=== PATIENT | female | born 1980 | race Caucasian/White ===

== ENCOUNTER → 2016-04-29 | Outpatient (CLI) | payer OTHER ==
[2016-04-29 10:37] LABS: Basophils # (A) 0.2 k/uL (0-0.2); Basophils % (A) 2 %; CH 32.2; CHCM 32.7; Eosinophils % (A) 0 %; HCT 41.4 % (34.0-46.0); HDW 2.51; HGB 13.4 gm/dL (11.4-16.0); Luc # (Auto) 0.09; Luc % (Auto) 1; Lymphocytes # (A) 1.5 k/uL (1.0-4.8); Lymphocytes % (A) 20 %; MCH 31.9 pg (25.0-35.0); MCHC 32.3 g/dL (31.0-37.0); MCV 98.8 fL (80.0-100.0); Mean Platelet Volume 10.3; Monocytes # (A) 0.5 k/uL (0-1.0); Monocytes % (A) 7 %; Neutrophils # (A) 5.5 k/uL (1.3-7.7); Neutrophils % (A) 70 %; RBC 4.19 m/uL (3.80-5.40); RDW 13.3 % (11.5-15.5); WBC 7.8 k/uL (3.8-10.6); WBC (Perox) 8.35
[2016-04-29 10:59] LABS: ALT 30 U/L (9-52); AST 26 U/L (14-36); Alkaline Phosphatase 89 U/L (38-126); Anion Gap 11 mmol/L; Bilirubin, Delta 0.1 mg/dL (0.0-0.2); Blood Urea Nitrogen 11 mg/dL (7-17); Carbon Dioxide 22 mmol/L (22-30); Chloride 111 mmol/L (98-107); Lithium 0.9 mmol/L; Non-African American GFR(MDRD) >60 (>60 ml/min/1.73 sqM); Sodium 144 mmol/L (137-145); Total Bilirubin 0.4 mg/dL (0.2-1.3); Total Protein 7.1 g/dL (6.3-8.2)
== END | disposition home or self-care (01) ==
LOC: LABWHC1 10:02
PROVIDERS: ATTEND Nurse Practitioner Family
DX: Z51.81 Encounter for therapeutic drug level monitoring (principal); Z79.899 Other long term (current) drug therapy
CPT/HCPCS: 36415; 80051; 80076; 80178; 80183; 82565; 84439; 84443; 84520; 85025

== ENCOUNTER → 2016-06-22 | Outpatient (CLI) | payer OTHER ==
--- NOTE | 2016-06-22 11:02 | MR ---
EXAMINATION TYPE: MR lumbar spine wo con DATE OF EXAM: 06/22/2016 9:24 AM COMPARISON: NONE HISTORY: Back pain TECHNIQUE: Multiplanar, multisequence images of the lumbar spine were acquired. L1-L2: Circumferential posterior broad-based disc bulge somewhat eccentric towards the left causes mi nimal anterior mass effect on the thecal sac. No significant central stenosis or foraminal encroachme nt. L2-L3: Circumferential posterior broad-based disc bulge causes mild anterior mass effect on the theca l sac. Hypertrophic change of the ligamentum flavum causes posterior lateral mass effect on the theca l sac, no significant foraminal encroachment or central stenosis. L3-L4: Circumferential posterior extension of endplate disc complex causes anterior mass effect on th e thecal sac somewhat eccentric appearance towards the left, circumferential extension of endplate di sc complex results in foraminal encroachment greater on the left. Facet arthropathy is mild. On mild central stenosis. L4-L5: Hypertrophic change at the ligamentum flavum causes lateral recess encroachment, circumferenti al extension of endplate disc complex results in foraminal encroachment bilaterally, there is anterio r mass effect on the thecal sac, trefoil appearance of the thecal sac. L5-S1: Broad-based circumferential posterior disc bulge contacts the anterior S1 nerve roots and exte nds circumferentially to cause bilateral foraminal encroachment right greater than left. There is stanley e facet arthropathy change encroaching on the lateral recesses. No significant central stenosis. Lumbar segments are intact. No paraspinal masses are identified. Conus medullaris has a normal appe arance. Cortical cysts are present within the right kidney and left kidney. Lumbar vertebral bodies s how preserved height, there is retrolisthesis grade 1 L2-3, L3-4, L4-5. Loss of disc height at the in tervertebral levels, there is multilevel spondylosis with endplate discogenic marrow signal change. IMPRESSION: Degenerative disc disease, facet arthropathy, multilevel foraminal encroachment. Additional findings.
== END | disposition home or self-care (01) ==
LOC: RADMRIMAIN 08:49
PROVIDERS: ATTEND Internal Medicine Rheumatology
DX: M51.36 Other intervertebral disc degeneration, lumbar region (principal); M46.96 Unspecified inflammatory spondylopathy, lumbar region
CPT/HCPCS: 72148

== ENCOUNTER 2016-08-21 12:50 | Day surgery (SDC) | payer OTHER ==
[2016-08-17 15:50] VITALS: BMI 28.8
[~2016-08-21 12:50] MED LIST: DEXAMETHASONE SOD PHOSPHATE 10 MG/ML 1 ML VIAL IV ONE; HYDROmorphone 1 MG/ML 1 ML SYRINGE IVP PRN; LACTATED RINGERS 1,000 ML IV SCH; MIDAZOLAM 2 MG/2 ML VIAL IV PRN; ONDANSETRON 4 MG/2 ML VIAL IVP ONE; SCOPOLAMINE 1.5MG/72HR PATCH TRANSDERM ONE; ceFAZolin 2 GM in SODIUM CHLORIDE 0.9% 100 ML IVPB ONE
[2016-08-21] MEDS ORDERED: LIDOCAINE 1% 20 ML VIAL (10MG/ML) FOR IV START INTRADERMA ONE (13:48)
[2016-08-21] MEDS ORDERED: LIDOCAINE 1% INJ 10MG/ML (20 ML MDV) ONE (14:05)
[2016-08-21] MEDS ORDERED: ROCURONIUM BROMIDE 10 MG/ML 10 ML VIAL IV ONE (14:05)
[2016-08-21] MEDS ORDERED: MIDAZOLAM 2 MG/2 ML VIAL ONE (14:05)
[2016-08-21] MEDS ORDERED: fentaNYL (PF) 50 MCG/ML 2 ML AMP ONE (14:05)
[2016-08-21] MEDS ORDERED: ePHEDrine 50 MG/ML 1 ML AMP ONE (14:05)
[2016-08-21] MEDS ORDERED: HYDROmorphone (PF) 1 MG/ML ONE (14:05)
[2016-08-21] MEDS ORDERED: PROPOFOL 10 MG/ML 20 ML VIAL IV ONE (14:05)
[2016-08-21] MEDS ORDERED: PHENYLEPHRINE-0.9% NACL SYG 1 MG/10 ML SYRINGE ONE (14:05)
[2016-08-21] MEDS ORDERED: SUCCINYLCHOLINE CHLORIDE 100 MG/5 ML SYR IV ONE (14:05)
[2016-08-21] MEDS ORDERED: ceFAZolin 1,000 MG in SODIUM CHLORIDE 0.9% 1,000 ML IRRIGATION ONE (14:35)
[2016-08-21] MEDS ORDERED: LACTATED RINGERS 1,000 ML IV ONE (15:36)
--- NOTE | 2016-08-21 15:58 | FL ---
EXAMINATION TYPE: FL guidance operating room DATE OF EXAM: 08/21/2016 HISTORY: Flouroscopy time 17 seconds of fluoroscopy provided. IMPRESSION: 1. Fluoroscopy time.
--- NOTE | 2016-08-21 15:59 | XR ---
EXAMINATION TYPE: XR foot limited RT DATE OF EXAM: 08/21/2016 3:55 PM COMPARISON: NONE HISTORY: Postop TECHNIQUE: One view obtained. FINDINGS: Postsurgical changes are seen involving the first and second digit which appear in near-anatomic alig nment. IMPRESSION: Surgical change appears in near-anatomic alignment
[2016-08-21 16:24] VITALS: TEMP 97.5
[2016-08-21 16:34] VITALS: RESP 18
--- NOTE | 2016-08-21 16:34 | P.OP ---
Date of Procedure: 08/21/16 Preoperative Diagnosis: 1. Right hallux valgus with hypermobile first ray 2. Right gastrocnemius equinus contracture 3. Rheumatoid arthritis 4. History of cigarette smoking Postoperative Diagnosis: Same Procedure(s) Performed: 1. Correction of hallux valgus with modified Lapidus procedure 2. Right gastrocnemius recession obtained through a separate incision Implants: Anesthesia: MAHIN Surgeon: Joseph Middleton Cattle Killer #1: Nasim Narayanan Estimated Blood Loss (ml): 10 IV fluids (ml): 1,100 Pathology: none sent Condition: stable Disposition: PACU Indications for Procedure: The patient is a 36-year-old female medical history significant for maternal arthritis and a history of cigarette smoking. I began seeing the patient over the last several months with a hypermobile bunion. The patient has had ultimately years of treatment including she modification, orthotics, bunion pads , toe spacers, stretching, and physical therapy all with diminishing relief. She has had increasing pain over the medial eminence for first MTP joint that is made finding comfortable shoes difficult. The patient was initially managed nonsurgically by myself. Due to his continued pain she came requesting surgery. The patient has been working on quitting smoking. She has significant cut back. Initially I told her I would not perform surgery unless she quit smoking and she was able to significantly cut back from 1 pack a day down to several cigarettes. The patient came in to see me several weeks ago requesting surgery. We again discussed that would be in her best interest to wait until she completely quit but she says that she has got significantly back and was hoping I would make a compromise with her. We discussed the potential risks and complication of surgery which are elevated because she has a smoker including but not limited to risk of anesthesia, risk of superficial infection, risk of deep infection, risk of delayed wound healing, risk of wound necrosis, risk of nonunion of the fusion site, risk of malunion of the fusion site, risk of intraoperative or postoperative fracture, risk of recurrent hallux valgus deformity, risk of hallux varus deformity, risk of damage to local sensory nerves resulting in the upper or permanent numbness, risk of chronic pain, risk of chronic swelling, risk of difficulty with shoewear following surgery, risk of need for further surgery, and generalized to satisfaction with surgery. The patient understands all these risks and that she is at a higher risk of having a Location due to being a smoker. She voiced her understanding in the office and signed the consent form. Operative Findings: Description of Procedure: The patient was identified in preoperative holding and the correct right lower, is marked my initials. I reviewed the consent form with the patient all for questions were answered. The patient was then brought back to the operating room where general anesthetic was administered. She was transferred to an operating room table and all her bony prominences were padded. A tourniquet was applied to the proximal aspect of the right leg. A ramp was placed under her right leg. A bump was placed under her right buttock. The patient's right leg was then prepped and draped in the standard sterile fashion. Preoperative antibiotics were administered. A timeout was then performed identifying the correct patient, operative extremity, and procedure. The patient's leg was then elevated, exsanguinated with an Esmarch bandage and tourniquet was inflated to 250 mmHg. An incision was out over the posterior medial calf 1 thumb breadth posterior to the tibia. Skin incision was made a 15 by scalpel and dissection was carried down carefully through subcutaneous tissue to superficial fascia which was incised longitudinally in line with the skin incision. I Bowley develop the interval between the gastrocnemius aponeurosis and fascia and the gastroc aponeurosis and soleus. The sural nerve was identified adherent to the superficial fascia. Modified right angle retractors were placed in both intervals isolating the gastrocnemius aponeurosis. The aponeurosis was then transected sharply from medial to lateral under direct visualization in its entirety. After the gastroc was released there is a significant increase in dorsiflexion. I verified that the sural nerve was still intact. The wound was then copiously irrigated and closed in layers with 2-0 Vicryl in the subcu and 3 -0 nylon horizontal mattress stitches and the skin. An incision was then marked out over the medial eminence of the first MTP joint. Skin incision was made a 15 blade scalpel and dissection was carried down carefully through the subcutaneous tissue to the capsule over the MTP joint. The capsule was incised longitudinally in line with the skin incision. A microsagittal saw was used to remove a small bony section of the medial eminence with the saw cut starting medial to the sulcus. A small wafer of bone was removed and a rasp was used to contour the medial eminence. A [place] was then placed underneath the metatarsal head to release adhesions and help reduce the first metatarsal head over the sesamoids. The joint was gently distracted and a clean scalpel was placed to release the lateral capsule sharply. A varus force was applied to the big toe to perform a lateral release. A longitudinal incision was then made centered over the first tarsometatarsal joint. Skin incision was made a 15 blade scalpel and dissection was carried down carefully through subcutaneous tissue. A superficial sensory nerves identified and carefully retracted. The EHL tendon sheath was incised longitudinally in line with the skin incision. The periosteum over the first TMT joint was sharply elevated. The first TMT joint was then exposed and the articular cartilage was removed with a combination of osteotomes and curettes. All the cartilage was removed from the joint taking care to reach the plantar aspect of the joint to prevent a dorsiflexion malunion. The 1-2 intermetatarsal space was also exposed and the medial border of the second metatarsal was exposed and perforated with a 2.0 mm drill bit along with the lateral base of the first metatarsal to help facilitate fusion. The 2.0 mm drill bit was then used to perforate the first tarsometatarsal joint, both the first metatarsal base and medial cuneiform joint surfaces. A Kory was placed along the inferior first MTP capsule and a wooden handled AO elevator was placed over the middle cuneiform. The first metatarsal was then reduced with lateral pressure applied to the distal first metatarsal in an attempt to close down the 1-2 inner metatarsal space. A K wire was placed eccentric we across the joint holding the reduction. A 5 mm bur was used to create a pocket hole one and a half centimeters from the first TMT joint on the dorsal surface of the first metatarsal. A 3.5 mm drill bit was used to create a gliding hole in the first metatarsal and a 2.5 mm drill bit was used to create a threaded hole and the medial cuneiform. A fully threaded 3.5 mm screw measuring 45 mm was placed generating excellent compression across the first TMT joint. The K wire was removed and the reduction of the joint held. A second lag screw was placed from the dorsal surface of the medial cuneiform to the first metatarsal base. A 3.5 mm drill bit was used to create a gliding hole in the medial cuneiform and a 2.5 mm drill bit was used to create a threaded hole in the first metatarsal base. A fully threaded 3.5 mm screw was placed. A 1-2 or metatarsal screw was then placed. A stab incision was made under the screw head of the retrograde screw along the medial border of the first metatarsal. A K wire was placed from the medial base of the first metatarsal into the base of the second metatarsal. A 2.7 mm drill bit was used to create a path for the screw. A fully threaded 3.5 mm screw was placed from the base of the first metatarsal into the base of the second metatarsal. The first MTP joint was then irrigated through the distal incision. A small section of the capsule was removed and attempted imbricate the medial capsule and improve the hallux valgus deformity. 0 Vicryl suture was used to close the medial capsule improving the correction of the hallux valgus deformity. Final x-rays were taken including both in AP and lateral view. There was improvement in the 12 intermetatarsal angle and correction of hallux valgus deformity. The hardware appeared to be an extensile position with compression across the first TMT joint. Both wounds were then copiously irrigated. A bur was used to create 2 spot welds over the medial and lateral aspect of the dorsal first TMT joint to create stress-strain bone graft sites. Bone graft taken from the medial eminence the first MTP joint was packed in these 2 spots. The periosteum over the first TMT joint was then closed with a running 0 Vicryl stitch. The subcutaneous tissue of both wounds was closed with interrupted 2-0 Vicryl stitches. The skin was closed with 3-0 nylon horizontal mattress stitches area I verified with the refrigeration tech that all sponge, sharp, and needle counts were correct. A sterile dressing consisting of Betadine soaked Adaptic, 4 x 4, and web roll was applied. The tourniquet was let down. The drapes were then taken down and a well-padded bulky Gómez type splint was applied. The patient was awoken from her anesthetic, transferred to the [facility] and brought to PACU in The procedure well. Nasim Narayanan was required is a skilled health center assistant for patient positioning, surgical approach, retraction during surgery, closure, and application of splint. Next Plan: The patient is to be strictly nonweightbearing on her right leg. Anesthesia will place a popliteal and saphenous nerve block in recovery. She' ll discharge home with oral pain medication and aspirin for DVT prophylaxis. We 'll plan on seeing her back in the office in 2 weeks for splint removal, wound exam and nonweightbearing x-rays of the right foot.
[2016-08-21] MEDS ORDERED: ROPIVACAINE 5 MG/ML 30 ML VIAL MISCELLANE STA (17:18)
[2016-08-21 17:58] VITALS: BP 113/57; PULSE 80
== END 2016-08-21 18:58 | disposition home or self-care (01) ==
LOC: OR 12:50
PROVIDERS: ATTEND Orthopaedic Surgery
DX: M20.11 Hallux valgus (acquired), right foot (principal); M24.574 Contracture, right foot; M06.871 Other specified rheumatoid arthritis, right ankle and foot; R51 Headache; E03.9 Hypothyroidism, unspecified; F31.9 Bipolar disorder, unspecified; F17.210 Nicotine dependence, cigarettes, uncomplicated; Z79.899 Other long term (current) drug therapy
CPT/HCPCS: 28297; 27687; 81025; 73620; C1713; J2250; J1100; J0690 ×2; J2405; J2001; J3010; J1170; J2370; J0330; J2704

== ENCOUNTER → 2016-10-05 | Outpatient (CLI) | payer OTHER ==
--- NOTE | 2016-10-05 11:53 | MR ---
EXAMINATION TYPE: MR lumbar spine wo con DATE OF EXAM: 10/05/2016 COMPARISON: Prior lumbar MRI 06/22/2016 HISTORY: Low back pain TECHNIQUE: Multiplanar, multisequence images of the lumbar spine were acquired. L1-L2: Posterior broad-based disc bulge causes minimal anterior mass effect on the thecal sac. No sig nificant foraminal encroachment or central stenosis. L2-L3: Posterior broad-based disc bulge causes mild anterior mass effect on the thecal sac, no signif icant central stenosis or foraminal encroachment. L3-L4: Similar appearance with facet arthropathy and hypertrophy of ligamentum flavum, circumferentia l extension of endplate disc complex contributes with scoliosis to cause foraminal encroachment on th e left. No significant central canal stenosis, broad-based posterior disc bulge causes mild anterior mass effect on the thecal sac somewhat eccentric towards the left. L4-L5: Facet arthropathy with hypertrophy ligamentum flavum encroaches on the lateral recesses, circu mferential extension endplate disc complex which is similar appearance, there is some foraminal encro achment greater on the right. L5-S1: Circumferential extension of endplate disc complex encroaches on the neural foramina as on mary or exam, broad-based posterior disc bulge may contact the proximal S1 nerve roots. There is facet art hropathy. Lumbar segments are intact. No paraspinal masses are identified. Conus medullaris has a normal appe arance. There is a spinal curvature as on prior. Cystic right ovarian mass measures approximately 3.3 cm. Small cortical cyst upper pole right kidney again noted. Loss of disc height and signal is stabl e compared to prior exam and is noted especially at L3-4, L4-5, there is endplate discogenic marrow s ignal change with multilevel spondylosis. Alignment is stable, minimal retrolisthesis grade 1 L5, L3- 4. IMPRESSION: Degenerative disc disease, multilevel foraminal encroachment, spinal curvature, facet arthropathy. Po ssible right ovarian cyst. Findings in the spine are similar to prior exam. Additional findings above .
== END | disposition home or self-care (01) ==
LOC: RADMRIMAIN 09:16
PROVIDERS: ATTEND Physical Medicine & Rehabilitation
DX: M51.16 Intervertebral disc disorders with radiculopathy, lumbar region (principal); M51.17 Intervertebral disc disorders with radiculopathy, lumbosacral region
CPT/HCPCS: 72148

== ENCOUNTER → 2017-05-03 | Outpatient (CLI) | payer OTHER ==
--- NOTE | 2017-05-04 07:22 | MM ---
Reason for exam: screening (asymptomatic). Baseline mammogram. History: Family history of breast cancer in mother at age 40 and breast cancer in sister at age 40. Physical Findings: Nurse did not find any significant physical abnormalities on exam. MG Screening Mammo w CAD Bilateral CC and MLO view(s) were taken. The breast tissue is heterogeneously dense. This may lower the sensitivity of mammography. There is no discrete abnormality. These results were verbally communicated with the patient and result sheet given to the patient on 05/03/17. ASSESSMENT: Negative, BI-RAD 1 RECOMMENDATION: Routine screening mammogram of both breasts at age 38.
== END | disposition home or self-care (01) ==
LOC: RADMAMWWP 14:11
PROVIDERS: ATTEND Family Medicine
DX: Z80.3 Family history of malignant neoplasm of breast (principal)
CPT/HCPCS: 77067

== ENCOUNTER 2017-07-03 10:08 | Emergency (ER) | payer OTHER ==
[2017-07-03] MEDS ORDERED: SODIUM CHLORIDE 0.9% 1,000 ML IV STA (11:10)
[2017-07-03] MEDS ORDERED: MORPHINE SULFATE 4 MG/ML SYRINGE IVP STA (11:10)
[2017-07-03] MEDS ORDERED: PANTOPRAZOLE 40 MG/10 ML VIAL IVP STA (11:10)
[2017-07-03] MEDS ORDERED: ONDANSETRON 4 MG/2 ML VIAL IVP STA (11:10)
[2017-07-03] MEDS ORDERED: SENNOSIDES-DOCUSATE SODIUM 1 EACH TAB PO STA (11:11)
--- NOTE | 2017-07-03 11:33 | XR ---
EXAMINATION TYPE: XR abdomen acute w cxr , 3 VIEWS DATE OF EXAM ORDERED: 07/03/2017 HISTORY: Pain. COMPARISON: None. FINDINGS: The lungs are clear. Pleural space are clear. The heart is not enlarged. Within the abdomen, the abdominal gas pattern is within normal limits. There is no evidence of obstru ction or free air. No unusual calcifications are seen. IMPRESSION: NORMAL CHEST AND ABDOMEN.
--- NOTE | 2017-07-03 12:00 | ED ---
General Adult HPI - General Chief complaint: Abdominal Pain Stated complaint: constipation Time Seen by Provider: 07/03/17 10:55 Source: patient, RN notes reviewed, old records reviewed Mode of arrival: ambulatory Limitations: no limitations - History of Present Illness Initial comments: Is a 37-year-old female the ER for evaluation of bowel pain. Patient usually started on Klonopin, she has history of constipation. States she has not had a bowel movement 1 week. She has tried stool softeners herself with no success. Patient having now mild diffuse abdominal pain with no tenderness - Related Data Home Medications Medication Instructions Recorded Confirmed ARIPiprazole [Abilify] 30 mg PO HS 08/17/16 08/21/16 Etanercept [Enbrel] 50 mg SQ Q7DAYS 08/17/16 08/21/16 Folic Acid 1 mg PO HS 08/17/16 08/21/16 Ibuprofen [Motrin] 800 mg PO Q8HR PRN 08/17/16 08/21/16 Levothyroxine Sodium [Synthroid] 125 mcg PO DAILY 08/17/16 08/21/16 [place] Carbonate 1,200 mg PO HS 08/17/16 08/21/16 Methotrexate Sodium [Methotrexate] 20 mg PO Q7D 08/17/16 08/21/16 OXcarbazepine [Trileptal] 300 mg PO DAILY@1500 08/17/16 08/21/16 OXcarbazepine [Trileptal] 600 mg PO BID 08/17/16 08/21/16 Prazosin [Minipress] 3 mg PO HS 08/17/16 08/21/16 Ranitidine HCl [Zantac] 150 mg PO BID 08/17/16 08/21/16 Topiramate [Topamax] 50 mg PO HS 08/17/16 08/21/16 Vilazodone HCl [Viibryd] 40 mg PO HS 08/17/16 08/21/16 Vitamin B-12 (Unknown Dose) 1 dose PO DAILY 08/17/16 08/21/16 Previous Rx's Medication Instructions Recorded Aspirin 325 mg PO BID #60 tab 08/21/16 Docusate [Colace] 100 mg PO BID #60 capsule 08/21/16 Hydrocodone/Acetaminophen [[place] 1 each PO Q4HR PRN #60 tablet 08/21/16 10-325 Tablet] Sulfamethox-Tmp 800-160Mg [Bactrim 1 tab PO Q12HR #28 tab 08/21/16 DS 800-160 mg] Allergies Allergy/AdvReac Type Severity Reaction Status Date / Time No Known Allergies Allergy Verified 07/03/17 10:12 Review of Systems ROS Statement: Those systems with pertinent positive or pertinent negative responses have been documented in the HPI. ROS Other: All systems not noted in ROS Statement are negative. Past Medical History Past Medical History: GERD/Reflux, Osteoarthritis (OA), Rheumatoid Arthritis (RA ), Thyroid Disorder Additional Past Medical History / Comment(s): BUNION RIGHT FOOT., CHILDHOOD ASTHMA. History of Any Multi-Drug Resistant Organisms: None Reported Past Surgical History: Section Additional Past Surgical History / Comment(s): X4, CYST LEFT HAND. Past Anesthesia/Blood Transfusion Reactions: No Reported Reaction Past Psychological History: Anxiety, Bipolar, Depression Smoking Status: Current every day smoker Past Alcohol Use History: None Reported Past Drug Use History: Marijuana - Past Family History Mother Family Medical History: Cancer, Pulmonary Embolus Additional Family Medical History / Comment(s): BREAST CANCER General Exam Limitations: no limitations General appearance: alert, in no apparent distress Head exam: Present: atraumatic, normocephalic, normal inspection Eye exam: Present: normal appearance, PERRL, EOMI. Absent: scleral icterus, conjunctival injection, periorbital swelling ENT exam: Present: normal exam, mucous membranes moist Neck exam: Present: normal inspection. Absent: tenderness, meningismus, lymphadenopathy Respiratory exam: Present: normal lung sounds bilaterally. Absent: respiratory distress, wheezes, rales, rhonchi, stridor Cardiovascular Exam: Present: normal rhythm, tachycardia, normal heart sounds. Absent: systolic murmur, diastolic murmur, rubs, gallop, clicks GI/Abdominal exam: Present: soft, normal bowel sounds. Absent: distended, tenderness, guarding, rebound, rigid Extremities exam: Present: normal inspection, full ROM, normal capillary refill. Absent: tenderness, pedal edema, joint swelling, calf tenderness Back exam: Present: normal inspection Neurological exam: Present: alert, oriented X3, CN II-XII intact Psychiatric exam: Present: normal affect, normal mood Skin exam: Present: warm, dry, intact, normal color. Absent: rash Course Vital Signs 07/03/17 10:10 Temperature 97.4 F L Pulse Rate 125 H Respiratory 22 Rate Blood Pressure 136/65 O2 Sat by Pulse 100 Oximetry - Reevaluation(s) Reevaluation #1: 07/03/17 11:59 Patient has positive bowel movement after enema Medical Decision Making - Medical Decision Making 37 female the ER without abdominal pain 1 week. X-ray significant for increased stool burden, no obstruction. Patient given enema has positive bowel movement. Patient can be discharged home - Radiology Data Radiology results: report reviewed (X-ray abdomen and KUB negative), image reviewed Disposition Clinical Impression: Constipation Disposition: HOME SELF-CARE Condition: Good Instructions: Constipation (ED) Referrals: Pankaj Her MD [Primary Care Provider] - 1-2 days
[2017-07-03 13:07] VITALS: BP 128/66; PULSE 115; RESP 18; TEMP 97.7
== END 2017-07-03 13:05 | disposition home or self-care (01) ==
LOC: EC 10:08
DX: K59.00 Constipation, unspecified (principal); R10.84 Generalized abdominal pain; K21.9 Gastro-esophageal reflux disease without esophagitis; E07.9 Disorder of thyroid, unspecified; M06.9 Rheumatoid arthritis, unspecified; F31.9 Bipolar disorder, unspecified; F41.9 Anxiety disorder, unspecified; F17.200 Nicotine dependence, unspecified, uncomplicated; Z79.899 Other long term (current) drug therapy
CPT/HCPCS: 74022; 99284

== ENCOUNTER → 2017-07-13 | Outpatient (CLI) | payer OTHER | END | disposition home or self-care (01) | LOC: LABWHC1 15:00 | PROVIDERS: ATTEND Orthopaedic Surgery | DX: E55.9 Vitamin D deficiency, unspecified (principal) | CPT/HCPCS: 36415; 82306 ==

== ENCOUNTER → 2017-08-17 | Outpatient (CLI) | payer OTHER ==
[2017-08-17 12:10] LABS: Basophils % (A) 0 %; Eosinophils % (A) 0 %; HCT 40.4 % (34.0-46.0); HGB 13.3 gm/dL (11.4-16.0); Lymphocytes # (A) 1.5 k/uL (1.0-4.8); Lymphocytes % (A) 20 %; MCH 30.9 pg (25.0-35.0); MCHC 32.8 g/dL (31.0-37.0); MCV 94.1 fL (80.0-100.0); Mean Platelet Volume 8.7; Monocytes # (A) 0.5 k/uL (0-1.0); Monocytes % (A) 6 %; Neutrophils # (A) 5.5 k/uL (1.3-7.7); Neutrophils % (A) 71 %; Platelet Count 162 k/uL (150-450); RBC 4.29 m/uL (3.80-5.40); RDW 14.2 % (11.5-15.5); WBC 7.7 k/uL (3.8-10.6)
== END | disposition home or self-care (01) ==
LOC: LABWHC1 11:31
PROVIDERS: ATTEND Nurse Practitioner Family
DX: F31.9 Bipolar disorder, unspecified (principal); T50.905A Adverse effect of unspecified drugs, medicaments and biological substances, initial encounter; Z79.899 Other long term (current) drug therapy
CPT/HCPCS: 36415; 85025

== ENCOUNTER 2017-08-20 11:03 | Day surgery (SDC) | payer OTHER ==
[2017-08-17 13:50] VITALS: BMI 31.9
[~2017-08-20 11:03] MED LIST changes: -HYDROmorphone 1 MG/ML 1 ML SYRINGE IVP PRN; -ceFAZolin 2 GM in SODIUM CHLORIDE 0.9% 100 ML IVPB ONE; +ceFAZolin IN SWFI 2 GM/20 ML SYRINGE IVP ONE; +fentaNYL (PF) 50 MCG/ML 2 ML AMP IV PRN
[2017-08-20] MEDS ORDERED: LIDOCAINE 1% 20 ML VIAL (10MG/ML) FOR IV START INTRADERMA ONE (11:35)
[2017-08-20] MEDS ORDERED: LIDOCAINE 1% INJ 10MG/ML (20 ML MDV) ONE (12:29)
[2017-08-20] MEDS ORDERED: HYDROmorphone (PF) 1 MG/ML ONE (12:29)
[2017-08-20] MEDS ORDERED: MIDAZOLAM 2 MG/2 ML VIAL ONE (12:29)
[2017-08-20] MEDS ORDERED: SUCCINYLCHOLINE CHLORIDE 100 MG/5 ML SYR IV ONE (12:29)
[2017-08-20] MEDS ORDERED: PROPOFOL 10 MG/ML 20 ML VIAL IV ONE (12:29)
[2017-08-20] MEDS ORDERED: fentaNYL (PF) 50 MCG/ML 2 ML AMP ONE (12:29)
[2017-08-20] MEDS ORDERED: ceFAZolin 1,000 MG in SODIUM CHLORIDE 0.9% 1,000 ML IRRIGATION ONE (12:45)
[2017-08-20] MEDS ORDERED: LACTATED RINGERS 1,000 ML IV ONE (14:33)
--- NOTE | 2017-08-20 14:35 | FL ---
Fluoroscopy HISTORY: Open reduction internal fixation 10 seconds fluoroscopy time supplied to the referring clinician. 2 intraoperative C-arm images docum ent the procedure. See dictated report from orthopedic surgery.
[2017-08-20 14:55] VITALS: TEMP 98
--- NOTE | 2017-08-20 15:09 | P.OP ---
Date of Procedure: 08/20/17 Preoperative Diagnosis: 1. Nonunion right modified Lapidus procedure 2. Current every day cigarette smoker 3. Rheumatoid arthritis Postoperative Diagnosis: Same Procedure(s) Performed: 1. Revision first tarsometatarsal joint fusion, modified Lapidus procedure 2. Removal of deep implants, right foot 3. Right calcaneal bone graft harvest 4. Application of short leg splint by physician Anesthesia: MAHIN Surgeon: Joseph Middleton Japanese Professor #1: Aurea Mujica Estimated Blood Loss (ml): 10 IV fluids (ml): 900 Pathology: other (Deep tissue sent for culture) Condition: stable Disposition: PACU Indications for Procedure: The patient is a 37-year-old female with a medical history significant for rheumatoid arthritis and being a current every day cigarette smoker. The patient had a hypermobile hallux valgus deformity which I have been managing nonoperatively. I recommended into new nonoperative treatment and recommended against surgery due to her smoking but the patient was adamant that she could not quit and accepted a higher risk of having a nonunion. She underwent a modified Lapidus procedure previously by myself. Unfortunately she went on to develop a painful nonunion. She had a recurrence of her hallux valgus. She was initially treated with vitamin D supplementation and a bone stimulator but had continued pain. She requested revision surgery. She was unable to quit smoking. We discussed her increased risk of complication due to cigarette smoking. She acknowledged this but still requested surgery. We discussed potential risks and complications of surgery including but not limited to risk of anesthesia, risk of superficial infection, risk of deep infection, risk of delayed wound healing, risk of wound necrosis, risk of damage to local blood vessels or nerves, risk of nonunion of the fusion site, risk of malunion of the fusion site, risk of chronic pain, risk of chronic swelling, generalized satisfactory surgery, DVT, PE, and possibly loss of life or limb. The patient voiced her understanding of having a higher risk of complication due to her cigarette smoking. Operative Findings: There is a nonunion of the first tarsometatarsal joint, but no sign of deep infection Description of Procedure: The patient was identified in preoperative holding and the correct right leg was marked with my initials. I reviewed the consent form with the patient and her family. All their questions were answered. The patient was then brought back to the operating room. She was positioned supine on the operating room table and a general anesthetic and preoperative antibiotics were administered. A bone foam ramp was placed under the right leg. The left leg was secured to the table with foam and tape. A bump was placed under the right buttock internally rotating the leg to neutral. A tourniquet was applied at the proximal aspect of the right thigh. The right leg was then prepped and draped in the standard sterile fashion. Prior to starting surgery timeout was performed identifying the correct patient, operative extremity, and procedure. The patient's leg was then elevated, exsanguinated with an Esmarch bandage, and the tourniquet was inflated to 250 mmHg. I began by making an incision over the prior scar over the lateral border of the first metatarsal. Dissection was carried down carefully through subcutaneous tissue. The periosteum over the first tarsometatarsal joint was elevated. There was an obvious nonunion of the fusion site with fibrous tissue at the interface of the medial cuneiform and first metatarsal base. The small fragment screws were identified and removed. The retrograde screw was broken, but the broken distal half of the screw was able to be removed through the joint. Deep cultures were taken from within the joint and sent for tissue culture. The joint was then debrided down to healthy-appearing bone. A 2.0 mm drill bit was used to perforate the bony surfaces. There is a small void at the fusion site so calcaneal bone graft was harvested. A stab incision was made over the lateral wall of the calcaneus and a 4.5 mm drill guide was used to take a core of bone from the calcaneus. This did not appear to be enough bone to fill avoid soaking cancellus allograft was mixed with the calcaneus autograft. Augment was mixed to the mixture of bone graft to help facilitate fusion. The first tarsometatarsal joint was packed with this bone graft substance until the void was completely filled. An incision was made distally over the medial aspect of the first MTP joint. The joint was distended and the lateral capsule was removed to the joint. A revision first MTP plate was then used to provide fixation across the first tarsometatarsal joint. The hallux valgus deformity was reduced and the plate was positioned over the dorsal aspect of the joint. Nonlocking screws were placed proximally to bring the plate down to the medial cuneiform. A 3.5 mm locking screw was then placed proximally. While an project administrative assistant held the1-2 inter metatarsal angle reduced the plate was brought down to bone distally. A 3.5 mm nonlocking screw was placed in the distal aspect of an eccentric hole to generate compression across the joint. A second 3.5 mm nonlocking screw was placed in the most distal hole of the plate. The remaining screw holes in the metatarsal were filled with 3.5 mm locking screws. The distal incision over the medial in its the first MTP joint was irrigated. The capsule was closed with 0 Vicryl to help and lateral view of the foot. The periosteum over the first tarsometatarsal joint was closed with a running 0 Vicryl. The deep subcu was reapproximated using 3-0 Monocryl. The skin was closed with 3-0 nylon horizontal mattress stitches. The incision over the calcaneus was closed with interrupted 3-0 nylon horizontal mattress stitch. Incision over the medial eminence the first MTP joint was closed with interrupted 3-0 nylon horizontal mattress stitches. I verified that all instrument, sponge, and sharp counts were correct. The tourniquet was let down. A sterile dressing consisting of Betadine to the Adaptic, 4 x 4, and web roll was applied. The drapes were taken down and a well-padded bulky Gómez splint was placed with the ankle in neutral. The patient was then awoken from her anesthetic, transferred to a gurney, and brought to PACU having tolerated the procedure well. Aurea Mujica PA-C was required is a skilled project administrative assistant for patient positioning, surgical exposure, placement of hardware, closure of wounds, and application of splint. Plan: The patient can discharge home as an outpatient. She is to remain strictly nonweightbearing on her right leg. We will follow her cultures to make sure they do not turn positive, but I have a low index of suspicion for infection. She will follow-up in 2 weeks for clinical recheck and x-rays of the foot. She will also need continued calcium and vitamin D supplementation and use of her bone stimulator. She was strongly encouraged to quit smoking to help facilitate fusion.
--- NOTE | 2017-08-20 15:31 | XR ---
Limited right foot HISTORY: Right foot fusion 2 intraoperative C-arm images document the procedure
[2017-08-20 16:03] VITALS: RESP 16
[2017-08-20 16:30] VITALS: BP 128/73; PULSE 108
== END 2017-08-20 16:53 | disposition home or self-care (01) ==
LOC: OR 11:03
PROVIDERS: ATTEND Orthopaedic Surgery
DX: M20.11 Hallux valgus (acquired), right foot (principal); M96.0 Pseudarthrosis after fusion or arthrodesis; M06.9 Rheumatoid arthritis, unspecified; F17.210 Nicotine dependence, cigarettes, uncomplicated; E03.9 Hypothyroidism, unspecified; F31.9 Bipolar disorder, unspecified; I10 Essential (primary) hypertension; F41.9 Anxiety disorder, unspecified; K21.9 Gastro-esophageal reflux disease without esophagitis; Z79.1 Long term (current) use of non-steroidal anti-inflammatories (NSAID); Z79.890 Hormone replacement therapy; Z79.891 Long term (current) use of opiate analgesic; Z79.52 Long term (current) use of systemic steroids; Z79.899 Other long term (current) drug therapy
CPT/HCPCS: 81025; 87070; 87205; 87075; 73620; 28740; 20900; 20680; C1713 ×2; C1762; J1100; J2405; J0690 ×2

== ENCOUNTER → 2017-08-24 | Outpatient (CLI) | payer OTHER ==
[2017-08-24 12:22] LABS: Basophils % (A) 0 %; Eosinophils % (A) 0 %; HGB 13.7 gm/dL (11.4-16.0); Lymphocytes # (A) 1.7 k/uL (1.0-4.8); Lymphocytes % (A) 21 %; MCH 30.1 pg (25.0-35.0); MCHC 31.8 g/dL (31.0-37.0); MCV 94.6 fL (80.0-100.0); Mean Platelet Volume 9.6; Monocytes # (A) 0.5 k/uL (0-1.0); Monocytes % (A) 6 %; Neutrophils % (A) 72 %; Platelet Count 172 k/uL (150-450); RBC 4.55 m/uL (3.80-5.40); RDW 14.2 % (11.5-15.5); WBC 8.4 k/uL (3.8-10.6)
== END | disposition home or self-care (01) ==
LOC: LABWHC1 11:35
PROVIDERS: ATTEND Nurse Practitioner Family
DX: F31.9 Bipolar disorder, unspecified (principal); T50.905A Adverse effect of unspecified drugs, medicaments and biological substances, initial encounter; Z79.899 Other long term (current) drug therapy
CPT/HCPCS: 36415; 85025

== ENCOUNTER 2017-09-14 16:32 | Inpatient (IN) | payer OTHER ==
[2017-09-14] MEDS ORDERED: ONDANSETRON 4 MG/2 ML VIAL IVP STA (17:12)
[2017-09-14] MEDS ORDERED: KETOROLAC 30 MG/ML 1 ML VIAL IVP STA (17:12)
[2017-09-14] MEDS ORDERED: SODIUM CHLORIDE 0.9% 1,000 ML IV STA (17:12)
[2017-09-14] MEDS ORDERED: MORPHINE SULFATE 2 MG/ML SYRINGE IV STA (17:14)
--- NOTE | 2017-09-14 17:45 | ED ---
General Adult HPI - General Chief complaint: Abdominal Pain Stated complaint: Abd Pain/Diarrhea/Vomiting Time Seen by Provider: 09/14/17 16:46 Source: patient, RN notes reviewed, old records reviewed Mode of arrival: wheelchair Limitations: no limitations - History of Present Illness Initial comments: Patient is a 37-year-old female presents to the emergency department with a chief complaint of nausea, episodes of diarrhea today and abdominal pain. She reports yesterday evening she started have some right-sided abdominal pain. She now reports diffuse tenderness. He reports low-grade fevers and chills. Temperature 99.7. Patient states she's had no blood in her stools or urine. She does have a history of race recent right foot surgery. She is currently in a walking boot. No abdominal surgeries. - Related Data Home Medications Medication Instructions Recorded Confirmed Etanercept [Enbrel] 50 mg SQ 08/17/16 09/14/17 Folic Acid 1 mg PO HS 08/17/16 09/14/17 Levothyroxine Sodium [Synthroid] 125 mcg PO DAILY 08/17/16 09/14/17 Methotrexate Sodium [Methotrexate] 20 mg PO FR 08/17/16 09/14/17 Prazosin [Minipress] 3 mg PO HS 08/17/16 09/14/17 Ranitidine HCl [Zantac] 150 mg PO BID 08/17/16 09/14/17 Vilazodone HCl [Viibryd] 40 mg PO HS 08/17/16 09/14/17 cloZAPine [Clozaril] 25 mg PO BID@0800,1600 08/17/17 09/14/17 cloZAPine [Clozaril] 250 mg PO HS 08/17/17 09/14/17 Hydrocodone/Acetaminophen [Rena Lara 1 tab PO Q4HR PRN 09/14/17 09/14/17 10-325 Tablet] Allergies Allergy/AdvReac Type Severity Reaction Status Date / Time No Known Allergies Allergy Verified 09/14/17 17:21 Review of Systems ROS Statement: Those systems with pertinent positive or pertinent negative responses have been documented in the HPI. ROS Other: All systems not noted in ROS Statement are negative. Past Medical History Past Medical History: GERD/Reflux, Osteoarthritis (OA), Rheumatoid Arthritis (RA ), Thyroid Disorder Additional Past Medical History / Comment(s): BUNION RIGHT FOOT., CHILDHOOD ASTHMA. History of Any Multi-Drug Resistant Organisms: None Reported Past Surgical History: Section Additional Past Surgical History / Comment(s): X4, CYST LEFT HAND. Past Anesthesia/Blood Transfusion Reactions: No Reported Reaction Past Psychological History: Anxiety, Bipolar, Depression Smoking Status: Current every day smoker Past Alcohol Use History: None Reported Past Drug Use History: None Reported - Past Family History Mother Family Medical History: Cancer, Pulmonary Embolus Additional Family Medical History / Comment(s): BREAST CANCER General Exam - General Exam Comments Initial Comments: Pleasant 37-year-old female. Alert and oriented. No significant distress. Limitations: no limitations General appearance: alert, in no apparent distress Head exam: Present: atraumatic, normocephalic, normal inspection Eye exam: Present: normal appearance, PERRL, EOMI. Absent: scleral icterus, conjunctival injection, periorbital swelling ENT exam: Present: normal exam, mucous membranes moist Neck exam: Present: normal inspection. Absent: tenderness, meningismus, lymphadenopathy Respiratory exam: Present: normal lung sounds bilaterally. Absent: respiratory distress, wheezes, rales, rhonchi, stridor Cardiovascular Exam: Present: regular rate, normal rhythm, normal heart sounds. Absent: systolic murmur, diastolic murmur, rubs, gallop, clicks GI/Abdominal exam: Present: soft, tenderness, normal bowel sounds. Absent: distended, guarding, rebound, rigid Extremities exam: Present: normal inspection, full ROM, normal capillary refill. Absent: tenderness, pedal edema, joint swelling, calf tenderness Back exam: Present: normal inspection Neurological exam: Present: alert, oriented X3, CN II-XII intact Psychiatric exam: Present: normal affect, normal mood Skin exam: Present: warm (RUQ and LUQ ), dry, intact, normal color. Absent: rash Course Vital Signs 09/14/17 16:39 Temperature 98.4 F Pulse Rate 118 H Respiratory 18 Rate Blood Pressure 119/83 O2 Sat by Pulse 98 Oximetry Medical Decision Making - Medical Decision Making 37-year-old female with 1 day of right sided abdominal pain, fevers and chills. She was quite tender on exam. Patient has evidence of orthostatic white blood count 12.3. Neutrophils 9.7. Liver enzymes are within normal limits. Bilirubin was stable. Alk phos 178. Urinalysis is unremarkable. Given the tenderness on examination I did perform computed tomography scan exam. There is evidence of dilated gallbladder consistent with acute cholecystitis. At this time I'll put the Patient on Levaquin and Flagyl. Patient was admitted this time. Cranial liquid diet in the morning. She'll be admitted to Dr. Encarnacion the on-call surgeon. - Lab Data Result diagrams: 09/14/17 18:00 09/14/17 18:00 Lab Results 09/14/17 09/14/17 09/14/17 Range/Units 17:55 18:00 18:00 WBC 12.3 H (3.8-10.6) k/uL RBC 4.78 (3.80-5.40) m/uL Hgb 14.2 (11.4-16.0) gm/dL Hct 41.9 (34.0-46.0) % MCV 87.7 (80.0-100.0) fL MCH 29.6 (25.0-35.0) pg MCHC 33.8 (31.0-37.0) g/dL RDW 13.5 (11.5-15.5) % Plt Count 193 (150-450) k/uL Neutrophils % 79 % Lymphocytes % 12 % Monocytes % 7 % Eosinophils % 1 % Basophils % 0 % Neutrophils # 9.7 H (1.3-7.7) k/uL Lymphocytes # 1.5 (1.0-4.8) k/uL Monocytes # 0.9 (0-1.0) k/uL Eosinophils # 0.1 (0-0.7) k/uL Basophils # 0.0 (0-0.2) k/uL PT (9.0-12.0) sec INR (<1.2) APTT (22.0-30.0) sec Sodium 141 (137-145) mmol/L Potassium 3.2 L (3.5-5.1) mmol/L Chloride 106 (98-107) mmol/L Carbon Dioxide 22 (22-30) mmol/L Anion Gap 13 mmol/L BUN 5 L (7-17) mg/dL Creatinine 0.78 (0.52-1.04) mg/dL Est GFR (CKD-EPI)AfAm >90 (>60 ml/min/1.73 sqM) Est GFR (CKD-EPI)NonAf >90 (>60 ml/min/1.73 sqM) Glucose 106 H (74-99) mg/dL Plasma Lactic Acid José Miguel (0.7-2.0) mmol/L Calcium 9.2 (8.4-10.2) mg/dL Total Bilirubin 0.5 (0.2-1.3) mg/dL AST 18 (14-36) U/L ALT 23 (9-52) U/L Alkaline Phosphatase 178 H (38-126) U/L Total Protein 7.4 (6.3-8.2) g/dL Albumin 4.4 (3.5-5.0) g/dL Amylase 103 (30-110) U/L Lipase 106 (23-300) U/L Urine Color Yellow Urine Appearance Clear (Clear) Urine pH 7.0 (5.0-8.0) Ur Specific Vernon 1.006 (1.001-1.035) Urine Protein Negative (Negative) Urine Glucose (UA) Negative (Negative) Urine Ketones Negative (Negative) Urine Blood Small H (Negative) Urine Nitrite Negative (Negative) Urine Bilirubin Negative (Negative) Urine Urobilinogen <2.0 (<2.0) mg/dL Ur Leukocyte Esterase Negative (Negative) Urine RBC 1 (0-5) /hpf Urine WBC 1 (0-5) /hpf Ur Squamous Epith Cells 2 (0-4) /hpf Amorphous Sediment Rare H (None) /hpf Urine Bacteria Occasional H (None) /hpf Urine Mucus Rare H (None) /hpf 09/14/17 09/14/17 Range/Units 18:00 18:00 WBC (3.8-10.6) k/uL RBC (3.80-5.40) m/uL Hgb (11.4-16.0) gm/dL Hct (34.0-46.0) % MCV (80.0-100.0) fL MCH (25.0-35.0) pg MCHC (31.0-37.0) g/dL RDW (11.5-15.5) % Plt Count (150-450) k/uL Neutrophils % % Lymphocytes % % Monocytes % % Eosinophils % % Basophils % % Neutrophils # (1.3-7.7) k/uL Lymphocytes # (1.0-4.8) k/uL Monocytes # (0-1.0) k/uL Eosinophils # (0-0.7) k/uL Basophils # (0-0.2) k/uL PT 10.0 (9.0-12.0) sec INR 1.0 (<1.2) APTT 28.3 (22.0-30.0) sec Sodium (137-145) mmol/L Potassium (3.5-5.1) mmol/L Chloride (98-107) mmol/L Carbon Dioxide (22-30) mmol/L Anion Gap mmol/L BUN (7-17) mg/dL Creatinine (0.52-1.04) mg/dL Est GFR (CKD-EPI)AfAm (>60 ml/min/1.73 sqM) Est GFR (CKD-EPI)NonAf (>60 ml/min/1.73 sqM) Glucose (74-99) mg/dL Plasma Lactic Acid José Miguel 1.2 (0.7-2.0) mmol/L Calcium (8.4-10.2) mg/dL Total Bilirubin (0.2-1.3) mg/dL AST (14-36) U/L ALT (9-52) U/L Alkaline Phosphatase (38-126) U/L Total Protein (6.3-8.2) g/dL Albumin (3.5-5.0) g/dL Amylase (30-110) U/L Lipase (23-300) U/L Urine Color Urine Appearance (Clear) Urine pH (5.0-8.0) Ur Specific Vernon (1.001-1.035) Urine Protein (Negative) Urine Glucose (UA) (Negative) Urine Ketones (Negative) Urine Blood (Negative) Urine Nitrite (Negative) Urine Bilirubin (Negative) Urine Urobilinogen (<2.0) mg/dL Ur Leukocyte Esterase (Negative) Urine RBC (0-5) /hpf Urine WBC (0-5) /hpf Ur Squamous Epith Cells (0-4) /hpf Amorphous Sediment (None) /hpf Urine Bacteria (None) /hpf Urine Mucus (None) /hpf - Radiology Data Radiology results: report reviewed Moderately dilated gallbladder consistent with acute cholecystitis. This is new compared old exam. Small amount of free fluid in the cul-de-sac. No sign of appendicitis. Disposition Clinical Impression: Acute cholecystitis Disposition: ADMITTED IP TO THIS HOSP Condition: Good Is patient prescribed a controlled substance at d/c from ED?: No When asked, does pt state using other controlled substances?: No If prescribed controlled substance>3 days was MAPS reviewed?: No If opioid is for acute pain is fill amount 7 days or less?: No If Rx opioid, was Start Talking consent form obtained?: No Referrals: Pankaj Her MD [Primary Care Provider] - 1-2 days Time of Disposition: 19:51
[2017-09-14 18:08] LABS: Amorphous Sediment,Urine Rare /hpf; Appearance,Urine Clear (Clear); Bacteria,Urine Occasional /hpf; Bilirubin,Urine Negative (Negative); Blood,Urine Small (Negative); Color,Urine Yellow; Glucose,Urine (UA) Negative (Negative); Ketones,Urine Negative (Negative); Leukocyte Esterase,Urine Negative (Negative); Mucus,Urine Rare /hpf; Nitrite,Urine Negative (Negative); Protein,Urine Negative (Negative); RBC,Urine 1 /hpf (0-5); Specific Gravity,Urine 1.006 (1.001-1.035); Squamous Epithelial Cell,Urine 2 /hpf (0-4); Urobilinogen,Urine <2.0 mg/dL (<2.0); WBC,Urine 1 /hpf (0-5)
[2017-09-14 18:22] LABS: Basophils % (A) 0 %; Eosinophils # (A) 0.1 k/uL (0-0.7); Eosinophils % (A) 1 %; HCT 41.9 % (34.0-46.0); HGB 14.2 gm/dL (11.4-16.0); Lymphocytes # (A) 1.5 k/uL (1.0-4.8); Lymphocytes % (A) 12 %; MCH 29.6 pg (25.0-35.0); MCHC 33.8 g/dL (31.0-37.0); MCV 87.7 fL (80.0-100.0); Mean Platelet Volume 9.7; Monocytes # (A) 0.9 k/uL (0-1.0); Monocytes % (A) 7 %; Neutrophils # (A) 9.7 k/uL (1.3-7.7); Neutrophils % (A) 79 %; Platelet Count 193 k/uL (150-450); RBC 4.78 m/uL (3.80-5.40); RDW 13.5 % (11.5-15.5); WBC 12.3 k/uL (3.8-10.6)
[2017-09-14 18:27] LABS: Partial Thromboplastin Time 28.3 sec (22.0-30.0)
[2017-09-14 18:41] LABS: ALT 23 U/L (9-52); AST 18 U/L (14-36); Albumin 4.4 g/dL (3.5-5.0); Alkaline Phosphatase 178 U/L (38-126); Amylase 103 U/L (30-110); Anion Gap 13 mmol/L; Blood Urea Nitrogen 5 mg/dL (7-17); Calcium 9.2 mg/dL (8.4-10.2); Carbon Dioxide 22 mmol/L (22-30); Chloride 106 mmol/L (98-107); Glucose 106 mg/dL (74-99); Lipase 106 U/L (23-300); Potassium 3.2 mmol/L (3.5-5.1); Sodium 141 mmol/L (137-145); Total Bilirubin 0.5 mg/dL (0.2-1.3); Total Protein 7.4 g/dL (6.3-8.2)
--- NOTE | 2017-09-14 19:02 | CT ---
EXAMINATION TYPE: CT abdomen pelvis w con DATE OF EXAM: 09/14/2017 COMPARISON: 12/01/2011 HISTORY: Right lower quadrant abdominal pain, vomiting and diarrhea. CT DLP: 1549 mGycm Automated exposure control for dose reduction was used. TECHNIQUE: Helical acquisition of images was performed from the lung bases through the pelvis. CONTRAST: Performed without Oral Contrast and with IV Contrast, patient injected with 100ml mL of Isovue M300. FINDINGS: Lung bases are clear. There is no pleural effusion. Heart size is normal. There is no pericardial eff usion. Gallbladder is dilated and measures 5.2 cm in diameter. Liver shows no focal defect. Spleen is normal . There is no pancreatic mass. Bile ducts are not dilated. There is no adrenal mass. Kidneys show satisfactory contrast opacification. There is no hydronephrosi s. There is no retroperitoneal adenopathy. There is no ascites. Bladder distends smoothly. Uterus is anteverted. There is a small amount of free fluid in the cul-de-sac. I see no intestinal wall thicken ing. There are no dilated loops. Appendix appears normal. There are mild spondylotic changes in the l umbar spine. IMPRESSION: THERE IS A MODERATELY DILATED GALLBLADDER CONSISTENT WITH ACUTE CHOLECYSTITIS. THIS IS NEW COMPARED T O OLD EXAM. SMALL AMOUNT OF FREE FLUID IN THE CUL-DE-SAC. NO SIGN OF APPENDICITIS.
[2017-09-14] MEDS ORDERED: ONDANSETRON 4 MG/2 ML VIAL IVP PRN (19:51)
[2017-09-14] MEDS ORDERED: NALOXONE 0.4 MG/ML 1 ML VIAL IV PRN (19:51)
[2017-09-14] MEDS ORDERED: IBUPROFEN 400 MG TAB PO PRN (19:51)
[2017-09-14] MEDS ORDERED: ACETAMINOPHEN TAB 325 MG TAB PO PRN (19:51)
[2017-09-14] MEDS ORDERED: metroNIDAZOLE-NS PMX 500 MG in SALINE 1 100ML.BAG IVPB STA (20:12)
[2017-09-14] MEDS ORDERED: LEVOFLOXACIN 750MG-D5W PMX 750 MG in DEXTROSE/WATER 1 150ML.BAG IVPB STA (20:12)
[2017-09-14] MEDS ORDERED: HEPARIN SODIUM,PORCINE 5,000 UNIT/ML 1 ML VIAL SQ SCH (21:00)
[2017-09-14] MEDS: PRAZOSIN 1 MG CAP PO SCH (21:28)
[2017-09-14] MEDS: FOLIC ACID 1 MG TAB PO SCH (21:28)
[2017-09-14] MEDS: FAMOTIDINE 20 MG TAB PO SCH (21:28)
[2017-09-14] MEDS: SODIUM CHLORIDE 0.9% 1,000 ML IV SCH (21:38)
[2017-09-14] MEDS: NON-FORMULARY DRUG (Vilazodone Hcl [Viibryd] 40 MG) PO SCH (21:47)
[2017-09-14] MEDS: cloZAPine 100 MG TAB PO SCH (22:00)
[2017-09-14] MEDS: HYDROcodone/APAP 10-325MG 1 EACH TAB PO PRN (22:05)
[2017-09-15] MEDS: MORPHINE SULFATE 2 MG/ML SYRINGE IV PRN ×3 (05:10→14:21)
[2017-09-15] MEDS: LEVOTHYROXINE 125 MCG TAB PO SCH (05:19)
[2017-09-15] MEDS: SODIUM CHLORIDE 0.9% 1,000 ML IV SCH ×3 (06:02→21:18)
[2017-09-15] MEDS: FAMOTIDINE 20 MG TAB PO SCH ×2 (07:45→21:19)
[2017-09-15] MEDS: PANTOPRAZOLE 40 MG/10 ML VIAL IV SCH (07:48)
[2017-09-15] MEDS: cloZAPine 25 MG TAB PO SCH ×2 (07:48→15:37)
[2017-09-15] MEDS ORDERED: POTASSIUM CHLORIDE ER 20 MEQ TAB.ER PO STA (10:35)
[2017-09-15] MEDS: ACETAMINOPHEN IV (For NPO) 1,000 MG in EMPTY BAG 1 BAG IVPB SCH ×2 (11:52→21:17)
--- NOTE | 2017-09-15 13:36 | P.GSHP ---
History of Present Illness H&P Date: 09/15/17 CHIEF COMPLAINT: Cholecystitis HISTORY OF PRESENT ILLNESS: The patient is a 37-year-old female who presents with history of epigastric including right upper quadrant abdominal pain for 4 days. She underwent diagnostic studies for her gallbladder. Her clinical picture is consistent with cholecystitis as well as confirmed on CT of the abdomen. PAST MEDICAL HISTORY: Please see list PAST SURGICAL HISTORY: Please see list MEDICATIONS: Please see list ALLERGIES: Denies. SOCIAL HISTORY: No illicit drug use FAMILY HISTORY: Pertinent for gallbladder disease REVIEW OF ORGAN SYSTEMS: Additionally reports: Gastrointestinal: Has fatty food intolerance including greasy food and spicy food intolerance. CONSTITUTIONAL: No fevers or chills. HEENT: Denies any trouble with vision, hearing or nosebleeds. No difficulty swallowing. LYMPHATIC: The patient denies any lumps and bumps around the neck. ENDOCRINE: Denies any thyroid disorders. Denies any blood sugar glucose intolerance. RESPIRATORY: Denies pneumonia. Denies any troubles with breathing or dyspnea on exertion. CARDIOVASCULAR: Denies any chest pain, palpitations, or recent heart attacks. Past history of heart attack. GENITOURINARY: Denies any blood in urine or increased urinary frequency. Past cervical cancer MUSCULOSKELETAL: Has back pain, stiffness or joint arthritis. NEUROLOGIC: Denies any numbness or tingling along the distal extremities. No seizure disorders or headaches. PSYCHIATRIC: Denies any depression or suicidal ideation. HEMATOLOGIC: Has abnormal bleeding or bruising. BREASTS: Denies any breast lumps, pain or nipple discharge. SKIN: No current skin cancer. No rash. RHEUMATOLOGIC: Has rheumatoid arthritis. PHYSICAL EXAM: VITAL SIGNS: Afebrile vital signs stable Patient is a 37-year-old female. Abdomen: Tender along the right upper quadrant with localized peritonitis. GENERAL: Well developed and in no acute distress. Pleasant. HEENT: No sclera icterus. Extraocular movements grossly intact. Moist buccal mucosa. Head is atraumatic, normocephalic. Hears conversational speech. No nasal drainage. NECK: Supple without lymphadenopathy. No JV distention. CHEST: Non-labored respirations and equal bilateral excursions. CARDIOVASCULAR: Regular rate and rhythm. Palpable 2+ radial pulses. MUSCULOSKELETAL: No clubbing, cyanosis or edema. NEUROLOGIC: No focal or lateralizing signs. PSYCH: Appropriate affect. Alert and oriented to person, place and time. SKIN: Well perfused. Good skin turgor. STUDIES: CT of the abdomen and pelvis was reviewed demonstrating acute cholecystitis and enlarged liver as images were personally reviewed by me. ASSESSMENT: 1. Epigastric and right upper quadrant abdominal pain 2. Acute cholecystitis 3. Rheumatoid arthritis. 4. Obesity due to excess calories, BMI 33.5 PLAN: 1. Will need a cholecystectomy possible open. Benefits and risks were described. 2. Heparin for DVT prophylaxis 5000 units. 3. Antibiotics started Past Medical History Past Medical History: GERD/Reflux, Osteoarthritis (OA), Rheumatoid Arthritis (RA ), Thyroid Disorder Additional Past Medical History / Comment(s): BUNION RIGHT FOOT., CHILDHOOD ASTHMA.bipolar deprssion,anxiety History of Any Multi-Drug Resistant Organisms: None Reported Past Surgical History: Section Additional Past Surgical History / Comment(s): X4, CYST LEFT HAND.x2 rt foot sx -last one on [id number] medi boot Past Anesthesia/Blood Transfusion Reactions: No Reported Reaction Past Psychological History: Anxiety, Bipolar, Depression Additional Psychological History / Comment(s): NPD . Smoking Status: Current every day smoker Past Alcohol Use History: None Reported Additional Past Alcohol Use History / Comment(s): SMOKES less than 1 ppd. SMOKING FOR APPROX 20 YEARS. Past Drug Use History: Marijuana Additional Drug Use History / Comment(s): STATES past use of marijuana - Past Family History Mother Family Medical History: Cancer, Pulmonary Embolus Additional Family Medical History / Comment(s): BREAST CANCER and sister has hx of breast cancer 14 years ago Father Additional Family Medical History / Comment(s): alcoholic Medications and Allergies Home Medications Medication Instructions Recorded Confirmed Type Etanercept [Enbrel] 50 mg SQ 08/17/16 09/14/17 History Levothyroxine Sodium [Synthroid] 125 mcg PO DAILY 08/17/16 09/14/17 History Methotrexate Sodium [Methotrexate] 20 mg PO 08/17/16 09/14/17 History Prazosin [Minipress] 3 mg PO 08/17/16 09/14/17 History RX: Folic Acid 1 mg PO 08/17/16 09/14/17 History Ranitidine HCl [Zantac] 150 mg PO BID 08/17/16 09/14/17 History Vilazodone HCl [Viibryd] 40 mg PO HS 08/17/16 09/14/17 History cloZAPine [Clozaril] 25 mg PO BID@0800,1600 08/17/17 09/14/17 History Hydrocodone/Acetaminophen [[place] 1 tab PO Q4HR PRN 09/14/17 09/14/17 History 10-325 Tablet] cloZAPine [Clozaril] 250 mg PO DAILY 09/14/17 09/14/17 History Allergies Allergy/AdvReac Type Severity Reaction Status Date / Time No Known Allergies Allergy Verified 09/14/17 17:21 Surgical - Exam Vital Signs Temp Pulse Resp BP Pulse Ox 98.4 F 118 H 18 119/83 98 09/14/17 16:39 09/14/17 16:39 09/14/17 16:39 09/14/17 16:39 09/14/17 16:39 Results - Labs 09/14/17 18:00 09/14/17 18:00 Abnormal Lab Results - Last 24 Hours (Table) 09/14/17 09/14/17 09/14/17 Range/Units 17:55 18:00 18:00 WBC 12.3 H (3.8-10.6) k/uL Neutrophils # 9.7 H (1.3-7.7) k/uL Potassium 3.2 L (3.5-5.1) mmol/L BUN 5 L (7-17) mg/dL Glucose 106 H (74-99) mg/dL Alkaline Phosphatase 178 H (38-126) U/L Urine Blood Small H (Negative) Amorphous Sediment Rare H (None) /hpf Urine Bacteria Occasional H (None) /hpf Urine Mucus Rare H (None) /hpf Diabetes panel 09/14/17 Range/Units 18:00 Sodium 141 (137-145) mmol/L Potassium 3.2 L (3.5-5.1) mmol/L Chloride 106 (98-107) mmol/L Carbon Dioxide 22 (22-30) mmol/L BUN 5 L (7-17) mg/dL Creatinine 0.78 (0.52-1.04) mg/dL Glucose 106 H (74-99) mg/dL Calcium 9.2 (8.4-10.2) mg/dL AST 18 (14-36) U/L ALT 23 (9-52) U/L Alkaline Phosphatase 178 H (38-126) U/L Total Protein 7.4 (6.3-8.2) g/dL Albumin 4.4 (3.5-5.0) g/dL Calcium panel 09/14/17 Range/Units 18:00 Calcium 9.2 (8.4-10.2) mg/dL Albumin 4.4 (3.5-5.0) g/dL Pituitary panel 09/14/17 Range/Units 18:00 Sodium 141 (137-145) mmol/L Potassium 3.2 L (3.5-5.1) mmol/L Chloride 106 (98-107) mmol/L Carbon Dioxide 22 (22-30) mmol/L BUN 5 L (7-17) mg/dL Creatinine 0.78 (0.52-1.04) mg/dL Glucose 106 H (74-99) mg/dL Calcium 9.2 (8.4-10.2) mg/dL Adrenal panel 09/14/17 Range/Units 18:00 Sodium 141 (137-145) mmol/L Potassium 3.2 L (3.5-5.1) mmol/L Chloride 106 (98-107) mmol/L Carbon Dioxide 22 (22-30) mmol/L BUN 5 L (7-17) mg/dL Creatinine 0.78 (0.52-1.04) mg/dL Glucose 106 H (74-99) mg/dL Calcium 9.2 (8.4-10.2) mg/dL Total Bilirubin 0.5 (0.2-1.3) mg/dL AST 18 (14-36) U/L ALT 23 (9-52) U/L Alkaline Phosphatase 178 H (38-126) U/L Total Protein 7.4 (6.3-8.2) g/dL Albumin 4.4 (3.5-5.0) g/dL
[2017-09-15] MEDS ORDERED: ceFAZolin IN SWFI 2 GM/20 ML SYRINGE IVP ONE (13:45)
[2017-09-15] MEDS ORDERED: HEPARIN SODIUM,PORCINE 5,000 UNIT/ML 1 ML VIAL SQ SCH (16:00)
[2017-09-15] MEDS ORDERED: IV FLUID CONTINUATION 1,000 ML IV ONE ×2 (16:06)
[2017-09-15] MEDS ORDERED: LACTATED RINGERS 1,000 ML IV ONE ×4 (16:45→19:55)
[2017-09-15] MEDS ORDERED: SUCCINYLCHOLINE CHLORIDE 100 MG/5 ML SYR IV ONE (17:02)
[2017-09-15] MEDS ORDERED: MIDAZOLAM 2 MG/2 ML VIAL ONE (17:02)
[2017-09-15] MEDS ORDERED: LIDOCAINE 1% INJ 10MG/ML (20 ML MDV) ONE (17:02)
[2017-09-15] MEDS ORDERED: GLYCOPYRROLATE 0.2 MG/ML 2 ML VIAL ONE (17:02)
[2017-09-15] MEDS ORDERED: fentaNYL (PF) 50 MCG/ML 2 ML AMP ONE (17:02)
[2017-09-15] MEDS ORDERED: ePHEDrine SULFATE/0.9% NACL/PF 50 MG/5 ML SYRINGE IV ONE (17:02)
[2017-09-15] MEDS ORDERED: PROPOFOL 10 MG/ML 20 ML VIAL IV ONE (17:02)
[2017-09-15] MEDS ORDERED: ROCURONIUM BROMIDE 10 MG/ML 10 ML VIAL IV ONE (17:02)
[2017-09-15] MEDS ORDERED: NEOSTIGMINE 1 MG/ML 10 ML VIAL ONE (17:02)
[2017-09-15] MEDS ORDERED: BUPIVACAINE (PF) 0.5% 30 ML VIAL SQ ONE (17:30)
--- NOTE | 2017-09-15 19:28 | P.PCN ---
Date of Procedure: 09/15/17 Preoperative Diagnosis: Acute cholecystitis. right upper quadrant peritonitis Postoperative Diagnosis: Acute purulent hydrops cholecystitis with cystic duct obstruction, peritonitis, cirrhosis of the liver due to fatty liver disease macronodular, hepatomegaly Procedure(s) Performed: Laparoscopic cholecystectomy, placement of #19 round drain hepatic fossa Anesthesia: GETA, local Surgeon: Alfreda Mclean Estimated Blood Loss (ml): 300 Pathology: other (gallbladder, gallbladder fluid) Condition: stable Disposition: floor Operative Findings: 1. Fatty liver disease with macronodular liver cirrhosis 2. Hydrops with thor purulence from gallbladder 3. Contaminated case 4. Short cystic duct requiring transection at infunibulum for cholecystectomy with 60-mm Covidien tri-stapler 5. Dry hepatic fossa with round #19 drain placed.
[2017-09-15] MEDS: HYDROmorphone 1 MG/ML 1 ML SYRINGE IVP ONE ×3 (19:54→20:11)
[2017-09-15] MEDS ORDERED: HYDROmorphone 1 MG/ML 1 ML SYRINGE IVP ONE (20:18)
[2017-09-15] MEDS: PRAZOSIN 1 MG CAP PO SCH (21:19)
[2017-09-15] MEDS: cloZAPine 100 MG TAB PO SCH (21:19)
[2017-09-15] MEDS: FOLIC ACID 1 MG TAB PO SCH (21:19)
[2017-09-15] MEDS: HEPARIN SODIUM,PORCINE 5,000 UNIT/ML 1 ML VIAL SQ SCH ×2 (21:19→21:46)
[2017-09-15] MEDS: NON-FORMULARY DRUG (Vilazodone Hcl [Viibryd] 40 MG) PO SCH (21:20)
[2017-09-15] MEDS ORDERED: Potassium Replacement Protocol 1 EACH MISC MISCELLANE PRN (21:36)
[2017-09-15] MEDS: POTASSIUM CHLORIDE 10 MEQ in WATER FOR INJECTION 1 100ML.BAG IVPB SCH ×2 (22:03→23:23)
--- NOTE | 2017-09-15 23:21 | CONS ---
CONSULTATION SUBJECTIVE: A 37-year-old white female with cholecystitis. HISTORY OF PRESENT ILLNESS: A 37-year-old white female with epigastric pain, right upper quadrant pain for 4 days. Gallbladder shows cholecystitis. She is going to have surgery this afternoon. PAST MEDICAL HISTORY: See list. SURGICAL HISTORY: See list. ALLERGIES: Negative. REVIEW OF SYSTEMS: Fourteen point review of systems negative except for mentioned in HPI. MEDICATIONS: Reviewed. CARDIOVASCULAR: S1, S2. LUNGS: Clear. GI: Soft. HEMATOLOGY: Negative Homans'. PSYCH: Fair mood and affect. Psych normal. RHEUMATOLOGIC: Rheumatoid arthritis. SURGERY: A cyst left hand, x4. Anxiety, bipolar depression, GERD, osteoarthritis, rheumatoid arthritis, hypothyroidism, smoking for 20 years. FAMILY HISTORY: Mother with pulmonary embolism. Father alcoholic. Respiratory rate 18, blood pressure 119/83, pulse 98, temp 98.4. ASSESSMENT: 1. Acute cholecystitis. 2. Multiple medical conditions. Continue home medications. Please see further orders. MMODL / IJN: [id number] /
[2017-09-16] MEDS: MORPHINE SULFATE 2 MG/ML SYRINGE IV PRN ×2 (01:37→05:17)
[2017-09-16] MEDS: ACETAMINOPHEN IV (For NPO) 1,000 MG in EMPTY BAG 1 BAG IVPB SCH ×2 (01:38→07:40)
[2017-09-16] MEDS ORDERED: Potassium Replacement Protocol 1 EACH MISC MISCELLANE PRN (05:27)
[2017-09-16] MEDS ORDERED: POTASSIUM CHLORIDE ER 20 MEQ TAB.ER PO SCH (06:00)
[2017-09-16] MEDS: LEVOTHYROXINE 125 MCG TAB PO SCH (06:28)
[2017-09-16] MEDS: SODIUM CHLORIDE 0.9% 1,000 ML IV SCH ×4 (06:28→15:42)
[2017-09-16] MEDS: HYDROcodone/APAP 10-325MG 1 EACH TAB PO PRN ×2 (06:59→17:45)
[2017-09-16 07:27] LABS: Basophils % (A) 0 %; Eosinophils # (A) 0.1 k/uL (0-0.7); Eosinophils % (A) 0 %; HCT 36.8 % (34.0-46.0); HGB 12.2 gm/dL (11.4-16.0); Lymphocytes # (A) 0.9 k/uL (1.0-4.8); Lymphocytes % (A) 8 %; MCH 30.1 pg (25.0-35.0); MCHC 33.2 g/dL (31.0-37.0); MCV 90.9 fL (80.0-100.0); Mean Platelet Volume 10.9; Monocytes # (A) 0.9 k/uL (0-1.0); Monocytes % (A) 8 %; Neutrophils # (A) 9.1 k/uL (1.3-7.7); Neutrophils % (A) 83 %; Platelet Count 127 k/uL (150-450); RBC 4.06 m/uL (3.80-5.40); RDW 14.4 % (11.5-15.5)
[2017-09-16] MEDS: KETOROLAC 30 MG/ML 1 ML VIAL IVP PRN ×3 (07:41→19:56)
[2017-09-16] MEDS: HEPARIN SODIUM,PORCINE 5,000 UNIT/ML 1 ML VIAL SQ SCH ×2 (07:42→21:54)
[2017-09-16] MEDS: cloZAPine 25 MG TAB PO SCH ×2 (07:42→16:52)
[2017-09-16] MEDS: PANTOPRAZOLE 40 MG/10 ML VIAL IV SCH (07:43)
[2017-09-16] MEDS: FAMOTIDINE 20 MG TAB PO SCH (07:45)
[2017-09-16 08:28] LABS: ALT 30 U/L (9-52); AST 54 U/L (14-36); Alkaline Phosphatase 112 U/L (38-126); Anion Gap 12 mmol/L; Blood Urea Nitrogen 4 mg/dL (7-17); Calcium 8.4 mg/dL (8.4-10.2); Carbon Dioxide 17 mmol/L (22-30); Chloride 114 mmol/L (98-107); Glucose 107 mg/dL (74-99); Magnesium 1.6 mg/dL (1.6-2.3); Potassium 4.2 mmol/L (3.5-5.1); Sodium 143 mmol/L (137-145); Total Bilirubin 0.6 mg/dL (0.2-1.3); Total Protein 5.5 g/dL (6.3-8.2)
[2017-09-16] MEDS ORDERED: cloZAPine 100 MG TAB PO SCH (09:00)
[2017-09-16] MEDS ORDERED: SODIUM CHLORIDE 0.9% 1,000 ML IV ONE (09:33)
--- NOTE | 2017-09-16 09:35 | P.PN ---
<Shanell Chaneyne M - Last Filed: 09/16/17 09:24> Subjective Progress Note Date: 09/16/17 37-year-old female seen and examined. Currently sitting up in bed. States pain medication effective for pain control. COLT drain in the left lower quadrant serous drainage noted. Surgical dressings dry. Abdomen soft surgical tenderness appropriate. Tolerating diet no nausea no vomiting. Status post September 15 laparoscopic cholecystectomy placement of a COLT drain for acute purulent hydrops cholecystitis with cystic duct obstruction, peritonitis, cirrhosis of the liver due to fatty liver disease macronodular, hepatomegaly. Objective - Vital Signs Vital signs: Vital Signs Temp 98.1 F 09/16/17 06:45 Pulse 122 H 09/16/17 06:45 Resp 16 09/16/17 01:30 BP 106/68 09/16/17 06:45 Pulse Ox 93 L 09/16/17 06:45 Intake & Output 09/15/17 09/16/17 09/16/17 18:59 06:59 18:59 Intake Total 1900 1871 Output Total 640 Balance 1900 1231 Intake: IV 1900 300 Intake, IV Titration 851 Amount ACETAMINOPHEN IV (For NPO 200 ) 1,000 mg In Empty Bag 1 bag @ 400 mls/hr IVPB Q6HR [facility] Rx#:[id number] Potassium Chloride 10 meq 200 In Water For Injection 1 100ml.bag @ 100 mls/hr IVPB Q1H [facility] Rx#: [id number] Sodium Chloride 0.9% 1, 451 000 ml @ 120 mls/hr IV . Q8H20M [facility] Rx#:[id number] Oral 720 Output: Drainage 90 Right Lower Abdomen 90 Urine 200 Estimated Blood Loss 350 Other: Voiding Method Toilet Toilet # Voids 3 2 # Bowel Movements 0 - Exam Physical exam 37-year-old female sitting up in bed appears no acute distress Lungs adequate air movement bilaterally on room air Heart S1-S2 audible regular Abdomen surgical dressing sites dry COLT drain left lower quadrant serous drainage. A few hypoactive bowel tones states pain medication effective for pain control nondistended Extremities no edema med boots on to the right lower extremity - Labs CBC & Chem 7: 09/16/17 06:45 09/16/17 06:45 Labs: Abnormal Lab Results - Last 24 Hours (Table) 06/21/18 06/21/18 Range/Units 06:45 06:45 WBC 11.0 H (3.8-10.6) k/uL Plt Count 127 L (150-450) k/uL Neutrophils # 9.1 H (1.3-7.7) k/uL Lymphocytes # 0.9 L (1.0-4.8) k/uL Chloride 114 H (98-107) mmol/L Carbon Dioxide 17 L (22-30) mmol/L BUN 4 L (7-17) mg/dL Glucose 107 H (74-99) mg/dL AST 54 H (14-36) U/L Total Protein 5.5 L (6.3-8.2) g/dL Albumin 3.0 L (3.5-5.0) g/dL Microbiology - Last 24 Hours (Table) 09/15/17 19:10 Gram Stain - Preliminary Aspirate Body Fluid Culture - Preliminary 09/15/17 19:10 Anaerobic Culture - Preliminary Gallbladder Fluid 09/14/17 18:00 Blood Culture - Preliminary Blood No Growth after 24 hours Assessment and Plan Assessment: Impression Status post September 15 laparoscopic cholecystectomy placement of a COLT drain for acute purulent hydrops cholecystitis with cystic duct obstruction, peritonitis, cirrhosis of the liver due to fatty liver disease hepatomegaly Present on admission right upper quadrant pain suspect due to peritonitis acute cholecystitis Obesity BMI 33 Plan Continue postop surgical care Pain control Increase activity Diet as tolerated Home meds as appropriate Anticipate discharge in the next 24-48 hours if clinically stable DVT and GI prophylaxis The above impression and plan of care have been discussed and directed by signing physician. Liliam Chaney nurse practitioner acting as scribe for signing physician. <Alfreda Mclean N - Last Filed: 09/16/17 20:27> Objective - Vital Signs Vital signs: Vital Signs Temp 98.2 F 09/16/17 14:51 Pulse 115 H 09/16/17 14:51 Resp 18 09/16/17 14:51 BP 104/55 09/16/17 14:51 Pulse Ox 94 L 09/16/17 14:51 Intake & Output 09/16/17 09/16/17 09/17/17 06:59 18:59 06:59 Intake Total 1871 500 Output Total 640 40 Balance 1231 460 Intake: IV 300 Intake, IV Titration 851 Amount ACETAMINOPHEN IV (For NPO 200 ) 1,000 mg In Empty Bag 1 bag @ 400 mls/hr IVPB Q6HR [facility] Rx#:[id number] Potassium Chloride 10 meq 200 In Water For Injection 1 100ml.bag @ 100 mls/hr IVPB Q1H [facility] Rx#: [id number] Sodium Chloride 0.9% 1, 451 000 ml @ 100 mls/hr IV . Q10H [facility] Rx#:[id number] Oral 720 500 Output: Drainage 90 40 Right Lower Abdomen 90 40 Urine 200 Estimated Blood Loss 350 Other: Voiding Method Toilet Toilet # Voids 2 # Bowel Movements 0 - Labs CBC & Chem 7: 09/16/17 06:45 09/16/17 06:45 Labs: Abnormal Lab Results - Last 24 Hours (Table) 09/16/17 09/16/17 Range/Units 06:45 06:45 WBC 11.0 H (3.8-10.6) k/uL Plt Count 127 L (150-450) k/uL Neutrophils # 9.1 H (1.3-7.7) k/uL Lymphocytes # 0.9 L (1.0-4.8) k/uL Chloride 114 H (98-107) mmol/L Carbon Dioxide 17 L (22-30) mmol/L BUN 4 L (7-17) mg/dL Glucose 107 H (74-99) mg/dL AST 54 H (14-36) U/L Total Protein 5.5 L (6.3-8.2) g/dL Albumin 3.0 L (3.5-5.0) g/dL Microbiology - Last 24 Hours (Table) 09/14/17 18:00 Blood Culture - Preliminary Blood No Growth after 48 hours 09/15/17 19:10 Gram Stain - Preliminary Aspirate Body Fluid Culture - Preliminary Presumptive Staph aureus 09/15/17 19:10 Anaerobic Culture - Preliminary Gallbladder Fluid Assessment and Plan Plan: Still reports right upper quadrant pain. CLOT serosanguineous. Intraoperative findings described to patient given moderate bleeding from her medications causing coagulopathy. COLT to continue upon discharge. Antibiotic management with infectious disease consultation advised as she had acute purulent cholecystitis. Will obtain hepatic serology for liver cirrhosis.
--- NOTE | 2017-09-16 15:33 | P.CNOR ---
History of Present Illness - [facility] Consult date: 09/16/17 Requesting physician: Joseph Middleton Consult reason: other History of present illness: Patient is a 37-year-old female seen at bedside this afternoon. Orthopedics is consulted regarding her right foot. She is status post revision right foot surgery and modified [place] procedure performed on 08/20/[address] Middleton. She has been following up in office. She was recently put in a walking boot and was instructed to be nonweightbearing. She has had no new complaints with her foot, ankle or leg. She was admitted yesterday 09/15/2017 for an acute cholecystectomy. She has no complaints with her right lower extremity today at bedside. She denies numbness or tingling as well as calf pain. Review of systems negative for fever, chills, chest pain, shortness of breath, nausea, vomiting, dizziness, headaches, slurred speech or other. Review of Systems All systems: negative Constitutional: Denies chills, Denies fever Eyes: denies blurred vision, denies pain Ears, nose, mouth and throat: Denies headache, Denies sore throat Cardiovascular: Denies chest pain, Denies shortness of breath Respiratory: Denies cough Gastrointestinal: Denies abdominal pain, Denies diarrhea, Denies nausea, Denies vomiting Genitourinary: Denies dysuria, Denies hematuria Musculoskeletal: Denies myalgias Integumentary: Denies pruritus, Denies rash Neurological: Denies numbness, Denies weakness Psychiatric: Denies anxiety, Denies depression Endocrine: Denies fatigue, Denies weight change Past Medical History Past Medical History: GERD/Reflux, Osteoarthritis (OA), Rheumatoid Arthritis (RA ), Thyroid Disorder Additional Past Medical History / Comment(s): BUNION RIGHT FOOT., CHILDHOOD ASTHMA.bipolar deprssion,anxiety History of Any Multi-Drug Resistant Organisms: None Reported Past Surgical History: Section Additional Past Surgical History / Comment(s): X4, CYST LEFT HAND.x2 rt foot sx -last one on [id number] medi boot Past Anesthesia/Blood Transfusion Reactions: No Reported Reaction Past Psychological History: Anxiety, Bipolar, Depression Additional Psychological History / Comment(s): NPD . Smoking Status: Current every day smoker Past Alcohol Use History: None Reported Additional Past Alcohol Use History / Comment(s): SMOKES less than 1 ppd. SMOKING FOR APPROX 20 YEARS. Past Drug Use History: Marijuana Additional Drug Use History / Comment(s): STATES past use of marijuana - Past Family History Mother Family Medical History: Cancer, Pulmonary Embolus Additional Family Medical History / Comment(s): BREAST CANCER and sister has hx of breast cancer 14 years ago Father Additional Family Medical History / Comment(s): alcoholic Medications and Allergies Home Medications Medication Instructions Recorded Confirmed Type Etanercept [Enbrel] 50 mg SQ FR 08/17/16 09/14/17 History Folic Acid 1 mg PO HS 08/17/16 09/14/17 History Levothyroxine Sodium [Synthroid] 125 mcg PO DAILY 08/17/16 09/14/17 History Methotrexate Sodium [Methotrexate] 20 mg PO FR 08/17/16 09/14/17 History Prazosin [Minipress] 3 mg PO HS 08/17/16 09/14/17 History Ranitidine HCl [Zantac] 150 mg PO BID 08/17/16 09/14/17 History Vilazodone HCl [Viibryd] 40 mg PO HS 08/17/16 09/14/17 History cloZAPine [Clozaril] 25 mg PO BID@0800,1600 08/17/17 09/14/17 History Hydrocodone/Acetaminophen [[place] 1 tab PO Q4HR PRN 09/14/17 09/14/17 History 10-325 Tablet] cloZAPine [Clozaril] 250 mg PO DAILY 09/14/17 09/14/17 History Allergies Allergy/AdvReac Type Severity Reaction Status Date / Time No Known Allergies Allergy Verified 09/14/17 17:21 Physical Examination Inspection of the right lower extremity shows walking boot in place as well as Rigo wrap. These were both removed. Skin shows no erythema, new wounds, skin breakdown or ecchymoses. There is no deformity. She is nontender throughout the right lower extremity, ankle and foot. There are no signs of infection. She has painless active range of motion of the ankle. Ankle is ligamentously stable. She is nontender about the dorsum and plantar aspect of the foot. She has a benign healing surgical wounds at the foot. 2+ dorsalis pedis pulses are present. Less than 2 second capillary refill is present. She is able to flex and extend all toes. Sensation to light touch is intact throughout the foot and toes. Calf is soft and nontender. Achilles is intact. Results - Labs Labs: Abnormal Lab Results - Last 24 Hours (Table) 09/16/17 09/16/17 Range/Units 06:45 06:45 WBC 11.0 H (3.8-10.6) k/uL Plt Count 127 L (150-450) k/uL Neutrophils # 9.1 H (1.3-7.7) k/uL Lymphocytes # 0.9 L (1.0-4.8) k/uL Chloride 114 H (98-107) mmol/L Carbon Dioxide 17 L (22-30) mmol/L BUN 4 L (7-17) mg/dL Glucose 107 H (74-99) mg/dL AST 54 H (14-36) U/L Total Protein 5.5 L (6.3-8.2) g/dL Albumin 3.0 L (3.5-5.0) g/dL Microbiology - Last 24 Hours (Table) 09/15/17 19:10 Gram Stain - Preliminary Aspirate Body Fluid Culture - Preliminary 09/15/17 19:10 Anaerobic Culture - Preliminary Gallbladder Fluid 09/14/17 18:00 Blood Culture - Preliminary Blood No Growth after 24 hours H & H 09/14/17 09/16/17 Range/Units 18:00 06:45 Hgb 14.2 12.2 (11.4-16.0) gm/dL Hct 41.9 36.8 (34.0-46.0) % Coagulation 09/14/17 Range/Units 18:00 INR 1.0 (<1.2) Result Diagrams: 09/16/17 06:45 09/16/17 06:45 Assessment and Plan (1) Status post right foot surgery Narrative/Plan: She is continue with walking boot as previously instructed and be nonweightbearing. Continue with wound care, physical therapy, pain management and DVT prophylaxis. Crutches were ordered for assistance with ambulation. We will continue to monitor. She may follow up with Dr. Middleton as an outpatient as previously scheduled. Current Visit: Yes Status: Acute Code(s): Z98.890 - OTHER SPECIFIED POSTPROCEDURAL STATES SNOMED Code(s): 947031380 Time with Patient: Less than 30
[2017-09-16] MEDS: FOLIC ACID 1 MG TAB PO SCH (21:54)
[2017-09-16] MEDS: PRAZOSIN 1 MG CAP PO SCH (21:54)
[2017-09-16] MEDS: NON-FORMULARY DRUG (Vilazodone Hcl [Viibryd] 40 MG) PO SCH (21:55)
[2017-09-16] MEDS: cloZAPine 100 MG TAB PO SCH (21:56)
[2017-09-17] MEDS: SODIUM CHLORIDE 0.9% 1,000 ML IV SCH ×4 (01:03→18:15)
[2017-09-17] MEDS: HYDROcodone/APAP 10-325MG 1 EACH TAB PO PRN ×4 (01:03→21:22)
[2017-09-17] MEDS: LEVOTHYROXINE 125 MCG TAB PO SCH (05:55)
[2017-09-17] MEDS ORDERED: PANTOPRAZOLE 40 MG TABLET PO SCH (07:30)
[2017-09-17] MEDS: cloZAPine 25 MG TAB PO SCH ×2 (08:12→15:46)
[2017-09-17] MEDS: HEPARIN SODIUM,PORCINE 5,000 UNIT/ML 1 ML VIAL SQ SCH ×2 (08:13→21:04)
[2017-09-17] MEDS ORDERED: METHOTREXATE SODIUM 2.5 MG TAB PO SCH (09:00)
[2017-09-17] MEDS ORDERED: NON-FORMULARY DRUG (Etanercept [Enbrel] 50 MG) SQ SCH (09:00)
--- NOTE | 2017-09-17 09:28 | P.CONS ---
History of Present Illness - Reason for Consult Consult date: 09/17/17 cirrhosis evaluation Requesting physician: Alfreda Mclean - History of Present Illness 37-year-old female status post laparoscopic cholecystectomy for acute cholecystitis. Consult requested for cirrhosis evaluation. Intraoperative liver evaluation identified macronodular cirrhosis hepatomegaly. Liver biopsy not obtained. Patient has no history of known liver disease or hepatitis. No history of jaundice. No history of alcohol abuse. No history of hypertension diabetes mellitus or hyperlipidemia. History of rheumatoid arthritis. BMI 33. CT abdomen and pelvis reported no focal liver defect. Spleen normal. No pancreatic masses. Bile ducts nondilated. Hepatitis screen pending. Hemoglobin 12.2. Platelet 127-193. Total bilirubin 0.5-0.6. AST 18-54. ALT 23-30. AP 112-178. Lipase 106. Albumin 4.4. INR 1.0. Review of Systems Constitutional: Denies fever, chills, sweats, weight gain, or loss. HEENT: Negative for migraines, blurred vision or loss, earaches, drainage, tinnitus, oral mucosal lesions, dysphagia, or odynophagia. CARDIAC: Negative for chest pain, arrhythmias, or palpitation. RESPIRATORY: Negative for shortness of breath, hemoptysis, cough, or sputum production. GI: See HPI for pertinent findings. : Negative for hematuria, urgency, frequency, polyuria, or dysuria. GYNc: Denies possibility of . Negative vaginal discharge. MUSCULOSKELETAL: Negative for muscle aches, swelling, arthritis, and arthralgias. NEUROLOGIC: Negative for stroke or TIA. ENDOCRINE: Negative for thyroid problems. SKIN: Negative for rash or itching. PSYCHIATRIC: History of anxiety bipolar depression Past Medical History Past Medical History: GERD/Reflux, Osteoarthritis (OA), Rheumatoid Arthritis (RA ), Thyroid Disorder Additional Past Medical History / Comment(s): BUNION RIGHT FOOT., CHILDHOOD ASTHMA.bipolar deprssion,anxiety History of Any Multi-Drug Resistant Organisms: None Reported Past Surgical History: Section Additional Past Surgical History / Comment(s): X4, CYST LEFT HAND.x2 rt foot sx -last one on [id number] medi boot Past Anesthesia/Blood Transfusion Reactions: No Reported Reaction Past Psychological History: Anxiety, Bipolar, Depression Additional Psychological History / Comment(s): NPD . Smoking Status: Current every day smoker Past Alcohol Use History: None Reported Additional Past Alcohol Use History / Comment(s): SMOKES less than 1 ppd. SMOKING FOR APPROX 20 YEARS. Past Drug Use History: Marijuana Additional Drug Use History / Comment(s): STATES past use of marijuana - Past Family History Mother Family Medical History: Cancer, Pulmonary Embolus Additional Family Medical History / Comment(s): BREAST CANCER and sister has hx of breast cancer 14 years ago Father Additional Family Medical History / Comment(s): alcoholic Medications and Allergies Home Medications Medication Instructions Recorded Confirmed Type Etanercept [Enbrel] 50 mg SQ FR 08/17/16 09/14/17 History Folic Acid 1 mg PO HS 08/17/16 09/14/17 History Levothyroxine Sodium [Synthroid] 125 mcg PO DAILY 08/17/16 09/14/17 History Methotrexate Sodium [Methotrexate] 20 mg PO FR 08/17/16 09/14/17 History Prazosin [Minipress] 3 mg PO HS 08/17/16 09/14/17 History Ranitidine HCl [Zantac] 150 mg PO BID 08/17/16 09/14/17 History Vilazodone HCl [Viibryd] 40 mg PO HS 08/17/16 09/14/17 History cloZAPine [Clozaril] 25 mg PO BID@0800,1600 08/17/17 09/14/17 History Hydrocodone/Acetaminophen [[place] 1 tab PO Q4HR PRN 09/14/17 09/14/17 History 10-325 Tablet] cloZAPine [Clozaril] 250 mg PO DAILY 09/14/17 09/14/17 History Allergies Allergy/AdvReac Type Severity Reaction Status Date / Time No Known Allergies Allergy Verified 09/14/17 17:21 Physical Exam Vitals: Vital Signs Temp Pulse Pulse Resp BP Pulse Ox 09/17/17 07:58 98.0 F 122 H 22 131/87 94 L 09/17/17 00:30 98.7 F 122 H 16 116/56 96 09/16/17 19:00 98.6 F 119 H 16 114/67 93 L 09/16/17 14:51 98.2 F 115 H 18 104/55 94 L Intake and Output 09/16/17 09/17/17 09/17/17 22:59 06:59 14:59 Intake Total 150 Output Total 90 50 Balance 60 -50 Intake: Oral 150 Output: Drainage 90 50 Right Lower Abdomen 90 50 Other: Voiding Method Toilet # Voids 1 3 General appearance: The patient is alert, oriented, in no acute distress. HET: Head is normocephalic and atraumatic. Pupils are equal and reactive. Oropharynx is clear without lesions. Neck: Supple without lymphadenopathy. Trachea midline. Heart: S1 S2. Regular rate and rhythm. Lungs: No crackles or wheezes are heard. Abdomen: Soft, incisional tenderness COLT was serosanguineous fluid surgical dressings clean, nondistended with bowel sounds. No peritoneal signs. No palpable organomegaly or masses. Extremities: Normal skin color and turgor. No cyanosis, rash, ulceration, clubbing, or edema. Radial and pedal pulses are 2/4 bilaterally. Neurological: No focal deficits. Strength and sensation are grossly intact. Results CBC & Chem 7: 09/16/17 06:45 09/16/17 06:45 Labs: Microbiology - Last 24 Hours (Table) 09/14/17 18:00 Blood Culture - Preliminary Blood No Growth after 48 hours 09/15/17 19:10 Gram Stain - Preliminary Aspirate Body Fluid Culture - Preliminary Presumptive Staph aureus CT scan - abdomen: report reviewed (Dr. Pang) Assessment and Plan Assessment: Impression: 1. 37-year-old female status post laparoscopic cholecystectomy for acute cholecystitis with intraoperative evaluation of macronodular cirrhosis hepatomegaly secondary to suspected nonalcoholic fatty liver disease. Underlying chronic liver disease autoimmune liver disease cannot be excluded. Liver function tests presently within normal limits. Plan: 1. Serologic workup for chronic liver disease including hepatitis screen requested. Follow up in GI office in 2-3 weeks for reevaluation and further recommendations. Thank you for this kind referral and the opportunity to participate in the care of your patient. This consultation was discussed with Dr. Pang. The impression and plan of care have been directed as dictated.
[2017-09-17 09:51] LABS: Basophils % (A) 0 %; Eosinophils % (A) 0 %; HCT 31.7 % (34.0-46.0); HGB 10.2 gm/dL (11.4-16.0); Lymphocytes # (A) 0.7 k/uL (1.0-4.8); Lymphocytes % (A) 8 %; MCH 29.8 pg (25.0-35.0); MCHC 32.3 g/dL (31.0-37.0); MCV 92.3 fL (80.0-100.0); Mean Platelet Volume 9.5; Monocytes # (A) 0.7 k/uL (0-1.0); Monocytes % (A) 7 %; Neutrophils # (A) 7.9 k/uL (1.3-7.7); Neutrophils % (A) 83 %; Platelet Count 137 k/uL (150-450); RBC 3.44 m/uL (3.80-5.40); RDW 13.9 % (11.5-15.5); WBC 9.5 k/uL (3.8-10.6)
[2017-09-17] MEDS: KETOROLAC 30 MG/ML 1 ML VIAL IVP PRN ×2 (09:59→22:38)
[2017-09-17] MEDS: PANTOPRAZOLE 40 MG/10 ML VIAL IV SCH (09:59)
[2017-09-17 10:11] LABS: ALT 30 U/L (9-52); AST 30 U/L (14-36); Albumin 2.8 g/dL (3.5-5.0); Alkaline Phosphatase 116 U/L (38-126); Anion Gap 10 mmol/L; Blood Urea Nitrogen 3 mg/dL (7-17); Calcium 8.4 mg/dL (8.4-10.2); Carbon Dioxide 16 mmol/L (22-30); Chloride 118 mmol/L (98-107); Glucose 111 mg/dL (74-99); Potassium 3.5 mmol/L (3.5-5.1); Sodium 144 mmol/L (137-145); Total Bilirubin 0.7 mg/dL (0.2-1.3); Total Protein 5.3 g/dL (6.3-8.2)
--- NOTE | 2017-09-17 11:00 | P.PN ---
<Liliam Chaney - Last Filed: 09/17/17 10:54> Subjective Progress Note Date: 09/17/17 37-year-old female sitting up in bed awake reports having abdominal discomfort surgical site surgical site dressings dry nontender tolerating a clear liquid diet passing gas. Did note GIs evaluation for cirrhosis of liver workup including hepatitis screening and see patient in the outpatient setting for further recommendations. Orthopedic's eval noted patient recently 08/20/2017 underwent post revision right foot surgery in a modified lapidus procedure placed in a walking boot and was instructed to be nonweightbearing currently has a equalizer boot in place and is aware that there is to be no weightbearing reporting no discomfort in the right foot White count 9.5 hemoglobin 10.2 electrolytes within normal limits Status post September 15 laparoscopic cholecystectomy placement of a COLT drain for acute purulent hydrops cholecystitis with cystic duct obstruction, peritonitis, cirrhosis of the liver due to fatty liver disease macronodular, hepatomegaly. Objective - Vital Signs Vital signs: Vital Signs Temp 98.0 F 09/17/17 07:58 Pulse 122 H 09/17/17 08:05 Resp 22 09/17/17 07:58 BP 131/87 09/17/17 07:58 Pulse Ox 94 L 09/17/17 07:58 Intake & Output 09/16/17 09/17/17 09/17/17 18:59 06:59 18:59 Intake Total 500 150 Output Total 40 100 Balance 460 50 Intake: Oral 500 150 Output: Drainage 40 100 Right Lower Abdomen 40 100 Other: Voiding Method Toilet # Voids 3 - Exam Physical exam 37-year-old female sitting up in bed appears no acute distress patient is asking for diet to be advanced Lungs adequate air movement bilaterally on room air no cough no shortness of breath Heart S1-S2 audible regular did note heart rate goes up to 110-120 Abdomen surgical dressing sites dry COLT drain left lower quadrant serous drainage. A few hypoactive bowel tones states pain medication effective for pain control nondistended asking for diet to be advanced tolerating clear liquids no nausea no vomiting states is passing gas no stool Extremities no edema med boot on to the right lower extremity - Labs CBC & Chem 7: 09/17/17 09:21 09/17/17 09:21 Labs: Abnormal Lab Results - Last 24 Hours (Table) 09/17/17 09/17/17 Range/Units 09:21 09:21 RBC 3.44 L (3.80-5.40) m/uL Hgb 10.2 L (11.4-16.0) gm/dL Hct 31.7 L (34.0-46.0) % Plt Count 137 L (150-450) k/uL Neutrophils # 7.9 H (1.3-7.7) k/uL Lymphocytes # 0.7 L (1.0-4.8) k/uL Chloride 118 H (98-107) mmol/L Carbon Dioxide 16 L (22-30) mmol/L BUN 3 L (7-17) mg/dL Glucose 111 H (74-99) mg/dL Total Protein 5.3 L (6.3-8.2) g/dL Albumin 2.8 L (3.5-5.0) g/dL Microbiology - Last 24 Hours (Table) 09/14/17 18:00 Blood Culture - Preliminary Blood No Growth after 48 hours 09/15/17 19:10 Gram Stain - Preliminary Aspirate Body Fluid Culture - Preliminary Presumptive Staph aureus Assessment and Plan Assessment: Impression Status post September 15 laparoscopic cholecystectomy placement of a COLT drain for acute purulent hydrops cholecystitis with cystic duct obstruction, peritonitis, cirrhosis of the liver due to fatty liver disease hepatomegaly Present on admission right upper quadrant pain suspect due to peritonitis acute cholecystitis Obesity BMI 33 Episodes of sinus tachycardia heart rate 110 -120 Plan Continue postop surgical care Pain control Diet as tolerated Home meds as appropriate Consult cardiology for sinus tachycardia Follow-up on the labs pending GIs recommendations noted and appreciated will follow-up in the outpatient setting Nonweightbearing per orthopedics recommendations DVT and GI prophylaxis Up in chair nonweightbearing The above impression and plan of care have been discussed and directed by signing physician. Liliam Chaney nurse practitioner acting as scribe for signing physician. <Alfreda Mclean N - Last Filed: 09/17/17 18:41> Objective - Vital Signs Vital signs: Vital Signs Temp 98.3 F 09/17/17 15:13 Pulse 112 H 09/17/17 15:13 Resp 16 09/17/17 15:13 BP 120/79 09/17/17 15:13 Pulse Ox 92 L 09/17/17 15:13 Intake & Output 09/16/17 09/17/17 09/17/17 18:59 06:59 18:59 Intake Total 692 933 7694 Output Total 40 100 Balance 329 80 3108 Intake: Oral 529 543 1881 Output: Drainage 40 100 Right Lower Abdomen 40 100 Other: Voiding Method Toilet # Voids 3 2 - Labs CBC & Chem 7: 09/17/17 09:21 09/17/17 09:21 Labs: Abnormal Lab Results - Last 24 Hours (Table) 09/17/17 09/17/17 09/17/17 Range/Units 09:21 09:21 09:21 RBC 3.44 L (3.80-5.40) m/uL Hgb 10.2 L (11.4-16.0) gm/dL Hct 31.7 L (34.0-46.0) % Plt Count 137 L (150-450) k/uL Neutrophils # 7.9 H (1.3-7.7) k/uL Lymphocytes # 0.7 L (1.0-4.8) k/uL Chloride 118 H (98-107) mmol/L Carbon Dioxide 16 L (22-30) mmol/L BUN 3 L (7-17) mg/dL Glucose 111 H (74-99) mg/dL Total Protein 5.3 L (6.3-8.2) g/dL Albumin 2.8 L (3.5-5.0) g/dL TSH 0.415 L (0.465-4.680) mIU/L Microbiology - Last 24 Hours (Table) 09/15/17 19:10 Gram Stain - Final Aspirate Body Fluid Culture - Final Staphylococcus aureus 09/14/17 18:00 Blood Culture - Preliminary Blood No Growth after 48 hours
--- NOTE | 2017-09-17 11:07 | P.CRDCN ---
History of Present Illness Consult date: 09/17/17 History of present illness: This is a 37-year-old female with history of GERD syndrome, osteoarthritis and rheumatoid arthritis and also hypothyroidism was admitted to the hospital with abdominal pain, diarrhea, nausea. She was found to have acute cholecystitis, which was purulent. Patient had a cholecystectomy. Patient is to have abdominal pain from the procedure. Patient has been having sinus tachycardia with rates of about 120 to 130. Patient denies any chest pain or shortness of breath. Bedside echocardiogram showed normal LV function. She is a gives history of having a small hole in her heart as a child which spontaneously healed. It is possible that she had a small VSD that closed spontaneously. She claims that to her of her children of congenital heart disease. Her sinus tachycardia appears to be physiological. Could be related to the pain and postsurgical status and mild anemia. No specific cardiac intervention is needed at this time. We may check thyroid function studies. Past Medical History Past Medical History: GERD/Reflux, Osteoarthritis (OA), Rheumatoid Arthritis (RA ), Thyroid Disorder Additional Past Medical History / Comment(s): BUNION RIGHT FOOT., CHILDHOOD ASTHMA.bipolar deprssion,anxiety History of Any Multi-Drug Resistant Organisms: None Reported Past Surgical History: Section Additional Past Surgical History / Comment(s): X4, CYST LEFT HAND.x2 rt foot sx -last one on [id number] medi boot Past Anesthesia/Blood Transfusion Reactions: No Reported Reaction Past Psychological History: Anxiety, Bipolar, Depression Additional Psychological History / Comment(s): NPD . Smoking Status: Current every day smoker Past Alcohol Use History: None Reported Additional Past Alcohol Use History / Comment(s): SMOKES less than 1 ppd. SMOKING FOR APPROX 20 YEARS. Past Drug Use History: Marijuana Additional Drug Use History / Comment(s): STATES past use of marijuana - Past Family History Mother Family Medical History: Cancer, Pulmonary Embolus Additional Family Medical History / Comment(s): BREAST CANCER and sister has hx of breast cancer 14 years ago Father Additional Family Medical History / Comment(s): alcoholic Medications and Allergies Home Medications Medication Instructions Recorded Confirmed Type Etanercept [Enbrel] 50 mg SQ FR 08/17/16 09/14/17 History Folic Acid 1 mg PO HS 08/17/16 09/14/17 History Levothyroxine Sodium [Synthroid] 125 mcg PO DAILY 08/17/16 09/14/17 History Methotrexate Sodium [Methotrexate] 20 mg PO FR 08/17/16 09/14/17 History Prazosin [Minipress] 3 mg PO HS 08/17/16 09/14/17 History Ranitidine HCl [Zantac] 150 mg PO BID 08/17/16 09/14/17 History Vilazodone HCl [Viibryd] 40 mg PO HS 08/17/16 09/14/17 History cloZAPine [Clozaril] 25 mg PO BID@0800,1600 08/17/17 09/14/17 History Hydrocodone/Acetaminophen [[place] 1 tab PO Q4HR PRN 09/14/17 09/14/17 History 10-325 Tablet] cloZAPine [Clozaril] 250 mg PO DAILY 09/14/17 09/14/17 History Allergies Allergy/AdvReac Type Severity Reaction Status Date / Time No Known Allergies Allergy Verified 09/14/17 17:21 Physical Exam Vitals: Vital Signs Temp Pulse Pulse Resp BP Pulse Ox 09/17/17 08:05 122 H 09/17/17 07:58 98.0 F 122 H 22 131/87 94 L 09/17/17 00:30 98.7 F 122 H 16 116/56 96 09/16/17 19:00 98.6 F 119 H 16 114/67 93 L 09/16/17 14:51 98.2 F 115 H 18 104/55 94 L Intake and Output 09/16/17 09/17/17 09/17/17 22:59 06:59 14:59 Intake Total 150 Output Total 90 50 Balance 60 -50 Intake: Oral 150 Output: Drainage 90 50 Right Lower Abdomen 90 50 Other: Voiding Method Toilet # Voids 1 3 GENERAL EXAM: Patient is alert and oriented and doesn't appear to be in any acute distress HEENT: Normocephalic. Normal reaction of pupils, equal size, normal range of extraocular motion. No erythema or exudates in the throat. NECK: No masses, no nuchal rigidity. CHEST: No chest wall deformity. LUNGS: Diminished breath sounds bilaterally HEART: S1 and S2 normal, tachycardic ABDOMEN: No hepatosplenomegaly, normal bowel sounds, no guarding or rigidity. SKIN: No rashes CENTRAL NERVOUS SYSTEM: No focal deficits. EXTREMITIES: Status post orthopedic surgery of the foot Results 09/17/17 09:21 09/17/17 09:21 Cardiac Enzymes 09/17/17 Range/Units 09:21 AST 30 (14-36) U/L CBC 09/17/17 Range/Units 09:21 WBC 9.5 (3.8-10.6) k/uL RBC 3.44 L (3.80-5.40) m/uL Hgb 10.2 L (11.4-16.0) gm/dL Hct 31.7 L (34.0-46.0) % Plt Count 137 L (150-450) k/uL Comprehensive Metabolic Panel 09/17/17 Range/Units 09:21 Sodium 144 (137-145) mmol/L Potassium 3.5 (3.5-5.1) mmol/L Chloride 118 H (98-107) mmol/L Carbon Dioxide 16 L (22-30) mmol/L BUN 3 L (7-17) mg/dL Creatinine 0.70 (0.52-1.04) mg/dL Glucose 111 H (74-99) mg/dL Calcium 8.4 (8.4-10.2) mg/dL AST 30 (14-36) U/L ALT 30 (9-52) U/L Alkaline Phosphatase 116 (38-126) U/L Total Protein 5.3 L (6.3-8.2) g/dL Albumin 2.8 L (3.5-5.0) g/dL Current Medications Generic Name Dose Route Start Last Admin Trade Name Freq PRN Reason Stop Dose Admin Acetaminophen 650 mg 09/14/17 19:51 Tylenol Tab PO Q6HR PRN Mild Pain or Fever > 100.5 Hydrocodone Bitart/Acetaminophen 1 each 09/14/17 19:54 09/17/17 08:11 [place] 10 PO 1 each Q4HR PRN Administration MODERATE Pain Clozapine 25 mg 09/15/17 08:00 09/17/17 08:12 Clozaril PO 09/22/17 23:59 25 mg BID@0800,1600 CARLEY Administration Clozapine 250 mg 09/14/17 21:00 09/16/17 21:56 Clozaril PO 09/22/17 23:59 250 mg HS CARLEY Administration Folic Acid 1 mg 09/14/17 21:00 09/16/17 21:54 Folic Acid PO 1 mg HS CARLEY Administration Heparin Sodium (Porcine) 5,000 unit 09/15/17 21:00 09/17/17 08:13 Heparin SQ 5,000 unit Q12HR CARLEY Administration Magnesium Sulfate/Dextrose 1 100 mls @ 100 mls/hr 09/17/17 10:00 gm/ IV Solution IVPB 09/17/17 11:59 Q1H CARLEY Sodium Chloride 1,000 mls @ 125 mls/hr 09/17/17 10:00 09/17/17 10:27 Saline 0.9% IV Not Given .Q8H CARLEY Ibuprofen 400 mg 09/14/17 19:51 Motrin PO Q6HR PRN Mild Pain or Fever > 100.5 Ketorolac Tromethamine 30 mg 09/14/17 19:51 09/17/17 09:59 Toradol IVP 09/19/17 19:52 30 mg Q6HR PRN Administration Moderate Pain Levothyroxine Sodium 125 mcg 09/15/17 06:30 09/17/17 05:55 Synthroid PO 125 mcg DAILY@0630 CARLEY Administration Miscellaneous Information 1 each 09/15/17 21:36 Potassium Per Protocol MISCELLANE DAILY PRN Per Protocol Protocol Miscellaneous Information 1 each 09/16/17 05:27 Potassium Per Protocol MISCELLANE DAILY PRN Per Protocol Protocol Naloxone HCl 0.2 mg 09/14/17 19:51 Narcan IV Q2M PRN Opioid Reversal Non-Formulary Medication 40 mg 09/14/17 21:00 09/16/17 21:55 Vilazodone Hcl [Viibryd] PO 40 mg HS CARLEY Administration Ondansetron HCl 4 mg 09/14/17 19:51 09/15/17 16:13 Zofran IVP 4 mg Q8HR PRN Administration Nausea And Vomiting Pantoprazole Sodium 40 mg 09/18/17 07:30 Protonix PO AC-BRKFST CARLEY Prazosin HCl 3 mg 09/14/17 21:00 09/16/17 21:54 Minipress PO 3 mg HS CARLEY Administration Intake and Output 09/16/17 09/17/17 09/17/17 22:59 06:59 14:59 Intake Total 150 Output Total 90 50 Balance 60 -50 Intake: Oral 150 Output: Drainage 90 50 Right Lower Abdomen 90 50 Other: Voiding Method Toilet # Voids 1 3 09/17/17 09:21 09/17/17 09:21 Assessment and Plan (1) Sinus tachycardia Current Visit: Yes Status: Acute Code(s): R00.0 - TACHYCARDIA, UNSPECIFIED SNOMED Code(s): 56089380 (2) Acute cholecystitis Current Visit: Yes Status: Acute Code(s): K81.0 - ACUTE CHOLECYSTITIS SNOMED Code(s): 98182721 (3) Status post right foot surgery Current Visit: Yes Status: Acute Code(s): Z98.890 - OTHER SPECIFIED POSTPROCEDURAL STATES SNOMED Code(s): 502315484 Plan: At this point. Her sinus tachycardia appears to be physiological and could be related to the pain anemia and post surgical state. Echocardiogram showed normal LV function. May check thyroid function studies.
[2017-09-17] MEDS: MAGNESIUM SULFATE-D5W PMX 1 GM in DEXTROSE/WATER 1 100ML.BAG IVPB SCH ×2 (11:18→12:34)
[2017-09-17 13:07] LABS: T4, Free (Free Thyroxine) 1.23 ng/dL (0.78-2.19)
--- NOTE | 2017-09-17 14:02 | ECHOF ---
Referral Reason:tachycardia s/p surgery MEASUREMENTS -------- HEIGHT: 172.7 cm WEIGHT: 99.8 kg BP: RVIDd: 2.2 cm (< 3.3) IVSd: 1.0 cm (0.6 - 1.1) LVIDd: 4.3 cm (3.9 - 5.3) LVPWd: 1.4 cm (0.6 - 1.1) IVSs: 1.3 cm LVIDs: 3.7 cm LVPWs: 1.3 cm LAESV Index (A-L): 24.87 ml/m Ao Diam: 3.0 cm (2.0 - 3.7) AV Cusp: 1.8 cm (1.5 - 2.6) LA Diam: 3.7 cm (2.7 - 3.8) MV EXCURSION: 19.436 mm (> 18.000) MV EF SLOPE: 85 mm/s (70 - 150) EPSS: 0.4 cm MV E Ran: 1.98 m/s MV DecT: 183 ms MV A Ran: 0.67 m/s MV E/A Ratio: 2.97 RAP: 5.00 mmHg RVSP: 24.61 mmHg FINDINGS -------- Sinus rhythm. This was a techncally difficult study with suboptimal views, , Lumason utilized for enhancement of im ages. LV size, wall thickness and systolic function are normal, with an EF greater than 55%. The left maya tricular size is normal. The right ventricle is normal in size. The left atrial size is normal. The right atrial size is normal. 5.0mg OF Lumason UTLIZED: 2 OR MORE WALL SEGMENTS NOT VISUALIZED. The aortic valve was not well visualized. Mild mitral annular calcification present. Mild mitral regurgitation is present. Mild tricuspid regurgitation present. There is no evidence of pulmonary hypertension. The right v entricular systolic pressure, as measured by Doppler, is 24.61mmHg. There is no pulmonic regurgitation present. The aortic root size is normal. There is no pericardial effusion. CONCLUSIONS -------- 1. LV size, wall thickness and systolic function are normal, with an EF greater than 55%. 2. The left ventricular size is normal. 3. The right ventricle is normal in size. 4. The left atrial size is normal. 5. The right atrial size is normal. 6. 5.0mg OF Lumason UTLIZED: 2 OR MORE WALL SEGMENTS NOT VISUALIZED. 7. The aortic valve was not well visualized. 8. Mild mitral annular calcification present. 9. Mild mitral regurgitation is present. 10. Mild tricuspid regurgitation present. 11. There is no evidence of pulmonary hypertension. 12. The right ventricular systolic pressure, as measured by Doppler, is 24.61mmHg. 13. There is no pulmonic regurgitation present. 14. The aortic root size is normal. 15. There is no pericardial effusion. RESEARCH PROGRAMMER: Miladis London RDCS
[2017-09-17] MEDS: POTASSIUM CHLORIDE 10 MEQ in WATER FOR INJECTION 1 100ML.BAG IVPB SCH ×2 (14:07→17:41)
[2017-09-17 15:13] VITALS: RESP 16
[2017-09-17] MEDS: ceFAZolin IN SWFI 2 GM/20 ML SYRINGE IVP SCH (15:42)
--- NOTE | 2017-09-17 16:07 | P.CONS ---
History of Present Illness - Reason for Consult Consult date: 09/17/17 - Chief Complaint cholecystitis - History of Present Illness 37-year-old female presents to Hospital with significant abdominal pain. It was very severe and she was having difficulties with fever. Because of this she presented to the emergency center where she was found evidence of an acute cholecystitis and she was taken to the operating room. There hydrops gallbladder was found with evidence of purulence in the region. Cholecystectomy was performed to drain was placed and cultures were taken. Cultures now show evidence of a staph species in the infectious disease consultation was requested. At this time this pleasant woman has a great amount of stress at this point in time. Her daughter is just graduating from high school and her Democrat is supposed to be this weekend and she is acutely ill. We discussed that the daughter will certainly understand if the family can have the republican go on. There is the second significant issue and that she has the fracture to the right foot that is simply not healing, she's been seen by orthopedic foot and ideally she'll be off that foot and rehab. Review of Systems 37-year-old woman anxious HEENT:Denies headache or acute visual change. Denies sinus or mouth discomforts. Denies neck stiffness or pain. Denies significant oral cavity pain. Denies difficulty on swallowing. Lungs: Denies significant shortness of breath, cough, sputum production, or hemoptysis. Cardiovascular: Denies significant shortness of breath, chest pain, chest wall pain, orthopnea, dyspnea on exertion, syncope Gastrointestinal:as per the HPI Musculoskeletal: despite the nonhealing fracture to her right foot and ankle she is not having pain,regretfully appears to be one of the reasons it's not healing, she is not able to use crutches and has great trouble with a walker.staff is working on a Roll-A-Idiro. Skin: Denies new rash or lesions. No new ulcers or wounds are related.. Neuro: Denies headache or visual change. Denies any new onset weakness or difficulty with ambulation. Denies falls or seizures. Psychiatric:Chronic anxiety and depression Endocrine: chronic fatigue weight gain Past Medical History Past Medical History: GERD/Reflux, Osteoarthritis (OA), Rheumatoid Arthritis (RA ), Thyroid Disorder Additional Past Medical History / Comment(s): BUNION RIGHT FOOT., CHILDHOOD ASTHMA.bipolar deprssion,anxiety History of Any Multi-Drug Resistant Organisms: None Reported Past Surgical History: Section Additional Past Surgical History / Comment(s): X4, CYST LEFT HAND.x2 rt foot sx -last one on [id number] medi boot Past Anesthesia/Blood Transfusion Reactions: No Reported Reaction Past Psychological History: Anxiety, Bipolar, Depression Additional Psychological History / Comment(s): NPD . lives with her and children. Tobacco smoker up to admission. Denies alcohol use. No recreational drug use. Not working outside of the home. No experience Smoking Status: Current every day smoker Past Alcohol Use History: None Reported Additional Past Alcohol Use History / Comment(s): SMOKES less than 1 ppd. SMOKING FOR APPROX 20 YEARS. Past Drug Use History: Marijuana Additional Drug Use History / Comment(s): STATES past use of marijuana - Past Family History Mother Family Medical History: Cancer, Pulmonary Embolus Additional Family Medical History / Comment(s): BREAST CANCER and sister has hx of breast cancer 14 years ago Father Additional Family Medical History / Comment(s): alcoholic Medications and Allergies Home Medications and Allergies Comment(s): Current Medications Acetaminophen (Tylenol Tab) 650 mg PO Q6HR PRN PRN Reason: Mild Pain or Fever > 100.5 Hydrocodone Bitart/Acetaminophen ([place] 10) 1 each PO Q4HR PRN PRN Reason: MODERATE Pain Last Admin: 09/17/17 14:12 Dose: 1 each Cefazolin Sodium (Kefzol) 2 gm IVP Q8HR [facility] Last Admin: 09/17/17 15:42 Dose: 2 gm Clozapine (Clozaril) 25 mg PO BID@0800,1600 [facility] Stop: 09/22/17 23:59 Last Admin: 09/17/17 15:46 Dose: 25 mg Clozapine (Clozaril) 250 mg PO HS [facility] Stop: 09/22/17 23:59 Last Admin: 09/16/17 21:56 Dose: 250 mg Folic Acid (Folic Acid) 1 mg PO HS [facility] Last Admin: 09/16/17 21:54 Dose: 1 mg Heparin Sodium (Porcine) (Heparin) 5,000 unit SQ Q12HR [facility] Last Admin: 09/17/17 08:13 Dose: 5,000 unit Sodium Chloride (Saline 0.9%) 1,000 mls @ 125 mls/hr IV .Q8H [facility] Last Admin: 09/17/17 10:27 Dose: Not Given Ibuprofen (Motrin) 400 mg PO Q6HR PRN PRN Reason: Mild Pain or Fever > 100.5 Ketorolac Tromethamine (Toradol) 30 mg IVP Q6HR PRN PRN Reason: Moderate Pain Stop: 09/19/17 19:52 Last Admin: 09/17/17 09:59 Dose: 30 mg Levothyroxine Sodium (Synthroid) 125 mcg PO DAILY@0630 [facility] Last Admin: 09/17/17 05:55 Dose: 125 mcg Miscellaneous Information (Potassium Per Protocol) 1 each MISCELLANE DAILY PRN ; Protocol PRN Reason: Per Protocol Miscellaneous Information (Potassium Per Protocol) 1 each MISCELLANE DAILY PRN ; Protocol PRN Reason: Per Protocol Naloxone HCl (Narcan) 0.2 mg IV Q2M PRN PRN Reason: Opioid Reversal Non-Formulary Medication (Vilazodone Hcl [Viibryd]) 40 mg PO [facility] Last Admin: 09/16/17 21:55 Dose: 40 mg Ondansetron HCl (Zofran) 4 mg IVP Q8HR PRN PRN Reason: Nausea And Vomiting Last Admin: 09/15/17 16:13 Dose: 4 mg Pantoprazole Sodium (Protonix) 40 mg PO [facility] Prazosin HCl (Minipress) 3 mg PO [facility] Last Admin: 09/16/17 21:54 Dose: 3 mg Home Medications Medication Instructions Recorded Confirmed Type Etanercept [Enbrel] 50 mg SQ 08/17/16 09/14/17 History Folic Acid 1 mg PO 08/17/16 09/14/17 History Levothyroxine Sodium [Synthroid] 125 mcg PO DAILY 08/17/16 09/14/17 History Methotrexate Sodium [Methotrexate] 20 mg PO 08/17/16 09/14/17 History Prazosin [Minipress] 3 mg PO 08/17/16 09/14/17 History Ranitidine HCl [Zantac] 150 mg PO BID 08/17/16 09/14/17 History Vilazodone HCl [Viibryd] 40 mg PO 08/17/16 09/14/17 History cloZAPine [Clozaril] 25 mg PO BID@0800,1600 08/17/17 09/14/17 History Hydrocodone/Acetaminophen [[place] 1 tab PO Q4HR PRN 09/14/17 09/14/17 History 10-325 Tablet] cloZAPine [Clozaril] 250 mg PO DAILY 09/14/17 09/14/17 History Allergies Allergy/AdvReac Type Severity Reaction Status Date / Time No Known Allergies Allergy Verified 09/14/17 17:21 Physical Exam Vitals: Vital Signs Temp Pulse Pulse Resp BP Pulse Ox 09/17/17 15:13 98.3 F 112 H 16 120/79 52 L 09/17/17 08:05 122 H 09/17/17 07:58 98.0 F 122 H 22 131/87 94 L 09/17/17 00:30 98.7 F 122 H 16 116/56 96 09/16/17 19:00 98.6 F 119 H 16 114/67 93 L Intake and Output 09/17/17 09/17/17 09/17/17 06:59 14:59 22:59 Intake Total 1000 Output Total 50 Balance -50 1000 Intake: Oral 1000 Output: Drainage 50 Right Lower Abdomen 50 Other: # Voids 3 2 37-year-old female who has obesity, relates her pain has improved HEENT: Anicteric conjunctiva are pink and moist nasal mucosa grossly intact without significant lesions, there is no thrush. Neck: The neck is supple without significant lymphadenopathy or thyromegaly. Lungs: Good bilateral air entry without significant crackles or wheezing. There is no significant bronchial sounds. There is no egophony or dullness. Heart: Regular rate and rhythm with an audible S1-S2, no S3 no S4. There is no significant murmur click or rub, PMI was nondisplaced. Abdomen: Positive bowel sounds soft has minimal tenderness in the right upper quadrant. There is no palpable masses or organomegaly. Extremities: The upper extremities have excellent pulses they are symmetric, no significant petechiae or telangiectasia. No splinter hemorrhages were noted. left lower extremity is intact. Relatively has a boot in place for the nonhealing fracture. No open ulcers are related Neuro: Awake alert oriented to person place and time. There are no acute new gross focal sensory motor deficits. Results CBC & Chem 7: 09/17/17 09:21 09/17/17 09:21 Labs: Abnormal Lab Results - Last 24 Hours (Table) 09/17/17 09/17/17 09/17/17 Range/Units 09:21 09:21 09:21 RBC 3.44 L (3.80-5.40) m/uL Hgb 10.2 L (11.4-16.0) gm/dL Hct 31.7 L (34.0-46.0) % Plt Count 137 L (150-450) k/uL Neutrophils # 7.9 H (1.3-7.7) k/uL Lymphocytes # 0.7 L (1.0-4.8) k/uL Chloride 118 H (98-107) mmol/L Carbon Dioxide 16 L (22-30) mmol/L BUN 3 L (7-17) mg/dL Glucose 111 H (74-99) mg/dL Total Protein 5.3 L (6.3-8.2) g/dL Albumin 2.8 L (3.5-5.0) g/dL TSH 0.415 L (0.465-4.680) mIU/L Microbiology - Last 24 Hours (Table) 09/14/17 18:00 Blood Culture - Preliminary Blood No Growth after 48 hours 09/15/17 19:10 Gram Stain - Preliminary Aspirate Body Fluid Culture - Preliminary Presumptive Staph aureus Laboratory Results WBC 9.5 k/uL (3.8-10.6) 09/17/17 09:21 RBC 3.44 m/uL (3.80-5.40) L 09/17/17 09:21 Hgb 10.2 gm/dL (11.4-16.0) L 09/17/17 09:21 Hct 31.7 % (34.0-46.0) L 09/17/17 09:21 MCV 92.3 fL (80.0-100.0) 09/17/17 09:21 MCH 29.8 pg (25.0-35.0) 09/17/17 09:21 MCHC 32.3 g/dL (31.0-37.0) 09/17/17 09:21 RDW 13.9 % (11.5-15.5) 09/17/17 09:21 Plt Count 137 k/uL (150-450) L 09/17/17 09:21 Neutrophils % 83 % 09/17/17 09:21 Lymphocytes % 8 % 09/17/17 09:21 Monocytes % 7 % 09/17/17 09:21 Eosinophils % 0 % 09/17/17 09:21 Basophils % 0 % 09/17/17 09:21 Neutrophils # 7.9 k/uL (1.3-7.7) H 09/17/17 09:21 Lymphocytes # 0.7 k/uL (1.0-4.8) L 09/17/17 09:21 Monocytes # 0.7 k/uL (0-1.0) 09/17/17 09:21 Eosinophils # 0.0 k/uL (0-0.7) 09/17/17 09:21 Basophils # 0.0 k/uL (0-0.2) 09/17/17 09:21 Manual Slide Review Performed 09/16/17 06:45 PT 10.0 sec (9.0-12.0) 09/14/17 18:00 INR 1.0 (<1.2) 09/14/17 18:00 APTT 28.3 sec (22.0-30.0) 09/14/17 18:00 Sodium 144 mmol/L (137-145) 09/17/17 09:21 Potassium 3.5 mmol/L (3.5-5.1) 09/17/17 09:21 Chloride 118 mmol/L (98-107) H 09/17/17 09:21 Carbon Dioxide 16 mmol/L (22-30) L 09/17/17 09:21 Anion Gap 10 mmol/L 09/17/17 09:21 BUN 3 mg/dL (7-17) L 09/17/17 09:21 Creatinine 0.70 mg/dL (0.52-1.04) 09/17/17 09:21 Est GFR (CKD-EPI)AfAm >90 (>60 ml/min/1.73 sqM) 09/17/17 09:21 Est GFR (CKD-EPI)NonAf >90 (>60 ml/min/1.73 sqM) 09/17/17 09:21 Glucose 111 mg/dL (74-99) H 09/17/17 09:21 Plasma Lactic Acid José Miguel 1.2 mmol/L (0.7-2.0) 09/14/17 18:00 Calcium 8.4 mg/dL (8.4-10.2) 09/17/17 09:21 Magnesium 1.6 mg/dL (1.6-2.3) 09/16/17 06:45 Total Bilirubin 0.7 mg/dL (0.2-1.3) 09/17/17 09:21 AST 30 U/L (14-36) 09/17/17 09:21 ALT 30 U/L (9-52) 09/17/17 09:21 Alkaline Phosphatase 116 U/L (38-126) 09/17/17 09:21 Total Protein 5.3 g/dL (6.3-8.2) L 09/17/17 09:21 Albumin 2.8 g/dL (3.5-5.0) L 09/17/17 09:21 Amylase 103 U/L (30-110) 09/14/17 18:00 Lipase 106 U/L (23-300) 09/14/17 18:00 TSH 0.415 mIU/L (0.465-4.680) L 09/17/17 09:21 Free T4 1.23 ng/dL (0.78-2.19) 09/17/17 09:21 Urine Color Yellow 09/14/17 17:55 Urine Appearance Clear (Clear) 09/14/17 17:55 Urine pH 7.0 (5.0-8.0) 09/14/17 17:55 Ur Specific [place] 1.006 (1.001-1.035) 09/14/17 17:55 Urine Protein Negative (Negative) 09/14/17 17:55 Urine Glucose (UA) Negative (Negative) 09/14/17 17:55 Urine Ketones Negative (Negative) 09/14/17 17:55 Urine Blood Small (Negative) H 09/14/17 17:55 Urine Nitrite Negative (Negative) 09/14/17 17:55 Urine Bilirubin Negative (Negative) 09/14/17 17:55 Urine Urobilinogen <2.0 mg/dL (<2.0) 09/14/17 17:55 Ur Leukocyte Esterase Negative (Negative) 09/14/17 17:55 Urine RBC 1 /hpf (0-5) 09/14/17 17:55 Urine WBC 1 /hpf (0-5) 09/14/17 17:55 Ur Squamous Epith Cells 2 /hpf (0-4) 09/14/17 17:55 Amorphous Sediment Rare /hpf (None) H 09/14/17 17:55 Urine Bacteria Occasional /hpf (None) H 09/14/17 17:55 Urine Mucus Rare /hpf (None) H 09/14/17 17:55 Urine HCG, Qual Not Detected (Not Detectd) 09/15/17 Unknown Microbiology 09/14/17 18:00 Blood Blood Culture - Preliminary No Growth after 48 hours 09/15/17 19:10 Aspirate Gram Stain - Preliminary 09/15/17 19:10 Aspirate Body Fluid Culture - Preliminary Presumptive Staph aureus 09/15/17 19:10 Gallbladder Fluid Anaerobic Culture - Preliminary Assessment and Plan (1) Acute cholecystitis Narrative/Plan: 37-year-old female presents to Hospital from home with marked increase of abdominal pain. She was found to have evidence of acute cholecystitis and was taken to the operating room where hydrops gallbladder was found with gross contamination of the purulent material in the site. Cholecystectomy occurred in a drain is been put into place. She's having slow but steady recovery but staph aureus has now been found at that site and antibiotic therapy has been added with cefazolin at this time. She also is having difficult of the nonhealing fracture to her right foot due to difficulty with compliance of offloading. A Roll-A-Bout has been requested but they're also looking at the possibility of rehab to try to get her off the foot and healing. This may also provide the appropriate means for ongoing antibiotic therapy if needed depending on the final culture results. Continue supportive care Pain control appears to be adequate at this time It is noted the time of surgery that there was a nodular liver. GI has been consulted and it is likely that she has fatty liver disease but hepatitis panel is still pending. Current Visit: Yes Status: Acute Code(s): K81.0 - ACUTE CHOLECYSTITIS SNOMED Code(s): 27408333 (2) Status post right foot surgery Current Visit: Yes Status: Acute Code(s): Z98.890 - OTHER SPECIFIED POSTPROCEDURAL STATES SNOMED Code(s): 297867168 (3) Staphylococcal infection Current Visit: Yes Status: Acute Code(s): B95.8 - UNSP STAPHYLOCOCCUS THE CAUSE OF DISEASES CLASSD [facility] SNOMED Code(s): 58488353
[2017-09-17 17:54] LABS: Hepatitis A Antibody IgM Non-Reactive (Non-Reactive); Hepatitis B Core IgM Non-Reactive (Non-Reactive); Hepatitis B Surface AB- Quant 268.2 mIU/mL; Hepatitis C IgG Antibody Non-Reactive (Non-Reactive)
--- NOTE | 2017-09-17 18:08 | PN ---
PROGRESS NOTE SUBJECTIVE: A 37-year-old white female, status post cholecystectomy with sepsis. Dr. Burnette has her on IV antibiotics. She will need a PICC line and possible long-term IV antibiotics. She also is status post bunion surgery from which she is recovering. Cardiology also saw her today for apparently tachycardia. Echo showed normal function. They recommended checking thyroid studies,but no further orders. PSYCH: Fair mood and affect. CARDIOVASCULAR: S1, S2. Tachy. Lungs are clear. GI is soft. ASSESSMENT: 1. Sinus tachycardia. 2. Sepsis secondary to acute gangrenous cholecystitis. 3. Status post right foot surgery on IV antibiotics. Continue current treatment in next 24-48 hours. Possible PICC line and home IV antibiotics versus retirement next Wednesday. MMODL / IJN: [id number] /
[2017-09-17 18:25] LABS: Alpha Fetoprotein, Tumor Mkr <2.5 ng/mL (0.0-7.9)
[2017-09-17 18:59] LABS: Iron Saturation 5.33 (12.00-45.00); Protein, Total 5.9 g/dL (6.2-8.2)
[2017-09-17] MEDS: FOLIC ACID 1 MG TAB PO SCH (21:04)
[2017-09-17] MEDS: cloZAPine 100 MG TAB PO SCH (21:04)
[2017-09-17] MEDS: PRAZOSIN 1 MG CAP PO SCH (21:05)
[2017-09-17] MEDS: NON-FORMULARY DRUG (Vilazodone Hcl [Viibryd] 40 MG) PO SCH (21:05)
[2017-09-18] MEDS ORDERED: Potassium Replacement Protocol 1 EACH MISC MISCELLANE PRN (00:05)
[2017-09-18] MEDS: POTASSIUM CHLORIDE 10 MEQ in WATER FOR INJECTION 1 100ML.BAG IVPB SCH ×2 (01:39→02:46)
[2017-09-18] MEDS: SODIUM CHLORIDE 0.9% 1,000 ML IV SCH ×3 (01:40→20:39)
[2017-09-18] MEDS: ceFAZolin IN SWFI 2 GM/20 ML SYRINGE IVP SCH ×4 (01:40→23:38)
[2017-09-18] MEDS: LEVOTHYROXINE 125 MCG TAB PO SCH (05:37)
[2017-09-18] MEDS: HYDROcodone/APAP 10-325MG 1 EACH TAB PO PRN ×4 (05:41→23:37)
[2017-09-18] MEDS: PANTOPRAZOLE 40 MG TABLET PO SCH (10:03)
[2017-09-18] MEDS: cloZAPine 25 MG TAB PO SCH ×2 (10:05→16:55)
[2017-09-18] MEDS: HEPARIN SODIUM,PORCINE 5,000 UNIT/ML 1 ML VIAL SQ SCH ×2 (10:06→20:43)
[2017-09-18 10:09] LABS: Basophils % (A) 0 %; Eosinophils % (A) 0 %; HCT 32.9 % (34.0-46.0); HGB 10.5 gm/dL (11.4-16.0); Lymphocytes # (A) 0.9 k/uL (1.0-4.8); Lymphocytes % (A) 12 %; MCH 29.4 pg (25.0-35.0); MCV 91.7 fL (80.0-100.0); Mean Platelet Volume 9.6; Monocytes # (A) 0.7 k/uL (0-1.0); Monocytes % (A) 9 %; Neutrophils # (A) 5.9 k/uL (1.3-7.7); Neutrophils % (A) 77 %; Platelet Count 172 k/uL (150-450); RBC 3.59 m/uL (3.80-5.40); RDW 13.6 % (11.5-15.5); WBC 7.6 k/uL (3.8-10.6)
[2017-09-18 10:25] LABS: ALT 22 U/L (9-52); AST 25 U/L (14-36); Alkaline Phosphatase 133 U/L (38-126); Anion Gap 12 mmol/L; Blood Urea Nitrogen 3 mg/dL (7-17); Calcium 8.4 mg/dL (8.4-10.2); Carbon Dioxide 17 mmol/L (22-30); Chloride 117 mmol/L (98-107); Glucose 104 mg/dL (74-99); Magnesium 2.2 mg/dL (1.6-2.3); Potassium 3.7 mmol/L (3.5-5.1); Sodium 146 mmol/L (137-145); Total Bilirubin 0.4 mg/dL (0.2-1.3); Total Protein 5.6 g/dL (6.3-8.2)
--- NOTE | 2017-09-18 11:37 | P.PN ---
Subjective Progress Note Date: 09/18/17 She is sitting up in chair. Family is at bedside. Pain is much improved. No reports of fevers or chills. Infectious disease following. She wants to restart her rheumatoid medications. Objective - Vital Signs Vital signs: Vital Signs Temp 98.0 F 09/18/17 07:00 Pulse 105 H 09/18/17 09:35 Resp 16 09/18/17 07:00 BP 126/84 09/18/17 07:00 Pulse Ox 96 09/18/17 07:00 Intake & Output 09/17/17 09/18/17 09/18/17 18:59 06:59 18:59 Intake Total 1000 1500 Output Total 70 50 Balance 930 1500 -50 Intake: Intake, IV Titration 1500 Amount Sodium Chloride 0.9% 1, 1500 000 ml @ 125 mls/hr IV . Q8H [facility] Rx#:[id number] Oral 1000 Output: Drainage 70 50 Right Lower Abdomen 70 50 Other: Voiding Method Toilet # Voids 2 - Exam GENERAL: Well developed and in no acute distress. Pleasant. HEENT: No sclera icterus. Extraocular movements grossly intact. Moist buccal mucosa. Head is atraumatic, normocephalic. Hears conversational speech. No nasal drainage. NECK: Supple without lymphadenopathy. No JV distention. CHEST: Non-labored respirations and equal bilateral excursions. CARDIOVASCULAR: Regular rate and rhythm. Palpable 2+ radial pulses. ABDOMEN: Soft, nondistended. Incisions clean dry and intact. No signs of infection. COLT serosanguineous. MUSCULOSKELETAL: No clubbing, cyanosis or edema. Ulnar deviation noted of the left hand from rheumatoid arthritis. Stabilization boot on the foot present NEUROLOGIC: No focal or lateralizing signs. PSYCH: Appropriate affect. Alert and oriented to person, place and time. SKIN: Good skin turgor. Well perfused. - Labs CBC & Chem 7: 09/18/17 09:07 09/18/17 09:07 Labs: Abnormal Lab Results - Last 24 Hours (Table) 09/17/17 09/17/17 09/17/17 Range/Units 09:21 09:21 09:21 RBC (3.80-5.40) m/uL Hgb (11.4-16.0) gm/dL Hct (34.0-46.0) % Lymphocytes # (1.0-4.8) k/uL Sodium (137-145) mmol/L Chloride (98-107) mmol/L Carbon Dioxide (22-30) mmol/L BUN (7-17) mg/dL Glucose (74-99) mg/dL Iron 13 L (50-170) ug/dL Iron Saturation 5.33 L (12.00-45.00) Alkaline Phosphatase (38-126) U/L Total Protein (6.3-8.2) g/dL Total Protein (PEP) 5.9 L (6.2-8.2) g/dL Albumin (3.5-5.0) g/dL TSH 0.415 L (0.465-4.680) mIU/L Hep Bs Antibody Reactive H (Non-Reactive) 09/18/17 09/18/17 Range/Units 09:07 09:07 RBC 3.59 L (3.80-5.40) m/uL Hgb 10.5 L (11.4-16.0) gm/dL Hct 32.9 L (34.0-46.0) % Lymphocytes # 0.9 L (1.0-4.8) k/uL Sodium 146 H (137-145) mmol/L Chloride 117 H (98-107) mmol/L Carbon Dioxide 17 L (22-30) mmol/L BUN 3 L (7-17) mg/dL Glucose 104 H (74-99) mg/dL Iron (50-170) ug/dL Iron Saturation (12.00-45.00) Alkaline Phosphatase 133 H (38-126) U/L Total Protein 5.6 L (6.3-8.2) g/dL Total Protein (PEP) (6.2-8.2) g/dL Albumin 3.0 L (3.5-5.0) g/dL TSH (0.465-4.680) mIU/L Hep Bs Antibody (Non-Reactive) Microbiology - Last 24 Hours (Table) 09/15/17 19:10 Anaerobic Culture - Preliminary Gallbladder Fluid 09/14/17 18:00 Blood Culture - Preliminary Blood No Growth after 72 hours 09/15/17 19:10 Gram Stain - Final Aspirate Body Fluid Culture - Final Staphylococcus aureus Assessment and Plan (1) Calculus of cystic duct with obstruction Current Visit: Yes Status: Acute Code(s): K80.21 - CALCULUS OF GALLBLADDER W /O CHOLECYSTITIS WITH OBSTRUCTION SNOMED Code(s): 86254258 (2) Cirrhosis of liver Current Visit: Yes Status: Acute Code(s): K74.60 - UNSPECIFIED CIRRHOSIS OF LIVER SNOMED Code(s): 07140026 (3) Obesity (BMI 30.0-34.9) Current Visit: Yes Status: Acute Code(s): E66.9 - OBESITY, UNSPECIFIED SNOMED Code(s): 315582440 (4) Rheumatoid arthritis Current Visit: Yes Status: Acute Code(s): M06.9 - RHEUMATOID ARTHRITIS, UNSPECIFIED SNOMED Code(s): 60769808 (5) Immunosuppressed status Current Visit: Yes Status: Acute Code(s): D89.9 - DISORDER INVOLVING THE IMMUNE MECHANISM, UNSPECIFIED SNOMED Code(s): 85086303 (6) Acute cholecystitis Current Visit: Yes Status: Acute Code(s): K81.0 - ACUTE CHOLECYSTITIS SNOMED Code(s): 21127285 Plan: 1. Continue COLT drain for discharge. 2. May restart rheumatoid medications as hemoglobin is stable. 3. Infectious disease team following for history of acute cholecystitis with hydrops and purulence from the gallbladder. 4. Patient is clear from a surgical standpoint for discharge as she has been afebrile, white blood cell count is normal. Follow-up in one week.
[2017-09-18] MEDS ORDERED: POTASSIUM CHLORIDE ER 20 MEQ TAB.ER PO STA (12:34)
--- NOTE | 2017-09-18 20:16 | P.OP ---
Date of Procedure: 09/15/17 Description of Procedure: Date of Procedure: 09/15/17 SURGEON: YOLANDA COPELAND MD PREOPERATIVE DIAGNOSES: 1. Acute Cholecystitis. 2. Bipolar disorder. 3. 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 Right upper quadrant abdominal pain with peritonitis 5. Family history of gallbladder disorder. 6. Hypothyroidism 7. Obesity due to excess calories, BMI 33.5 8. Anxiety disorder POSTOPERATIVE DIAGNOSES: 1. Acute Cholecystitis. 2. Bipolar disorder. 3. 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 Right upper quadrant abdominal pain with peritonitis 5. Family history of gallbladder disorder. 6. Hypothyroidism 7. Obesity due to excess calories, BMI 33.5 8. Anxiety disorder 9. Acute purulent hydrops cholecystitis with cystic duct obstruction 10. 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 Hepatomegaly OPERATION: 1. Laparoscopic cholecystectomy 2. Placement of #19 round drain hepatic fossa ANESTHESIA: General with local ESTIMATED BLOOD LOSS: 300 mL Pathology: other (gallbladder, gallbladder fluid) Condition: stable Disposition: floor COMPLICATIONS: None. Operative Findings: 1. Fatty liver disease with macronodular liver cirrhosis 2. Hydrops with thor purulence from gallbladder 3. Contaminated case 4. Short cystic duct requiring transection at infunibulum for cholecystectomy with 60-mm Covidien tri-stapler 5. Dry hepatic fossa with round #19 drain placed. INDICATIONS: The patient is a 37-year-old female who presents with right upper quadrant abdominal pain and acute cholelcystitis. Surgical intervention with a laparoscopic cholecystectomy was described at length including injury to the biliary tree, bleeding, infection, need for further surgery. Informed consent was obtained. DESCRIPTION OF THE PROCEDURE: The patient was brought to the operating room, laid in supine position. After general induction, the abdomen was prepped and draped in a standard sterile fashion. Prior to incision, a timeout protocol was confirmed with surgical team regarding patient's name, procedure to be performed including preoperative medications for which he had received heparin 5000 units subcutaneously as well as bilateral SCDs for DVT prophylaxis. A transverse 5 mm incision was made along the left upper quadrant. Please note the skin was localized prior to incision. A 0 degree 5-mm laparoscopic trocar entry was performed and entered into the peritoneal cavity. The abdomen was insufflated with 15 mmHg pressure which she tolerated well. Diagnostic laparoscopy confirmed no injury to bowel, viscera or mesentery. Adhesions were found about the gallbladder. No inguinal hernias were found. Macronodular cirrhosis of the liver was identified with severe fatty liver disease. Additionally the gallbladder was hydropic and intense. Next, two 5 mm trocars were placed along the right costal margin followed by a 11 mm port at the left upper quadrant. The patient was placed in steep reverse Trendelenburg position with the right side up. The gallbladder fundus was retracted over the dome of the liver. Initial attention was brought to the infundibulum which was gently retracted in the inferior lateral approach. Separately, severe edema of the infundibulum was identified. The cystic duct and cystic artery were obscured. The gallbladder was decompressed and immediately white bile was identified consistent with hydrops. Separately thor purulence was emanating from the gallbladder fluid. A very short cystic duct was identified despite dissection of the infundibulum. The common bile duct was identified. To avoid any injury to the common bile duct from her short cystic duct, transection of the infundibulum using a stapler was proposed. A dome down technique was performed to free the gallbladder from the liver. Secondary to her immunosuppressive therapy including NSAIDs, she had moderate bleeding from the hepatic bed. Pressure with gauze was used to control for bleeding. The port along the left upper quadrant was exchanged for a 12 mm port. The gallbladder was transected at the infundibulum using 60-mm Covidien purple tri-stapler load. The abdomen was irrigated with over 1 L of normal saline until the aspirate was clear. The gallbladder was removed from the abdominal cavity using an Endo Catch bag and passed off for further pathological analysis. Hemostasis was checked and the hepatic bed was dry. A round of #19 drain was placed at the hepatic fossa and exited via the left lateral port with bulb placed. Drain stitch of 2- 0 nylon was placed. All instruments and pneumoperitoneum were removed from the abdominal cavity. The fascial defect of the 11-mm port site was closed using Case Benedict and 0 Vicryl. The rest of incisions were reapproximated using 4-0 Monocryl in an interrupted subcuticular fashion. A total of 30 mL of local was infiltrated to all wounds for postop analgesia. Liquid glue was applied to the skin. Optifoam was placed along the left upper quadrant incision and the drain site. At the end of the procedure, needle, sponge, and instrument count was verified correct by medical surgical tech. The patient had tolerated the procedure well and was taken to postanesthesia care unit in stable condition. Intraoperative films were discussed and reviewed with the patient's family who were pleased with the level of care.
[2017-09-18] MEDS: cloZAPine 100 MG TAB PO SCH (20:40)
[2017-09-18] MEDS: FOLIC ACID 1 MG TAB PO SCH (20:42)
[2017-09-18] MEDS: PRAZOSIN 1 MG CAP PO SCH (20:43)
[2017-09-18] MEDS: NON-FORMULARY DRUG (Vilazodone Hcl [Viibryd] 40 MG) PO SCH (20:44)
--- NOTE | 2017-09-18 22:45 | PN ---
PROGRESS NOTE SUBJECTIVE: 37-year-old white female, sitting up in chair, complaining of abdominal pain, diffuse, around the incisional areas and is requesting pain medicine. PHYSICAL EXAMINATION: Temp 98, pulse 105, respiratory 16 to 18 blood pressure 120s over 80s, O2 96% on room air. Cardiovascular S1, S2. LUNGS: Transmitted upper airway sounds. Hematologic: Negative Homans. Psych fair mood and affect. Ophthalmological: Pupils equal, round, react to light and accommodation. GI: Incisional tenderness to palpation over wound areas. LABORATORY DATA: Sodium 146, potassium 3.7. Hemoglobin 10.5, white count 7.6. ASSESSMENT: 1. Calculous of cystic duct with obstruction. 2. Cirrhosis of liver. 3. Obesity. 4. Rheumatoid arthritis. 5. Immunosuppressed status. 6. Acute cholecystitis. Status post cholecystectomy. 7. COLT drainage continue. 8. Restart rheumatoid arthritis medicines. 9. She will be discharged home once cleared for IV antibiotics with Dr. Burnette. MMODL / IJN: [id number] /
[2017-09-19 00:53] LABS: Glucose,Whole Blood 137 mg/dL (75-99)
[2017-09-19] MEDS: SODIUM CHLORIDE 0.9% 1,000 ML IV SCH (03:34)
[2017-09-19] MEDS: LEVOTHYROXINE 125 MCG TAB PO SCH (06:14)
[2017-09-19] MEDS: HYDROcodone/APAP 10-325MG 1 EACH TAB PO PRN ×2 (06:14→10:08)
[2017-09-19 07:08] LABS: Basophils % (A) 0 %; Eosinophils % (A) 0 %; HCT 30.3 % (34.0-46.0); HGB 9.8 gm/dL (11.4-16.0); Lymphocytes # (A) 1.2 k/uL (1.0-4.8); Lymphocytes % (A) 16 %; MCH 29.6 pg (25.0-35.0); MCHC 32.5 g/dL (31.0-37.0); Mean Platelet Volume 8.8; Monocytes # (A) 0.7 k/uL (0-1.0); Monocytes % (A) 9 %; Neutrophils # (A) 5.4 k/uL (1.3-7.7); Neutrophils % (A) 72 %; Platelet Count 208 k/uL (150-450); RBC 3.33 m/uL (3.80-5.40); RDW 13.9 % (11.5-15.5); WBC 7.5 k/uL (3.8-10.6)
[2017-09-19 07:37] LABS: ALT 20 U/L (9-52); AST 20 U/L (14-36); Albumin 2.7 g/dL (3.5-5.0); Alkaline Phosphatase 117 U/L (38-126); Anion Gap 10 mmol/L; Blood Urea Nitrogen <2 mg/dL (7-17); Calcium 8.1 mg/dL (8.4-10.2); Carbon Dioxide 19 mmol/L (22-30); Chloride 116 mmol/L (98-107); Glucose 124 mg/dL (74-99); Potassium 3.2 mmol/L (3.5-5.1); Sodium 145 mmol/L (137-145); Total Bilirubin 0.2 mg/dL (0.2-1.3); Total Protein 5.2 g/dL (6.3-8.2)
[2017-09-19 10:04] VITALS: BP 123/83; PULSE 105; TEMP 98.6
[2017-09-19] MEDS: ceFAZolin IN SWFI 2 GM/20 ML SYRINGE IVP SCH (10:09)
[2017-09-19] MEDS: PANTOPRAZOLE 40 MG TABLET PO SCH (10:09)
[2017-09-19] MEDS: HEPARIN SODIUM,PORCINE 5,000 UNIT/ML 1 ML VIAL SQ SCH (10:10)
[2017-09-19] MEDS: cloZAPine 25 MG TAB PO SCH (10:10)
--- NOTE | 2017-09-19 11:12 | P.PN ---
Subjective Progress Note Date: 09/19/17 Patient in wheelchair going home. Pain is controlled. No fevers or chills. Abdominal pain improved since admission. Objective - Vital Signs Vital signs: Vital Signs Temp 98.6 F 09/19/17 10:04 Pulse 105 H 09/19/17 10:21 Resp 16 09/19/17 10:04 BP 123/83 09/19/17 10:04 Pulse Ox 96 09/19/17 10:04 Intake & Output 09/18/17 09/19/17 09/19/17 18:59 06:59 18:59 Intake Total 750 Output Total 50 Balance -50 750 Intake: Intake, IV Titration 750 Amount Sodium Chloride 0.9% 1, 750 000 ml @ 125 mls/hr IV . Q8H [facility] Rx#:[id number] Output: Drainage 50 Right Lower Abdomen 50 Other: # Voids 2 3 1 - Exam GENERAL: Well developed and in no acute distress. Pleasant. HEENT: No sclera icterus. Extraocular movements grossly intact. Moist buccal mucosa. Head is atraumatic, normocephalic. Hears conversational speech. No nasal drainage. NECK: Supple without lymphadenopathy. No JV distention. CHEST: Non-labored respirations and equal bilateral excursions. CARDIOVASCULAR: Regular rate and rhythm. Palpable 2+ radial pulses. ABDOMEN: Soft, COLT serosanguineous. Minimal right upper quadrant pain, improved from yesterday. MUSCULOSKELETAL: No clubbing, cyanosis or edema. Ulnar deviation noted of the left hand from rheumatoid arthritis. Stabilization boot on the foot present NEUROLOGIC: No focal or lateralizing signs. PSYCH: Appropriate affect. Alert and oriented to person, place and time. SKIN: Good skin turgor. Well perfused. - Labs CBC & Chem 7: 09/19/17 06:40 09/19/17 06:40 Labs: Abnormal Lab Results - Last 24 Hours (Table) 09/18/17 09/19/17 09/19/17 Range/Units 23:55 06:40 06:40 RBC 3.33 L (3.80-5.40) m/uL Hgb 9.8 L (11.4-16.0) gm/dL Hct 30.3 L (34.0-46.0) % Potassium 3.2 L (3.5-5.1) mmol/L Chloride 116 H (98-107) mmol/L Carbon Dioxide 19 L (22-30) mmol/L BUN <2 L (7-17) mg/dL Glucose 124 H (74-99) mg/dL POC Glucose (mg/dL) 137 H (75-99) mg/dL Calcium 8.1 L (8.4-10.2) mg/dL Total Protein 5.2 L (6.3-8.2) g/dL Albumin 2.7 L (3.5-5.0) g/dL Microbiology - Last 24 Hours (Table) 09/15/17 19:10 Anaerobic Culture - Preliminary Gallbladder Fluid Yeast species 09/14/17 18:00 Blood Culture - Preliminary Blood No Growth after 96 hours Assessment and Plan (1) Calculus of cystic duct with obstruction Current Visit: Yes Status: Acute Code(s): K80.21 - CALCULUS OF GALLBLADDER W /O CHOLECYSTITIS WITH OBSTRUCTION SNOMED Code(s): 55595250 (2) Cirrhosis of liver Current Visit: Yes Status: Acute Code(s): K74.60 - UNSPECIFIED CIRRHOSIS OF LIVER SNOMED Code(s): 37142479 (3) Obesity (BMI 30.0-34.9) Current Visit: Yes Status: Acute Code(s): E66.9 - OBESITY, UNSPECIFIED SNOMED Code(s): 243319814 (4) Rheumatoid arthritis Current Visit: Yes Status: Acute Code(s): M06.9 - RHEUMATOID ARTHRITIS, UNSPECIFIED SNOMED Code(s): 00782416 (5) Immunosuppressed status Current Visit: Yes Status: Acute Code(s): D89.9 - DISORDER INVOLVING THE IMMUNE MECHANISM, UNSPECIFIED SNOMED Code(s): 01367951 (6) Acute cholecystitis Current Visit: Yes Status: Acute Code(s): K81.0 - ACUTE CHOLECYSTITIS SNOMED Code(s): 58646945 Plan: 1. Patient will follow-up in the office in 1 week. 2. Remove COLT in the office.
[2017-09-20 14:28] LABS: Albumin 3.03 g/dL (3.80-4.90)
== END 2017-09-19 11:09 | disposition home or self-care (01) | DRG 417 ==
LOC: EC 16:32 → 3SUR 19:51
PROVIDERS: ADMIT Family Medicine; ATTEND Family Medicine
PROC: 0FT44ZZ Resection of Gallbladder, Percutaneous Endoscopic Approach (ICD-10-PCS; principal; 2017-09-15 09:15)
DX: K80.01 Calculus of gallbladder with acute cholecystitis with obstruction (principal); K65.9 Peritonitis, unspecified; K82.1 Hydrops of gallbladder; M06.9 Rheumatoid arthritis, unspecified; E66.09 Other obesity due to excess calories; F31.9 Bipolar disorder, unspecified; E03.9 Hypothyroidism, unspecified; F41.9 Anxiety disorder, unspecified; K21.9 Gastro-esophageal reflux disease without esophagitis; Z68.33 Body mass index [BMI] 33.0-33.9, adult; K74.69 Other cirrhosis of liver; R16.0 Hepatomegaly, not elsewhere classified
CPT/HCPCS: 36415; 74177; 80053; 80074; 81001; 81025; 82103; 82105; 82150; 82390; 82728; 83516; 83540; 83550; 83605; 83690; 83735; 84132; 84165; 84439; 84443; 85025; 85610; 85730; 86038; 86706; 86803; 87040; 87070; 87075; 87077; 87186; 87205; 88304; 93005; 93306; 96361; 96374; 96375; 99285

== ENCOUNTER → 2017-11-30 | Outpatient (CLI) | payer OTHER ==
[2017-11-30 13:42] LABS: Basophils % (A) 0 %; Eosinophils % (A) 0 %; HCT 38.3 % (34.0-46.0); HGB 12.5 gm/dL (11.4-16.0); Lymphocytes # (A) 1.5 k/uL (1.0-4.8); Lymphocytes % (A) 28 %; MCH 27.6 pg (25.0-35.0); MCHC 32.6 g/dL (31.0-37.0); MCV 84.8 fL (80.0-100.0); Mean Platelet Volume 10.3; Monocytes # (A) 0.4 k/uL (0-1.0); Monocytes % (A) 7 %; Neutrophils # (A) 3.2 k/uL (1.3-7.7); Neutrophils % (A) 62 %; Platelet Count 133 k/uL (150-450); RBC 4.52 m/uL (3.80-5.40); RDW 15.5 % (11.5-15.5); WBC 5.2 k/uL (3.8-10.6)
[2017-11-30 13:52] LABS: ALT 22 U/L (9-52); AST 19 U/L (14-36); Alkaline Phosphatase 123 U/L (38-126); Anion Gap 9 mmol/L; Blood Urea Nitrogen 11 mg/dL (7-17); Calcium 9.1 mg/dL (8.4-10.2); Carbon Dioxide 19 mmol/L (22-30); Chloride 115 mmol/L (98-107); Glucose 96 mg/dL (74-99); Potassium 3.8 mmol/L (3.5-5.1); Sodium 143 mmol/L (137-145); Total Bilirubin 0.2 mg/dL (0.2-1.3); Total Protein 6.9 g/dL (6.3-8.2)
[2017-11-30 20:30] LABS: Alpha Fetoprotein, Tumor Mkr <2.5 ng/mL (0.0-7.9); Iron Saturation 8.54 (12.00-45.00)
[2017-11-30 21:13] LABS: Hepatitis B Core IgM Non-Reactive (Non-Reactive)
[2017-12-01 14:09] LABS: Ceruloplasmin 36.7 mg/dL (20.0-60.0)
[2017-12-01 16:30] LABS: Hepatitis A Antibody IgM Non-Reactive (Non-Reactive)
== END | disposition home or self-care (01) ==
LOC: LABWHC1 12:26
DX: K74.60 Unspecified cirrhosis of liver (principal)
CPT/HCPCS: 36415; 80053; 80074; 82103; 82105; 82390; 82728; 83540; 83550; 85025; 86038

== ENCOUNTER → 2017-12-06 | Outpatient (CLI) | payer OTHER ==
[2017-12-07 10:32] LABS: Clozapine (Clozaril) 318 ng/mL (200-700); Norclozapine 199 ng/mL (200-700)
== END | disposition home or self-care (01) ==
LOC: LABWHC1 09:17
PROVIDERS: ATTEND Nurse Practitioner Family
DX: Z51.81 Encounter for therapeutic drug level monitoring (principal); Z79.899 Other long term (current) drug therapy
CPT/HCPCS: 36415; 80159

== ENCOUNTER 2018-01-06 18:24 | Emergency (ER) | payer OTHER ==
[2018-01-06] MEDS ORDERED: DEXAMETHASONE 4 MG TAB PO STA (20:22)
[2018-01-06] MEDS ORDERED: IBUPROFEN 800 MG TAB PO STA (20:22)
[2018-01-06] MEDS ORDERED: IPRATROPIUM-ALBUTEROL 3 ML NEB INHALATION STA (20:22)
[2018-01-06] MEDS ORDERED: ACET/COD 240MG/24MG LIQ 10 ML SYRG PO ONE (20:22)
[2018-01-06] MEDS ORDERED: ACETAMINOPHEN TAB 325 MG TAB PO STA (20:22)
--- NOTE | 2018-01-06 20:30 | XR ---
EXAMINATION TYPE: XR chest 1V portable DATE OF EXAM: 01/06/2018 COMPARISON: 07/03/2017 HISTORY: Cough and congestion TECHNIQUE: Single frontal view of the chest is obtained. FINDINGS: Heart and mediastinum are normal. Lungs are clear of consolidation. There is no pleural ef fusion. There are no hilar masses. IMPRESSION: No active cardiopulmonary disease. No change.
--- NOTE | 2018-01-06 20:54 | ED ---
SOB HPI - General Chief Complaint: Shortness of Breath Stated Complaint: Cough, SOB Time Seen by Provider: 01/06/18 19:57 Source: patient, RN notes reviewed, old records reviewed Mode of arrival: ambulatory Limitations: no limitations - History of Present Illness Initial Comments: This is a 37-year-old female the ER for evaluation. Patient was essay for evaluation regards to cough and congestion. History of smoking underlying COPD. Patient has recent travel history no sick contacts no recent hospitalization. Patient states she has not been feeling also thinks it for quite some time but no no travel history or sick contacts, positive occasional fever and cough, shortness of breath is worse with exertion MD Complaint: shortness of breath, cough -: days(s) Quality: aching Consistency: constant Improves With: rest Worsens With: exertion Known History Of: COPD, asthma Associated Symptoms: cough, sputum production Treatments Prior to Arrival: none - Related Data Home Medications Medication Instructions Recorded Confirmed Etanercept [Enbrel] 50 mg SQ TU 08/17/16 01/06/18 Levothyroxine Sodium [Synthroid] 125 mcg PO DAILY 08/17/16 01/06/18 Prazosin [Minipress] 3 mg PO HS 08/17/16 01/06/18 Ranitidine HCl [Zantac] 150 mg PO BID 08/17/16 01/06/18 Vilazodone HCl [Viibryd] 40 mg PO HS 08/17/16 01/06/18 cloZAPine [Clozaril] 25 mg PO BID@0800,1600 08/17/17 01/06/18 cloZAPine [Clozaril] 300 mg PO HS 09/14/17 01/06/18 Folic Acid 1 mg PO DAILY 01/06/18 01/06/18 OXcarbazepine [Trileptal] 300 mg PO TID 01/06/18 01/06/18 Previous Rx's Medication Instructions Recorded Albuterol Sulfate [Proair Hfa] 1 - 2 puff INHALATION Q4H PRN #1 01/06/18 inhaler Azithromycin [Zithromax Z-pack] 0 mg PO DIRECTED #1 pack 01/06/18 predniSONE 50 mg PO DAILY #5 tab 01/06/18 Allergies Allergy/AdvReac Type Severity Reaction Status Date / Time No Known Allergies Allergy Verified 01/06/18 20:11 Review of Systems ROS Statement: Those systems with pertinent positive or pertinent negative responses have been documented in the HPI. ROS Other: All systems not noted in ROS Statement are negative. Past Medical History Past Medical History: GERD/Reflux, Liver Disease, Osteoarthritis (OA), Rheumatoid Arthritis (RA), Thyroid Disorder Additional Past Medical History / Comment(s): , CHILDHOOD ASTHMA. CIRRHOISIS OF LIVER History of Any Multi-Drug Resistant Organisms: None Reported Past Surgical History: Section, Cholecystectomy Additional Past Surgical History / Comment(s): X4, CYST LEFT HAND.x2 , rt foot sX, Past Anesthesia/Blood Transfusion Reactions: No Reported Reaction Past Psychological History: Anxiety, Bipolar, Depression Smoking Status: Current every day smoker Past Alcohol Use History: None Reported Past Drug Use History: None Reported - Past Family History Mother Family Medical History: Cancer, Pulmonary Embolus Additional Family Medical History / Comment(s): BREAST CANCER and sister has hx of breast cancer 14 years ago Father Additional Family Medical History / Comment(s): alcoholic General Exam Limitations: no limitations General appearance: alert, in no apparent distress Head exam: Present: atraumatic, normocephalic, normal inspection Eye exam: Present: normal appearance, PERRL, EOMI. Absent: scleral icterus, conjunctival injection, periorbital swelling ENT exam: Present: normal exam, mucous membranes moist Neck exam: Present: normal inspection. Absent: tenderness, meningismus, lymphadenopathy Respiratory exam: Present: normal lung sounds bilaterally, wheezes, decreased breath sounds, prolonged expiratory. Absent: respiratory distress, rales, rhonchi, stridor Cardiovascular Exam: Present: normal rhythm, tachycardia, normal heart sounds. Absent: systolic murmur, diastolic murmur, rubs, gallop, clicks GI/Abdominal exam: Present: soft, normal bowel sounds. Absent: distended, tenderness, guarding, rebound, rigid Extremities exam: Present: normal inspection, full ROM, normal capillary refill. Absent: tenderness, pedal edema, joint swelling, calf tenderness Back exam: Present: normal inspection Neurological exam: Present: alert, oriented X3, CN II-XII intact Psychiatric exam: Present: normal affect, normal mood Skin exam: Present: warm, dry, intact, normal color. Absent: rash Course Vital Signs 01/06/18 01/06/18 18:36 20:09 Temperature 98.1 F Pulse Rate 119 H Respiratory 22 22 Rate Blood Pressure 109/74 O2 Sat by Pulse 96 Oximetry - Reevaluation(s) Reevaluation #1: 01/06/18 21:19 Medical records thoroughly reviewed Reevaluation #2: 01/06/18 21:19 Patient has great symptomatic improvement after breathing treatment Medical Decision Making - Medical Decision Making 37 female the ER for evaluation cough congestion shortness of breath, patient has acute bronchitis chest x-rays negative. Patient is no acute distress and can be discharged home - Radiology Data Radiology results: report reviewed (Chest x-rays negative for acute disease), image reviewed Disposition Clinical Impression: Acute exacerbation of chronic obstructive airways disease, Acute bronchitis Disposition: HOME SELF-CARE Condition: Good Instructions: Acute Bronchitis (ED) Prescriptions: Albuterol Sulfate [Proair Hfa] 1 - 2 puff INHALATION Q4H PRN #1 inhaler PRN Reason: Shortness Of Breath Azithromycin [Zithromax Z-pack] 0 mg PO DIRECTED #1 pack predniSONE 50 mg PO DAILY #5 tab Is patient prescribed a controlled substance at d/c from ED?: No Referrals: Pankaj Her MD [Primary Care Provider] - 1-2 days
[2018-01-06 21:27] VITALS: BP 141/78; RESP 20; TEMP 98
[2018-01-06 21:45] VITALS: PULSE 92
== END 2018-01-06 21:40 | disposition home or self-care (01) ==
LOC: EC 18:24
DX: J44.1 Chronic obstructive pulmonary disease with (acute) exacerbation (principal); J20.9 Acute bronchitis, unspecified; J44.0 Chronic obstructive pulmonary disease with (acute) lower respiratory infection; K21.9 Gastro-esophageal reflux disease without esophagitis; M06.9 Rheumatoid arthritis, unspecified; M19.90 Unspecified osteoarthritis, unspecified site; E07.9 Disorder of thyroid, unspecified; F31.9 Bipolar disorder, unspecified; F41.9 Anxiety disorder, unspecified; F17.200 Nicotine dependence, unspecified, uncomplicated; Z79.899 Other long term (current) drug therapy
CPT/HCPCS: 94640; 71045; 99285; J8540

== ENCOUNTER → 2018-04-19 | Outpatient (CLI) | payer OTHER ==
[2018-04-19 20:35] LABS: ALT 13 U/L (8-44); AST 18 U/L (13-35); Albumin/Globulin Ratio 2.05 (1.20-2.10); Alkaline Phosphatase 165 U/L (41-126); Bilirubin, Conjugated <0.20 mg/dL (0.20-0.40); Carbon Dioxide 20.6 mmol/L (21.6-31.8); Chloride 110 mmol/L (96-109); Cholesterol 191 mg/dL (0-200); Globulin 2.2 g/dL (1.6-3.3); Glucose 106 mg/dL (70-110); LDL Cholesterol,Calculated 111.4 mg/dL (0.0-131.0); Potassium 4.7 mmol/L (3.5-5.5); Sodium 145 mmol/L (135-145); Total Bilirubin 0.2 mg/dL (0.3-1.2); Total Protein 6.7 g/dL (6.2-8.2)
[2018-04-19 22:38] LABS: Hemoglobin A1C 5.3 % (4.0-6.0)
[2018-04-20 04:44] LABS: Clozapine (Clozaril) 156 ng/mL (200-700); Norclozapine 132 ng/mL (200-700)
== END | disposition home or self-care (01) ==
LOC: LABWHC1 11:58
PROVIDERS: ATTEND Nurse Practitioner Family
DX: Z51.81 Encounter for therapeutic drug level monitoring (principal); Z79.899 Other long term (current) drug therapy
CPT/HCPCS: 36415; 80051; 80061; 80076; 80159; 82947; 83036; 84439; 84443

== ENCOUNTER → 2018-05-23 | Outpatient (CLI) | payer OTHER ==
--- NOTE | 2018-05-23 16:26 | US ---
EXAMINATION TYPE: US abdomen limited DATE OF EXAM: 05/23/2018 COMPARISON: CT 2018 CLINICAL HISTORY: K74.60 Unspecified Cirrhosis of liver. 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 No c/o pain or nausea. EXAM MEASUREMENTS: Liver Length: 14.9 cm, some mild fatty infiltration liver may be present. Gallbladder Wall: Surgically absent cm CBD: 0.7 cm Right Kidney: 11.2 x 4.7 x 4.2 cm Pancreas: Tail obscured by overlying bowel gas. Head and body the pancreas appear normal. Liver: wnl Gallbladder: Surgically absent Evidence for sonographic Palmer's sign: No CBD: wnl Right Kidney: wnl IMPRESSION: 1. Visualized right upper quadrant ultrasound is unremarkable
== END | disposition home or self-care (01) ==
LOC: RADUSWWP 08:46
DX: K74.60 Unspecified cirrhosis of liver (principal)
CPT/HCPCS: 76705

== ENCOUNTER 2018-06-30 17:54 | Emergency (ER) | payer OTHER ==
[2018-06-30 18:01] VITALS: RESP 18; TEMP 98.1
[2018-06-30] MEDS ORDERED: KETOROLAC 30 MG/ML 1 ML VIAL IM STA (18:11)
[2018-06-30] MEDS ORDERED: methylPREDNISolone SOD SUCCI 125 MG/2 ML VIAL IM ONE (18:38)
--- NOTE | 2018-06-30 18:38 | ED ---
General Adult HPI - General Chief complaint: Extremity Problem,Nontraumatic Stated complaint: Swelling and pain in hand Time Seen by Provider: 06/30/18 18:09 Source: patient, RN notes reviewed Mode of arrival: ambulatory Limitations: no limitations - History of Present Illness Initial comments: 38-year-old female presents to the emergency department for a chief complaint of right hand pain. Patient states she does have a history of osteoarthritis as well as rheumatoid arthritis. She started to have pain across the volar aspect of the right wrist as well as the metacarpal heads of the right hand. Patient states this may be a flareup of RA although she has never had a flare before. Denies fevers or chills. Denies any erythema or spreading redness. Patient denies any injuries.Patient has no other complaints at this time including shortness of breath, chest pain, abdominal pain, nausea or vomiting, headache, or visual changes. - Related Data Home Medications Medication Instructions Recorded Confirmed Etanercept [Enbrel] 50 mg SQ TU 08/17/16 01/06/18 Levothyroxine Sodium [Synthroid] 125 mcg PO DAILY 08/17/16 01/06/18 Prazosin [Minipress] 3 mg PO HS 08/17/16 01/06/18 Ranitidine HCl [Zantac] 150 mg PO BID 08/17/16 01/06/18 Vilazodone HCl [Viibryd] 40 mg PO HS 08/17/16 01/06/18 cloZAPine [Clozaril] 25 mg PO BID@0800,1600 08/17/17 01/06/18 cloZAPine [Clozaril] 300 mg PO HS 09/14/17 01/06/18 Folic Acid 1 mg PO DAILY 01/06/18 01/06/18 OXcarbazepine [Trileptal] 300 mg PO TID 01/06/18 01/06/18 Previous Rx's Medication Instructions Recorded Albuterol Sulfate [Proair Hfa] 1 - 2 puff INHALATION Q4H PRN #1 01/06/18 inhaler Azithromycin [Zithromax Z-pack] 0 mg PO DIRECTED #1 pack 01/06/18 predniSONE 50 mg PO DAILY #5 tab 01/06/18 Ibuprofen 800 mg PO Q8H PRN #20 tablet 06/30/18 predniSONE 50 mg PO DAILY #5 tablet 06/30/18 Allergies Allergy/AdvReac Type Severity Reaction Status Date / Time No Known Allergies Allergy Verified 06/30/18 18:01 Review of Systems ROS Statement: Those systems with pertinent positive or pertinent negative responses have been documented in the HPI. ROS Other: All systems not noted in ROS Statement are negative. Past Medical History Past Medical History: GERD/Reflux, Liver Disease, Osteoarthritis (OA), Rheumatoid Arthritis (RA), Thyroid Disorder Additional Past Medical History / Comment(s): , CHILDHOOD ASTHMA. CIRRHOISIS OF LIVER History of Any Multi-Drug Resistant Organisms: None Reported Past Surgical History: Section, Cholecystectomy Additional Past Surgical History / Comment(s): X4, CYST LEFT HAND.x2, rt foot sX, Past Anesthesia/Blood Transfusion Reactions: No Reported Reaction Past Psychological History: Anxiety, Bipolar, Depression Smoking Status: Current every day smoker Past Alcohol Use History: None Reported Past Drug Use History: None Reported - Past Family History Mother Family Medical History: Cancer, Pulmonary Embolus Additional Family Medical History / Comment(s): BREAST CANCER and sister has hx of breast cancer 14 years ago Father Additional Family Medical History / Comment(s): alcoholic General Exam Limitations: no limitations General appearance: alert, in no apparent distress Head exam: Present: atraumatic, normocephalic, normal inspection Eye exam: Present: normal appearance, PERRL, EOMI. Absent: scleral icterus, conjunctival injection, periorbital swelling ENT exam: Present: normal exam, normal oropharynx, mucous membranes moist, TM's normal bilaterally, normal external ear exam Neck exam: Present: normal inspection, full ROM. Absent: tenderness, meningismus, lymphadenopathy Respiratory exam: Present: normal lung sounds bilaterally. Absent: respiratory distress, wheezes, rales, rhonchi, stridor Cardiovascular Exam: Present: regular rate, normal rhythm, normal heart sounds. Absent: systolic murmur, diastolic murmur, rubs, gallop, clicks Extremities exam: Present: full ROM (Full range of motion of all digits in the right hand), tenderness (Minimal tenderness noted to the volar right wrist as well as dorsal metacarpal heads of the right hand), normal capillary refill (Capillary refill less than 2 seconds, radial pulse 2+.), other (Patient does have ulnar deviation noted of digits 2 through 5). Absent: joint swelling (Minimal edema noted of metacarpal heads of right hand however no significant edema or erythema present. No increased warmth.) Course Vital Signs 06/30/18 06/30/18 17:59 19:32 Temperature 98.1 F Pulse Rate 103 H 98 Respiratory 18 18 Rate Blood Pressure 130/85 128/75 O2 Sat by Pulse 100 98 Oximetry Medical Decision Making - Medical Decision Making 1-year-old female presents for right hand pain 2 days. Patient has a history of rheumatoid arthritis. No injuries. On exam patient is altered deviation of digits 2 through 5. She does have tenderness noted to the dorsal metacarpal heads as well as the right volar wrist. She does have full range of motion. Minimal edema noted of the second third metacarpal heads however no erythema or increased warmth throughout the hand or wrist. Neurovascular intact. Patient likely having rheumatoid arthritis flare. Patient will be given NSAIDs and steroids. She will follow up with her director of volunteer services in 1-2 days. She'll return here if she has any worsening symptoms. Patient has never been told she could not have steroids. Disposition Clinical Impression: Rheumatoid arthritis flare Disposition: HOME SELF-CARE Condition: Good Instructions (If sedation given, give patient instructions): Rheumatoid Arthritis (ED) Additional Instructions: Please take Motrin and steroid. Follow-up with your director of volunteer services. Return here if you have any worsening symptoms. Prescriptions: Ibuprofen 800 mg PO Q8H PRN #20 tablet PRN Reason: Pain predniSONE 50 mg PO DAILY #5 tablet Is patient prescribed a controlled substance at d/c from ED?: No Referrals: Pankaj Her MD [Primary Care Provider] - 1-2 days Time of Disposition: 18:39
[2018-06-30 19:33] VITALS: BP 128/75; PULSE 98
== END 2018-06-30 19:33 | disposition home or self-care (01) ==
LOC: EC 17:54
DX: M06.9 Rheumatoid arthritis, unspecified (principal); K21.9 Gastro-esophageal reflux disease without esophagitis; E07.9 Disorder of thyroid, unspecified; F31.9 Bipolar disorder, unspecified; F41.9 Anxiety disorder, unspecified; F17.200 Nicotine dependence, unspecified, uncomplicated; Z79.890 Hormone replacement therapy; Z79.899 Other long term (current) drug therapy
CPT/HCPCS: 99283; 96372 ×2; J2930; J1885

== ENCOUNTER 2018-07-14 09:08 | Day surgery (SDC) | payer OTHER ==
[2018-07-12 14:40] VITALS: BMI 30.4
[~2018-07-14 09:08] MED LIST changes: -DEXAMETHASONE SOD PHOSPHATE 10 MG/ML 1 ML VIAL IV ONE; -MIDAZOLAM 2 MG/2 ML VIAL IV PRN; -ONDANSETRON 4 MG/2 ML VIAL IVP ONE; -SCOPOLAMINE 1.5MG/72HR PATCH TRANSDERM ONE; -ceFAZolin IN SWFI 2 GM/20 ML SYRINGE IVP ONE; -fentaNYL (PF) 50 MCG/ML 2 ML AMP IV PRN
[2018-07-14 09:45] VITALS: RESP 18; TEMP 98.8
[2018-07-14] MEDS ORDERED: LIDOCAINE 1% 20 ML VIAL (10MG/ML) FOR IV START INTRADERMA ONE (09:58)
[2018-07-14] MEDS ORDERED: PROPOFOL 10 MG/ML 20 ML VIAL IV ONE (10:07)
[2018-07-14] MEDS ORDERED: fentaNYL (PF) 50 MCG/ML 2 ML AMP ONE (10:07)
[2018-07-14] MEDS ORDERED: LIDOCAINE 1% INJ 10MG/ML (20 ML MDV) ONE (10:07)
--- NOTE | 2018-07-14 10:24 | P.PCN ---
Date of Procedure: 07/14/18 Procedure(s) Performed: Procedure: Esophagogastroduodenoscopy Preoperative diagnosis: History of cirrhosis of the liver for screening for esophageal varices. Postoperative diagnosis: Exam within normal limits. Preparation and sedation: Was provided by anesthesia. Brief clinical history: The patient is a 38-year-old female with history of cirrhosis of the liver likely due to fatty liver disease. This evaluation is scheduled for screening for esophageal varices. Procedure: With the patient on her left lateral decubitus position and after informed consent and adequate sedation, I passed the Olympus-GIF H 190 video upper endoscope through the cricopharyngeus down the esophagus. GE junction was around 40-41 cm from the incisors. There was no obvious hiatal hernia. The esophagus appeared normal with no evidence of varices. No evidence of esophagitis or complicated reflux disease. The endoscope was then passed into the stomach which was insufflated with air and inspected in detail including the retroflex view in the cardia. No obvious abnormalities or gastric varices were noted. Pyloric channel, duodenal bulb, post bulbar area and descending duodenum appeared within normal limits. No biopsies were indicated then the endoscope was withdrawn. The patient tolerated the procedure well. Plan: The patient was reassured. She will follow-up in the office as planned and I would consider repeat upper endoscopy in 2-3 years. I will keep you updated on her progress.
[2018-07-14 10:46] VITALS: BP 116/77; PULSE 97
== END 2018-07-14 11:05 | disposition home or self-care (01) ==
LOC: ORWHC2ENDO 09:08
DX: K74.60 Unspecified cirrhosis of liver (principal); K21.9 Gastro-esophageal reflux disease without esophagitis; M19.90 Unspecified osteoarthritis, unspecified site; M06.9 Rheumatoid arthritis, unspecified; E07.9 Disorder of thyroid, unspecified; Z90.49 Acquired absence of other specified parts of digestive tract; Z79.890 Hormone replacement therapy; Z79.899 Other long term (current) drug therapy
CPT/HCPCS: 81025; 43235; J2001; J3010; J2704

== ENCOUNTER → 2018-07-21 | Outpatient (CLI) | payer OTHER | END | disposition home or self-care (01) | LOC: LABWHC1 11:02 | DX: E03.9 Hypothyroidism, unspecified (principal); Z79.899 Other long term (current) drug therapy | CPT/HCPCS: 36415; 84439; 84443 ==

== ENCOUNTER → 2018-10-10 | Outpatient (CLI) | payer OTHER | END | disposition home or self-care (01) | LOC: LABWHC1 10:39 | PROVIDERS: ATTEND Psychiatry & Neurology Psychiatry | DX: Z51.81 Encounter for therapeutic drug level monitoring (principal); Z79.899 Other long term (current) drug therapy | CPT/HCPCS: 36415; 80164 ==

== ENCOUNTER → 2018-12-15 | Outpatient (CLI) | payer OTHER ==
[2018-12-15 19:21] LABS: ALT 23 U/L (8-44); AST 26 U/L (13-35); Albumin/Globulin Ratio 2.26 (1.60-3.17); Alkaline Phosphatase 116 U/L (41-126); Bilirubin, Conjugated <0.20 mg/dL (0.20-0.40); Globulin 1.9 g/dL (1.6-3.3); Total Bilirubin 0.3 mg/dL (0.3-1.2); Total Protein 6.2 g/dL (6.2-8.2)
== END | disposition home or self-care (01) ==
LOC: LABWHC1 15:05
PROVIDERS: ATTEND Nurse Practitioner
DX: K74.60 Unspecified cirrhosis of liver (principal)
CPT/HCPCS: 36415; 80076; 82105

== ENCOUNTER 2019-03-20 10:12 | Observation (INO) | payer OTHER ==
[2019-03-20 12:05] LABS: HCT 41.2 % (34.0-46.0); HGB 14.6 gm/dL (11.4-16.0); MCH 28.7 pg (25.0-35.0); MCHC 35.4 g/dL (31.0-37.0); Mean Platelet Volume 11.3; Platelet Count 125 k/uL (150-450); Poikilocytosis Slight; RBC 5.08 m/uL (3.80-5.40); RDW 13.8 % (11.5-15.5); WBC 18.9 k/uL (3.8-10.6)
[2019-03-20 12:16] LABS: Band Neutrophils % 2 %; Lymphocytes # (M) 6.62 k/uL (1.0-4.8); Metamyelocytes # (M) 0.57 k/uL (0); Metamyelocytes % 3 %; Monocytes # (M) 0.57 k/uL (0-1.0); Myelocytes # (M) 0.38 k/uL (0); Myelocytes % 2 %; Neutrophils % (M) 56 %; Nucleated Red Blood Cells 0 /100 WBC (0-0); Total Cells Counted 200
[2019-03-20 12:17] LABS: Large Platelets Present
[2019-03-20] MEDS ORDERED: ALBUTEROL NEBULIZED 2.5 MG/3 ML INHALATION PRN (12:33)
--- NOTE | 2019-03-20 13:19 | XR ---
EXAMINATION TYPE: XR chest 2V DATE OF EXAM: 03/20/2019 COMPARISON: 01/06/2018 HISTORY: Chest pain TECHNIQUE: Frontal and lateral views of the chest are obtained. FINDINGS: There is no focal air space opacity. No evidence for pneumothorax. No pleural effusion. The cardiac silhouette size is within normal limits. The osseous structures are grossly intact. IMPRESSION: 1. No acute cardiopulmonary process.
[2019-03-20 14:12] LABS: HCT 42.5 % (34.0-46.0); HGB 14.8 gm/dL (11.4-16.0); MCH 28.6 pg (25.0-35.0); MCHC 34.9 g/dL (31.0-37.0); MCV 82.1 fL (80.0-100.0); Mean Platelet Volume 11.4; Platelet Count 140 k/uL (150-450); Poikilocytosis Slight; RBC 5.18 m/uL (3.80-5.40); RDW 13.8 % (11.5-15.5); WBC 19.4 k/uL (3.8-10.6)
[2019-03-20 14:26] LABS: Albumin 4.1 g/dL (3.5-5.0); Calcium 9.3 mg/dL (8.4-10.2); Potassium 2.8 mmol/L (3.5-5.1); Total Bilirubin 0.5 mg/dL (0.2-1.3); Total Protein 6.7 g/dL (6.3-8.2)
[2019-03-20] MEDS ORDERED: Potassium Replacement Protocol 1 EACH MISC MISCELLANE PRN (14:31)
[2019-03-20 14:36] LABS: Band Neutrophils % 4 %; Lymphocytes # (M) 4.66 k/uL (1.0-4.8); Metamyelocytes # (M) 0.39 k/uL (0); Metamyelocytes % 2 %; Monocytes # (M) 0.78 k/uL (0-1.0); Myelocytes # (M) 0.19 k/uL (0); Myelocytes % 1 %; Neutrophils % (M) 66 %; Nucleated Red Blood Cells 0 /100 WBC (0-0); Total Cells Counted 200
[2019-03-20 14:38] LABS: Large Platelets Present
[2019-03-20] MEDS: POTASSIUM CHLORIDE ER 20 MEQ TAB.ER PO SCH ×3 (15:10→17:43)
[2019-03-20 15:34] LABS: Appearance,Urine Cloudy (Clear); Bacteria,Urine Rare /hpf; Bilirubin,Urine Negative (Negative); Blood,Urine Trace (Negative); Color,Urine Yellow; Glucose,Urine (UA) Negative (Negative); Ketones,Urine Negative (Negative); Leukocyte Esterase,Urine Negative (Negative); Mucus,Urine Rare /hpf; Nitrite,Urine Negative (Negative); PH, Urine 6.5 (5.0-8.0); Protein,Urine Trace (Negative); RBC,Urine 1 /hpf (0-5); Specific Gravity,Urine 1.012 (1.001-1.035); Squamous Epithelial Cell,Urine 2 /hpf (0-4); Urobilinogen,Urine <2.0 mg/dL (<2.0); WBC,Urine 5 /hpf (0-5)
[2019-03-20] MEDS: SUCRALFATE 1 GM TAB PO SCH (16:50)
[2019-03-20] MEDS ORDERED: LORATADINE 10 MG TAB PO SCH (21:00)
[2019-03-20] MEDS ORDERED: DIVALPROEX ER 250 MG TAB.ER.24H PO SCH (21:00)
[2019-03-20] MEDS ORDERED: DESVENLAFAXINE SUCCINATE 50 MG TAB.ER.24H PO SCH (21:00)
[2019-03-20] MEDS ORDERED: Cariprazine Hcl [Vraylar] PO SCH (21:00)
[2019-03-20] MEDS ORDERED: PRAZOSIN 1 MG CAP PO SCH (21:00)
[2019-03-20] MEDS ORDERED: Vilazodone Hcl [Viibryd] PO SCH (21:00)
[2019-03-20] MEDS: FAMOTIDINE 20 MG TAB PO SCH (21:23)
--- NOTE | 2019-03-20 21:55 | CONS ---
CONSULTATION DATE OF SERVICE: 03/20/2019 REASON FOR CONSULTATION: Leukocytosis. HISTORY OF PRESENT ILLNESS: The patient is a 38-year-old female who has been admitted directly to the hospital from her PCP office for management of her leukocytosis with a white count of 30,000 and concern for underlying secondary bacterial infection. The patient did mention that recently she was evaluated in the outpatient setting by her primary care physician for difficulty breathing. She was diagnosed with COPD exacerbation and has been treated with steroids and bronchodilator in addition to antibiotic; however, the patient is not very clear about the name of that antibiotic. The patient did mention that she did have overall improvement in her breathing and currently denies having any fever or chills. The patient denies having any chest pain or shortness of breath. Very minimal cough. No nausea, no vomiting. No abdominal pain or any diarrhea. The patient was admitted to hospital, as she did have a white count of 30,000 in the outpatient setting. Infectious Disease was consulted for further recommendation regarding antibiotic therapy. REVIEW OF SYSTEMS: Positive points have been mentioned in the HPI. Rest of the systems are negative. PAST MEDICAL HISTORY: Her past medical history is significant for: 1. Gastroesophageal reflux disease. 2. Rheumatoid arthritis. 3. Osteoarthritis. 4. Hypothyroidism. 5. COPD. PAST SURGICAL HISTORY: 1. Cholecystectomy. 2. . 3. Surgery for cyst in left hand. PAST PSYCHOLOGICAL HISTORY: Positive for anxiety, bipolar depression. SOCIAL HISTORY: Current everyday smoker. Denies drinking or drug use. FAMILY HISTORY: No pertinent findings noticed. ALLERGIES: NO KNOWN DRUG ALLERGIES. CURRENT MEDICATIONS: 1. Ventolin. 2. Depakote. 3. Pepcid. 4. Diflucan. 5. Synthroid. 6. Claritin. 7. Nicotine patch. 8. Protonix. 9. K-Dur. 10.Minipress. 11.Carafate. PHYSICAL EXAMINATION: On examination, her blood pressure is 113/84 with a pulse of 99, temperature of 98. She is 98% on room air. General description is a middle-aged female up in the room in no distress. No tachypnea or accessory muscle of respiration use. HEENT examination shows no pallor or scleral icterus. Oral mucosa membrane is dry. NECK: Trachea is central. No thyromegaly. LUNGS: Unlabored breathing. Clear to auscultation. No wheeze or crackle. HEART: S1, S2. Regular rate and rhythm. No added sound. ABDOMEN: Soft. No tenderness. No guarding or rigidity. EXTREMITIES: No edema of the feet. SKIN EXAMINATION: No rash or mass palpable. NEUROLOGICAL: Patient is awake, alert, oriented x3. Mood and affect normal. LABS/IMAGING: Hemoglobin is 14.8, white count 19.4, platelet count 140. BUN of 10, creatinine 1.07. UA has been negative. Chest x-ray negative for any acute infiltrate. DIAGNOSTIC IMPRESSION AND PLAN: Patient with elevated white count, more likely steroid effect, as the patient recently has been treated in the outpatient setting for chronic obstructive pulmonary disease exacerbation and tracheobronchitis plus/minus component of possible pharyngeal candidiasis, as currently no other focus of infection. Abdomen was soft. UA negative. Chest x-ray negative for pneumonia. PLAN: 1. No need for any systemic antibiotic therapy at this point. 2. Oral Diflucan 100 mg daily. 3. Repeat CBC in the morning. 4. Will follow up on clinical condition and further adjust medication if needed. Thank you for this consultation. Will follow this patient along with you. MMODL / IJN: [id number] / LINDY
[2019-03-21 00:34] VITALS: RESP 18
[2019-03-21 06:28] VITALS: BP 110/72; PULSE 82; TEMP 98.4
[2019-03-21] MEDS ORDERED: LEVOTHYROXINE 125 MCG TAB PO SCH (06:30)
[2019-03-21] MEDS ORDERED: PANTOPRAZOLE 40 MG TABLET PO SCH (07:30)
[2019-03-21] MEDS: FAMOTIDINE 20 MG TAB PO SCH (08:11)
[2019-03-21] MEDS: SUCRALFATE 1 GM TAB PO SCH ×2 (08:11→11:47)
[2019-03-21 08:34] LABS: ALT 26 U/L (4-34); AST 24 U/L (14-36); African American GFR (CKD) >90 (>60 ml/min/1.73 sqM); Albumin 3.9 g/dL (3.5-5.0); Alkaline Phosphatase 84 U/L (38-126); Anion Gap 13 mmol/L; Blood Urea Nitrogen 11 mg/dL (7-17); Calcium 9.1 mg/dL (8.4-10.2); Carbon Dioxide 21 mmol/L (22-30); Chloride 107 mmol/L (98-107); Glucose 87 mg/dL (74-99); Non-African American GFR(CKD) 81 (>60 ml/min/1.73 sqM); Potassium 3.3 mmol/L (3.5-5.1); Sodium 141 mmol/L (137-145); Total Bilirubin 0.5 mg/dL (0.2-1.3); Total Protein 6.8 g/dL (6.3-8.2)
[2019-03-21 08:51] LABS: HCT 42.1 % (34.0-46.0); HGB 14.6 gm/dL (11.4-16.0); MCH 28.6 pg (25.0-35.0); MCHC 34.8 g/dL (31.0-37.0); MCV 82.1 fL (80.0-100.0); Mean Platelet Volume 10.9; Platelet Count 125 k/uL (150-450); RBC 5.13 m/uL (3.80-5.40); RDW 13.8 % (11.5-15.5); WBC 14.5 k/uL (3.8-10.6)
[2019-03-21] MEDS ORDERED: FLUCONAZOLE 100 MG TAB PO SCH (09:00)
[2019-03-21] MEDS ORDERED: NICOTINE 14MG/24HR PATCH TRANSDERM SCH (09:00)
[2019-03-21 09:23] LABS: Band Neutrophils % 2 %; Basophils # (M) 0.15 k/uL (0-0.2); Lymphocytes # (M) 4.93 k/uL (1.0-4.8); Metamyelocytes # (M) 0.44 k/uL (0); Metamyelocytes % 3 %; Monocytes # (M) 1.02 k/uL (0-1.0); Myelocytes # (M) 0.29 k/uL (0); Myelocytes % 2 %; Neutrophils % (M) 53 %; Nucleated Red Blood Cells 0 /100 WBC (0-0); Total Cells Counted 200
[2019-03-21 09:24] LABS: Large Platelets Present; Poikilocytosis (M) Present
--- NOTE | 2019-03-21 13:22 | HP ---
HISTORY AND PHYSICAL This is a white female admitted with leukocytosis of 30,000. A 38-year-old white female with recently diagnosed with Marely esophagitis, community-acquired pneumonia admitted for secondary bacterial infection with white count over 30,000 on a lab in my office. She was recently diagnosed COPD exacerbation, community-acquired pneumonia and was found to have severe esophagitis due to Marely and possible enlarged lymph nodes. PAST MEDICAL HISTORY: GERD, rheumatoid arthritis, osteoarthritis, hypothyroidism, COPD. SURGICAL HISTORY: Cholecystectomy, , surgery on left hand. History of anxiety, bipolar depression. Current everyday smoker. No alcohol or illicit drugs. FAMILY HISTORY: Negative. ALLERGIES: Negative. HOME MEDICATIONS: 1. Carafate. 2. Minipress. 3. K-Dur. 4. Protonix. 5. Nicotine patch. 6. Claritin. 7. Synthroid. 8. Diflucan. 9. Pepcid. 10.Depakote. 11.Ventolin. PHYSICAL EXAMINATION: CONSTITUTIONAL: She feels well. Blood pressure 113/80s, pulse 80s to 90s, temperature 98, O2 of 98% on room air. CARDIOVASCULAR: S1, S2. LUNGS: Scattered wheeze and rhonchi. GI: Soft, tenderness to palpation epigastric. HEMATOLOGY: Negative Homans. PSYCH: Fair mood and affect. NEUROLOGIC: Alert and oriented x3. White count is 19.4 here currently, hemoglobin 14.8. Chest x-ray negative for pneumonia. ASSESSMENT: 1. Chronic obstructive pulmonary disease exacerbation. 2. Tracheobronchitis. 3. Esophageal Marely infection. Continue with Diflucan. Oral antibiotics were not needed per Infectious Disease. Will follow up as an outpatient. Will discharge her home. MMODL / IJN: [id number] /
--- NOTE | 2019-03-21 13:49 | PN ---
PROGRESS NOTE DATE OF SERVICE: 03/21/2019 REASON FOR FOLLOWUP: Leukocytosis. INTERVAL HISTORY: The patient is currently afebrile. Patient is breathing comfortably. The patient denies having any chest pain or shortness of breath or cough. No nausea or vomiting. No abdominal pain. No diarrhea. PHYSICAL EXAMINATION: Blood pressure 110/72 with a pulse of 82, temperature 98.4. She is 97% on room air. General description is a middle-aged female up in the room in no distress. RESPIRATORY SYSTEM: Unlabored breathing, clear to auscultation anteriorly. HEART: S1, S2. Regular rate and rhythm. ABDOMEN: Soft. No tenderness. [place]: [place] [address]. DIAGNOSTIC IMPRESSION AND PLAN: Patient's leukocytosis is more likely reactive plus-minus oropharyngeal candidiasis. The patient's white count did improve with Diflucan, to continue for about 10 days and close outpatient followup. MMODL / IJN: [id number] / MTDD
[2019-03-22] MEDS ORDERED: ORENCIA SQ SCH (12:33)
--- NOTE | 2019-04-07 23:55 | DS ---
DISCHARGE SUMMARY DATE OF ADMISSION: 03/20/2019. DATE OF DISCHARGE: 03/21/2019. DISCHARGE MEDICATIONS: 1. Zantac 150 b.i.d. 2. Synthroid 125 daily. 3. Viibryd 40 mg daily. 4. Vraylar 3 mg daily. 5. Pristiq ER 50 daily. 6. Depakote ER 750 daily. 7. Claritin 10 mg daily. 8. 2 mg q.h.s. 9. Carafate 1 g a.c. t.i.d. 10.Orencia 1 dose subcu once a day. 11.Ventolin HFA 2 puffs q.6 hours p.r.n. 12.Fluconazole 200 mg daily. 13.Protonix 40 mg daily. 14.Prednisone taper. CONDITION: Stable. PROGNOSIS: Guarded. Diet as tolerated. The patient was admitted tracheobronchitis, COPD exacerbation, leukocytosis secondary to esophageal fungemia, Marely, esophagitis. The patient continued on IV Diflucan, IV steroids, IV antibiotics. The patient stabilized and was sent home after being cleared by Infectious Disease to follow up as outpatient with outpatient oral medication. MMODL / IJN: [id number] /
== END 2019-03-21 12:51 | disposition home or self-care (01) ==
LOC: 6NMEDSUR 10:35
PROVIDERS: ADMIT Family Medicine; ATTEND Family Medicine
DX: B37.81 Candidal esophagitis (principal); D72.829 Elevated white blood cell count, unspecified; J44.1 Chronic obstructive pulmonary disease with (acute) exacerbation; J40 Bronchitis, not specified as acute or chronic; K21.9 Gastro-esophageal reflux disease without esophagitis; M06.9 Rheumatoid arthritis, unspecified; M19.90 Unspecified osteoarthritis, unspecified site; E03.9 Hypothyroidism, unspecified; F31.30 Bipolar disorder, current episode depressed, mild or moderate severity, unspecified; F41.9 Anxiety disorder, unspecified; Z90.49 Acquired absence of other specified parts of digestive tract; Z79.890 Hormone replacement therapy; Z79.899 Other long term (current) drug therapy; F17.200 Nicotine dependence, unspecified, uncomplicated
CPT/HCPCS: 80053 ×2; 85025 ×2; 81001; 87040; 71046; G0378 ×2; G0379

== ENCOUNTER → 2019-04-01 | Outpatient (CLI) | payer OTHER ==
[2019-04-01 16:41] LABS: Valproic Acid (Depakene) 60.7 ug/mL (50.0-100.0)
[2019-04-01 17:17] LABS: African American GFR (CKD) 106.9 (60.0-200.0); Albumin 4.3 g/dL (3.80-4.90); Albumin/Globulin Ratio 2.69 (1.60-3.17); Anion Gap 8.9 mmol/L (4.00-12.00); Bilirubin, Conjugated 0.3 mg/dL (0.20-0.40); Bilirubin,Unconjugated 0.3 mg/dL; Calcium 9.1 mg/dL (8.7-10.3); Carbon Dioxide 25.1 mmol/L (21.6-31.8); Chol/HDL Ratio 3.68; Globulin 1.6 g/dL (1.6-3.3); LDL Cholesterol,Calculated 80.2 mg/dL (0.0-131.0); Non-African American GFR(CKD) 92.2 (60.0-200.0); Potassium 3.4 mmol/L (3.5-5.5); Total Bilirubin 0.6 mg/dL (0.3-1.2); Total Protein 5.9 g/dL (6.2-8.2); VLDL Calculation 21.8 mg/dL (5.00-40.00)
[2019-04-01 17:23] LABS: T4, Free (Free Thyroxine) 1.5 ng/dL (0.80-1.80)
[2019-04-01 17:54] LABS: Hemoglobin A1C 5.8 % (4.0-6.0)
== END | disposition home or self-care (01) ==
LOC: LABWHC1 08:09
PROVIDERS: ATTEND Psychiatry & Neurology Psychiatry
DX: F31.9 Bipolar disorder, unspecified (principal)
CPT/HCPCS: 36415; 80053; 80061; 80164; 82248; 83036; 84439; 84443

== ENCOUNTER → 2019-04-12 | Outpatient (CLI) | payer OTHER ==
--- NOTE | 2019-04-12 08:33 | US ---
EXAMINATION TYPE: US liver DATE OF EXAM: 04/12/2019 COMPARISON: US CLINICAL HISTORY: K74.60 cirrhoisis of the liver. Cirrhosis EXAM MEASUREMENTS: Liver Length: 19.8 cm. Normal less than 15.5 cm. CBD: 0.6 cm Right Kidney: 10.2 x 3.8 x 4.8 cm Pancreas: wnl, tail obscured by overlying bowel gas Liver: Enlarged, heterogeneous Gallbladder: Surgically absent Evidence for sonographic Palmer's sign: No CBD: wnl Right Kidney: Cortical thinning IMPRESSION: 1. No discrete abnormality within the liver. Hepatomegaly is present. Typical lobular appearance for advanced cirrhosis are not evident at this time.
== END | disposition home or self-care (01) ==
LOC: RADUSWWP 06:52
PROVIDERS: ATTEND Internal Medicine Gastroenterology
DX: R16.0 Hepatomegaly, not elsewhere classified (principal)
CPT/HCPCS: 76705

== ENCOUNTER → 2019-05-29 | Outpatient (CLI) | payer OTHER ==
[2019-05-29 09:33] LABS: ALT 9 U/L (4-34); AST 20 U/L (14-36); African American GFR (CKD) >90 (>60 ml/min/1.73 sqM); Alkaline Phosphatase 77 U/L (38-126); Anion Gap 7 mmol/L; Blood Urea Nitrogen 9 mg/dL (7-17); Calcium 9.6 mg/dL (8.4-10.2); Carbon Dioxide 25 mmol/L (22-30); Chloride 111 mmol/L (98-107); Glucose 93 mg/dL (74-99); Non-African American GFR(CKD) 84 (>60 ml/min/1.73 sqM); Potassium 4.4 mmol/L (3.5-5.1); Sodium 143 mmol/L (137-145); Total Bilirubin 0.4 mg/dL (0.2-1.3); Total Protein 6.7 g/dL (6.3-8.2)
[2019-05-29 09:48] LABS: Anisocytosis Slight; Basophils % (A) 1 %; Eosinophils % (A) 0 %; HCT 43.5 % (34.0-46.0); Lymphocytes # (A) 2.6 k/uL (1.0-4.8); Lymphocytes % (A) 34 %; MCH 28.4 pg (25.0-35.0); MCHC 32.2 g/dL (31.0-37.0); Mean Platelet Volume 12.2; Monocytes # (A) 0.6 k/uL (0-1.0); Monocytes % (A) 8 %; Neutrophils # (A) 4.2 k/uL (1.3-7.7); Neutrophils % (A) 56 %; RBC 4.94 m/uL (3.80-5.40); RDW 16.2 % (11.5-15.5); WBC 7.6 k/uL (3.8-10.6)
--- NOTE | 2019-05-29 09:54 | US ---
EXAMINATION TYPE: US liver DATE OF EXAM: 05/29/2019 COMPARISON: US 04/12/2019, CT 09/14/2017 CLINICAL HISTORY: K74.60 cirrhosis of liver. EXAM MEASUREMENTS: Liver Length: 17.1 cm Gallbladder Wall: Surgically absent CBD: 0.8 cm Right Kidney: 10.9 x 3.5 x 4.4 cm Pancreas: Tail obscured by overlying bowel gas, visualized portions appear wnl Liver: Heterogeneous. Measuring upper limits of normal. Slightly nodular contour Gallbladder: Surgically absent Evidence for sonographic Palmer's sign: No CBD: wnl post cholecystectomy Right Kidney: Cortical thinning of the kidney IMPRESSION: 1. Heterogeneous appearance to the liver is nonspecific can be seen with hepatic steatosis, hepatitis or diffuse hepatocellular disease. 2. Correlate for chronic medical renal disease. 3. Postcholecystectomy
[2019-05-29 11:37] LABS: Large Platelets Present
[2019-05-29 11:38] LABS: Platelet Count 146 k/uL (150-450)
== END | disposition home or self-care (01) ==
LOC: RADUSMAIN 08:27
PROVIDERS: ATTEND Nurse Practitioner
DX: K74.60 Unspecified cirrhosis of liver (principal); Z90.49 Acquired absence of other specified parts of digestive tract
CPT/HCPCS: 36415; 76705; 80053; 82105; 85025

== ENCOUNTER → 2019-12-18 | Outpatient (CLI) | payer OTHER ==
[2019-12-18 14:10] LABS: Basophils % (A) 0 %; Eosinophils % (A) 0 %; HCT 43.6 % (34.0-46.0); HGB 14.7 gm/dL (11.4-16.0); Lymphocytes # (A) 2.3 k/uL (1.0-4.8); Lymphocytes % (A) 24 %; MCH 30.2 pg (25.0-35.0); MCHC 33.6 g/dL (31.0-37.0); MCV 89.9 fL (80.0-100.0); Mean Platelet Volume 12.6; Monocytes # (A) 0.7 k/uL (0-1.0); Monocytes % (A) 7 %; Neutrophils # (A) 6.4 k/uL (1.3-7.7); Neutrophils % (A) 67 %; Platelet Count 112 k/uL (150-450); RBC 4.85 m/uL (3.80-5.40); RDW 12.9 % (11.5-15.5); WBC 9.5 k/uL (3.8-10.6)
[2019-12-18 14:49] LABS: Large Platelets Present
[2019-12-18 19:37] LABS: Hemoglobin A1C 5.4 % (4.0-6.0)
[2019-12-18 20:02] LABS: Albumin 4.3 g/dL (3.80-4.90); Albumin/Globulin Ratio 2.39 (1.60-3.17); Anion Gap 8.1 mmol/L (4.00-12.00); BUN/Creat Ratio 12.22 Ratio (12.00-20.00); Calcium 9.1 mg/dL (8.7-10.3); Carbon Dioxide 23.9 mmol/L (21.6-31.8); Globulin 1.8 g/dL (1.6-3.3); Non-African American GFR(CKD) 79.4 (60.0-200.0); Potassium 4.1 mmol/L (3.5-5.5); Total Bilirubin 0.4 mg/dL (0.3-1.2); Total Protein 6.1 g/dL (6.2-8.2)
[2019-12-18 20:06] LABS: Valproic Acid (Depakene) 58.3 ug/mL (50.0-100.0)
[2019-12-18 20:41] LABS: Folate, Serum 10.9 ng/mL
== END | disposition home or self-care (01) ==
LOC: LABWHC1 12:05
PROVIDERS: ATTEND Nurse Practitioner Psychiatric/Mental Health
DX: F31.9 Bipolar disorder, unspecified (principal); F90.2 Attention-deficit hyperactivity disorder, combined type; Z79.899 Other long term (current) drug therapy
CPT/HCPCS: 36415; 80053; 80164; 82607; 82746; 83036; 84443; 85025; 93005

== ENCOUNTER → 2020-01-05 | Outpatient (CLI) | payer OTHER ==
[2020-01-05 19:09] LABS: Chol/HDL Ratio 3.57; LDL Cholesterol,Calculated 78.8 mg/dL (0.0-131.0); VLDL Calculation 29.2 mg/dL (5.00-40.00)
== END | disposition home or self-care (01) ==
LOC: LABWHC1 09:36
PROVIDERS: ATTEND Nurse Practitioner Psychiatric/Mental Health
DX: F90.2 Attention-deficit hyperactivity disorder, combined type (principal); F31.9 Bipolar disorder, unspecified; Z79.899 Other long term (current) drug therapy
CPT/HCPCS: 36415; 80061

== ENCOUNTER → 2020-04-29 | Outpatient (CLI) | payer OTHER ==
--- NOTE | 2020-04-29 14:35 | US ---
EXAMINATION TYPE: US axilla RT DATE OF EXAM: 04/29/2020 COMPARISON: NONE CLINICAL HISTORY: L04.2 Acute lymphadenitis of upper limb. palpable in right axilla for 2 years, no c hange, no pain 2.0 x 1.8 x 0.7cm hypoechoic, well circumscribed complex cyst versus other etiology IMPRESSION: Probable sebaceous cyst. Correlate clinically. Lesion of other etiology not excluded.
== END | disposition home or self-care (01) ==
LOC: RADUSWWP 13:31
PROVIDERS: ATTEND Family Medicine
DX: L04.2 Acute lymphadenitis of upper limb (principal)

== ENCOUNTER → 2020-07-24 | Outpatient (CLI) | payer OTHER ==
[2020-07-24 12:49] LABS: Basophils # (A) 0.04 X 10*3/uL (0.00-0.10); Basophils % (A) 0.5 %; Eosinophils # (A) 0 X 10*3/uL (0.04-0.35); Eosinophils % (A) 0 %; HCT 46.3 % (37.2-46.3); Lymphocytes # (A) 2.66 X 10*3/uL (0.90-5.00); Lymphocytes % (A) 32.3 %; MCH 30.4 pg (27.0-32.0); MCHC 32.4 g/dL (32.0-37.0); MCV 93.9 fL (80.0-97.0); Monocytes # (A) 0.66 X 10*3/uL (0.20-1.00); Neutrophils # (A) 4.85 X 10*3/uL (1.80-7.70); Platelet Count 109 X 10*3/uL (140-440); RBC 4.93 X 10*6/uL (4.10-5.20); RDW 12.8 % (11.5-14.5); WBC 8.23 X 10*3/uL (4.50-10.00)
[2020-07-24 14:58] LABS: Hemoglobin A1C 5.5 % (4.0-6.0)
[2020-07-24 21:21] LABS: African American GFR (CKD) 80.5 (60.0-200.0); Albumin 4.4 g/dL (3.80-4.90); Albumin/Globulin Ratio 2.32 (1.60-3.17); Anion Gap 9.2 mmol/L (4.00-12.00); Calcium 9.3 mg/dL (8.7-10.3); Carbon Dioxide 23.8 mmol/L (21.6-31.8); Globulin 1.9 g/dL (1.6-3.3); Non-African American GFR(CKD) 69.4 (60.0-200.0); Potassium 4.4 mmol/L (3.5-5.5); Total Bilirubin 0.4 mg/dL (0.2-1.2); Total Protein 6.3 g/dL (6.2-8.2)
[2020-07-24 21:22] LABS: Chol/HDL Ratio 3.92
[2020-07-24 21:30] LABS: T4, Free (Free Thyroxine) 1.5 ng/dL (0.80-1.80)
[2020-07-24 21:33] LABS: Folate, Serum 9.4 ng/mL
[2020-07-24 22:32] LABS: Valproic Acid (Depakene) 78.5 ug/mL (50.0-100.0)
== END | disposition home or self-care (01) ==
LOC: LABWHC1 07:38
PROVIDERS: ATTEND Nurse Practitioner Psychiatric/Mental Health
DX: F31.9 Bipolar disorder, unspecified (principal); K74.60 Unspecified cirrhosis of liver; Z79.899 Other long term (current) drug therapy
CPT/HCPCS: 36415; 80053; 80061; 80164; 82105; 82306; 82607; 82746; 83036; 84439; 84443; 85025

== ENCOUNTER → 2020-08-15 | Outpatient (CLI) | payer OTHER ==
--- NOTE | 2020-08-15 07:38 | US ---
EXAMINATION TYPE: US liver DATE OF EXAM: 08/15/2020 COMPARISON: US 05/29/19, 04/12/19, 05/23/18, CT 09/14/17 CLINICAL HISTORY: K74.60 Unspecified cirrhosis of the liver. EXAM MEASUREMENTS: Liver Length: 16.9 cm Gallbladder Wall: Surgically absent CBD: 0.8 cm Right Kidney: 11.8 x 5.3 x 3.5 cm Pancreas: Tail obscured by overlying bowel gas Liver: Increased attenuation, this is suggestive of fatty infiltration. No discrete hepatic mass or intrahepatic biliary dilatation. No masses seen. Gallbladder: Surgically absent Evidence for sonographic Palmer's sign: No CBD: wnl for post cholecystectomy Right Kidney: Mild thinning of the renal cortex measuring up to 1 cm. IMPRESSION: 1. Cholecystectomy. 2. The pancreatic tail is not visualized, obscured by overlying bowel gas. 3. Diffuse fatty infiltration of the liver. 4. Mild thinning of the right renal cortex. This may be related to medical renal disease. Clinical co rrelation is recommended.
== END | disposition home or self-care (01) ==
LOC: RADUSWWP 06:54
PROVIDERS: ATTEND Internal Medicine Gastroenterology
DX: K74.60 Unspecified cirrhosis of liver (principal); K76.0 Fatty (change of) liver, not elsewhere classified; Z90.49 Acquired absence of other specified parts of digestive tract
CPT/HCPCS: 76705

== ENCOUNTER 2020-09-23 07:42 | Day surgery (SDC) | payer OTHER ==
[2020-09-19 08:53] VITALS: BMI 26.1
[2020-09-23 08:02] VITALS: TEMP 97.6
[2020-09-23] MEDS ORDERED: LACTATED RINGERS 1,000 ML IV ONE (08:02)
[2020-09-23] MEDS ORDERED: LIDOCAINE 1% INJ 10MG/ML (20 ML MDV) ONE (08:41)
[2020-09-23] MEDS ORDERED: PROPOFOL 10 MG/ML 20 ML VIAL IV ONE (08:41)
--- NOTE | 2020-09-23 09:00 | P.PCN ---
Date of Procedure: 09/23/20 Description of Procedure: BRIEF HISTORY: Patient is a 40-year-old female presenting for esophagogastroduodenoscopy for evaluation of cirrhosis of the liver and variceal screening. Last EGD 2 years ago negative for any findings of varices, she has been followed up in the GI office for cirrhosis. PROCEDURE PERFORMED: Esophagogastroduodenoscopy with biopsy. PREOPERATIVE DIAGNOSIS: Cirrhosis of liver, variceal screening. ESTIMATED BLOOD LOSS: Minimal. IV sedation per anesthesia. PROCEDURE: After informed consent was obtained, the patient was brought into the endoscopy unit. IV sedation was administered by Anesthesia under continuous monitoring. Initially the Olympus GIF-190 video endoscope was inserted into the mouth. Esophagus intubated without any difficulty. It was gradually advanced into the stomach and duodenum and carefully examined. The bulb and the second part of the duodenum appeared normal, with biopsies taken. The scope at this time was withdrawn to the stomach, adequately insufflated with air, and upon careful examination, mucosa of the antrum, body, cardia and the fundus appeared normal except for some mild scattered erythema in the antrum and body with biopsies taken . The scope was then withdrawn into the esophagus. The GE junction was located at 39 cm from the incisors. The esophagus appeared normal. There were no erosions or ulcerations or varices seen and the patient tolerated the procedure well. IMPRESSION: 1. Mild gastritis. 2. No varices noted. 3. Biopsies of the duodenum, antrum and body. RECOMMENDATIONS: The findings of this examination were discussed with the patient and her family. Okay to resume diet. Okay to resume medications. We pathology from biopsies. Follow up in the GI clinic as scheduled. Repeat EGD in 2 years for variceal screening.
[2020-09-23 09:28] VITALS: BP 113/71; PULSE 77; RESP 20
== END 2020-09-23 09:50 | disposition home or self-care (01) ==
LOC: ORWHC2ENDO 07:42
PROVIDERS: ATTEND Internal Medicine
DX: K29.50 Unspecified chronic gastritis without bleeding (principal); K74.60 Unspecified cirrhosis of liver; J45.909 Unspecified asthma, uncomplicated; F17.210 Nicotine dependence, cigarettes, uncomplicated; E07.9 Disorder of thyroid, unspecified; F31.9 Bipolar disorder, unspecified; K21.9 Gastro-esophageal reflux disease without esophagitis; Z98.891 History of uterine scar from previous surgery; M06.9 Rheumatoid arthritis, unspecified; Z97.2 Presence of dental prosthetic device (complete) (partial); Z90.49 Acquired absence of other specified parts of digestive tract; Z98.51 Tubal ligation status; Z98.890 Other specified postprocedural states; Z79.890 Hormone replacement therapy; Z79.891 Long term (current) use of opiate analgesic; Z79.899 Other long term (current) drug therapy
CPT/HCPCS: 81025; 88305; 88342; 43239; J2001; J2704

== ENCOUNTER → 2021-01-20 | Outpatient (CLI) | payer OTHER ==
--- NOTE | 2021-01-20 09:57 | US ---
EXAMINATION TYPE: US liver DATE OF EXAM: 01/20/2021 COMPARISON: US CLINICAL HISTORY: K74.60Unspecified cirrhosis of liver. Formerly was taking methotrexate for arthriti s; unknown cause for weight loss; laparoscopy cholecystectomy. EXAM MEASUREMENTS: Liver Length: 14.3 cm Gallbladder Wall: surgically removed CBD: 0.4 cm Right Kidney: 11.3 x 5.6 x 3.0 cm Pancreas: no masses seen Liver: wnl ; portal vein flow is hepatopetal and hepatic vein flow is to IVC Gallbladder: surgically absent Evidence for sonographic Palmer's sign: no CBD: wnl Right Kidney: small amount of central sinus fluid seen in lower pole. IMPRESSION: Portal vein blood flow. Prior cholecystectomy.
== END | disposition home or self-care (01) ==
LOC: RADUSWWP 08:18
PROVIDERS: ATTEND Internal Medicine Gastroenterology
DX: K74.60 Unspecified cirrhosis of liver (principal); Z90.49 Acquired absence of other specified parts of digestive tract
CPT/HCPCS: 76705

== ENCOUNTER → 2021-04-30 | Outpatient (CLI) | payer OTHER ==
[2021-04-30 19:46] LABS: Basophils # (A) 0.06 X 10*3/uL (0.00-0.10); Basophils % (A) 0.7 %; Eosinophils # (A) 0.01 X 10*3/uL (0.04-0.35); Eosinophils % (A) 0.1 %; HCT 41.6 % (37.2-46.3); HGB 14.3 g/dL (12.0-15.0); Lymphocytes # (A) 2.65 X 10*3/uL (0.90-5.00); Lymphocytes % (A) 31.5 %; MCH 30.8 pg (27.0-32.0); MCHC 34.4 g/dL (32.0-37.0); MCV 89.7 fL (80.0-97.0); Mean Platelet Volume 13.1 fL (9.5-12.2); Monocytes % (A) 8.3 %; Neutrophils # (A) 4.97 X 10*3/uL (1.80-7.70); Neutrophils % (A) 59.2 %; Platelet Count 135 X 10*3/uL (140-440); RBC 4.64 X 10*6/uL (4.10-5.20); RDW 12.5 % (11.5-14.5); WBC 8.41 X 10*3/uL (4.50-10.00)
== END | disposition home or self-care (01) ==
LOC: LABWHC1 12:55
PROVIDERS: ATTEND Internal Medicine Hematology & Oncology
DX: D72.819 Decreased white blood cell count, unspecified (principal)
CPT/HCPCS: 36415; 82607; 82747; 83921; 85025

== ENCOUNTER 2021-05-26 18:37 | Emergency (ER) | payer OTHER ==
--- NOTE | 2021-05-26 19:28 | ED ---
Psych HPI - General Chief Complaint: Psychiatric Symptoms Stated Complaint: Mental Health Time Seen by Provider: 05/26/21 18:55 Source: patient Mode of arrival: ambulatory - History of Present Illness Initial Comments: 40-year-old female who presents to the emergency department with suicidal ideations. States that symptoms started 2 hours prior when she got in an argument with her daughter. Patient's caused a self-inflicted laceration to her left wrist. Bleeding is controlled. Wound is superficial. She does have a plan to jump off of a bridge. Admits to a long standing history of depression and takes medications. She is a patient at [facility]. is at bedside. She denies any alcohol or illicit drug use. Does smoke marijuana. No concern for . No other alleviating, precipitating or modifying factors - Related Data Home Medications Medication Instructions Recorded Confirmed Pantoprazole [Protonix] 40 mg PO DAILY 03/20/19 05/26/21 Abatacept [Orencia] 125 mg SQ WE 09/19/20 05/26/21 Montelukast [Singulair] 10 mg PO DAILY 09/19/20 05/26/21 amantadine HCL [Amantadine] 200 mg PO DAILY 09/19/20 05/26/21 traMADol HCL [Ultram] 50 mg PO BID 09/19/20 05/26/21 Acetylcysteine [Nac] 600 mg PO HS 05/26/21 05/26/21 Albuterol Sulfate [Proair Hfa] 2 puff INHALATION RT-Q6H PRN 05/26/21 05/26/21 Brexpiprazole [Rexulti] 1 mg PO HS 05/26/21 05/26/21 Cholecalciferol [Vitamin D3 (25 50 mcg PO DAILY 05/26/21 05/26/21 Mcg = 1000 Iu)] Levothyroxine Sodium [Synthroid] 125 mcg PO DAILY 05/26/21 05/26/21 Melatonin 5 mg PO HS 05/26/21 05/26/21 Mv,Calcium,Min/Iron/Folic/Vitk 1 tab PO DAILY 05/26/21 05/26/21 [One-A-Day Women's Complete Tab] Sucralfate [Carafate] 1 gm PO DAILY 05/26/21 05/26/21 Vortioxetine Hydrobromide 20 mg PO HS 05/26/21 05/26/21 [Trintellix] cloNIDine HCL [Kapvay] 0.2 mg PO HS 05/26/21 05/26/21 lamoTRIgine [LaMICtal] 200 mg PO BID 05/26/21 05/26/21 Allergies Allergy/AdvReac Type Severity Reaction Status Date / Time No Known Allergies Allergy Verified 05/26/21 21:19 Review of Systems ROS Statement: Those systems with pertinent positive or pertinent negative responses have been documented in the HPI. ROS Other: All systems not noted in ROS Statement are negative. Past Medical History Past Medical History: GERD/Reflux, Liver Disease, Osteoarthritis (OA), Rheumatoid Arthritis (RA), Thyroid Disorder Additional Past Medical History / Comment(s): CHILDHOOD ASTHMA. medication induced leucocytopenia, medication induced cirrohsis, History of Any Multi-Drug Resistant Organisms: None Reported Past Surgical History: Section, Cholecystectomy, Orthopedic Surgery, Tubal Ligation Additional Past Surgical History / Comment(s): X4, CYST LEFT HANDx2, rt foot sx x3,(with metal) left foot sx (with metal) Past Anesthesia/Blood Transfusion Reactions: No Reported Reaction Past Psychological History: Anxiety, Bipolar, Depression Smoking Status: Current every day smoker - Past Family History Mother Family Medical History: Cancer, Pulmonary Embolus Additional Family Medical History / Comment(s): BREAST CANCER and sister has hx of breast cancer 14 years ago Father Additional Family Medical History / Comment(s): alcoholic General Exam Limitations: no limitations Course Vital Signs 05/27/21 00:17 Temperature 97.8 F Pulse Rate 74 Respiratory 18 Rate Blood Pressure 141/87 O2 Sat by Pulse 99 Oximetry Medical Decision Making - Medical Decision Making Upon arrival patient is placed into room 7. She is evaluated by EPS. They do feel that the patient is stable for discharge home. Patient's is at bedside and agrees to stay with the patient. Patient also had a safety plan. Asked return to the emergency room for any new or worsening symptoms. Needs to follow-up with her therapist at [facility]. Patient agreed to the treatment plan and was discharged home in stable condition Disposition Clinical Impression: Depression Disposition: HOME SELF-CARE Condition: Stable Instructions (If sedation given, give patient instructions): Depression (ED) Additional Instructions: Please return if you have any new or worsening symptoms Is patient prescribed a controlled substance at d/c from ED?: No Referrals: Pankaj Her MD [Primary Care Provider] - 1-2 days Time of Disposition: 00:07
[2021-05-27 00:21] VITALS: BP 141/87; PULSE 74; RESP 18; TEMP 97.8
== END 2021-05-27 00:14 | disposition home or self-care (01) ==
LOC: EC 18:37
DX: F32.A Depression, unspecified (principal); K21.9 Gastro-esophageal reflux disease without esophagitis; M06.9 Rheumatoid arthritis, unspecified; F41.9 Anxiety disorder, unspecified; F17.200 Nicotine dependence, unspecified, uncomplicated; Z79.890 Hormone replacement therapy; Z79.51 Long term (current) use of inhaled steroids; Z79.899 Other long term (current) drug therapy
CPT/HCPCS: 82075; 99284

== ENCOUNTER → 2021-09-02 | Outpatient (CLI) | payer OTHER ==
--- NOTE | 2021-09-02 15:38 | US ---
EXAMINATION TYPE: US liver DATE OF EXAM: 09/02/2021 COMPARISON: 01/20/2021 CLINICAL HISTORY: 41-year-old female K74.60 UNSPECIFIED CIRRHOSIS OF LIVER. Cirrhosis, cholecystectom y. TECHNIQUE: Multiple sonographic images of the right upper quadrant are obtained. FINDINGS: EXAM MEASUREMENTS: Liver Length: 16.0 cm CBD: 0.83 cm Right Kidney: 11.2 x 5.2 x 3.6 cm Training And Development Officer notes: Limited due to gas. Pancreas: The head and tail of the pancreas is limited by bowel gas shadowing. Visualized pancreatic body shows no gross abnormality. Liver: No focal lesion seen. The echotexture is slightly coarse. Gallbladder: Surgically absent. Evidence for sonographic Palmer's sign: No CBD: Dilated at 8.3 mm. May be acceptable given postcholecystectomy status. Measured 3.7 mm on 2020. Right Kidney: Appearance of mildly dilated lower pole calyx, questionable clinical significance and u nchanged from prior. No thor hydronephrosis. Portal vein flow appears to be hepatopedal, towards the liver. Caliber of 1.1 cm which is normal. Ran ocity approximately 15 cm/s is borderline diminished. IMPRESSION: 1. No sonographic evidence for hepatoma. 2. Bile duct now dilated at 8.3 mm (versus 3.7 mm, previously). Findings may be due to postcholecyste ctomy status. Correlate with alkaline phosphatase and bilirubin levels. 3. Patent portal vein with appropriate flow direction. The velocity is borderline diminished and may indicate early portal venous hypertension.
== END | disposition home or self-care (01) ==
LOC: RADUSWWP 07:53
PROVIDERS: ATTEND Internal Medicine Gastroenterology
DX: K76.6 Portal hypertension (principal)
CPT/HCPCS: 76705

== ENCOUNTER → 2021-10-18 | Outpatient (CLI) | payer OTHER ==
[2021-10-18 17:05] LABS: Basophils # (A) 0.05 X 10*3/uL (0.00-0.10); Basophils % (A) 0.6 %; Eosinophils # (A) 0.01 X 10*3/uL (0.04-0.35); Eosinophils % (A) 0.1 %; HCT 43.7 % (37.2-46.3); HGB 14.3 g/dL (12.0-15.0); Immature Grans, Automated 0.4 %; Lymphocytes # (A) 2.39 X 10*3/uL (0.90-5.00); Lymphocytes % (A) 30.9 %; MCH 29.8 pg (27.0-32.0); MCHC 32.7 g/dL (32.0-37.0); Mean Platelet Volume 12.9 fL (9.5-12.2); Monocytes # (A) 0.68 X 10*3/uL (0.20-1.00); Monocytes % (A) 8.8 %; NRBC Per 100 WBC 0 /100 WBCS (0.0-0.0); Neutrophils # (A) 4.57 X 10*3/uL (1.80-7.70); Neutrophils % (A) 59.2 %; Platelet Count 165 X 10*3/uL (140-440); RDW 13.2 % (11.5-14.5); WBC 7.73 X 10*3/uL (4.50-10.00)
[2021-10-18 17:10] LABS: African American GFR (CKD) 71.2 (60.0-200.0); Albumin 4.7 g/dL (3.8-4.9); Albumin/Globulin Ratio 2.14 (1.60-3.17); Anion Gap 15.2 mmol/L (10.00-18.00); BUN/Creat Ratio 12.27 Ratio (12.00-20.00); Blood Urea Nitrogen 13.5 mg/dL (9.0-27.0); Calcium 9.4 mg/dL (8.7-10.3); Carbon Dioxide 20.8 mmol/L (20.0-27.5); Globulin 2.2 g/dL (1.6-3.3); Non-African American GFR(CKD) 61.4 (60.0-200.0); Potassium 3.5 mmol/L (3.5-5.5); Total Bilirubin 0.5 mg/dL (0.30-1.20); Total Protein 6.9 g/dL (6.2-8.2)
== END | disposition home or self-care (01) ==
LOC: LABWHC1 08:43
PROVIDERS: ATTEND Internal Medicine Gastroenterology
DX: K74.60 Unspecified cirrhosis of liver (principal)
CPT/HCPCS: 36415; 80053; 82105; 85025

== ENCOUNTER → 2022-06-18 | Outpatient (CLI) | payer OTHER ==
--- NOTE | 2022-06-18 12:16 | CA ---
Exercise Stress Test Report Name: Scarlett Bailey Exam Date: 06/18/2022 10:41 Exam Location: [facility] Stress Ht (in): 66 Wt (lb): 172 BSA: 1.88 Ordering Phys: Pankaj Her MD Referring Phys: Pankaj Her MD Technologist: Minh Gaytan Age: 42 Gender: F : 1980 Procedure CPT: Indications: R94.31 abn ekg ICD-10 Codes: Patient History: Medications: Meds past 24 hrs: Pretest Chest Pain: STRESS TEST Ben Protocol Exercise Duration (min:sec): 00:[address] Depressions (mm): Angina Score: William Score: Resting HR (bpm): 66 Peak HR (bpm): 69 Resting BP (mmHg): 105 / 60 Peak BP (mmHg): 119 / 63 MPHR: 176 Target HR: 150 % MPHR: 39 METS: 1.0 Total Dose: Peak Dose: Atropine: Double Product: 8211 BP Response: Stress Termination: PROTOCOL COMPLETE Stress Symptoms: SHORT OF BREATH, STOMACH UPSET Stress Summary: ECG ANALYSIS Resting ECG: Stress ECG: CONCLUSIONS None diagnostic electrocardiogram stress testing Dr. Eusebio Torres MD (Electronically Signed) Final Date: 18 June 2022 12:15
--- NOTE | 2022-06-18 14:33 | NM ---
"EXAMINATION TYPE: NM stress lexiscan cardiolite DATE OF EXAM: 06/18/2022 COMPARISON: NONE HISTORY: Abnormal EKG. History of COPD and asthma with chest pain and difficulty in breathing. TECHNIQUE: After the intravenous administration of 9.5 mCi Tc 99m Sestamibi - Cardiolite resting SPE CT images acquired 60 minutes post injection. The patient received 0.4mg Lexiscan, 24 mCi Tc 99m Sestamibi - Stress images obtained 30 minutes post injection FINDINGS: Review of stress and rest SPECT images demonstrates area of decreased radiotracer uptake on stress im ages versus rest images involving the inferior left ventricular wall mid to apical levels seen on lela rt axis and vertical long axis views in which acute ischemia cannot be excluded. Further workup and f ollow-up advised. Gated analysis shows normal wall motion with an estimated left ventricular ejectio n fraction of 68 %. IMPRESSION: As above. Consider further investigation with direct catheter angiogram and/or CTA shepherd ry arteries. A Yellow level critical message alert has been initiated for Pankaj Her MD via the Balloon 36 0 | Critical Results System on 06/18/2022 2:30 PM. This message alert has been sent to Pankaj Her MD via the preferences provided by the clinician for the receipt of Radiology Critical Findings. [facility] ID [id number]."
== END | disposition home or self-care (01) ==
LOC: RADNMMAIN 08:26
PROVIDERS: ATTEND Family Medicine
DX: J44.9 Chronic obstructive pulmonary disease, unspecified (principal); R94.31 Abnormal electrocardiogram [ECG] [EKG]
CPT/HCPCS: 93017; 78452; A9500

== ENCOUNTER → 2022-07-06 | Outpatient (CLI) | payer OTHER ==
--- NOTE | 2022-07-06 18:17 | CA ---
Transthoracic Echo Report Name: Scarlett Bailey Age: 42 Gender: F : 1980 Exam Date: 07/06/2022 14:09 Exam Location: [facility] Ht (in): 66 Wt (lb): 174 Ordering Physician: Pankaj Her MD Attending/Referring Phys: Pipe Testing Technician Casie Mann RDCS Procedure CPT: Indications: R94.39 abnormal stress test Cardiac Hx: Technical Quality: Fair Contrast 1: Total Dose (mL): Contrast 2: Total Dose (mL): MEASUREMENTS (Male / Female) Normal Values 2D ECHO LV Diastolic Diameter PLAX 3.7 cm 4.2 - 5.9 / 3.9 - 5.3 cm LV Systolic Diameter PLAX 2.4 cm IVS Diastolic Thickness 1.0 cm 0.6 - 1.0 / 0.6 - 0.9 cm LVPW Diastolic Thickness 1.1 cm 0.6 - 1.0 / 0.6 - 0.9 cm LV Relative Wall Thickness 0.6 LA Volume 63.6 cm??? 18 - 58 / 22 - 52 cm??? M-MODE Aortic Root Diameter MM 2.6 cm LA Systolic Diameter MM 3.3 cm LA Ao Ratio MM 1.3 AV Cusp Separation MM 1.5 cm DOPPLER LVOT Peak Velocity 107.1 cm/s LVOT Peak Gradient 4.6 mmHg LVOT Velocity Time Integral 26.8 cm MV Area PHT 3.1 cm??? Mitral E Point Velocity 132.4 cm/s Mitral A Point Velocity 103.3 cm/s Mitral E to A Ratio 1.3 MV Deceleration Time 244.9 ms MV E' Velocity 9.2 cm/s Mitral E to MV E' Ratio 14.4 FINDINGS Left Ventricle Normal Left ventricular size, wall thickness, systolic function with no obvious regional wall motion abnormalities. Normal Left ventricular diastolic filling pattern. Left ventricular ejection fraction is estimated at 55-60 %. Right Ventricle Normal right ventricular size and function. Right ventricular systolic pressure within normal limits. Right Atrium Normal right atrial size. Left Atrium Moderately increased left atrial volume. Mitral Valve Structurally normal mitral valve. Mild mitral regurgitation. Posteriorly directed mitral regurgitation jet. Aortic Valve No aortic valve stenosis or regurgitation. Tricuspid Valve Structurally normal tricuspid valve. Mild tricuspid regurgitation. Pulmonic Valve Structurally normal pulmonic valve. Pericardium No pericardial effusion. Aorta Normal size aortic root and proximal ascending aorta. CONCLUSIONS Normal LV size and systolic function Mild posterior directed mitral regurgitation Previewed by: Dr. King Martin MD (Electronically Signed) Final Date: 06 July 2022 18:16
== END | disposition home or self-care (01) ==
LOC: RADECHMAIN 13:35
PROVIDERS: ATTEND Family Medicine
DX: I34.0 Nonrheumatic mitral (valve) insufficiency (principal); R94.39 Abnormal result of other cardiovascular function study
CPT/HCPCS: 93306

== ENCOUNTER → 2022-07-20 | Outpatient (CLI) | payer OTHER ==
[2022-07-20 15:43] LABS: HCT 43.7 % (37.2-46.3); HGB 14.6 g/dL (12.0-15.0); MCH 30.9 pg (27.0-32.0); MCHC 33.4 g/dL (32.0-37.0); MCV 92.4 fL (80.0-97.0); Mean Platelet Volume 13.3 fL (9.5-12.2); NRBC Per 100 WBC 0 /100 WBCS (0.0-0.0); Platelet Count 167 X 10*3/uL (140-440); RBC 4.73 X 10*6/uL (4.10-5.20); RDW 12.6 % (11.5-14.5); WBC 10.81 X 10*3/uL (4.50-10.00)
[2022-07-20 15:51] LABS: African American GFR (CKD) 84.5 (60.0-200.0); Blood Urea Nitrogen 14.6 mg/dL (9.0-27.0); Carbon Dioxide 28.7 mmol/L (20.0-27.5); Non-African American GFR(CKD) 72.9 (60.0-200.0); Potassium 4.1 mmol/L (3.5-5.5)
== END | disposition home or self-care (01) ==
LOC: LABPAT 10:25
PROVIDERS: ATTEND Internal Medicine Interventional Cardiology
DX: Z01.812 Encounter for preprocedural laboratory examination (principal); R07.9 Chest pain, unspecified
CPT/HCPCS: 36415; 80051; 82565; 84520; 85027

== ENCOUNTER 2022-07-28 06:16 | Day surgery (SDC) | payer OTHER ==
[2022-07-24 11:38] VITALS: BMI 27.7
[~2022-07-28 06:16] MED LIST changes: +ALPRAZolam 0.25 MG TAB PO PRN; +ALPRAZolam 0.5 MG TAB PO PRN; +ASPIRIN 325 MG TAB PO STA; -LACTATED RINGERS 1,000 ML IV SCH; +NITROGLYCERIN SL TABS 0.4 MG TAB SUBLINGUAL PRN; +SODIUM CHLORIDE 0.9% 1,000 ML in EMPTY BAG 1 BAG IV SCH
[2022-07-28 06:48] VITALS: RESP 18; TEMP 98.2
[2022-07-28] MEDS ORDERED: ASPIRIN 81 MG ONE (06:49)
[2022-07-28] MEDS ORDERED: VERAPAMIL 2.5 MG/ML 2 ML AMP ONE (07:10)
[2022-07-28] MEDS ORDERED: HEPARIN SODIUM 1,000 UN/ML (10ML VL) ONE (07:24)
[2022-07-28] MEDS ORDERED: MIDAZOLAM 2 MG/2 ML VIAL IV ONE (07:55)
[2022-07-28] MEDS ORDERED: LIDOCAINE 1% INJ 10MG/ML (5 ML VIAL-PF) SQ ONE (07:57)
[2022-07-28] MEDS ORDERED: VERAPAMIL SYRINGE (5 MG/10 ML) INTRAARTER ONE (07:58)
[2022-07-28] MEDS ORDERED: HYDROmorphone 0.5 MG/0.5 ML SYRINGE IVP ONE (08:01)
[2022-07-28] MEDS ORDERED: HEPARIN SODIUM 1,000 UN/ML (10ML VL) IV ONE (08:05)
[2022-07-28] MEDS ORDERED: IOPAMIDOL-370 200ML BTL INJ ONE (08:15)
[2022-07-28] MEDS ORDERED: RX INFO: IV CONTRAST WAS GIVEN 1 EACH MISC MISCELLANE PRN (08:17)
--- NOTE | 2022-07-28 08:20 | P.PCN ---
Date of Procedure: 07/28/22 Operative Findings: CARDIAC CATHETERIZATION PERFORMING PHYSICIAN: Eusebio Torres MD, RPVI PROCEDURE PERFORMED: 1. Selective right and left coronary angiogram 2. Left heart catheterization 3. Ultrasound-guided access of the right radial artery INDICATION: Shortness of breath in this 42-year-old female patient with hypertension and dyslipidemia who underwent myocardial perfusion imaging stress that showed an inferior ischemia COMPLICATION: None APPROACH: Right radial artery LEVEL OF SEDATION: Moderate with a sedation length of 13 minutes PROCEDURE DESCRIPTION: After obtaining an informed consent, the patient was brought to cardiac lab asst. Local anesthesia was performed using lidocaine subcutaneously. The right radial artery was cannulated using Seldinger technique, the guidewire passed easily, following that we advanced a 5-English sheath dilator assembly, the wire and dilator were removed and sheath was flushed. Following that, 2 mg of verapamil along with 5000 unit heparin were given. Selective right and left coronary angiogram using a 6-English JR4 and JL 3.5 catheters. Following that we did left heart catheterization using 6-English pigtail catheter. The procedure was completed there was no complication. SELECTIVE CORONARY ANGIOGRAM: The right coronary artery: Large caliber vessel and a dominant vessel. Its angiographically normal. Distally bifurcates into PDA and PLV branches both appeared to be angiographically normal Left main: Short left main but angiographically normal. Bifurcates into an LCx and LAD The left circumflex: Large caliber vessel and nondominant vessel. Its angiographically normal as well The left anterior descending artery: LAD is angiographically normal. Gives rise into a diagonal branch which appeared to be angiographically normal HEMODYNAMICS: LVEDP was 10 mmHg was no significant gradient across aortic valve CONCLUSION: 1. Normal coronary angiogram 2. Normal left-sided filling pressure POSTPROCEDURE MANAGEMENT: Medical treatment and follow-up with the patient
[2022-07-28] MEDS ORDERED: SODIUM CHLORIDE 0.9% 1,000 ML IV SCH (08:30)
[2022-07-28 11:48] VITALS: BP 98/48; PULSE 75
== END 2022-07-28 12:30 | disposition home or self-care (01) ==
LOC: CATHCVL 06:16
PROVIDERS: ATTEND Internal Medicine Interventional Cardiology
DX: R07.89 Other chest pain (principal); I10 Essential (primary) hypertension; E78.5 Hyperlipidemia, unspecified; F17.210 Nicotine dependence, cigarettes, uncomplicated; Z82.49 Family history of ischemic heart disease and other diseases of the circulatory system; Z79.82 Long term (current) use of aspirin; Z79.899 Other long term (current) drug therapy
CPT/HCPCS: 99152; 93458; 81025; C1769; C1894; J2250; J2001; J1644; J1170; Q9967

== ENCOUNTER → 2022-09-07 | Outpatient (CLI) | payer OTHER ==
[2022-09-07 22:52] LABS: ALT 21 U/L (8-44); AST 31 U/L (13-35); Albumin 4.6 d/dL (3.8-4.9); Alkaline Phosphatase 113 U/L (41-126); BUN/Creat Ratio 13.55 Ratio (12.00-20.00); Blood Urea Nitrogen 14.9 mg/dL (9.0-27.0); Calcium 9.4 mg/dL (8.7-10.3); Carbon Dioxide 25.6 mmol/L (21.6-31.8); Chloride 107 mmol/L (96-109); Glucose 92 mg/dL (70-110); Potassium 4.3 mmol/L (3.5-5.5); Sodium 142 mmol/L (135-145); Total Bilirubin 0.5 mg/dL (0.3-1.2); Total Protein 6.6 d/dL (6.2-8.2)
[2022-09-08 02:32] LABS: Basophils # (A) 0.05 X 10*3/uL (0.00-0.10); Basophils % (A) 0.7 %; Eosinophils # (A) 0.09 X 10*3/uL (0.04-0.35); Eosinophils % (A) 1.2 %; HCT 39.3 % (37.2-46.3); HGB 13.5 d/dL (12.0-15.0); Lymphocytes # (A) 2.32 X 10*3/uL (0.90-5.00); Lymphocytes % (A) 31.4 %; MCH 31.7 pg (27.0-32.0); MCHC 34.4 d/dL (32.0-37.0); MCV 92.3 FL (80.0-97.0); Mean Platelet Volume 13.5 FL (9.5-12.2); Monocytes # (A) 0.64 X 10*3/uL (0.20-1.00); Monocytes % (A) 8.6 %; NRBC Per 100 WBC 0 X 10*3/uL (0.00-0.01); Neutrophils # (A) 4.29 X 10*3/uL (1.80-7.70); Platelet Count 151 X 10*3/uL (140-440); RBC 4.26 X 10*6/uL (4.10-5.20); RDW 12.8 % (11.5-14.5)
== END | disposition home or self-care (01) ==
LOC: LABWHC1 14:53
PROVIDERS: ATTEND Nurse Practitioner Family
DX: K74.60 Unspecified cirrhosis of liver (principal)
CPT/HCPCS: 36415; 80053; 82105; 85025

== ENCOUNTER → 2022-09-15 | Outpatient (CLI) | payer OTHER ==
--- NOTE | 2022-09-16 12:28 | MR ---
EXAMINATION TYPE: MR lumbar spine wo con DATE OF EXAM: 09/15/2022 8:49 PM COMPARISON: 10/05/2016 MRI. CLINICAL INDICATION: Female, 42 years old with history of M47.26 low back pain; PHH, Low back pain TECHNIQUE: Multi planar, multi sequence imaging was performed utilizing: T1-weighted, T2-weighted, a nd turbo inversion recovery imaging of the lumbar spine. IV Contrast: None. FINDINGS: Alignment: The lumbar vertebral bodies have preserved heights and alignment. Cord: The conus medullaris and the distal spinal cord appear unremarkable with regards to their signa l intensity and morphology. Bones/Discs: Multilevel disc degeneration changes throughout the spine with disc space narrowing oste ophytes and central arthropathy. There is Modic endplate changes most pronounced in the lower lumbar spine. Reactive bony edema of the adjoining endplates of L2-L3, L3-L4 and L4-L5. T12-L1: No evidence of significant spinal canal stenosis or neural foraminal stenosis. L1-L2: Disc bulge and facet joint arthropathy result in mild spinal canal and mild bilateral neural f oraminal stenosis. L2-L3: Disc bulge and facet joint arthropathy result in mild spinal canal and mild to moderate left a nd no significant right neural foraminal stenosis. L3-L4: Disc bulge and facet joint arthropathy result in mild spinal canal and moderate to severe left and moderate right bilateral neural foraminal stenosis. L4-L5: Disc bulge and facet joint arthropathy result in mild spinal canal and severe right and mild t o moderate left bilateral neural foraminal stenosis. L5-S1: The disc is rounded posterior morphology without significant spinal canal stenosis. Facet join t arthropathy with severe bilateral neural foraminal stenosis. No significant spinal canal or neural foraminal stenosis in the remainder of the visualized levels. Other findings: Left renal high T2 cyst. IMPRESSION: 1. Overall findings may have mildly progressed from 2017. 2. No evidence for severe spinal canal stenosis. 3. Multilevel disc degeneration with associated osteoarthritic changes with reactive bony edema invo lving multiple levels of the spine. No foraminal stenosis worse at multiple levels including moderate to severe left L3-L4, severe right L4-L5, severe bilateral L5-S1.
== END | disposition home or self-care (01) ==
LOC: RADMRIMAIN 18:58
PROVIDERS: ATTEND Nurse Practitioner Family
DX: M51.36 Other intervertebral disc degeneration, lumbar region (principal); M47.26 Other spondylosis with radiculopathy, lumbar region; R60.9 Edema, unspecified; K74.60 Unspecified cirrhosis of liver
CPT/HCPCS: 72148

== ENCOUNTER 2022-10-07 10:08 | Day surgery (SDC) | payer OTHER ==
[2022-10-02 13:31] VITALS: BMI 26.9
[~2022-10-07 10:08] MED LIST changes: -ALPRAZolam 0.25 MG TAB PO PRN; -ALPRAZolam 0.5 MG TAB PO PRN; -ASPIRIN 325 MG TAB PO STA; +LACTATED RINGERS 1,000 ML IV SCH; +LIDOCAINE 1% (10MG/ML) FOR IV START INTRADERMA PRN; -NITROGLYCERIN SL TABS 0.4 MG TAB SUBLINGUAL PRN; -SODIUM CHLORIDE 0.9% 1,000 ML in EMPTY BAG 1 BAG IV SCH
[2022-10-07 11:00] VITALS: RESP 16; TEMP 97.6
[2022-10-07] MEDS ORDERED: PROPOFOL 10 MG/ML 20 ML VIAL IV ONE (11:35)
[2022-10-07] MEDS ORDERED: LIDOCAINE 2% INJ 20 MG/ML (2 ML VIAL) ONE (11:35)
--- NOTE | 2022-10-07 11:45 | P.PCN ---
Date of Procedure: 10/07/22 Procedure(s) Performed: BRIEF HISTORY: Patient is a 42-year-old, pleasant, white female scheduled for an upper endoscopy as a part of evaluation of intermittent episodes of nausea vomiting for the last 6 months duration. She denies any abdominal pain, no heartburn. On Protonix 40 mg daily with no help. Takes Zofran as needed.. She also has history of liver cirrhosis. PROCEDURE PERFORMED: Esophagogastroduodenoscopy With biopsy PREOPERATIVE DIAGNOSIS: Chronic intermittent nausea vomiting of several months duration/history of liver cirrhosis . IV sedation per anesthesia. PROCEDURE: After informed consent was obtained, the patient was brought into the endoscopy unit. IV sedation was administered by Anesthesia under continuous monitoring. Initially the Olympus GIF-140 video endoscope was inserted into the mouth. Esophagus intubated without any difficulty. It was gradually advanced into the stomach and duodenum and carefully examined. The bulb and the second part of the duodenum appeared normal. His were done from the duodenum to rule out celiac disease. The scope at this time was withdrawn to the stomach, adequately insufflated with air, and upon careful examination, mucosa of the antrum, body, cardia and the fundus appeared normal. The scope was then withdrawn into the esophagus. The GE junction was located at 40 cm from the incisors. The esophagus appeared normal. There were no erosions or ulcerations seen Merry biopsies were done from the distal esophagus. and the patient tolerated the procedure well. IMPRESSION: 1. Mild antral gastritis 2. No evidence of esophagitis or peptic ulcer disease 3. No evidence of gastric or esophageal varices RECOMMENDATIONS: The findings of this examination were discussed with the patient as well as a family. She was advised to follow with the biopsy results. She will continue with Protonix 40 mg daily and follow antireflux measures. She'll be seen in office in 3-4 weeks. ..
[2022-10-07 12:09] VITALS: BP 106/69; PULSE 70
== END 2022-10-07 12:13 | disposition home or self-care (01) ==
LOC: ORWHC2ENDO 10:08
PROVIDERS: ATTEND Internal Medicine Gastroenterology
DX: K21.00 Gastro-esophageal reflux disease with esophagitis, without bleeding (principal); K29.50 Unspecified chronic gastritis without bleeding
CPT/HCPCS: 81025; 88305; 43239; J2704; J2001

== ENCOUNTER → 2022-10-27 | Outpatient (CLI) | payer OTHER ==
--- NOTE | 2022-10-27 13:02 | US ---
EXAMINATION TYPE: US liver DATE OF EXAM: 10/27/2022 COMPARISON: US 2021 CLINICAL INDICATION: Female, 42 years old with history of K74.60 CIRRHOSIS OF LIVER; TECHNIQUE: Multiple sonographic images of the right upper quadrant are obtained. FINDINGS: EXAM MEASUREMENTS: Liver Length: 15.8 cm CBD: 0.8 cm Right Kidney: 11.4 x 3.7 x 4.5 cm Pancreas: visualized portions wnl, pancreatic tail limited by overlying midline bowel gas Liver: Scourse echotextureechotexture but without focal lesion. Gallbsurgically absently absent Evidence for sonographic Palmer'nosign: no CBD: Mildly dilated, unchanged from prior exam, also, acceptable post cholecystectomy. Right no hydronephrosis or masses seensse een IMPR ION: 1. No sonographic evidence for hepatoma. 2. Stable caliber to the bile duct at 8 mm, likely chronic postcholecystectomy status.
== END | disposition home or self-care (01) ==
LOC: RADUSWWP 07:20
PROVIDERS: ATTEND Internal Medicine Gastroenterology
DX: K74.60 Unspecified cirrhosis of liver (principal)
CPT/HCPCS: 76705

== ENCOUNTER → 2022-11-02 | Outpatient (CLI) | payer OTHER ==
[2022-11-02 09:48] VITALS: BP 99/50; PULSE 68; RESP 12; TEMP 98
--- NOTE | 2022-11-02 14:32 | P.PAINPG ---
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 Pt states pain level is provoked at 6 /10 in intensity, constant, localized in the lower lumbar spine, sharp in character w shooting pain towards the BLEs. Pain is provoked by sitting, bending, lifting. Pain is alleviated by PT x 6 wks in 2020, heat & ice with little relief, medications (Tramadol, Neurontin), topical, repositioning and rest. Oswestry axial pain score at 22. PMH: OA, GERD, OA, RA, Hypothyroid Disorder, Bipolar Disorder/ Anxiety PSH: R Foot Bunionectomy, EGD w Biopsy (2018, 2020, 2022), L Cardiac Cath (2022), R Foot Surgery (2017), C section x4 SH: 20 pack/yr tobacco use, ETOH use, Hx of Cannabis use. and lives w and children. FH: Mo- PE, Breast CA. Maternal Aunt - Breast CA. Fa- Alcoholism All: See list Meds: See list REVIEW OF ORGAN SYSTEMS: CONSTITUTIONAL: No fevers or chills. No recent weight loss. NEUROLOGICAL: + numbness and tingling along the distal extremities. No seizure disorders or headaches. MUSCULOSKELETAL: + pain PSYCHIATRIC: Denies current depression or suicidal thoughts. Physical Examinations : Constitutional : Cooperative , not in acute distress . Neurologic : Cranial nerve II to XII intact. No focal neurological deficits. Psychiatric : alert & oriented x 3. Matching mood & appropriate affect. Judgment & insight intact. Musculoskeletal : Cervical Spine Motor strength in the deltoid and biceps: Normal right side. Normal Left side Motor strength biceps and the wrist extensors: Normal right side . Normal left side Motor strength in the triceps muscle: Normal right side. Normal left side Deep tendon reflexes: Normal at the biceps. Normal at Brachioradialis. Normal at triceps Vertebral body tenderness to deep palpation over Cervical facet loading test: positive bilaterally Spurling test: positive bilaterally Neck distraction test: positive bilaterally Sagar sign: positive bilaterally Lumbar spine Motor strength lower extremities ,thigh and legs 5/5 Right side , 5/5 Left side Deep tendon reflexes : Normal Knee Jerk. Normal Ankle Jerk Vertebral body tenderness over L4 Valencia Test positive Lumbar facet Loading Test: positive Right / positive Left Range of motion of the lumbar spine Flexion 30 degrees, extension 10 degrees Straight Leg Raise test: Left/ Right positive at 35 degrees Enid test: positive right / positive left. Severe tenderness over the Sacroiliac joint on the Right / Left sides Gaenslen test: positive bilaterally Seated flexion test: positive bilaterally. Sacral spine : Severe tenderness over the Sacroiliac joint: right side / left side Range of motion: Flexion of the lumbar spine <60 degrees Range of motion: Extension of the lumbar spine <20 degrees Gaenslen's Test positive Samy's Test positive Enid test: positive right side / left side Thigh Thrust Test Sacral Thrust Test Imaging: MRI noncontrast of the lumbar spine from 09/15/22 reviewed Assessment/ Plan : Lumbar DDD Recommendation of R paramedian KAIN L4-L5 #1. May need a series of injection for optimal pain relief. Risks, benefits of procedure discussed and patient verbalized understanding. Admits to aspirin or anti- coagulant use or medical history of diabetes. Protocol for discontinuation/ continuation of medications malik procedure discussed. Minimal anesthesia provided, if clinically indicated, consisting of Versed and Fentanyl. All questions answered. I have spent greater than 30 minutes on patient care today. Dr Tobias was available by phone for the evaluation of this patient. The time was used to review the medical records including relevant urine studies and Prescription history (MAPs), review of the available imaging, evaluation and examination of the patient, coordination of care with the medical staff and if applicable referring physicians, as well as creation of the medical record - Pain Location Bilateral Lower Back Non-Pharmacological Interventions: Heat, Ice, Inactivity, Physical Therapy, Position/Reposition, Standing Pharmacological Interventions: Scheduled Medication, Topical Medication PQRS Narrative: Smoking Status Current every day smoker Home Medications: Ambulatory Orders Pantoprazole [Protonix] 40 mg PO BID 03/20/19 Abatacept [Orencia] 125 mg SQ WE 09/19/20 Montelukast [Singulair] 10 mg PO DAILY 09/19/20 amantadine HCL [Amantadine] 200 mg PO DAILY 09/19/20 traMADol HCL [Ultram] 50 mg PO BID 09/19/20 Acetylcysteine [Nac] 600 mg PO HS 05/26/21 Brexpiprazole [Rexulti] 1 mg PO HS 05/26/21 Cholecalciferol [Vitamin D3 (25 Mcg = 1000 Iu)] 50 mcg PO DAILY 05/26/21 Levothyroxine Sodium [Synthroid] 125 mcg PO DAILY 05/26/21 Melatonin 5 mg PO HS 05/26/21 Sucralfate [Carafate] 1 gm PO DAILY 05/26/21 Vortioxetine Hydrobromide [Trintellix] 20 mg PO HS 05/26/21 lamoTRIgine [LaMICtal] 200 mg PO BID 05/26/21 Aspirin [Adult Low Dose Aspirin EC] 81 mg PO DAILY 07/24/22 Atorvastatin [Lipitor] 80 mg PO DAILY 07/24/22 Gabapentin 300 mg PO BID 07/24/22 Propranolol [Inderal] 20 mg PO BID 07/24/22 cloNIDine HCL [Catapres] 2 tab PO DAILY 07/24/22 rOPINIRole HCL [Requip] 1 mg PO HS 07/24/22 Metoclopramide HCl [Reglan] 10 mg PO QA 11/02/22 Controlled Substance Measures - Controlled Substance Measures Is patient prescribed a controlled substance at discharge?: No
== END ==
LOC: PNWHC3 08:54
PROVIDERS: ATTEND Specialist
DX: M47.26 Other spondylosis with radiculopathy, lumbar region (principal); M41.86 Other forms of scoliosis, lumbar region; K21.9 Gastro-esophageal reflux disease without esophagitis; E03.9 Hypothyroidism, unspecified; F41.9 Anxiety disorder, unspecified; M06.9 Rheumatoid arthritis, unspecified; M48.061 Spinal stenosis, lumbar region without neurogenic claudication; M51.16 Intervertebral disc disorders with radiculopathy, lumbar region; F17.210 Nicotine dependence, cigarettes, uncomplicated; Z79.82 Long term (current) use of aspirin; Z79.890 Hormone replacement therapy; Z88.8 Allergy status to other drugs, medicaments and biological substances; Z88.5 Allergy status to narcotic agent; Z79.01 Long term (current) use of anticoagulants
CPT/HCPCS: 99211

== ENCOUNTER 2022-11-17 11:53 | Day surgery (SDC) | payer OTHER ==
[2022-11-17 12:45] VITALS: TEMP 97.6
[2022-11-17] MEDS ORDERED: LACTATED RINGERS 1,000 ML IV SCH (12:45)
[2022-11-17] MEDS ORDERED: IOPAMIDOL M200 10 ML VIAL ONE (13:13)
[2022-11-17] MEDS ORDERED: methylPREDNISolone ACETATE 80 MG/ML 1 ML VIAL ONE (13:13)
--- NOTE | 2022-11-17 13:24 | P.PCN ---
Date of Procedure: 11/17/22 Description of Procedure: Procedure: 1. L4-L5 Epidural steroid injection under fluoroscopic guidance 2. Lumbar epidurogram PREOPERATIVE DIAGNOSIS: Lumbar degenerative disc disease, and Lumbar radiculopathy. POSTOPERATIVE DIAGNOSIS: Lumbar degenerative disc disease, and Lumbar radi culopathy. SURGEON: Abe Goldsmith ANESTHESIA: Local with 1% lidocaine, and IV sedation: None EBL: None. Specimen removed: None Fluoroscopic image: saved to electronic medical records PROCEDURE INDICATION: The patient had history of Lumbar degenerative disc disease and Lumbar radiculopathy. Failed to conservative therapy. Presented for epidural steroid injection. PROCEDURE DESCRIPTION: The patient was seen and identified in the preoperative area. Risks, benefits, complications, and alternatives were discussed with the patient. The patient agreed to proceed with the procedure and signed the consent. and vital signs were stable. Patient was taken to the procedure area, and time out was completed. The patient was placed in the prone position on procedure table and a pillow was placed under the abdomen to reduce lumbar lordosis. The lumbosacral area was prepped and draped in the usual sterile fashion. Critical pause was taken. Vital signs were closely monitored during the procedure. Using anterior-posterior fluoroscopy, the L4-L5 interlaminar space was identified, and skin and deeper tissues were localized with 1% lidocaine. Using anterior-posterior fluoroscopy, lateral fluoroscopy, and [id number] technique, a 20 gauge 3.5 Tuohy epidural needle entered the epidural space. After negative aspiration of CSF and blood with no paresthesias, 1 ml of [id number] contrast dye was injected and an excellent epidurogram was seen. Again after negative aspiration of CSF and blood with no paresthesias, 8 mL of block solution was injected into the epidural space. Block solution contained 80 mg of Depo-Medrol, and 6 mL of preservative-free normal saline. Needle was withdrawn intact, skin was cleansed, and bandages were applied. COMPLICATIONS: None. DISPOSITION / PLANS: The patient was placed in a supine position and transferred to the recovery area in a stable condition for observation. Patient was discharged from the recovery room after meeting discharge criteria. Home discharge instructions given to the patient by the staff. The patient was reexamined prior to discharge. The patient will schedule a follow up in the clinic in 4 weeks.
--- NOTE | 2022-11-17 13:40 | FL ---
Intraoperative/procedural fluoroscopic services were provided for lumbar spine procedure. Total fluor oscopy time is 7.5 seconds with a total of 2 submitted images to PACS. Total DAP [id number] mGym2. Plea se see the operative note for further details.
[2022-11-17 13:49] VITALS: BP 96/58; PULSE 73; RESP 18
== END 2022-11-17 13:52 | disposition home or self-care (01) ==
LOC: ORPAIN 11:53
DX: M51.16 Intervertebral disc disorders with radiculopathy, lumbar region (principal); J45.909 Unspecified asthma, uncomplicated; K21.9 Gastro-esophageal reflux disease without esophagitis; E03.9 Hypothyroidism, unspecified; F31.9 Bipolar disorder, unspecified; Z88.5 Allergy status to narcotic agent; Z91.09 Other allergy status, other than to drugs and biological substances; Z98.890 Other specified postprocedural states; Z90.49 Acquired absence of other specified parts of digestive tract; Z79.899 Other long term (current) drug therapy
CPT/HCPCS: 81025; 62323; J1040; Q9966

== ENCOUNTER → 2022-11-23 | Outpatient (CLI) | payer OTHER ==
--- NOTE | 2022-11-23 13:49 | FL ---
EXAMINATION TYPE: FL barium swallow w SBFT DATE OF EXAM: 11/23/2022 CLINICAL HISTORY: R13.10 dysphagia TECHNIQUE: A double contrast esophagram and partial small bowel follow-through is performed utilizin g air and barium. A total of 26 seconds of fluoroscopic time was utilized during procedure and 31 im ages obtained. Total dose area product (DAP) in uGy*m?, mGy*cm? (or similar) . COMPARISON: None FINDINGS: The esophagus shows normal motility and emptying into the stomach. No evidence of hiatal h ernia or stricture noted. No significant gastroesophageal reflux was seen during real time performanc e of this study. Small bowel follow-through was performed up to 1 hour and which point the patient decided to leave. S mall bowel follow-through is incomplete. Visualized small bowel loops including the jejunal loops and a portion of the ileal loops demonstrate normal fold pattern. No evidence for wall thickening or aparna ling defect. There appears to be a duodenal diverticulum. IMPRESSION: No significant abnormality is seen to account for patient's symptoms. Limited small randolph l.
== END | disposition home or self-care (01) ==
LOC: RADFLMAIN 08:39
PROVIDERS: ATTEND Family Medicine
DX: R13.10 Dysphagia, unspecified (principal)
CPT/HCPCS: 74220

== ENCOUNTER → 2022-12-10 | Outpatient (CLI) | payer OTHER ==
--- NOTE | 2022-12-10 15:57 | P.PAINPG ---
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 Pt states she experienced 100% pain relief x 1 wks s/p procedure. Pt states pain level is provoked at 6 /10 in intensity, constant, localized in the lower lumbar spine, sharp in character w shooting pain towards the BLEs. Pain is provoked by sitting, bending, lifting. Pain is alleviated by PT x 6 wks in 2020, heat & ice with little relief, medications, topical, repositioning and rest. Oswestry axial pain score at 20. Interventional procedures include KAIN L4-L5 x1 Medications include Tramadol, Neurontin REVIEW OF ORGAN SYSTEMS: CONSTITUTIONAL: No fevers or chills. No recent weight loss. NEUROLOGICAL: + numbness and tingling along the distal extremities. No seizure disorders or headaches. MUSCULOSKELETAL: + pain PSYCHIATRIC: Denies current depression or suicidal thoughts. Physical Examinations : Constitutional : Cooperative , not in acute distress . Neurologic : Cranial nerve II to XII intact. No focal neurological deficits. Psychiatric : alert & oriented x 3. Matching mood & appropriate affect. Judgment & insight intact. Musculoskeletal : Cervical Spine Motor strength in the deltoid and biceps: Normal right side. Normal Left side Motor strength biceps and the wrist extensors: Normal right side . Normal left side Motor strength in the triceps muscle: Normal right side. Normal left side Deep tendon reflexes: Normal at the biceps. Normal at Brachioradialis. Normal at triceps Vertebral body tenderness to deep palpation over Cervical facet loading test: positive bilaterally Spurling test: positive bilaterally Neck distraction test: positive bilaterally Sagar sign: positive bilaterally Lumbar spine Motor strength lower extremities ,thigh and legs 5/5 Right side , 5/5 Left side Deep tendon reflexes : Normal Knee Jerk. Normal Ankle Jerk Vertebral body tenderness Valencia Test positive Lumbar facet Loading Test: positive Right / positive Left over BL L4-L5, L5-S1 Range of motion of the lumbar spine Flexion 30 degrees, extension 10 degrees Straight Leg Raise test: Left/ Right positive at 35 degrees Enid test: positive right / positive left. Severe tenderness over the Sacroiliac joint on the Right / Left sides Gaenslen test: positive bilaterally Seated flexion test: positive bilater ally. Sacral spine : Severe tenderness over the Sacroiliac joint: right side / left side Range of motion: Flexion of the lumbar spine <60 degrees Range of motion: Extension of the lumbar spine <20 degrees Gaenslen's Test positive Samy's Test positive Enid test: positive right side / left side Thigh Thrust Test Sacral Thrust Test Imaging: MRI noncontrast of the lumbar spine from 09/15/22 reviewed Assessment/ Plan : Lumbar DDD Recommendation of BL facet block of the medial branches L4-L5, L5-S1 #1. May need a series of injection, up until RFA, for optimal pain relief. Risks, benefits of procedure discussed and patient verbalized understanding. Admits to aspirin or anti- coagulant use or medical history of diabetes. Protocol for discontinuation/ continuation of medications malik procedure discussed. Minimal anesthesia provided, if clinically indicated, consisting of Versed and Fentanyl. All questions answered. I have spent greater than 30 minutes on patient care today. Dr Tobias was available by phone for the evaluation of this patient. The time was used to review the medical records including relevant urine studies and Prescription history (MAPs), review of the available imaging, evaluation and examination of the patient, coordination of care with the medical staff and if applicable referring physicians, as well as creation of the medical record PQRS Narrative: Smoking Status Current every day smoker Hx Alcohol Use (MH) Yes: Wine Cooler occassionally Home Medications: Ambulatory Orders Pantoprazole [Protonix] 40 mg PO BID 03/20/19 Abatacept [Orencia] 125 mg SQ WE 09/19/20 Montelukast [Singulair] 10 mg PO DAILY 09/19/20 amantadine HCL [Amantadine] 200 mg PO DAILY 09/19/20 traMADol HCL [Ultram] 50 mg PO BID 09/19/20 Acetylcysteine [Nac] 600 mg PO HS 05/26/21 Brexpiprazole [Rexulti] 1 mg PO HS 05/26/21 Cholecalciferol [Vitamin D3 (25 Mcg = 1000 Iu)] 50 mcg PO DAILY 05/26/21 Levothyroxine Sodium [Synthroid] 125 mcg PO DAILY 05/26/21 Melatonin 5 mg PO HS 05/26/21 Sucralfate [Carafate] 1 gm PO DAILY 05/26/21 Vortioxetine Hydrobromide [Trintellix] 20 mg PO HS 05/26/21 lamoTRIgine [LaMICtal] 200 mg PO BID 05/26/21 Aspirin [Adult Low Dose Aspirin EC] 81 mg PO DAILY 07/24/22 Atorvastatin [Lipitor] 80 mg PO DAILY 07/24/22 Gabapentin 300 mg PO TID 07/24/22 cloNIDine HCL [Catapres] 2 tab PO DAILY 07/24/22 rOPINIRole HCL [Requip] 1 mg PO HS 07/24/22 Metoclopramide HCl [Reglan] 10 mg PO QAM 11/02/22 Controlled Substance Measures - Controlled Substance Measures Is patient prescribed a controlled substance at discharge?: No
[2022-12-10 16:02] VITALS: BP 118/75; PULSE 73; RESP 16; TEMP 96
== END ==
LOC: PNWHC3 08:32
PROVIDERS: ATTEND Specialist
DX: M51.37 Other intervertebral disc degeneration, lumbosacral region (principal); F17.200 Nicotine dependence, unspecified, uncomplicated; Z79.82 Long term (current) use of aspirin; Z88.8 Allergy status to other drugs, medicaments and biological substances; Z88.5 Allergy status to narcotic agent
CPT/HCPCS: 99211

== ENCOUNTER → 2023-01-20 | Outpatient (CLI) | payer OTHER ==
[2023-01-20 09:02] VITALS: BP 127/72; PULSE 89; RESP 15; TEMP 98.6
--- NOTE | 2023-01-20 15:16 | P.PAINPG ---
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 Pt states she experienced 98% pain relief x 24 hrs s/p procedure. Pt states pain level is provoked at 6 /10 in intensity, constant, localized in the lower lumbar spine, sharp in character w shooting pain towards the BLEs. Pain is provoked by sitting, bending, lifting. Pain is alleviated by PT x 6 wks in 2020, physician guided home exercises daily x 4 mo since July [address] Hammond, heat & ice with little relief, medications, topical, repositioning and rest. Oswestry axial pain score at 26. Interventional procedures include KAIN L4-L5 x1, BL MBB L3-L5 x1 Medications include Tramadol, Neurontin REVIEW OF ORGAN SYSTEMS: CONSTITUTIONAL: No fevers or chills. No recent weight loss. NEUROLOGICAL: + numbness and tingling along the distal extremities. No seizure disorders or headaches. MUSCULOSKELETAL: + pain PSYCHIATRIC: Denies current depression or suicidal thoughts. Physical Examinations : Constitutional : Cooperative , not in acute distress . Neurologic : Cranial nerve II to XII intact. No focal neurological deficits. Psychiatric : alert & oriented x 3. Matching mood & appropriate affect. Judgment & insight intact. Musculoskeletal : Cervical Spine Motor strength in the deltoid and biceps: Normal right side. Normal Left side Motor strength biceps and the wrist extensors: Normal right side . Normal left side Motor strength in the triceps muscle: Normal right side. Normal left side Deep tendon reflexes: Normal at the biceps. Normal at Brachioradialis. Normal at triceps Vertebral body tenderness to deep palpation over Cervical facet loading test: positive bilaterally Spurling test: positive bilaterally Neck distraction test: positive bilaterally Sagar sign: positive bilaterally Lumbar spine Motor strength lower extremities ,thigh and legs 5/5 Right side , 5/5 Left side Deep tendon reflexes : Normal Knee Jerk. Normal Ankle Jerk Vertebral body tenderness Valencia Test positive Lumbar facet Loading Test: positive Right / positive Left over BL L4-L5, L5-S1 Range of motion of the lumbar spine Flexion 30 degrees, extension 10 degrees Straight Leg Raise test: Left/ Right positive at 35 degrees Enid test: positive right / positive left. Severe tenderness over the Sacroiliac joint on the Right / Left sides Gaenslen test: positive bilaterally Seated flexion test: positive bilaterally. Sacral spine : Severe tenderness over the Sacroiliac joint: right side / left side Range of motion: Flexion of the lumbar spine <60 degrees Range of motion: Extension of the lumbar spine <20 degrees Gaenslen's Test positive Samy's Test positive Enid test: positive right side / left side Thigh Thrust Test Sacral Thrust Test Imaging: MRI noncontrast of the lumbar spine from 09/15/22 reviewed Assessment/ Plan : Lumbar DDD Recommendation of BL facet block of the medial branches L4-L5, L5-S1 #2. May need a series of injection, up until RFA, for optimal pain relief. Risks, benefits of procedure discussed and patient verbalized understanding. Admits to aspirin or anti- coagulant use or medical history of diabetes. Protocol for discontinuation/ continuation of medications malik procedure discussed. Minimal anesthesia provided, if clinically indicated, consisting of Versed and Fentanyl. All questions answered. I have spent greater than 30 minutes on patient care today. Dr Tobias was available by phone for the evaluation of this patient. The time was used to review the medical records including relevant urine studies and Prescription hi story (MAPs), review of the available imaging, evaluation and examination of the patient, coordination of care with the medical staff and if applicable referring physicians, as well as creation of the medical record PQRS Narrative: Smoking Status Current every day smoker Blood Pressure 127/72 Hx Alcohol Use (MH) Yes: Wine Cooler occassionally Home Medications: Ambulatory Orders Pantoprazole [Protonix] 40 mg PO BID 03/20/19 Abatacept [Orencia] 125 mg SQ WE 09/19/20 Montelukast [Singulair] 10 mg PO QAM 09/19/20 amantadine HCL [Amantadine] 200 mg PO QAM 09/19/20 traMADol HCL [Ultram] 50 mg PO BID 09/19/20 Acetylcysteine [Nac] 600 mg PO HS 05/26/21 Brexpiprazole [Rexulti] 1 mg PO HS 05/26/21 Cholecalciferol [Vitamin D3 (25 Mcg = 1000 Iu)] 50 mcg PO QAM 05/26/21 Levothyroxine Sodium [Synthroid] 125 mcg PO QAM 05/26/21 Melatonin 5 mg PO HS 05/26/21 Sucralfate [Carafate] 1 gm PO DAILY 05/26/21 Vortioxetine Hydrobromide [Trintellix] 20 mg PO HS 05/26/21 lamoTRIgine [LaMICtal] 200 mg PO BID 05/26/21 Aspirin [Adult Low Dose Aspirin EC] 81 mg PO QAM 07/24/22 Atorvastatin [Lipitor] 80 mg PO HS 07/24/22 Gabapentin 300 mg PO TID 07/24/22 cloNIDine HCL [Catapres] 2 tab PO BID 07/24/22 rOPINIRole HCL [Requip] 1 mg PO HS 07/24/22 Metoclopramide HCl [Reglan] 10 mg PO QAM 11/02/22 Controlled Substance Measures - Controlled Substance Measures Is patient prescribed a controlled substance at discharge?: No
== END ==
LOC: PNWHC3 08:43
PROVIDERS: ATTEND Specialist
DX: M51.37 Other intervertebral disc degeneration, lumbosacral region (principal); F17.200 Nicotine dependence, unspecified, uncomplicated; Z79.82 Long term (current) use of aspirin; Z88.8 Allergy status to other drugs, medicaments and biological substances; Z88.5 Allergy status to narcotic agent
CPT/HCPCS: 99211

== ENCOUNTER 2023-02-12 06:33 | Day surgery (SDC) | payer OTHER ==
[2023-02-11 08:44] VITALS: BMI 28.0
[2023-02-12] MEDS ORDERED: LACTATED RINGERS 1,000 ML IV SCH (06:50)
[2023-02-12] MEDS ORDERED: LIDOCAINE 1% (10MG/ML) FOR IV START INTRADERMA ONE (07:10)
[2023-02-12 07:25] VITALS: RESP 16; TEMP 97.3
[2023-02-12] MEDS ORDERED: MIDAZOLAM 2 MG/2 ML VIAL ONE (07:47)
[2023-02-12] MEDS ORDERED: fentaNYL (PF) 50 MCG/ML 2 ML AMP ONE (07:47)
[2023-02-12] MEDS ORDERED: ROPIVACAINE 5MG/ML 20ML VIAL ONE (07:50)
[2023-02-12] MEDS ORDERED: methylPREDNISolone ACETATE 40 MG/ML 1 ML VIAL ONE (07:50)
--- NOTE | 2023-02-12 08:02 | P.PCN ---
Date of Procedure: 02/12/23 Procedure(s) Performed: PREOPERATIVE DIAGNOSIS : 1- Lumbar spondylosis with Facet Arthropathy without myelopathy . 2- Lumber degenerative disc disease POSTOPERATIVE DIAGNOSIS: 1- Lumbar spondylosis with Facet Arthropathy without myelopathy . 2- Lumber degenerative disc disease PROCEDURE: Diagnostic bilateral L3 , L4 , and L5 medial branch block under fluoroscopy guidance(fluoroscopy images available in the radiology Department ) ( To target the facet joint between Bilateral L4-5 , and L5-S1 ) #2nd ANESTHESIA:, Monitored anesthesia care as per anesthesia department. EBL: Minimal COMPLICATION: None PROCEDURE INDICATION: Chronic low back pain secondary to Facet arthropathy unresponsive to conservative treatment. PROCEDURE DESCRIPTION: the patient was seen and identified in the preop holding area , risks and benefits and possible complications of the procedure and alternative were discussed with the patient, and the patient agreed to proceed with the procedure and signed the consent and vital signs monitored during the procedure and fluoroscopy was used to maximize the benefit and accuracy of the needle placement, and sedation was given to decrease patient anxiety, patient was taken to the procedure room and placed in prone position vital signs monitored in the back prepped with chlorhexidine X3 then under strict sterile technique using a right oblique fluoroscopy ,the junction of the transverse process and the superior articulating process of the right L3 , L4 , and L5 vertebra which corresponding to the fluoroscopy image of the eye of the Jose dog on the block side for the medial branches and subsequently , after local infiltration of skin and subcu tissuies with Ropivacaine 0.5 % , one mL at each level ,then 22-gauge Quincke-type needles , 3 needle was used , each one of them placed at the junction of the base of the transverse process and the superior articular process at the appropriate level, and the needle was advanced until the periosteum contacted, needle placement confirmed with AP oblique and lateral view and after appropriate needle placement confirmed, and after negative aspiration for heme and CSF and there was no paresthesia 1-1/2 mL of Ropivacaine 0.5% mixed with 20 mg Depo-Medrol , then half mL injected at each level after negative aspiration the needle subsequently removed and the same procedure repeated for the left side at left side at L3 , L4 and L5 levels. At the end of the procedure and the needles removed and a bandage applied after the skin was cleaned the cleaning solution patient taken to recovery room in stable condition and monitors in the recovery room for 20-30 minutes and discharged home in stable condition after discharge criteria met and patient will follow up with the pain clinic in 2-4 weeks
[2023-02-12 08:43] VITALS: BP 105/67; PULSE 77
--- NOTE | 2023-02-12 09:46 | FL ---
EXAMINATION TYPE: FL guided pain mgmt statistic DATE OF EXAM: 02/12/2023 HISTORY: Fluoroscopy time Total dose area product (DAP) in uGy*m?, mGy*cm? (or similar): 0.44685 IMPRESSION: 1. Fluoroscopy time.
== END 2023-02-12 08:38 | disposition home or self-care (01) ==
LOC: ORPAIN 06:33
PROVIDERS: ATTEND Specialist
DX: M51.36 Other intervertebral disc degeneration, lumbar region (principal); M47.816 Spondylosis without myelopathy or radiculopathy, lumbar region; G89.29 Other chronic pain; J44.9 Chronic obstructive pulmonary disease, unspecified; K21.9 Gastro-esophageal reflux disease without esophagitis; Z79.899 Other long term (current) drug therapy; Z88.5 Allergy status to narcotic agent
CPT/HCPCS: 81025; 64493; 64494 ×2; J2250; J1030; J3010; J2795

== ENCOUNTER → 2023-03-10 | Outpatient (CLI) | payer OTHER ==
[2023-03-10 09:22] VITALS: BP 115/75; PULSE 92; RESP 15; TEMP 97.2
--- NOTE | 2023-03-10 12:46 | P.PAINPG ---
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 Pt states she experienced 80% pain relief x 5 hrs s/p procedure. Pt states pain level is provoked at 7 /10 in intensity, constant, predominantly axial, localized in the lower lumbar spine, sharp in character w occasional shooting pain towards the BLEs. Pain is provoked by sitting, bending, lifting. Pain is alleviated by PT x 6 wks in 2020, physician guided home exercises daily x 4 mo since July [address] Hammond, heat & ice with little relief, medications, topical, repositioning and rest. Oswestry axial pain score at 25. Interventional procedures include KAIN L4-L5 x1, BL MBB L3-L5 x2 Medications include Tramadol, Neurontin REVIEW OF ORGAN SYSTEMS: CONSTITUTIONAL: No fevers or chills. No recent weight loss. NEUROLOGICAL: + numbness and tingling along the distal extremities. No seizure disorders or headaches. MUSCULOSKELETAL: + pain PSYCHIATRIC: Denies current depression or suicidal thoughts. Physical Examinations : Constitutional : Cooperative , not in acute distress . Neurologic : Cranial nerve II to XII intact. No focal neurological deficits. Psychiatric : alert & oriented x 3. Matching mood & appropriate affect. Judgment & insight intact. Musculoskeletal : Cervical Spine Motor strength in the deltoid and biceps: Normal right side. Normal Left side Motor strength biceps and the wrist extensors: Normal right side . Normal left side Motor strength in the triceps muscle: Normal right side. Normal left side Deep tendon reflexes: Normal at the biceps. Normal at Brachioradialis. Normal at triceps Vertebral body tenderness to deep palpation over Cervical facet loading test: positive bilaterally Spurling test: positive bilaterally Neck distraction test: positive bilaterally Sagar sign: positive bilaterally Lumbar spine Motor strength lower extremities ,thigh and legs 5/5 Right side , 5/5 Left side Deep tendon reflexes : Normal Knee Jerk. Normal Ankle Jerk Vertebral body tenderness Valencia Test positive Lumbar facet Loading Test: positive Right / positive Left over BL L4-L5, L5-S1 Range of motion of the lumbar spine Flexion 30 degrees, extension 10 degrees Straight Leg Raise test: Left/ Right positive at 35 degrees Enid test: positive right / positive left. Severe tenderness over the Sacroiliac joint on the Right / Left sides Gaenslen test: positive bilaterally Seated flexion test: positive bilaterally. Sacral spine : Severe tenderness over the Sacroiliac joint: right side / left side Range of motion: Flexion of the lumbar spine <60 degrees Range of motion: Extension of the lumbar spine <20 degrees Gaenslen's Test positive Samy's Test positive [place] test: positive right side / left side Thigh Thrust Test Sacral Thrust Test Imaging: MRI noncontrast of the lumbar spine from 09/15/22 reviewed Assessment/ Plan : Lumbar DDD Recommendation of BL RFA L4-L5, L5-S1. Exhibited optimal pain relief w prior BL facet blocks of the medial branches. Risks, benefits of procedure discussed and patient verbalized understanding. Admits to aspirin or anti- coagulant use or medical history of diabetes. Protocol for discontinuation/ continuation of medications malik procedure discussed. Minimal anesthesia provided, if clinically indicated, consisting of Versed and Fentanyl. All questions answered. I have spent greater than 30 minutes on patient care today. Dr Tobias was available by phone for the evaluation of this patient. The time was used to review the medical records including relevant urine studies and Prescription history (MAPs), review of the available imaging, evaluation and examination of the patient, coordination of care with the medical staff and if applicable referring physicians, as well as creation of the medical record PQRS Narrative: Smoking Status Current every day smoker Hx Alcohol Use (MH) Yes: Wine Cooler occassionally Home Medications: Ambulatory Orders Pantoprazole [Protonix] 40 mg PO BID 03/20/19 Abatacept [Orencia] 125 mg SQ WE 09/19/20 Montelukast [Singulair] 10 mg PO HS 09/19/20 amantadine HCL [Amantadine] 200 mg PO QAM 09/19/20 traMADol HCL [Ultram] 50 mg PO TID 09/19/20 Acetylcysteine [Nac] 600 mg PO HS 05/26/21 Cholecalciferol [Vitamin D3 (25 Mcg = 1000 Iu)] 50 mcg PO QAM 05/26/21 Levothyroxine Sodium [Synthroid] 125 mcg PO QAM 05/26/21 Sucralfate [Carafate] 1 gm PO DAILY 05/26/21 Vortioxetine Hydrobromide [Trintellix] 20 mg PO DAILY 05/26/21 lamoTRIgine [LaMICtal] 200 mg PO BID 05/26/21 Atorvastatin [Lipitor] 80 mg PO HS 07/24/22 cloNIDine HCL [Catapres] 0.1 mg PO BID 07/24/22 rOPINIRole HCL [Requip] 1 mg PO HS 07/24/22 Metoclopramide HCl [Reglan] 10 mg PO QAM 11/02/22 Gabapentin [Neurontin] 400 mg PO TID 02/11/23 Lurasidone [Latuda] 20 mg PO HS 02/11/23 Controlled Substance Measures - Controlled Substance Measures Is patient prescribed a controlled substance at discharge?: No
== END ==
LOC: PNWHC3 08:08
PROVIDERS: ATTEND Specialist
DX: M51.36 Other intervertebral disc degeneration, lumbar region (principal); F17.200 Nicotine dependence, unspecified, uncomplicated; Z88.5 Allergy status to narcotic agent; Z88.3 Allergy status to other anti-infective agents; Z91.09 Other allergy status, other than to drugs and biological substances
CPT/HCPCS: 99211

== ENCOUNTER → 2023-03-12 | Outpatient (CLI) | payer OTHER ==
[2023-03-12 17:33] LABS: Acanthocytes 2+; Basophils # (A) 0.05 X 10*3/uL (0.00-0.10); Basophils % (A) 0.7 %; Eosinophils # (A) 0.08 X 10*3/uL (0.04-0.35); Eosinophils % (A) 1.1 %; HCT 44.2 % (37.2-46.3); HGB 14.3 g/dL (12.0-15.0); Lymphocytes # (A) 1.83 X 10*3/uL (0.90-5.00); Lymphocytes % (A) 24.3 %; MCH 30.6 pg (27.0-32.0); MCHC 32.4 g/dL (32.0-37.0); MCV 94.4 FL (80.0-97.0); Mean Platelet Volume 13.4 FL (9.5-12.2); NRBC Per 100 WBC 0 X 10*3/uL (0.00-0.01); Neutrophils % (A) 64.8 %; Platelet Count 203 X 10*3/uL (140-440); RBC 4.68 X 10*6/uL (4.10-5.20); WBC 7.54 X 10*3/uL (4.50-10.00)
== END | disposition home or self-care (01) ==
LOC: LABWHC1 07:55
PROVIDERS: ATTEND Nurse Practitioner Family
DX: K74.60 Unspecified cirrhosis of liver (principal)
CPT/HCPCS: 36415; 80053; 82105; 85025

== ENCOUNTER 2023-03-23 05:38 | Day surgery (SDC) | payer OTHER ==
[2023-03-23] MEDS ORDERED: LACTATED RINGERS 1,000 ML IV ONE ×2 (06:42→07:43)
[2023-03-23] MEDS ORDERED: ROPIVACAINE 5MG/ML 20ML VIAL ONE (07:01)
[2023-03-23] MEDS ORDERED: MIDAZOLAM 2 MG/2 ML VIAL ONE (07:01)
[2023-03-23] MEDS ORDERED: fentaNYL (PF) 50 MCG/ML 2 ML AMP ONE (07:01)
[2023-03-23 07:04] VITALS: RESP 16; TEMP 97.7
--- NOTE | 2023-03-23 07:48 | FL ---
EXAMINATION TYPE: FL guided pain mgmt statistic Intraoperative/procedural fluoroscopic services were provided. Total fluoroscopy time is 50 seconds with a total of 5 submitted images to PACS. Please see the operative/procedural note for further details. DAP: 0.12054 mGym2
[2023-03-23] MEDS ORDERED: LACTATED RINGERS 1,000 ML IV SCH (07:50)
--- NOTE | 2023-03-23 07:55 | P.PCN ---
Description of Procedure: Preprocedure diagnosis. 1. Lumbar spondylosis with facet joint arthropathy without myelopathy. 2. Lumbar degenerative disc disease. Procedure diagnosis. 1. Lumbar spondylosis with facet joint arthropathy without myelopathy. Space 2. Lumbar degenerative disc disease. Procedure.Bilateral radiofrequency thermocoagulation L3, L4 and L5 medial branch, with fluoroscopic guidance (fluoroscopy images are available in the radiology department) (to Denervate the facet joint at bilateral L4 5 and L5-S1 levels) Anesthesia. moderate sedation with intravenous Versed 2 mg and fentanyl 100 g and local infiltration with ropivacaine 0.5%. EBL minimal. Procedure indication. The patient with low back pain secondary to lumbar facet arthropathy who he had more than 50% relief of her pain with previous diagnostic lumbar medial branch block with local anesthetics. Procedure description/technique. The patient was seen and identified in the preoperative area. Risks: Benefits, complications, including but not limited to risk of infection, bleeding, ALLERGIC reaction to the medications and no complete pain relief and alternatives were discussed with the patient, the patient admitted to proceed with the procedure and signed the consent. IV was started, vital signs remained stable throughout the procedure. Patient was taken to the OR and timeout was completed. The patient was placed in prone position on the procedure table. The lumbar area was prepped and draped in the usual sterile fashion. Vital signs were closely monitored during the procedure. IV sedation was used it during the procedure to decrease patient's anxiety. Using AP and then oblique fluoroscopy, the "eye of the Jose dog" corresponding to the connection between the superior articular process and transverse process of right L4 and L5 and junction of superior articular process with the right ala of the sacrum was identified, marked and localized with 1% lidocaine. Space subsequently, a 18-gauge 100 mm radiofrequency cannula with a 10 mm active tip was advanced and guided by fluoroscopy to each of the" eyes of the Jose dog" at right L4, L5 and ala of the sacrum. Each site then underwent sensory testing with 50 Hz and 0-1 V and motor testing at 2.5 Hz and 0-3 V with local stimulation but no radicular symptoms down the leg. Thereafter each sites underwent radiofrequency thermocoagulation at 80C for 90 seconds after injecting 1 mL of preservative-free 0.5% ropivacaine. Repeat radiofrequency ablation was done at each points after rotating the needle 180 with same setting. This same procedure was repeated at the level of left L4, L5 and S1 vertebral levels. RF needles were taken out. At the end of the procedure the skin was cleansed and Band-Aids were applied. Disposition patient tolerated the procedure well. No complication. She was placed in supine position and transferred to the recovery area in stable condi tion for observation and was discharged home from recovery room after meeting discharge criteria. Discharge instructions given to the patient by the staff. The patient were examined prior to discharge the patient will schedule a follow- up in the clinic in 2-4 weeks.
[2023-03-23 08:16] VITALS: BP 105/71; PULSE 72
== END 2023-03-23 08:14 | disposition home or self-care (01) ==
LOC: ORPAIN 05:38
PROVIDERS: ATTEND Pain Medicine Interventional Pain Medicine
DX: M47.816 Spondylosis without myelopathy or radiculopathy, lumbar region (principal); M51.36 Other intervertebral disc degeneration, lumbar region
CPT/HCPCS: 81025; 64635; 64636 ×2; J2250; J3010; J2795

== ENCOUNTER → 2023-04-21 | Outpatient (CLI) | payer OTHER ==
[2023-04-21 09:30] VITALS: BP 107/64; PULSE 81; RESP 16; TEMP 98.6
--- NOTE | 2023-04-21 11:03 | P.PAINPG ---
PQRS Measure Charge Sheet Comment: HISTORY OF PRESENT ILLNESS: A 42 yr old female presents today w severe and chronic LBP x 1 yr secondary to DDD, spondylosis and facet arthropathy without myelopathy for evaluation s/p BL RFA L4-L5, L5-S1. Pt states she experienced 0% pain relief s s/p procedure. Pt states pain level is provoked at 6 /10 in intensity, constant, predominantly axial, localized in the lower lumbar spine, sharp in character w occasional shooting pain towards the back of the BLEs. Pain is provoked by sitting, bending, lifting. Pain is alleviated by PT x 6 wks in 2020, physician guided home exercises daily since July [address] Hammond, heat & ice with little relief, medications, topical, repositioning and rest. Oswestry axial pain score at 24. Interventional procedures include KAIN L4-L5 x1, BL RFA L3-L5 Medications include Tramadol, Neurontin REVIEW OF ORGAN SYSTEMS: CONSTITUTIONAL: No fevers or chills. No recent weight loss. NEUROLOGICAL: + numbness and tingling along the distal extremities. No seizure disorders or headaches. MUSCULOSKELETAL: + pain PSYCHIATRIC: Denies current depression or suicidal thoughts. Physical Examinations : Constitutional : Cooperative , not in acute distress . Neurologic : Cranial nerve II to XII intact. No focal neurological deficits. Psychiatric : alert & oriented x 3. Matching mood & appropriate affect. Judgment & insight intact. Musculoskeletal : Cervical Spine Motor strength in the deltoid and biceps: Normal right side. Normal Left side Motor strength biceps and the wrist extensors: Normal right side . Normal left side Motor strength in the triceps muscle: Normal right side. Normal left side Deep tendon reflexes: Normal at the biceps. Normal at Brachioradialis. Normal at triceps Vertebral body tenderness to deep palpation over Cervical facet loading test: positive bilaterally Spurling test: positive bilaterally Neck distraction test: positive bilaterally Sagar sign: positive bilaterally Lumbar spine Motor strength lower extremities ,thigh and legs 5/5 Right side , 5/5 Left side Deep tendon reflexes : Normal Knee Jerk. Normal Ankle Jerk Vertebral body tenderness Valencia Test positive Lumbar facet Loading Test: positive Right / positive Left over BL L4-L5, L5-S1 Range of motion of the lumbar spine Flexion 30 degrees, extension 10 degrees Straight Leg Raise test: Left/ Right positive at 35 degrees En[place] test: positive right / positive left. Severe tenderness over the Sacroiliac joint on the Right / Left sides Gaenslen test: positive bilaterally Seated flexion test: positive bilaterally. Sacral spine : Severe tenderness over the Sacroiliac joint: right side / left side Range of motion: Flexion of the lumbar spine <60 degrees Range of motion: Extension of the lumbar spine <20 degrees Gaenslen's Test positive Samy's Test positive En[place] test: positive right side / left side Thigh Thrust Test Sacral Thrust Test Imaging: MRI noncontrast of the lumbar spine from 09/15/22 reviewed Assessment/ Plan : Lumbar DDD Recommendation of follow up w Dr Hammond to explore additional treatment options. All questions answered. I have spent greater than 30 minutes on patient care today. Dr Tobias was available by phone for the evaluation of this patient. The time was used to review the medical records including relevant urine studies and Prescription history (MAPs), review of the available imaging, evaluation and examination of the patient, coordination of care with the medical staff and if applicable referring physicians, as well as creation of the medical record PQRS Narrative: Smoking Status Current every day smoker Hx Alcohol Use (MH) Yes: Wine Cooler occassionally Home Medications: Ambulatory Orders Pantoprazole [Protonix] 40 mg PO BID 03/20/19 Abatacept [Orencia] 125 mg SQ WE 09/19/20 Montelukast [Singulair] 10 mg PO HS 09/19/20 amantadine HCL [Amantadine] 200 mg PO QAM 09/19/20 traMADol HCL [Ultram] 50 mg PO BID 09/19/20 Acetylcysteine [Nac] 600 mg PO HS 05/26/21 Cholecalciferol [Vitamin D3 (25 Mcg = 1000 Iu)] 50 mcg PO QAM 05/26/21 Levothyroxine Sodium [Synthroid] 125 mcg PO QAM 05/26/21 Vortioxetine Hydrobromide [Trintellix] 20 mg PO DAILY 05/26/21 lamoTRIgine [LaMICtal] 200 mg PO BID 05/26/21 cloNIDine HCL [Catapres] 0.1 mg PO BID 07/24/22 rOPINIRole HCL [Requip] 1 mg PO HS 07/24/22 Metoclopramide HCl [Reglan] 10 mg PO TID 11/02/22 Gabapentin [Neurontin] 400 mg PO TID 02/11/23 Lurasidone [Latuda] 20 mg PO HS 02/11/23 Controlled Substance Measures - Controlled Substance Measures Is patient prescribed a controlled substance at discharge?: No
== END ==
LOC: PNWHC3 08:39
PROVIDERS: ATTEND Specialist
DX: M51.37 Other intervertebral disc degeneration, lumbosacral region (principal); F17.200 Nicotine dependence, unspecified, uncomplicated; Z88.8 Allergy status to other drugs, medicaments and biological substances; Z88.5 Allergy status to narcotic agent
CPT/HCPCS: 99211

== ENCOUNTER → 2023-05-12 | Outpatient (CLI) | payer OTHER ==
--- NOTE | 2023-05-12 17:18 | CT ---
EXAMINATION TYPE: CT lumbar spine wo con CT DLP: 932.50 mGycm, Automated exposure control for dose reduction was used. DATE OF EXAM: 05/12/2023 2:08 PM COMPARISON: 09/14/2017 CLINICAL INDICATION:Female, 42 years old with history of M54.50 Low back pain; PHH, hx of chronic low back pain. TECHNIQUE: Multiple axial images were obtained from the midportion of T11 through the sacroiliac melanie nts. Soft tissue and bone windows in coronal and sagittal planes were obtained and reviewed. Contrast used: mL of , (None, if empty). Oral contrast used: (None, if empty). FINDINGS: Alignment: There are 5 lumbar type vertebral bodies within normal alignment. Bone: No evidence of fracture is identified. Multilevel degeneration changes with osteophyte formati on, disc space narrowing, facet joint arthropathy. Discs: T12-L1: No spinal canal or neural foraminal stenosis is identified. L1-L2: No spinal canal or neural foraminal stenosis is identified. L2-L3: Facet joint arthropathy and disc bulging result with mild spinal canal stenosis and mild bilat eral neural foraminal stenosis. L3-L4: Facet joint arthropathy and disc bulging result with mild spinal canal stenosis and moderate t o severe left and moderate right neural foraminal stenosis. L4-L5: Facet joint arthropathy and disc bulging result with mild spinal canal stenosis and moderate t o severe bilateral neural foraminal stenosis. L5-S1: Facet joint arthropathy and disc bulging result with mild spinal canal stenosis and severe aroldo ateral neural foraminal stenosis. Other: Nonobstructing left renal calculi measuring up to 6 mm. Right renal calculi measuring up to 2 mm. No layering gallstones in the gallbladder lumen. IMPRESSION: 1. No evidence for spinal fracture. 2. Moderate disc degeneration changes with severe neural foraminal stenosis at L4-L5 and L5-S1 bilate rally as well as the left L3-L4 levels. No evidence for significant spinal calcinosis.
== END | disposition home or self-care (01) ==
LOC: RADCTMAIN 12:49
PROVIDERS: ATTEND Orthopaedic Surgery
DX: M99.73 Connective tissue and disc stenosis of intervertebral foramina of lumbar region (principal); M51.37 Other intervertebral disc degeneration, lumbosacral region
CPT/HCPCS: 72131

== ENCOUNTER → 2023-09-01 | Outpatient (CLI) | payer OTHER | END | disposition home or self-care (01) | LOC: LABPAT 09:26 | PROVIDERS: ATTEND Orthopaedic Surgery | DX: Z01.812 Encounter for preprocedural laboratory examination (principal); M48.061 Spinal stenosis, lumbar region without neurogenic claudication; M47.26 Other spondylosis with radiculopathy, lumbar region; Z22.322 Carrier or suspected carrier of Methicillin resistant Staphylococcus aureus | CPT/HCPCS: 36415; 86850; 86900; 86901; 87070 ==

== ENCOUNTER 2023-09-07 10:26 | Inpatient (IN) | payer OTHER ==
[2023-09-02 16:12] VITALS: BMI 30.2
--- NOTE | 2023-09-06 17:03 | P.HPOR ---
History of Present Illness H&P Date: 09/01/23 .D:Date: 09/01/23 : 10:16am .T:Title: [facility] HISTORY AND PHYSICAL Age: 43 year Height: 5'6" Weight: 175 lbs BMI: 28.25 kg/m2 Occupation: Homemaker VAS: 7 IMPRESSION: It was my pleasure to have seen and examinedScarlett. I reviewed the patient's clinical syndrome, physical findings, and imaging studies during the appointment today. It is my impression that the patient has a diagnosis of. 1. L2-pelvis spondylosis with stenosis 2. Bilateral lower extremity radiculopathy 3. Bilateral lower extremity weakness Spine Surgery Risk Review Ms. Bailey is presenting for evaluation of low back and bilateral lower extremity pain, bilateral lower extremity numbness, tingling, and weakness. It was my pleasure to have seen and examined Ms. Bailey. In our visit today we have had a chance to go over subjective complaints, physical examination findings and treatments including the natural course history without intervention and various interventional options. The patients imaging demonstrates: [facility] of Lumbar Spine: IMPRESSION: 1. Overall findings may have mildly progressed from 2017. 2. No evidence for severe spinal canal stenosis. 3. Multilevel disc degeneration with associated osteoarthritic changes with reactive bony edema involving multiple levels of the spine. No foraminal stenosis worse at multiple levels including moderate to severe left L3-L4, severe right L4-L5, severe bilateral L5-S1. XRay Lumbar Multiview (AP, Lateral, Flexion, Extension) with AP pelvis; 5 views taken at [facility] on 08/28/22: Moderate multilevel spondylitic changes with scoliotic curvature convex to the left at the level of L2-L3. Multilevel diminished disc height. Multilevel bilateral foraminal stenosis. No acute osseous abnormalities. AP Pelvis: The visualized sacrum and iliac wings are within normal limits. CT scan of the lumbar spine completed at [facility] on 05/12/2023: IMPRESSION: 1. No evidence for spinal fracture. 2. Moderate disc degeneration changes with severe neural foraminal stenosis at L4-L5 and L5-S1 bilaterally as well as the left L3-L4 levels. No evidence for significant spinal calcinosis. On physical exam, Ms. Bailey demonstrates: A continued pressure-like, sharp pain throughout the low back that radiates down into the bilateral lower extremities wit a sharp shooting quality from the bilateral hip down into the knees. The patient states that her lower extremity pain is associated with numbness and tingling bilaterally. She notes her symptoms worsen after prolonged sitting for greater than 30 minutes or when going from a seated to standing position. The patient reports experiencing severe sleep disturbances related to her ongoing pain and associated symptoms. I have explained to the patient that as their condition progresses it will cause further neurological deficits and eventual paralysis. Based on the patients imaging, physical exam, and the rapid progression and disabling nature of their symptoms, at this time I recommend surgery in the form of a: L3-pelvis decompression and fusion. I discussed the risk and benefits of this procedure at length with Ms. Bailey. The patient agreed to considered pursuing the procedure abovementioned. Prior to surgery, she should follow up with her PCP (Cardio, ID, IM etc) for clearance. Questions were invited and answered, and the patient wishes to proceed as outlined below. Currently, I am recommendin.L3-pelvis decompression and fusion 2.Review of surgical risks and benefits as well as an educational packet on the proposed surgical procedure. Risks: All surgical procedures come with inherent risks, including those related to positioning, anesthesia, intraoperative findings, and postoperative complications. It is important to understand that surgery does not come with any guarantee of a successful outcome as complications and adverse events are always possible. The patient was given a handout in office today discussing the surgical procedure and risks associated with the intervention, both of which were discussed with the patient. These risks include but are not limited to the following: * Experiencing same, different or even worse symptoms in back, neck, arms, or legs compared to before surgery. Requiring further surgery or other forms of treatment presently or at some time in the future at same or other levels of the intended spine surgery. On an extreme but fortunately relatively rare basis severe complication such as blindness, stroke, heart attack, temporary and/or permanent nerve injury, paralysis, coma, or may occur, sometimes without known explanation. Surgical complications may include but are not limited to risk of infection, fluid accumulation in the surgical dissection site, including a seroma or hematoma, that requires additional surgery, wound drainage, bleeding, new numbness or weakness, vision changes/loss, spinal fluid leakage, non-healing and/or infected incision, headaches, difficulty or inability to swallow, hoarseness, hemopneumothorax, pneumothorax, impotence, retrograde ejaculation, vaginal dryness; injury to nerves, spinal cord, blood vessels, lymphatics or other vital organs (i.e., bowel injury, injury to the great vessels); heterotopic bone formation; complications related to the hardware such as screws, rods, cages including misplaced hardware, device failure, instrumentation at the wrong spine level, hardware fracture/breakage, or hardware loosening; vertebral failure of the spinal column above or below the newly placed hardware; retained surgical instrumentations or devices and the need for further surgery. * Medical risks of the planned spine surgery include but are not limited to generalized Infections to the whole body or local areas outside of the surgical site (sepsis), heart attack, bleeding, anaphylaxis, meningitis, seizure, epilepsy, hearing loss, burn schwab, laceration of the head or other areas of the body, bruising, hypersensitivity of the skin, bladder over distension; allergic reaction; shoulder injury related to positioning; fat, blood and air clots to other areas of the body like heart, lungs, brain; failure of internal organs such as lungs, kidneys, liver and excessive bleeding. If blood transfusions are necessary, note that transfusions may cause intolerance reactions such as anaphylaxis or other complex reactions. Despite best efforts, the results of spine surgery might not heal in terms of bone, soft tissues such as skin, fascia, ligaments, and joints. Additionally, in order to achieve best possible results, spine surgery may be carried out beyond the initially planned levels and involve decompression, fusion including insertion of hardware at levels other than the original intended area of surgical interest change some portions of the procedure in order to ensure the best possible outcomes. With spine surgery and spinal fusion, there are different off label uses of instrumentation (devices, implants and hardware) as well as biological substances (bone morphogenic proteins, demineralized bone matrix) as well as using extra bone from allograft sources (i.e. cadaver bone) or autograft (iliac crest bone, ribs, or the spine itself). The patient has been given information about these practices and their inherent risks and benefits. [facility] is an educational center that serves as a training facility for neurosurgical and orthopedic [employer] and Nursing students. Physician assistants are medically trained surgical providers who function in the outpatient, inpatient, and operating room setting under the direct supervision of the attending surgeon. [facility] has multiple operating rooms with single and overlapping rooms running daily. They currently function under the required guidelines as produced by the [facility] with regards to the overlapping rooms and will continue to comply with changes to this policy as they occur. The requirements include and are complied with as follows: (1) the critical portions of the overlapping rooms will not occur at the same time, (2) the attending physician will be physically present during the critical portions of the procedure and immediately available during the entire case, and (3) a back-up attending is designated should the primary attending not be immediately available. The patient has had a chance to review all the listed information, has been given print outs detailing this information, and has had all his/her questions answered to their satisfaction. It was my pleasure to have seen and examined Ms. Bailey. In our visit today we have had a chance to go over my understanding of our patient's current condition, the natural course history without intervention and various interventional options. Questions were invited and answered, and the patient wishes to proceed as outlined above. I have seen and examined the patient for 25 minutes and we have spent more than 50% of the time in repeat and detailed counseling about the patient's condition, its natural course history with out and as much as can be predicted with surgery and re-review of various surgical treatment options. In conclusion, Ms. Bailey requested we proceed with the above suggested surgery and are willing to accept risks and limitations of the suggested surgery as nature of the disease process and our best attempts at treatment for the condition. Thank you again for allowing us to be part of your patient's care. Please don't hesitate to contact me if you have any further questions. FOLLOW UP: Post Procedure PATIENT EDUCATION: Medications Reviewed: YES In our visit today Ms. Bailey and I have had a chance to go over my understanding of the patient's current condition, the natural course history without intervention and various interventional options. Questions were invited and answered, and the patient wishes to proceed as outlined above. I will be sure to keep you updated after Ms. Bailey returns here for further follow-up. Thank you again for your referral. Please do not hesitate to contact me if you have any further questions. Signed and authenticated by: Kwabena Hammond DO Jerica Sanchez [facility] [address] [place] [address] This message is confidential, intended only for the named recipient(s) and may contain information that is privileged or exempt from disclosure under applicable law. If you are not the intended recipient(s), you are notified that the dissemination, distribution or copying of this information is strictly pr ohibited. If you received this message in error, please notify the sender then delete this message. Past Medical History Past Medical History: Asthma, Blood Disorder, GERD/Reflux, Liver Disease, Osteoarthritis (OA), Rheumatoid Arthritis (RA), Thyroid Disorder Additional Past Medical History / Comment(s): Had hole in heart at , resolved during infancy. HX CHILDHOOD ASTHMA. Medication Induced Leukocytopenia, medication induced Cirrohsis, hypothyroid. History of Any Multi-Drug Resistant Organisms: None Reported Past Surgical History: Section, Cholecystectomy, Orthopedic Surgery, Tubal Ligation Additional Past Surgical History / Comment(s): Pain clinic procedure, X4, CYST REMOVED FROM LEFT HAND X2, right foot surgery X3,(with metal) left foot surgery (with metal), right shoulder spur surgery. Past Anesthesia/Blood Transfusion Reactions: No Reported Reaction Additional Past Anesthesia/Blood Transfusion Reaction / Comment(s): Difficult IV start. Smoking Status: Former smoker - Past Family History Mother Family Medical History: Cancer, Pulmonary Embolus Father Additional Family Medical History / Comment(s): Alcoholic. Sister(s) Family Medical History: Cancer Brother(s) Family Medical History: Cancer Medications and Allergies Home Medications Medication Instructions Recorded Confirmed Type Pantoprazole [Protonix] 40 mg PO BID 03/20/19 09/02/23 History Abatacept [Orencia] 125 mg SQ MO 09/19/20 09/02/23 History Montelukast [Singulair] 10 mg PO HS 09/19/20 09/02/23 History amantadine HCL [Amantadine] 200 mg PO QAM 09/19/20 09/02/23 History traMADol HCL [Ultram] 50 mg PO BID 09/19/20 09/02/23 History Acetylcysteine [Nac] 600 mg PO HS 05/26/21 09/02/23 History Cholecalciferol [Vitamin D3 (25 50 mcg PO QAM 05/26/21 09/02/23 History Mcg = 1000 Iu)] Levothyroxine Sodium [Synthroid] 125 mcg PO QAM 05/26/21 09/02/23 History Vortioxetine Hydrobromide 20 mg PO QAM 05/26/21 09/02/23 History [Trintellix] lamoTRIgine [LaMICtal] 200 mg PO BID 05/26/21 09/02/23 History rOPINIRole HCL [Requip] 1 mg PO HS 07/24/22 09/02/23 History Gabapentin [Neurontin] 400 mg PO TID 02/11/23 09/02/23 History Lurasidone [Latuda] 20 mg PO HS 02/11/23 09/02/23 History Biotin/Keratin 1,000 mg PO DAILY 09/02/23 09/02/23 History Ramelteon 8 mg PO HS 09/02/23 09/02/23 History Allergies Allergy/AdvReac Type Severity Reaction Status Date / Time fluticasone Allergy Severe THROAT AND Verified 09/02/23 15:40 [From Advair Diskus] TONGUE SWELLING salmeterol Allergy Severe THROAT AND Verified 09/02/23 15:40 [From Advair Diskus] TONGUE SWELLING hydrocodone [From [place]] AdvReac Nausea & Verified 09/02/23 15:40 Vomiting & Diarrhea Physical Examination Osteopathic Statement: *. No significant issues noted on an osteopathic structural exam other than those noted in the History and Physical/Consult.
[~2023-09-07 10:26] MED LIST changes: +GABAPENTIN 300 MG CAP PO PRN; -LACTATED RINGERS 1,000 ML IV SCH; -LIDOCAINE 1% (10MG/ML) FOR IV START INTRADERMA PRN; +MIDAZOLAM 2 MG/2 ML VIAL IV PRN; +TRANEXAMIC 1,000 MG/100ML-NACL 1,000 MG in SALINE 1 100ML.BAG IVPB PRN; +fentaNYL (PF) 50 MCG/ML 2 ML AMP IV PRN
[2023-09-07] MEDS: IV FLUID CONTINUATION 1,000 ML IV ONE ×3 (11:01→15:37)
[2023-09-07] MEDS: VANCOMYCIN 1,250 MG in SODIUM CHLORIDE 0.9% 250 ML IVPB PRN (11:05)
[2023-09-07] MEDS: ACETAMINOPHEN TAB 500 MG TAB PO PRN (11:05)
[2023-09-07] MEDS: ONDANSETRON 4 MG/2 ML VIAL IVP PRN (11:05)
[2023-09-07] MEDS: LACTATED RINGERS 1,000 ML IV SCH (11:06)
[2023-09-07] MEDS ORDERED: MIDAZOLAM 2 MG/2 ML VIAL ONE (11:21)
[2023-09-07] MEDS ORDERED: HYDROmorphone (PF) 1 MG/ML ONE (11:21)
[2023-09-07] MEDS ORDERED: SUCCINYLCHOLINE CHLORIDE 200 MG/10 ML VIAL IV ONE (11:21)
[2023-09-07] MEDS ORDERED: KETAMINE HCL IN 0.9 % NACL 50 MG/5 ML SYRINGE ONE (11:21)
[2023-09-07] MEDS ORDERED: PHENYLEPHRINE 10 MG/ML VIAL ONE (11:21)
[2023-09-07] MEDS ORDERED: ONDANSETRON 4 MG/2 ML VIAL ONE (11:21)
[2023-09-07] MEDS ORDERED: TRANEXAMIC 1,000 MG/100ML-NACL PREMIX BAG ONE (11:21)
[2023-09-07] MEDS ORDERED: ROCURONIUM 10 MG/ML (5 ML VIAL) IV ONE (11:21)
[2023-09-07] MEDS ORDERED: NEOSTIGMINE 1 MG/ML 10 ML VIAL ONE (11:21)
[2023-09-07] MEDS ORDERED: LIDOCAINE 1% INJ 10MG/ML (20 ML MDV) ONE (11:21)
[2023-09-07] MEDS ORDERED: fentaNYL (PF) 50 MCG/ML 2 ML AMP ONE (11:21)
[2023-09-07] MEDS ORDERED: GLYCOPYRROLATE 0.2 MG/ML 2 ML VIAL ONE (11:21)
[2023-09-07] MEDS ORDERED: PROPOFOL 10 MG/ML 20 ML VIAL IV ONE (11:21)
[2023-09-07] MEDS: THROMBIN (BOVINE) 5,000 UNIT VIAL TOPICAL ONE (12:09)
[2023-09-07] MEDS: LACTATED RINGERS 1,000 ML IV ONE (12:47)
[2023-09-07] MEDS: VANCOMYCIN 1,000 MG VIAL MISCELLANE ONE (14:51)
[2023-09-07] MEDS ORDERED: MAGNESIUM HYDROXIDE 2,400 MG/30 ML CUP PO PRN (15:32)
[2023-09-07] MEDS ORDERED: NA PHOS,M-B/NA PHOS,DI-BA 133 ML ENEMA RECTAL PRN (15:32)
[2023-09-07] MEDS ORDERED: bisacodyL 10 MG SUPP RECTAL PRN (15:32)
--- NOTE | 2023-09-07 15:46 | P.OP ---
Date of Procedure: 09/07/23 Preoperative Diagnosis: Current Active Problems Lumbosacral spondylosis with radiculopathy (Acute) Lumbar stenosis with neurogenic claudication (Acute) Neurogenic claudication due to lumbar spinal stenosis (Acute) Multilevel lumbosacral spondylosis with radiculopathy (Acute) Postoperative Diagnosis: Current Active Problems Lumbosacral spondylosis with radiculopathy (Acute) Lumbar stenosis with neurogenic claudication (Acute) Neurogenic claudication due to lumbar spinal stenosis (Acute) Multilevel lumbosacral spondylosis with radiculopathy (Acute) Procedure(s) Performed: L3-PELVIS POSTEROLATERAL AND INTERBODY FUSION WITH PELVIC FIXATION, BILATERAL OPEN SIJ FUSION FOR CONSTRUCT STABILITY, L3-4 OSTEOTOMY FOR DEFORMITY CORRECTION, INSTRUMENTATION AND DECOMPRESSION. 92256 Arthrodesis, combined posterior or posterolateral technique with posterior interbody technique including laminectomy and/or discectomy sufficient to prepare interspace (other than for decompression), single interspace, L5-S1 85957 Osteotomy of spine, posterior or posterolateral approach, 1 vertebral segment; lumbar L3-4 FOR DEFORMITY CORRECTION AND CAGE PLACEMENT 21075 Arthrodesis, sacroiliac joint, open, includes obtaining bone graft, including instrumentation, when performed BILATERAL SI JOINTS 96375 X2 Arthrodesis, combined posterior or posterolateral technique with posterior interbody technique including laminectomy and/or discectomy sufficient to prepare interspace (other than for decompression), single interspace, lumbar; each additional interspace L3-4, L4-5 64736 Posterior segmental instrumentation (eg, pedicle fixation, dual rods with multiple hooks and sublaminar wires); 3 to 6 vertebral segments (List separately in addition to code for primary procedure) L3-PELVIS 35812 Pelvic fixation (attachment of caudal end of instrumentation to pelvic bony structures) other than sacrum (List separately in addition to code for primary procedure) 91185 Laminectomy, facetectomy, or foraminotomy (unilateral or bilateral with decompression of spinal cord, cauda equina and/or nerve root[s] [eg, spinal or l ateral recess stenosis]), during posterior interbody arthrodesis, lumbar; single vertebral segment L5-S1 36910 X2 Laminectomy, facetectomy, or foraminotomy (unilateral or bilateral with decompression of spinal cord, cauda equina and/or nerve root[s] [eg, spinal or lateral recess stenosis]), during posterior interbody arthrodesis, lumbar; each additional vertebral segment L3-4 L4-5 86712 X3 Insertion of interbody biomechanical device(s) (eg, synthetic cage, mesh) with integral anterior instrumentation for device anchoring (eg, screws, flanges), when performed, to intervertebral disc space in conjunction with interbody arthrodesis, each interspace (List separately in addition to code for primary procedure) L5-S1; L4-5; L3-4 81283 Stereotactic computer-assisted (navigational) procedure; spinal (List separately in addition to code for primary procedure) USE OF GRACIE NAVIGATION FOR SCREW PLACEMENT USE OF IONM Implants: -GRACIE EVEREST RODS AND SCREWS -GLOBUS SABLE CAGES X3 LONG 10-17 10MM X2 AND LONG 9-16 10 MM X1 -MAGNATOS (L); CONTOUR(R); AUTOGRAFT, ALLOGRAFT, ARTHROCELL Anesthesia: GETA Surgeon: Kwabena Hammond Fine Grade Operator #1: Hanane Mccollum (Hanane Mccollum, DIRECTOR OF MARKET INTELLIGENCE Was present and assisted with all aspects of the case from positioning to dressing placement) Estimated Blood Loss (ml): 450 IV fluids (ml): 2,100 Urine output (ml): 350 Pathology: none sent Condition: stable Disposition: PACU Indications for Procedure: Ms. Bailey is presenting for evaluation of low back and bilateral lower extremity pain, bilateral lower extremity numbness, tingling, and weakness. It was my pleasure to have seen and examined Ms. Bailey. In our visit today we have had a chance to go over subjective complaints, physical examination findings and treatments including the natural course history without intervention and various interventional options. The patients imaging demonstrates: [facility] of Lumbar Spine: IMPRESSION: 1. Overall findings may have mildly progressed from 2017. 2. No evidence for severe spinal canal stenosis. 3. Multilevel disc degeneration with associated osteoarthritic changes with reactive bony edema involving multiple levels of the spine. No foraminal stenosis worse at multiple levels including moderate to severe left L3-L4, severe right L4-L5, severe bilateral L5-S1. XRay Lumbar Multiview (AP, Lateral, Flexion, Extension) with AP pelvis; 5 views taken at [facility] on 08/28/22: Moderate multilevel spondylitic changes with scoliotic curvature convex to the left at the level of L2-L3. Multilevel diminished disc height. Multilevel bilateral foraminal stenosis. No acute osseous abnormalities. AP Pelvis: The visualized sacrum and iliac wings are within normal limits. CT scan of the lumbar spine completed at [facility] on 05/12/2023: IMPRESSION: 1. No evidence for spinal fracture. 2. Moderate disc degeneration changes with severe neural foraminal stenosis at L4-L5 and L5-S1 bilaterally as well as the left L3-L4 levels. No evidence for significant spinal calcinosis. On physical exam, Ms. Bailey demonstrates: A continued pressure-like, sharp pain throughout the low back that radiates down into the bilateral lower extremities wit a sharp shooting quality from the bilateral hip down into the knees. The patient states that her lower extremity pain is associated with numbness and tingling bilaterally. She notes her symptoms worsen after prolonged sitting for greater than 30 minutes or when going from a seated to standing position. The patient reports experiencing severe sleep disturbances related to her ongoing pain and associated symptoms. I have explained to the patient that as their condition progresses it will cause further neurological deficits and eventual paralysis. Based on the patients imaging, physical exam, and the rapid progression and disabling nature of their symptoms, at this time I recommend surgery in the form of a: L3-pelvis decompression and fusion. I discussed the risk and benefits of this procedure at length with Ms. Bailey. The patient agreed to considered pursuing the procedure abovementioned. Prior to surgery, she should follow up with her PCP (Cardio, ID, IM etc) for clearance. Questions were invited and answered, and the patient wishes to proceed as outlined below. Currently, I am recommendin.L3-pelvis decompression and fusion Description of Procedure: L3-PELVIS DECOMPRESSION AND FUSION (PAT) The patient was seen and examined in the preoperative area. All preoperative protocols were followed. Informed consent was obtained, risks and benefits of the procedure were discussed at length. Risks including bleeding infection damage to the surrounding tissue and risk of reoperation were discussed with the patient. Risk of anesthesia up to and including was discussed with the patient. These are outlined in the risk review. They were willing to accept these risks and all the risks of surgery. The patient was given a weight-based dose of antibiotics in the form of 3 g Ancef. The patient was seen and evaluated by the anesthesia team who deemed them fit for surgery. The site was marked, the patient was willing to proceed with the procedure. The patient was transferred to the operative suite by the Department of anesthesia. They were then drifted off to sleep by the department anesthesia and GETA was performed. The patient tolerated this well. David catheter was placed by nursing staff, a-traumatically. Once confirmation of lines and ventilation the patient was transferred to a prone Trios spine table very carefully. The head was secured and stable. X Ray confirmed alignment. All bony prominences including wrists, elbows, axilla, chest, hips, and thighs, and feet were padded very well. Special attention was paid to the genitalia, and these were padded accordingly. SCDs were placed on bilateral lower extremities and were connected. Arms were well padded and placed at 90/90 up and out and well padded. Safety strap and tape placed on the patient. Once in position, again we confirmed good ventilation capabilities and that lines were running appropriately. The patients lumbosacral pelvic was then exposed. Hair was removed for incision. 1010s were placed outlining the incision site. Standard alcohol was used to clean the incision site and allowed to dry. C-arm was used to bio-nadir the patient and confirm level for incision which was marked with a skin marker. Operative briefing was performed with all teams and everyone in agreement to proceed. The patient was then prepped and draped in a normal sterile fashion. Timeout was then performed, and all parties agreed with the procedure to be performed. Midline skin incision was then made over the previously bookmarked area and dissection taken down to the lumbosacral fascia which was identified and cleaned with a horn. There was excessive sub-q adipose that was obtrusive and needed to be retracted. Once midline was identified, fasciotomy was made over the SP of L1-S1 and pelvis. Subperiosteal dissection was then taken down over the lamina and facet joints and TPs were exposed and trough made posterolateral. TPs were then decorticated with a high speed triston for lateral fusion. Dissection was taken out over the sacrum to the pelvis. SI joint identified and modified Dinero starting point for pelvic screws identified as well. Retractors placed. Wound was irrigated and lateral image with penfield 4 placed at the pars of L4 confirmed levels for operation. SP clamp was then placed for the Visualase naviga tion tracker and secured. The wound was then filled with NSS and Z-drape. A 3D Ziehm spin was then obtained and registered. Once confirmation of accuracy screws were then placed from L2-Pelvis using navigation. Navigated high speed triston was used to make a transport pilot hole followed by a navigated awl-tap passed through the pedicle into the body. A ball tip probe then confirmed within the pedicle. Screw was then measured and placed using a navigated screwdriver. After screws were placed from L2-S1, AP image confirmed safe placement of screws. Lateral images as well as navigation were then used to place bilateral pelvic screws. Starting point selected just lateral to the SI joint and S2 pseudo facet. Lateral image taken and triston used to make the transport pilot hole. Gearshift then used to pass into the pelvis under lateral imaging just above the sciatic notch. 30 deg/30deg iliac oblique then taken to confirm within the teardrop and ball tip probe used to probe good bone. Screw was then measured and selected and placed under lateral imaging. This was repeated on the contralateral side. Screws were then visualized and appeared safe. Screws were then tested, and reliably tested screws tested above 20 mA. Except for S1 on the left which tested low at 8. This was looked at again with Xray and was directly visualized in the wound. The pedicle was palpated 360 with a curette and probe and no threads were exposed or causing pressure on the S1 root as it exited. This was decompressed along its path and there was no issues noted. We then proceeded to decompression and interbody placement. Starting at L5-S1, bilateral laminectomy, complete facetectomy and foraminotomies were performed using high speed bur, Kerrison rongeur. There was exuberant bone formation, osteophytes and scar tissue surrounding these joints as well as the dura. Once exposed the neural elements were protected and A cage was then selected based on shaving and trials. Bleeding endplates were enc ountered and cartilage removed. Autograft, allograft were then placed anterior to the cage. The cage was then impacted into place under lateral imaging while protecting neural elements. The cage was then expanded into position and showed good lift and correction. Hoahaoism of lordosis and height achieved. Meticulous hemostasis then performed. Cage was backfilled with DBM and the area irrigated. We then proceeded to L4-5. At L4-5, bilateral laminectomy, complete facetectomy and foraminotomy was performed as described above. Again, exuberant scar tissue and bone formation was encountered and at this level specifically around the pars due to the defect and slip in this area. There was also a large disc osteophyte complex that was identified once disc space was found. The dura was carefully dissected off this anteriorly and b/l. Once encountered, the disc space was then accessed in a similar fashion and neural elements protected. Sequential shaving was done along with scraping of endplates and removal of cartilage and disc. Once completed and complete discectomy performed there was good mobility at this level. Cage was then sized and selected. Autograft and allograft was then placed anterior in the disc space and the cage was then inserted and impacted into place under lateral. AP image, as before, was taken to ensure midline placement. The cage was then expanded into position. During expansion, the cage seemed to fail to expand completely on the RHS. The LHS expanded very well and recreated height and lordosis. The cage was tested and was very stable and since it was in safe position without any other issues it was elected to keep the cage in position. The wound was irrigated. Meticulous hemostasis then performed, and attention turned to L3-4. At L3-4 again bilateral laminectomy, complete facetectomy and foraminotomy were performed. The neural elements were less scared at this level; however, it was very unstable and the most deformed with large posterior body osteophytosis and collapse. Vertebral body osteotomy was performed for deformity correction at this level. Osteotome was used to make osteotomy in L3 and L4 and for complete disc removal. osteotome was then used to widen this bilaterally. This was passed into the anterior 1/3 of L3. This allowed for loosening of this level and correction. The elements were then protected, and disc space accessed. Sequential shaving performed until desired height and lordosis. Cage selected, and graft placed anterior to the cage within the disc space. Cage was then placed under lateral image, expanded and had good height, lordosis and deformity correction. The wound was irrigated, and meticulous hemostasis performed once again. Attention was then drawn to filipe placement. Rods were selected, measured, cut and bent to appropriate lordosis. They were then secured into pelvic screws b/l. Sequential reduction then done into each screw and set screw placed. Set screws were then final tightened and lateral image showed good lordosis reduction with increase around 10 deg from starting. Once rods were secured, cross links were selected and placed and final tightened. The wound was then irrigated with 3L Ancef irrigation, 3L gentamicin irrigation and 3L NSS. Surgicel was then placed on the dura, which was inspected and had no injury. Then, in the posterolateral gutter was placed, MagnatOs, Autograft and allograft. This was impacted into position and surgical placed over it. 2g Vanco powder was then placed deep in the wound. A deep, subfascial drain was placed and a superficial facial drain placed. We then proceeded with layered closure. #1 PDS placed in the deep fascia. 0 Vicryl placed in the deep subq, 2-0 placed in the superficial subq and bill placed in the skin. The wound edges approximated very well. The wound was then cleaned with ETOH and dressed with optifoam dressing, drain sponges and tegaderms. Drains sewed into position. IONM confirmed no changes. The patient was then transferred off the [facility] spine table to their hospital bed a-traumatically. Drains continued to hold suction. The patient was then extubated and transferred to the ICU in stable condition having tolerated the procedure with no complications.
[2023-09-07] MEDS: GABAPENTIN 400 MG CAP PO SCH (18:20)
[2023-09-07] MEDS: KETOROLAC 15 MG/ML 1 ML VIAL IVP SCH (19:27)
[2023-09-07] MEDS: traMADol 50 MG TAB PO SCH (19:28)
[2023-09-07] MEDS: polyethylene glycoL 3350 17 GM POWD.PACK PO SCH (20:15)
--- NOTE | 2023-09-07 20:58 | CT ---
EXAMINATION TYPE: CT lumbar spine wo con CT DLP: 1290 mGycm, Automated exposure control for dose reduction was used. DATE OF EXAM: 09/07/2023 7:05 PM COMPARISON: CT lumbar spine 05/12/2023. CLINICAL INDICATION:Female, 43 years old with history of s/p L3-Pelvis decompression and fusion; TECHNIQUE: Multiple axial images were obtained from the midportion of T11 through the sacroiliac melanie nts. Soft tissue and bone windows in coronal and sagittal planes were obtained and reviewed. 3-D ref ormats of the bones were created on a separate workstation and submitted for review. Contrast used: none. Oral contrast used: none. FINDINGS: Alignment: There are 5 lumbar type vertebral bodies within normal alignment. There are posterior fusion changes identified spanning the L3-S1 levels with posterior fusion rods an d transpedicular screws. Anterior vertebral disc spaces are identified spanning the L3-S1 levels as w ell. Hardware is intact. The transpedicular screws are in appropriate position. Of note, the right la teral sacral screw does traverse the anterior cortex. Lumbar alignment is within normal limits. Small volume intrathecal pneumorhachus. Postoperative changes of the posterior soft tissues are identified with scattered foci of gas. No lar ge fluid collections are identified. There remains multilevel degenerative changes throughout the lumbar spine with facet arthropathy. Mos t pronounced at the L2-L3 level with severe facet arthropathy and broad-based disc bulge, creating up at least moderate spinal and left neural foraminal narrowing. Nonobstructive left renal calculi. IMPRESSION: 1. L3-S1 posterior fusion with intact hardware and expected postoperative changes as described includ ing small volume pneumorhachus. 2. Multilevel degenerative changes of the lumbar spine, most pronounced at L2-L3. 3. Nonobstructive left renal calculi.
--- NOTE | 2023-09-07 21:00 | FL ---
EXAMINATION TYPE: FL guidance operating room, XR lumbar spine 2 or 3V Intraoperative/procedural fluor oscopic services were provided. Total fluoroscopy time is 20 seconds with a total of 5 submitted imag es to PACS. Please see the operative/procedural note for further details. DAP: 0.39976 mGym2
[2023-09-07] MEDS: MORPHINE SULFATE 4 MG/ML SYRINGE IVP PRN (22:35)
[2023-09-08] MEDS: CYCLOBENZAPRINE 5 MG TAB PO PRN (01:35)
[2023-09-08 05:56] LABS: Basophils % (A) 0 %; Eosinophils % (A) 0 %; HCT 31.3 % (34.0-46.0); HGB 10.6 gm/dL (11.4-16.0); Lymphocytes # (A) 1.1 k/uL (1.0-4.8); Lymphocytes % (A) 10 %; MCH 31.3 pg (25.0-35.0); MCHC 33.7 g/dL (31.0-37.0); MCV 92.7 fL (80.0-100.0); Mean Platelet Volume 10.2; Monocytes # (A) 0.6 k/uL (0-1.0); Monocytes % (A) 6 %; Neutrophils # (A) 9.7 k/uL (1.3-7.7); Neutrophils % (A) 83 %; Platelet Count 111 k/uL (150-450); RBC 3.38 m/uL (3.80-5.40); WBC 11.6 k/uL (3.8-10.6)
[2023-09-08 06:01] LABS: African American GFR (CKD) >90 (>60 ml/min/1.73 sqM); Anion Gap 1 mmol/L; Blood Urea Nitrogen 11 mg/dL (7-17); Calcium 7.8 mg/dL (8.4-10.2); Carbon Dioxide 24 mmol/L (22-30); Chloride 110 mmol/L (98-107); Glucose 90 mg/dL (74-99); Non-African American GFR(CKD) 90 (>60 ml/min/1.73 sqM); Potassium 3.6 mmol/L (3.5-5.1); Sodium 135 mmol/L (137-145)
--- NOTE | 2023-09-08 08:48 | P.PN ---
Subjective Progress Note Date: 09/08/23 Principal diagnosis: 1. L2-pelvis spondylosis with stenosis 2. Bilateral lower extremity radiculopathy 3. Bilateral lower extremity weakness Patient seen and examined this morning. Patient is resting comfortably in bed. She does report that she has been up multiple times to the restroom and ambulating in the hallway since the procedure. Patient is tolerating activity well. She reports that her pain is managed on current regimen. Informed patient that physical therapy will be in to work with her today, LSO brace is at bedside. Patient does report improvement in her bilateral lower extremities since the procedure. Continue to encourage activity as tolerated. Surgical incision to the posterior lumbar spine, dressing is clean dry and intact with Hemovac present with 70 mL output overnight. Discussed with patient that we will likely pull drain tomorrow and possible discharge home with home care. Objective - Vital Signs Vital signs: Vital Signs Temp 98.0 F 09/08/23 01:36 Pulse 84 09/08/23 01:36 Resp 16 09/08/23 01:36 BP 121/78 09/08/23 01:36 Pulse Ox 93 L 09/08/23 07:44 FiO2 Intake & Output 09/07/23 09/08/23 09/08/23 18:59 06:59 18:59 Intake Total 3200 Output Total 740 1170 Balance 2460 -1170 Weight 85.5 kg Intake: IV 3200 Output: Drainage 70 Back 70 Urine 290 1100 Estimated Blood Loss 450 Other: Voiding Method Indwelling Catheter # Voids 1 - Exam Physical Examination General: The patient is awake and alert, in no acute distress Skin: Skin is warm and dry with no obvious rashes or lesions. Surgical incision to the lumbar spine, dressing is clean dry intact with Hemovac present with documented 70 mL output overnight. Eye: Pupils are equal, round and reactive to light, extra-ocular movements are intact; there is normal conjunctiva bilaterally. Neck: The neck is supple, there is no tenderness and ROM intact. Cardiovascular: There is a regular rate and rhythm. No murmur, rub or gallop is appreciated. Respiratory: Lungs are clear to auscultation, respirations are non-labored, breath sounds are equal. Gastrointestinal: Soft, non-distended, non-tender abdomen. Back: There is no tenderness to palpation in the midline, paralumbar, parathoracic or buttocks region. There is no obvious deformity . Musculoskeletal: ROM limited secondary to pain and stiffness from surgical procedure. Muscle strength in all major muscle groups of bilateral upper extremities 5/5, bilateral lower extremities 4/5. Neurological: CN 2-12 intact. There are no obvious motor or sensory deficits. Movement and coordination equal and intact. Sensory exam to light touch intact C5-T1 and intact from L2-S1. Reflexes 2/4 in bilateral upper and lower extremities. Negative Hoffmans, babinski, and clonus signs. Psychiatric: Cooperative, appropriate mood & affect, normal judgment. - Labs CBC & Chem 7: 09/08/23 05:05 09/08/23 05:05 Labs: Abnormal Lab Results - Last 24 Hours (Table) 09/08/23 09/08/23 Range/Units 05:05 05:05 WBC 11.6 H (3.8-10.6) k/uL RBC 3.38 L (3.80-5.40) m/uL Hgb 10.6 L (11.4-16.0) gm/dL Hct 31.3 L (34.0-46.0) % Plt Count 111 L (150-450) k/uL Neutrophils # 9.7 H (1.3-7.7) k/uL Sodium 135 L (137-145) mmol/L Chloride 110 H (98-107) mmol/L Calcium 7.8 L (8.4-10.2) mg/dL Assessment and Plan Assessment: Postop day 1: [id number] decompression and fusion 1. L2-pelvis spondylosis with stenosis 2. Bilateral lower extremity radiculopathy 3. Bilateral lower extremity weakness Plan: -Appreciate managed services sales consultant and team management. -Activity: Ambulate QID, OOB all meals, up and about, limit lifting bending twisting to less than 5 lbs. Use walker or cane if needed for stability. -Daily PT/OT, increase ambulation strength and balance. -Brace when up and about, not needed in bed or chair -Pain control: Adequate at this time -Meds: reviewed -GI ppx: senna, Miralax -DVT PPX: Heparin -Hygiene: Shower today. Maintain dressing clean and dry. Meticulous cleaning after BMs away from the incision site -Drains: Maintain for now. Continue to monitor and record output q shift. -Encourage IS 10x/hr -Dispo: Anticipate discharge home tomorrow with homecare *I reviewed and discussed this case with my attending Dr. Hammond, whom has reviewed this chart and films and is in agreement with assessment and plan of care as outlined above. I have personally seen and examined the patient, performed the documentation and the assessment and plan as written. Number of minutes spent on the visit: 20m.
[2023-09-08] MEDS: SENNOSIDES-DOCUSATE SODIUM 1 EACH TAB PO SCH (09:52)
--- NOTE | 2023-09-08 12:07 | CONS ---
CONSULTATION HISTORY OF PRESENT ILLNESS: A 43-year-old white female. She is status post surgery from Dr. Hammond for medical consult. She has a history of COPD, longstanding smoking, Parkinson disease. All her home medications have been ordered. Depression medications have been ordered. She had lumbar surgery. She appears to be fairly stable postop. She had x-rays and screws in place on recent x-ray. She has a history of nonobstructive renal calculi, status post L3-S1 fusion. PHYSICAL EXAMINATION: VITAL SIGNS: O2 was 93% to 94% on room air, temp 98.3, pulse 92, blood pressure 138/81. CARDIOVASCULAR: S1, S2. LUNGS: Transmitted upper sounds. GI: Soft. HEMATOLOGY: Negative Homans. Bandages in place. ASSESSMENT: Status post L3-S1 fusion, history of chronic obstructive pulmonary disease, history of Parkinson's, history of neuropathy, history of asthma, allergic rhinitis, restless legs syndrome. Prognosis guarded. Continue current treatment. Home medications have been reordered. Continue with statin in rehab. She appears to be stable right now. MMODL / IJN: [id number] /
[2023-09-08] MEDS: lamoTRIgine 100 MG TAB PO SCH (12:26)
[2023-09-08] MEDS: PANTOPRAZOLE 40 MG TABLET PO SCH (17:34)
[2023-09-08] MEDS: LURASIDONE 20 MG TAB PO SCH (20:18)
[2023-09-08] MEDS: TEMAZEPAM 15 MG CAP PO SCH (20:19)
[2023-09-08] MEDS: MONTELUKAST 10 MG TAB PO SCH (20:19)
[2023-09-08] MEDS: ONDANSETRON 4 MG/2 ML VIAL IVP PRN (23:11)
[2023-09-09] MEDS: LEVOTHYROXINE 125 MCG TAB PO SCH (06:30)
[2023-09-09 07:42] VITALS: BP 108/68; PULSE 100; RESP 16; TEMP 97.9
[2023-09-09] MEDS: VORTIOXETINE HYDROBROMIDE 20 MG TABLET PO SCH (08:26)
--- NOTE | 2023-09-09 08:46 | P.PN ---
Subjective Progress Note Date: 09/09/23 Principal diagnosis: 1. L2-pelvis spondylosis with stenosis 2. Bilateral lower extremity radiculopathy 3. Bilateral lower extremity weakness Patient seen and examined this morning. Patient is resting comfortably in bed. She states she worked with physical therapy yesterday and tolerated activity well. Continue to encourage activity as tolerated. Surgical incision to the posterior lumbar spine, edges are well-approximated with bill intact. Hemovac drain has been removed and new dressing applied. LSO brace is at bedside and she states she has a rolling walker at home. Patient is cleared from an orthopedic standpoint for discharge. Objective - Vital Signs Vital signs: Vital Signs Temp 97.9 F 09/09/23 07:10 Pulse 100 09/09/23 07:10 Resp 16 09/09/23 07:10 BP 108/68 09/09/23 07:10 Pulse Ox 96 09/09/23 07:10 FiO2 Intake & Output 09/08/23 09/09/23 09/09/23 18:59 06:59 18:59 Intake Total 920 Output Total 70 40 Balance 850 -40 Intake: Oral 920 Output: Drainage 70 40 Back 70 40 Other: Voiding Method Indwelling Catheter Toilet # Voids 1 - Exam Physical Examination General: The patient is awake and alert, in no acute distress Skin: Skin is warm and dry with no obvious rashes or lesions. Surgical incision to the lumbar spine, Edges are well-approximated with bill intact. No active drainage. Hemovac drain has been removed and new dressing has been applied. Eye: Pupils are equal, round and reactive to light, extra-ocular movements are intact; there is normal conjunctiva bilaterally. Neck: The neck is supple, there is no tenderness and ROM intact. Cardiovascular: There is a regular rate and rhythm. No murmur, rub or gallop is appreciated. Respiratory: Lungs are clear to auscultation, respirations are non-labored, breath sounds are equal. Gastrointestinal: Soft, non-distended, non-tender abdomen. Back: There is no tenderness to palpation in the midline, paralumbar, parathoracic or buttocks region. There is no obvious deformity . Musculoskeletal: ROM limited secondary to pain and stiffness from surgical procedure. Muscle strength in all major muscle groups of bilateral upper extremities 5/5, bilateral lower extremities 4/5. Neurological: CN 2-12 intact. There are no obvious motor or sensory deficits. Movement and coordination equal and intact. Sensory exam to light touch intact C5-T1 and intact from L2-S1. Reflexes 2/4 in bilateral upper and lower extremities. Negative Hoffmans, babinski, and clonus signs. Psychiatric: Cooperative, appropriate mood & affect, normal judgment. - Labs CBC & Chem 7: 09/08/23 05:05 09/08/23 05:05 Assessment and Plan Assessment: Postop day 2: [id number] decompression and fusion 1. L2-pelvis spondylosis with stenosis 2. Bilateral lower extremity radiculopathy 3. Bilateral lower extremity weakness Plan: -Appreciate groundwater consultant and team management. -Activity: Ambulate QID, OOB all meals, up and about, limit lifting bending twisting to less than 5 lbs. Use walker or cane if needed for stability. -Daily PT/OT, increase ambulation strength and balance. -Brace when up and about, not needed in bed or chair -Pain control: Adequate at this time -Meds: reviewed -GI ppx: senna, Miralax -DVT PPX: Heparin -Hygiene: Shower today. Maintain dressing clean and dry. Meticulous cleaning after BMs away from the incision site -Encourage IS 10x/hr -Dispo: Anticipate discharge home today with homecare *I reviewed and discussed this case with my attending Dr. Hammond, whom has reviewed this chart and films and is in agreement with assessment and plan of care as outlined above. I have personally seen and examined the patient, performed the documentation and the assessment and plan as written. Number of minutes spent on the visit: 20m.
--- NOTE | 2023-09-09 09:07 | P.DS ---
Providers Date of admission: 09/07/23 10:26 Expected date of discharge: 09/09/23 Attending physician: Kwabena Hammond DO Consults: 09/08/23 08:05 Consult Physician Routine Consulting Provider: Pankaj Her Reason/Comments: Medical Management Do you want consulting provider notified?: Yes Primary care physician: [place] Course: Hospital Course: The patient was evaluated preoperatively and found to have the diagnosis of Lumbar spondylosis with stenosis and radiculopathy. They underwent appropriate preoperative care and were willing to undergo the intended procedure. They underwent a successful L3-S1 decompression and fusion, were recovered appropriately and sent to the floor. While on the floor they worked with physical therapy, occupational therapy and nursing to enhance their recovery experience. Their pain was well controlled through their stay and they were started on appropriate medications, DVT ppx modalities, activity and dietary needs. Daily labs were monitored closely, and transfusions were only used when necessary. Medicine as well as other consulting services have made their input and have helped with our team approach and multidisciplinary care. PT milestones have been met and passed and they have made the recommendation of Home with home care for this patient and treating providers agree with this care path. The patient will be discharged home with appropriate medications, instructions and follow-up information and in stable condition. Patient Condition at Discharge: Good Plan - Discharge Summary Discharge Rx Participant: Yes New Discharge Prescriptions: New Cyclobenzaprine [Flexeril] 5 mg PO TID PRN #40 tablet PRN Reason: Muscle Spasm Sennosides/Docusate Sodium [Senna Plus 8.6-50 mg Tablet] 1 each PO DAILY PRN #20 tab PRN Reason: Constipation Gabapentin [Neurontin] 400 mg PO TID #90 cap traMADol HCL 100 mg PO Q4-6H PRN #40 tab PRN Reason: Pain cefaDROXiL [Duricef] 500 mg PO Q12HR #10 cap No Action Pantoprazole [Protonix] 40 mg PO BID amantadine HCL [Amantadine] 200 mg PO QAM Abatacept [Orencia] 125 mg SQ MO Montelukast [Singulair] 10 mg PO HS Levothyroxine Sodium [Synthroid] 125 mcg PO QAM Lurasidone [Latuda] 20 mg PO HS Ramelteon 8 mg PO HS traMADol HCL [Ultram] 50 mg PO BID lamoTRIgine [LaMICtal] 200 mg PO BID Cholecalciferol [Vitamin D3 (25 Mcg = 1000 Iu)] 50 mcg PO QAM Vortioxetine Hydrobromide [Trintellix] 20 mg PO QAM Acetylcysteine [Nac] 600 mg PO HS rOPINIRole HCL [Requip] 1 mg PO HS Gabapentin [Neurontin] 400 mg PO TID Biotin/Keratin 1,000 mg PO DAILY Discharge Medication List Pantoprazole [Protonix] 40 mg PO BID 03/20/19 [History] Abatacept [Orencia] 125 mg SQ MO 09/19/20 [History] Montelukast [Singulair] 10 mg PO HS 09/19/20 [History] amantadine HCL [Amantadine] 200 mg PO QAM 09/19/20 [History] traMADol HCL [Ultram] 50 mg PO BID 09/19/20 [History] Acetylcysteine [Nac] 600 mg PO HS 05/26/21 [History] Cholecalciferol [Vitamin D3 (25 Mcg = 1000 Iu)] 50 mcg PO QAM 05/26/21 [History] Levothyroxine Sodium [Synthroid] 125 mcg PO QAM 05/26/21 [History] Vortioxetine Hydrobromide [Trintellix] 20 mg PO QAM 05/26/21 [History] lamoTRIgine [LaMICtal] 200 mg PO BID 05/26/21 [History] rOPINIRole HCL [Requip] 1 mg PO HS 07/24/22 [History] Gabapentin [Neurontin] 400 mg PO TID 02/11/23 [History] Lurasidone [Latuda] 20 mg PO HS 02/11/23 [History] Biotin/Keratin 1,000 mg PO DAILY 09/02/23 [History] Ramelteon 8 mg PO HS 09/02/23 [History] Cyclobenzaprine [Flexeril] 5 mg PO TID PRN #40 tablet 09/09/23 [Rx] Gabapentin [Neurontin] 400 mg PO TID #90 cap 09/09/23 [Rx] Sennosides/Docusate Sodium [Senna Plus 8.6-50 mg Tablet] 1 each PO DAILY PRN #20 tab 09/09/23 [Rx] cefaDROXiL [Duricef] 500 mg PO Q12HR #10 cap 09/09/23 [Rx] traMADol HCL 100 mg PO Q4-6H PRN #40 tab 09/09/23 [Rx] Follow up Appointment(s)/Referral(s): [facility], [NON-STAFF] - 1-2 Days ([facility] will call you to schedule your in home nursing and physical therapy visits. ) Kwabena Hammond DO [Doctor of Osteopathic Medicine] - 2 Weeks Activity/Diet/Wound Care/Special Instructions: Spine Discharge and Recovery Instructions Date of Surgery: 09/07/2023 Diagnosis: lumbar spondylosis with stenosis and radiculopathy Procedure: [id number] decompression and fusion Medications: See medication list All medication refills should be obtained through your primary care doctor or your clinic spine surgeon. Please discuss prescription refills at your follow up appointment. Do not call the hospital for medication refills. Activity: Encourage ambulation with assist of walker, Up and about 6-8x daily PT/OT daily work on balance, strength and mobility Up in chair with all meals Shower daily Brace: Use brace when up and about, do not wear in bed or shower Dressing: Leave your dressing in place for a total of 3 days post operatively. Then you may remove your dressing and leave open to air. Keep the area clean and if not able to keep area clean, then cover with sterile gauze and tape. Showering: You may shower 3 days after your procedure allowing soap and water to run over incision. Do not scrub. Do not soak. Blot dry. Follow up: Please confirm a follow up appointment with your surgeon 2 weeks post operatively. Please make an appointment to follow up with your PCP in 1-2 weeks after surgery for evaluation `3 phase, 3-week plan POST OP WEEKS 1-3 1. Lifting/carrying/pushing/pulling limited to less than 5 pounds. 2. Do not sit for longer than 15 minutes at one time. Get up and walk around. Prolonged sitting is NOT advised. If you lay down, see if you can tolerate laying down on you front (belly side) 3. Walk for periods of 15 minutes = 1 mile but no longer; do it multiple times times each day. 4. Ice your low back after activity. POST OP WEEKS 3-6 1. Lifting limited to less than 20 pounds. 2. Do not sit for longer than 30 minutes at a time. Frequently change positions. Use a sit-to stand workstation or take frequent breaks from sitting if you have returned to work. 3. Walk for 30 minutes each day. If possible, do these three or more times a day POST OP WEEKS 6+ At your 6-week appointment we will give you a physical therapy referral to focus on a core stabilization and strengthening program. You should also work on leg & buttock strengthening, hamstring & quadriceps stretching, and continue a low impact aerobic activity program such as swimming, walking, or riding a stationary bicycle. During the initial 6 weeks after your surgery, you are at the highest risk of re-injuring your spine. You should generally avoid BLTs (bending, lifting and twisting combination motions) and follow the above guidelines to reduce the chance of reinjury. You can anticipate post op appointments in our office at approximately 3 weeks and 6 weeks after your surgery. INCISION CARE: If your incision is not draining you do NOT need to cover it with a dressing. Keep your incision clean, dry and intact. In most cases, we apply skin glue, bill or sutures to the incision at the time of surgery. This will be like a crust or have the appearance of a scab and will fall off in time on its own. The stitches or bill need to be removed at 3 weeks post op appointment. You may begin to shower 3 days after surgery (this allows the glue to vazquez well). However, please avoid scrubbing the incision site or peeling off any of the skin glue. This will ensure optimal healing of your incision. Also, during this time avoid soaking the incision area in water - this includes swimming pools, hot tubs or baths. No ointments, lotions or oils on the incision until your surgeon allows. Leave bill, sutures or glue in place. Neurological dysfunction that comes on suddenly can also be a sign of a stroke. Below some common symptoms of a stroke are listed: B - balance difficulty such as sudden onset walking or leaning to one side - NEW E - eye problem such as sudden double vision or trouble seeing on one side - NEW F - Facial weakness or numbness on one side - NEW A - Arm or leg weakness or numbness on one side - NEW S - Slurred speech or difficulty with word finding - NEW T - Time is BRAIN! Call 911 as soon as you recognize these symptoms Diet: Consume a regular diet rich in vegetables and lean protein such as chicken or fish. You should consume in a ratio of approximately 20% fats|40% ca rbohydrates|40%protein. Vegetables, sweet potatoes, brown rice or quinoa are examples of good carbohydrates. Chips, white bread, cookies and sweets/sugar are examples of bad carbohydrates. Limit your bad carbs, go wild with good carbs. "Life's Simple 7" Guidelines as per [place] [employer] These will help you reclaim your life after surgery and filler sifter helper in your recovery, keeping in mind your restrictions. (1) Get Active. Physical activity can help people lose weight, control high blood pressure and cholesterol, feel emotionally better, and sleep better. (2) Control Cholesterol. Avoid a diet high in saturated fat, trans fat, & cholesterol. Limit whole milk & cream, ice cream, butter, egg yolks, processed meats (like sausage and hot dogs), and fatty meats. Choose healthy foods that are low in saturated fat, trans fat and cholesterol which include: Fruits and vegetables, fiber rich grain products (like whole grain pasta and brown rice), lean meat such as chicken, fish, nuts, seeds, and legumes. (3) Eat Better. Eat small portions. Shop at the grocery with a list and do not stray from it. Tips for a healthy diet include: Limit sodium intake to less than 1500mg daily, avoid prepackaged, processed, and fast foods, choose a diet rich in fruits, vegetables, and whole grain, high fiber foods, and limit saturated & cholesterol in your diet. (4) Manage Blood Pressure. If you have high blood pressure, you should have a cuff at home so that you can check your blood pressure regularly. Be sure you have a good cuff. An arm one is generally better than a wrist one. Bring the cuff to a doctor's appointment to validate that the measurements that your cuff are taking are accurate. Take your blood pressure twice daily when you are sitting down and relaxing. Record the numbers in a log and bring this log with you to your doctors' appointments. (5) Lose Weight if your BMI is above 25. A healthy BMI is between 19-25. To calculate Your BMI, you may use a Standard BMI Calculator on the NIH BMI website: <www.nhlbi.nih.gov/guidelines/obesity/BMI/bmicalc.htm>. Weigh oneself daily. If you are overweight, set a goal to lose weight. A pound a week loss if needed is a good target. (6) Reduce Blood Sugar. Limit foods and liquids with "added sugars." (Added sugars include sucrose, fructose, glucose, maltose, dextrose, high fructose corn syrup, corn syrup, concentrated fruit juice and honey). (7) Stop Smoking. If you smoke, quitting smoking is one of the best things that you can do for your health. Smoking increases your risk of heart attack, stroke, and peripheral vascular disease, which is a build-up of plaque in your arteries. Please discard all the cigarettes and lighters in your house. Have a plan for what you will do when you have the urge to smoke. Direct and second- hand smoke shortens your life as well as the lives of your family, friends and others around you. For your health and the health of those around you, please consider quitting! Proper Bending Body Mechanics: Maintain a wide stance with one foot slightly in front of the other. Keep your back straight. Bend utilizing the strength in your hips and knees. Do not bend at the waist. Maintain the lifted object at your waist-level close to your body. Avoid lifting weight that causes immediately pain or pain anywhere in the body afterwards. Smoking/Nicotine If there was ever one thing that you could do to increase your overall health, decrease your risk of cardiovascular problems by about 39% the second you make the choice, it is to STOP SMOKING. Your body's most instant gratification is the second you stop smoking. We have all heard the studies, read the articles but it is true, smoking is extremely bad for your overall health, and moreover it is detrimental to your bone health. Nicotine, IN ANY FORM, kills bone cells, prevents your body from healing fr actures, and significantly prolongs healing after surgery. In spine surgery specifically, it increases your risk of not healing your bones to create a fusion and increases your risk of having a revision surgery due to this up to 60%. I know it is hard. I know it feels impossible. But there are ways. Take control of your life. We are here to help you through it. And when you are ready, ask us and we can direct you to help if you desire. Use the START Plan to Quit Smoking (please visit the Helpguide.org website listed below for more information): S = Set a quit date. Choose a date within the next 2 weeks, so you have enough time to prepare without losing your motivation to quit. If you mainly smoke at work, quit on the weekend, so you have a few days to adjust to the change. T = Tell family, friends, and co-workers that you plan to quit. Let your friends and family in on your plan to quit smoking and tell them you need their support and encouragement to stop. Look for a quit donta who wants to stop smoking as well. You can help each other get through the rough times. A = Anticipate and plan for the challenges you'll face while quitting. Most people who begin smoking again do so within the first 3 months. You can help yourself make it through by preparing ahead for common challenges, such as nicotine withdrawal and cigarette cravings. R = Remove cigarettes and other tobacco products from your home, car, and work. Throw away all your cigarettes (no emergency pack!), lighters, ashtrays, and matches. Wash your clothes and freshen up anything that smells like smoke. Shampoo your car, clean your drapes and carpet, and steam your furniture. T = Talk to your doctor about getting help to quit. Your doctor can prescribe medication to help with withdrawal and suggest other alternatives. If you can't see a doctor, you can get many products over the counter at your local pharmacy or grocery store, including the nicotine patch, nicotine lozenges, and nicotine gum. Resources for Quitting Smoking: <https://www.[place].gov/documents/[facility]/Quit_Tobacco_Resources_for_patients_313 480_7.pdf> Supplementation: Take recommended dosages of Vitamin D and Calcium to help fortify your bones and help them to heal. See your health maintenance packet for dosages and recommended levels. DVT/VTE prophylaxis: You will be given compression stockings from the hospital. Wear these daily for the first two weeks after surgery. You may take them off at night. You may be prescribed a medication to help thin your blood. Take this as directed. If you are not prescribed this medication, early and frequent ambulation has been shown to be the best prophylaxis to deep vein thrombosis and sequelae related to this event. Discharge Disposition: HOME WITH HOME HEALTH SERVICES
[2023-09-09] MEDS: oxyCODONE-APAP 5-325MG 1 EACH TAB PO PRN (10:15)
[2023-09-13] MEDS ORDERED: NON FORMULARY DRUG (Abatacept [Orencia] 125 MG/ML Syringe) SQ SCH (10:54)
== END 2023-09-09 14:52 | disposition home health service (06) | DRG 304 ==
LOC: 2ORMAIN 10:26 → 4SSUR 17:16
PROVIDERS: ADMIT Orthopaedic Surgery; ATTEND Orthopaedic Surgery
PROC: 0SG10A0 Fusion of 2 or more Lumbar Vertebral Joints with Interbody Fusion Device, Anterior Approach, Anterior Column, Open Approach (ICD-10-PCS; 2023-09-07)
PROC: 0SG3071 Fusion of Lumbosacral Joint with Autologous Tissue Substitute, Posterior Approach, Posterior Column, Open Approach (ICD-10-PCS; 2023-09-07)
PROC: 0SG1071 Fusion of 2 or more Lumbar Vertebral Joints with Autologous Tissue Substitute, Posterior Approach, Posterior Column, Open Approach (ICD-10-PCS; 2023-09-07)
PROC: 4A11X4G Monitoring of Peripheral Nervous Electrical Activity, Intraoperative, External Approach (ICD-10-PCS; 2023-09-07)
PROC: 01NB0ZZ Release Lumbar Nerve, Open Approach (ICD-10-PCS; 2023-09-07)
PROC: 01NR0ZZ Release Sacral Nerve, Open Approach (ICD-10-PCS; 2023-09-07)
PROC: 0ST20ZZ Resection of Lumbar Vertebral Disc, Open Approach (ICD-10-PCS; 2023-09-07)
PROC: 0ST40ZZ Resection of Lumbosacral Disc, Open Approach (ICD-10-PCS; 2023-09-07)
PROC: 00NY0ZZ Release Lumbar Spinal Cord, Open Approach (ICD-10-PCS; 2023-09-07)
PROC: 0SG30A0 Fusion of Lumbosacral Joint with Interbody Fusion Device, Anterior Approach, Anterior Column, Open Approach (ICD-10-PCS; principal; 2023-09-07 12:15)
DX: M47.27 Other spondylosis with radiculopathy, lumbosacral region (principal); M47.26 Other spondylosis with radiculopathy, lumbar region; M25.78 Osteophyte, vertebrae; M51.17 Intervertebral disc disorders with radiculopathy, lumbosacral region; M51.16 Intervertebral disc disorders with radiculopathy, lumbar region; G20.A1 Parkinson's disease without dyskinesia, without mention of fluctuations; G25.81 Restless legs syndrome; J44.9 Chronic obstructive pulmonary disease, unspecified; M48.07 Spinal stenosis, lumbosacral region; M48.062 Spinal stenosis, lumbar region with neurogenic claudication; Z88.8 Allergy status to other drugs, medicaments and biological substances; Z88.5 Allergy status to narcotic agent; E03.9 Hypothyroidism, unspecified; Z79.890 Hormone replacement therapy; M19.90 Unspecified osteoarthritis, unspecified site; K21.9 Gastro-esophageal reflux disease without esophagitis; M06.9 Rheumatoid arthritis, unspecified; Z79.899 Other long term (current) drug therapy; Z87.442 Personal history of urinary calculi; Z87.891 Personal history of nicotine dependence
CPT/HCPCS: 72100; 72131; 80048; 81025; 85025; 86850; 86891; 86900; 86901; 94760

== ENCOUNTER 2023-09-10 21:28 | Observation (INO) | payer OTHER ==
--- NOTE | 2023-09-10 22:49 | ED ---
General Adult HPI - General Chief complaint: Recheck/Abnormal Lab/Rx Stated complaint: Bleeding incision-post back surgery Time Seen by Provider: 09/10/23 21:40 Source: patient, RN notes reviewed Mode of arrival: ambulatory Limitations: no limitations - History of Present Illness Initial comments: Is a 43-year-old female presents emergency department chief complaint for surgical complication. She had a L3 to pelvis decompression and fusion surgery with fixation on 09/[address] Wells 7. Patient was discharged from hospital on 09/08. She states that she was instructed to report back to the emergency department if her wound dressings were saturated. Patient states that she replaced her wound dressings 2 times today with both dressings being saturated. Patient has Percocet at home which has been taking and aided in pain relief. She denies abdominal pain, fevers, nausea, vomiting, weakness. - Related Data Home Medications Medication Instructions Recorded Confirmed Pantoprazole [Protonix] 40 mg PO BID 03/20/19 09/11/23 Abatacept [Orencia] 125 mg SQ MO 09/19/20 09/11/23 Montelukast [Singulair] 10 mg PO HS 09/19/20 09/11/23 amantadine HCL [Amantadine] 200 mg PO DAILY 09/19/20 09/11/23 Acetylcysteine [Nac] 600 mg PO HS 05/26/21 09/11/23 Cholecalciferol [Vitamin D3 (25 50 mcg PO DAILY 05/26/21 09/11/23 Mcg = 1000 Iu)] Levothyroxine Sodium [Synthroid] 125 mcg PO DAILY 05/26/21 09/11/23 Vortioxetine Hydrobromide 20 mg PO DAILY 05/26/21 09/11/23 [Trintellix] lamoTRIgine [LaMICtal] 200 mg PO BID 05/26/21 09/11/23 rOPINIRole HCL [Requip] 1 mg PO HS 07/24/22 09/11/23 Lurasidone [Latuda] 20 mg PO HS 02/11/23 09/11/23 Biotin/Keratin 1,000 mg PO DAILY 09/02/23 09/11/23 Ramelteon 8 mg PO HS 09/02/23 09/11/23 Budesonide/Formoterol Fumarate 2 puff INHALATION RT-BID 09/11/23 09/11/23 [Symbicort 160-4.5 Mcg Inhaler] Sennosides/Docusate Sodium [Senna 1 tab PO DAILY PRN 09/11/23 09/11/23 Plus 8.6-50 mg Tablet] Previous Rx's Medication Instructions Recorded Cyclobenzaprine [Flexeril] 5 mg PO TID PRN #40 tablet 09/09/23 Gabapentin [Neurontin] 400 mg PO TID #90 cap 09/09/23 cefaDROXiL [Duricef] 500 mg PO Q12HR #10 cap 09/09/23 oxyCODONE HCL/ACETAMINOPHEN 1 tab PO Q6HR PRN #28 tab 09/09/23 [Percocet 5-325 mg] traMADol HCL 100 mg PO Q4-6H PRN #40 tab 09/09/23 Allergies Allergy/AdvReac Type Severity Reaction Status Date / Time fluticasone Allergy Severe THROAT AND Verified 09/11/23 10:39 [From Advair Diskus] TONGUE SWELLING salmeterol Allergy Severe THROAT AND Verified 09/11/23 10:39 [From Advair Diskus] TONGUE SWELLING hydrocodone [From [place]] AdvReac Nausea & Verified 09/11/23 10:39 Vomiting & Diarrhea Review of Systems ROS Statement: Those systems with pertinent positive or pertinent negative responses have been documented in the HPI. ROS Other: All systems not noted in ROS Statement are negative. Past Medical History Past Medical History: Asthma, Blood Disorder, GERD/Reflux, Liver Disease, Osteoarthritis (OA), Rheumatoid Arthritis (RA), Thyroid Disorder Additional Past Medical History / Comment(s): Had hole in heart at , resolved during infancy. HX CHILDHOOD ASTHMA. Medication Induced Leukocytopenia, medication induced Cirrohsis, hypothyroid. History of Any Multi-Drug Resistant Organisms: None Reported Past Surgical History: Back Surgery, Section, Cholecystectomy, Orthopedic Surgery, Tubal Ligation Additional Past Surgical History / Comment(s): Pain clinic procedure, X4, CYST REMOVED FROM LEFT HAND X2, right foot surgery X3,(with metal) left foot surgery (with metal), right shoulder spur surgery. Past Anesthesia/Blood Transfusion Reactions: No Reported Reaction Additional Past Anesthesia/Blood Transfusion Reaction / Comment(s): Difficult IV start. Past Psychological History: Anxiety, Bipolar, Depression Smoking Status: Former smoker Past Alcohol Use History: Occasional Past Drug Use History: Marijuana - Past Family History Mother Family Medical History: Cancer, Pulmonary Embolus Father Additional Family Medical History / Comment(s): Alcoholic. Sister(s) Family Medical History: Cancer Brother(s) Family Medical History: Cancer General Exam Limitations: no limitations General appearance: alert, in no apparent distress Head exam: Present: atraumatic, normocephalic, normal inspection Eye exam: Present: normal appearance, PERRL, EOMI. Absent: scleral icterus, conjunctival injection, periorbital swelling ENT exam: Present: normal exam, mucous membranes moist Respiratory exam: Present: normal lung sounds bilaterally. Absent: respiratory distress, wheezes, rales, rhonchi, stridor Cardiovascular Exam: Present: regular rate, normal rhythm, normal heart sounds. Absent: systolic murmur, diastolic murmur, rubs, gallop, clicks GI/Abdominal exam: Present: soft, normal bowel sounds. Absent: distended, tenderness, guarding, rebound, rigid Extremities exam: Present: normal inspection, full ROM, normal capillary refill. Absent: tenderness, pedal edema, joint swelling, calf tenderness Back exam: Present: tenderness (midline lumbar, post surgical incision ), other (post surgical incision noted, dressings saturated with blood and clear fluid). Absent: normal inspection, full ROM, CVA tenderness (R), CVA tenderness (L) Neurological exam: Present: alert, oriented X3, CN II-XII intact Psychiatric exam: Present: normal affect, normal mood Skin exam: Present: warm, dry, intact, normal color, other (see above description for post surgical changes of lumbar spine). Absent: rash Course Vital Signs 09/10/23 09/10/23 21:38 23:25 Temperature 98.7 F Pulse Rate 104 H 86 Respiratory 20 18 Rate Blood Pressure 102/65 104/50 O2 Sat by Pulse 96 95 Oximetry Medical Decision Making - Medical Decision Making Was pt. sent in by a medical professional or institution (, PA, BINDERY MACHINE OPERATOR, urgent care, hospital, or senior living...) When possible be specific @ -No Did you speak to anyone other than the patient for history (EMS, parent, family, police, friend...)? What history was obtained from this source @ -No Did you review nursing and triage notes (agree or disagree)? Why? @ -I reviewed and agree with nursing and triage notes Were old charts reviewed (outside hosp., previous admission, EMS record, old EKG, old radiological studies, urgent care reports/EKG's, senior living records)? Report findings @ -reviewed the patient's discharge summary from 09/09/2023 where she was discharged in stable position status post lumbar and pelvis decompression surgery. Differential Diagnosis (chest pain, altered mental status, abdominal pain women, abdominal pain men, vaginal bleeding, weakness, fever, dyspnea, syncope, headache, dizziness, GI bleed, back pain, seizure, CVA, palpatations, mental health, musculoskeletal)? @ -Postsurgical lumbar surgery complication, lumbar back pain, this list is not all inclusive. EKG interpreted by me (3pts min.). @ -none X-rays interpreted by me (1pt min.). @ -None done CT interpreted by me (1pt min.). @ -None done U/S interpreted by me (1pt. min.). @ -None done What testing was considered but not performed or refused? (CT, X-rays, U/S, labs)? Why? @ -None What meds were considered but not given or refused? Why? @ -None Did you discuss the management of the patient with other professionals (professionals i.e. , PA, BINDERY MACHINE OPERATOR, lab, RT, psych nurse, pediatric social worker, cue selector, teacher, corrections officer, briefcase sewer)? Give summary @ -Spoke with advanced orthopedics midlevel provider [place], who agrees for admission of the patient for evaluation of postsurgical changes of the lumbar spine. Patient will be admitted to Dr. Wells's service. Was smoking cessation discussed for >3mins.? @ -No Was critical care preformed (if so, how long)? @ -No Were there social determinants of health that impacted care today? How? (Homelessness, low income, unemployed, alcoholism, drug addiction, transportation, low edu. Level, literacy, decrease access to med. care, group home, rehab)? @ -No Was there de-escalation of care discussed even if they declined (Discuss DNR or withdrawal of care, Hospice)? DNR status @ -No What co-morbidities impacted this encounter? (DM, HTN, Smoking, COPD, CAD, Cancer, CVA, ARF, Chemo, Hep., AIDS, mental health diagnosis, sleep apnea, morb id obesity)? @ -None Was patient admitted / discharged? Hospital course, mention meds given and rout e, prescriptions, significant lab abnormalities, going to OR and other pertinent info. @ -Bedded. 43-year-old female with postsurgical complication. On examination patient is noted to have an adhesive dressings over incisions and shorts are saturated with blood and serous fluid. At this time I consulted advanced orthopedics team where I spoke to midlevel provider neck who is in agreement to admit the patient for evaluation of postsurgical site. Patient was also provided with pain medication. Case discussed with Dr. Kraft Undiagnosed new problem with uncertain prognosis? @ -No Drug Therapy requiring intensive monitoring for toxicity (Heparin, Nitro, Insulin, Cardizem)? @ -No Were any procedures done? @ -No Diagnosis/symptom? @ -post surgical complication of lumbar spine Acute, or Chronic, or Acute on Chronic? @ -Acute Uncomplicated (without systemic symptoms) or Complicated (systemic symptoms)? @ -Uncomplicated Side effects of treatment? @ -No Exacerbation, Progression, or Severe Exacerbation? @ -No Poses a threat to life or bodily function? How? (Chest pain, [place], [place], pneumonia, PE, COPD, DKA, ARF, appy, cholecystitis, CVA, Diverticulitis, Homicidal, Suicidal, threat to staff... and all critical care pts) @ -possibly, untreated postsurgical complication lumbar spine can lead to further complication and possible infection. - Lab Data Result diagrams: 09/13/23 05:53 Disposition Clinical Impression: Post surgical complication Disposition: ADMITTED IP TO THIS HOSP Condition: Good Is patient prescribed a controlled substance at d/c from ED?: No Decision to Admit Reason: Admit from EC Decision Date: 09/10/23 Decision Time: 23:28
[2023-09-10] MEDS: KETOROLAC 15 MG/ML 1 ML VIAL IM STA (23:26)
[2023-09-10] MEDS ORDERED: NALOXONE 0.4 MG/ML 1 ML VIAL IV PRN (23:50)
[2023-09-11] MEDS: HYDROmorphone 0.5 MG/0.5 ML SYRINGE IVP PRN (00:57)
[2023-09-11] MEDS ORDERED: oxyCODONE-APAP 5-325MG 1 EACH TAB PO PRN (10:49)
[2023-09-11] MEDS: HYDROmorphone 1 MG/ML 1 ML SYRINGE IM PRN (11:12)
[2023-09-11] MEDS: IPRATROPIUM-ALBUTEROL 3 ML NEB INHALATION SCH (11:41)
[2023-09-11] MEDS: CYCLOBENZAPRINE 5 MG TAB PO PRN (12:29)
[2023-09-11] MEDS: CEPHALEXIN 250 MG CAP PO SCH (12:29)
--- NOTE | 2023-09-11 13:17 | P.CNOR ---
History of Present Illness - [facility] Consult date: 09/18/23 Consult reason: other (Recent lumbar surgery, increase in drainage and pain) History of present illness: Patient is a 43-year-old female who recently underwent an [id number] posterior lateral decompression and fusion along with bilateral SI joint fusions by Dr. Wells sent on 09/07/2023. Initially after the surgery patient did very well, she was discharged home on postoperative day #2. After being home, over the next 24-48 hours she did deal with a lot of bloody serosanguineous drainage that saturated the dressings, she was also noting some increase in pain. Patient was brought back to the hospital on 09/10/2023 for evaluation. I was able to speak with the emergency room staff regarding this patient, she was admitted under our care for further evaluation, internal medicine was also consulted. Patient was evaluated today at bedside, she is resting in her hospital bed. She definitely notes an increase in pain over the last 24 to 48 hours. Patient has continued to ambulate very well at home, she has been utilizing a walker. Patient denies any new onset numbness or tingling to the lower extremities, thor weakness in the lower extremities, loss of bowel or bladder function. She actually did have a bowel movement today she states. She was utilizing Percocet 5 mg / 325 mg at home, along with Flexeril and already prescribed gabapentin. She denies any fevers or chills at this time. She denies any trauma, this to include falls while at home. Review of Systems Constitutional: Reports as per HPI Past Medical History Past Medical History: Asthma, Blood Disorder, GERD/Reflux, Liver Disease, Osteoarthritis (OA), Rheumatoid Arthritis (RA), Thyroid Disorder Additional Past Medical History / Comment(s): Had hole in heart at , resolved during infancy. HX CHILDHOOD ASTHMA. Medication Induced Leukocytopenia, medication induced Cirrohsis, hypothyroid. History of Any Multi-Drug Resistant Organisms: None Reported Past Surgical History: Back Surgery, Section, Cholecystectomy, Orthopedic Surgery, Tubal Ligation Additional Past Surgical History / Comment(s): Pain clinic procedure, X4, CYST REMOVED FROM LEFT HAND X2, right foot surgery X3,(with metal) left foot surgery (with metal), right shoulder spur surgery. Past Anesthesia/Blood Transfusion Reactions: No Reported Reaction Additional Past Anesthesia/Blood Transfusion Reaction / Comm: Difficult IV start. Past Psychological History: Anxiety, Bipolar, Depression Additional Psychological History / Comment(s): BPD Smoking Status: Former smoker Past Alcohol Use History: Occasional Additional Past Alcohol Use History / Comment(s): Started smoking in 1990, 1ppd, quit 02/2021. Past Drug Use History: Marijuana Additional Drug Use History / Comment(s): Daily Marijuana use. INSTRUCTED TO REFRAIN FROM USE 24 HOURS PRIOR TO PROCEDURE. - Past Family History Mother Family Medical History: Cancer, Pulmonary Embolus Father Additional Family Medical History / Comment(s): Alcoholic. Sister(s) Family Medical History: Cancer Brother(s) Family Medical History: Cancer Medications and Allergies Home Medications Medication Instructions Recorded Confirmed Type Pantoprazole [Protonix] 40 mg PO BID 03/20/19 09/11/23 History Abatacept [Orencia] 125 mg SQ MO 09/19/20 09/11/23 History Montelukast [Singulair] 10 mg PO HS 09/19/20 09/11/23 History amantadine HCL [Amantadine] 200 mg PO DAILY 09/19/20 09/11/23 History Acetylcysteine [Nac] 600 mg PO HS 05/26/21 09/11/23 History Cholecalciferol [Vitamin D3 (25 50 mcg PO DAILY 05/26/21 09/11/23 History Mcg = 1000 Iu)] Levothyroxine Sodium [Synthroid] 125 mcg PO DAILY 05/26/21 09/11/23 History Vortioxetine Hydrobromide 20 mg PO DAILY 05/26/21 09/11/23 History [Trintellix] lamoTRIgine [LaMICtal] 200 mg PO BID 05/26/21 09/11/23 History rOPINIRole HCL [Requip] 1 mg PO HS 07/24/22 09/11/23 History Lurasidone [Latuda] 20 mg PO HS 02/11/23 09/11/23 History Biotin/Keratin 1,000 mg PO DAILY 09/02/23 09/11/23 History Ramelteon 8 mg PO HS 09/02/23 09/11/23 History Cyclobenzaprine [Flexeril] 5 mg PO TID PRN #40 tablet 09/09/23 09/11/23 Rx Gabapentin [Neurontin] 400 mg PO TID #90 cap 09/09/23 09/11/23 Rx cefaDROXiL [Duricef] 500 mg PO Q12HR #10 cap 09/09/23 09/11/23 Rx oxyCODONE HCL/ACETAMINOPHEN 1 tab PO Q6HR PRN #28 tab 09/09/23 09/11/23 Rx [Percocet 5-325 mg] traMADol HCL 100 mg PO Q4-6H PRN #40 tab 09/09/23 09/11/23 Rx Budesonide/Formoterol Fumarate 2 puff INHALATION RT-BID 09/11/23 09/11/23 History [Symbicort 160-4.5 Mcg Inhaler] Sennosides/Docusate Sodium [Senna 1 tab PO DAILY PRN 09/11/23 09/11/23 History Plus 8.6-50 mg Tablet] Allergies Allergy/AdvReac Type Severity Reaction Status Date / Time fluticasone Allergy Severe THROAT AND Verified 09/11/23 10:39 [From Advair Diskus] TONGUE SWELLING salmeterol Allergy Severe THROAT AND Verified 09/11/23 10:39 [From Advair Diskus] TONGUE SWELLING hydrocodone [From [place]] AdvReac Nausea & Verified 09/11/23 10:39 Vomiting & Diarrhea Physical Examination Gen: AOx3, NAD VSS stable at this time Integument: Dressing was removed from the lumbar spine wound, bill are all in good position and condition. The bandage was stained with bloody serosanguineous fluid. There is no obvious fluctuance appreciated on the medial and lateral aspects of the incision. There is no increase in erythema noted to the skin in that area Palpation: Patient demonstrates tenderness with palpation to the upper and lower lumbar paraspinal and midline region ROM: Full range of motion in all major muscle groups of the bilateral upper and lower extremities, no focal deficits Sensory Exam: Senory exam to light touch is intact C5-T1 Senosry exam to light touch is intact L2-S1 Motor: 4/5 strength appreciated in the bilateral lower extremities, this to include hip flexion, knee extension, knee flexion, plantarflexion, dorsiflexion, EHL, FHL Reflexes: 2/4 in all UE and LE Negative Sagar's bilaterally Negative clonus bilaterally Special Test: Logroll maneuver of the bilateral lower extremities reproduces no groin pain Negative straight leg raise bilaterally Assessment and Plan Assessment: Postoperative day #4 status post [id number] posterior lateral decompression and fusion, open bilateral SI joint fusion Postoperative pain Other medical comorbidities Plan: I was able to discuss the case, this to include physical exam findings with my attending Dr. Hammond. No emergent orthopedic spine surgical intervention is recommended at this time. Discussed with the patient today at bedside that the amount of drainage she is having is not abnormal, especially after reviewing her drain outputs while in the hospital they were quite low. There is a high possibility that the drain did clot off during her hospital stay which would make sense for the increase in drainage from the surgical wound with her increase in her activities. Patient remains afebrile, I am not concerned for infection at this time. Will hold off on imaging studies and labs at this time. I feel that the amount of pain that the patient is feeling after this extensive surgery is quite normal at this time. A large bulky compressive dressing was applied to the lumbar area today at bedside Pain control, we will adjust oral medications, I did increase the Percocet to 7.5 mg / 325 mg. I did also add Toradol 15 mg every 6 hours with max doses of 4. We discussed trying to utilize this medication to help cut down on the use of the IV Dilaudid which is there for the severe breakthrough pain. Patient will continue with oral Flexeril and gabapentin. Patient will continue with oral stool softeners Activity level instructions were discussed, this to include avoiding bending, lifting and twisting. She will continue to weight-bear with a walker as tolerated Encourage incentive spirometer DVT prophylaxis, GONZALO hose and compression stockings recommended at this time Medical specialty recommendations appreciated Discharge planning: Would like to keep the patient in the hospital for an additional night for pain control, we discussed the possibility of discharged to home on 09/12/2023 pending patient's symptoms. Time with Patient: Less than 30
[2023-09-11] MEDS: HYDROmorphone 1 MG/ML 1 ML SYRINGE IVP PRN (14:18)
[2023-09-11] MEDS: GABAPENTIN 400 MG CAP PO SCH (17:21)
[2023-09-11] MEDS: KETOROLAC 15 MG/ML 1 ML VIAL IVP SCH (17:21)
[2023-09-11] MEDS: LURASIDONE 20 MG TAB PO SCH (20:01)
[2023-09-11] MEDS: TEMAZEPAM 15 MG CAP PO SCH (20:01)
[2023-09-11] MEDS: MONTELUKAST 10 MG TAB PO SCH (20:01)
[2023-09-11] MEDS: lamoTRIgine 100 MG TAB PO SCH (20:01)
[2023-09-11] MEDS: PANTOPRAZOLE 40 MG TABLET PO SCH (20:01)
[2023-09-11] MEDS ORDERED: NON FORMULARY DRUG (Acetylcysteine [Nac] 600 MG Tablet) PO SCH (21:00)
[2023-09-12] MEDS: LEVOTHYROXINE 125 MCG TAB PO SCH (05:17)
[2023-09-12] MEDS: VORTIOXETINE HYDROBROMIDE 20 MG TABLET PO SCH (08:29)
[2023-09-12] MEDS: SENNOSIDES-DOCUSATE SODIUM 1 EACH TAB PO SCH (08:30)
[2023-09-12] MEDS: polyethylene glycoL 3350 17 GM POWD.PACK PO SCH (08:35)
--- NOTE | 2023-09-12 11:48 | P.PN ---
Subjective Progress Note Date: 09/12/23 Principal diagnosis: status post [id number] decompression and fusion, bilateral SI joint fusion patient was evaluated today at bedside, her significant other is present with her at bedside. Patient states that she had a very difficult time with sleeping last night. She states that the pain is about the same, she feels is managed decently well with the current medications that are present. She has been complaining of some increase in left-sided hip pain that developed overnight into this morning. She continues to ambulate to the bathroom, she is urinating and has had multiple bowel movements over the last 24 hours. Currently denies headaches, lightheadedness, chest pain or shortness of breath Objective - Vital Signs Vital signs: Vital Signs Temp 99.1 F 09/12/23 07:00 Pulse 96 09/12/23 07:00 Resp 17 09/12/23 07:00 BP 102/64 09/12/23 07:00 Pulse Ox 98 09/12/23 07:00 FiO2 Intake & Output 09/11/23 09/12/23 09/12/23 18:59 06:59 18:59 Intake Total 118 120 Balance 118 120 Intake: Oral 118 120 Other: Voiding Method Toilet Toilet Toilet # Voids 3 3 - Exam Gen: AOx3, NAD VSS stable at this time Integument: Current dressing that is in place shows no obvious drainage, there is some light saturation noted it is bloody serosanguineous in nature Palpation: Patient demonstrates tenderness with palpation to the upper and lower lumbar paraspinal and midline region ROM: Full range of motion in all major muscle groups of the bilateral upper and lower extremities, no focal deficits Sensory Exam: Senory exam to light touch is intact C5-T1 Senosry exam to light touch is intact L2-S1 Motor: 4/5 strength appreciated in the bilateral lower extremities, this to include hip flexion, knee extension, knee flexion, plantarflexion, dorsiflexion, EHL, FHL Reflexes: 2/4 in all UE and LE Negative Sagar's bilaterally Negative clonus bilaterally Special Test: Logroll maneuver of the bilateral lower extremities reproduces no groin pain Negative straight leg raise bilaterally Assessment and Plan Assessment: Postoperative day #5 status post [id number] posterior lateral decompression and fusion, open bilateral SI joint fusion Postoperative pain Other medical comorbidities Plan: Pain control, continue with current regimen of Percocet 7.5 mg / 325 mg, Flexeril, gabapentin. Advised that she continue to try to discontinue use of the Dilaudid, Toradol is available for breakthrough pain also Activity level instructions were discussed, this to include avoiding bending, lifting and twisting. She will continue to weight-bear with a walker as tolerated Continue to monitor surgical dressing, plan for dressing change at bedside on 09/13/2023 Encourage incentive spirometer DVT prophylaxis, GONZALO hose and compression stockings recommended at this time Medical specialty recommendations appreciated Discharge planning: will continue to follow patient during hospital stay and continue to work on pain control. Hopeful plan for discharge to home on 09/13/2023 Time with Patient: Less than 30
--- NOTE | 2023-09-12 21:34 | PN ---
PROGRESS NOTE The patient is 76, 55, 48, 68. We started on her home medications yesterday. She had large amount of bleeding out the middle of her back since she came in with severe pain. Dr. Bojorquez operated on her postop day 4 for decompression and fusion of L3-L4 with S fusion. Postoperative pain, she states is the drainage is not abnormal, hypothesis. The drain did not take a lot off during her hospital stay, which would make sense with increase in drainage. Surgical wound is not concerned for infection. She has pain control was given GONZALO hose compression stockings. Breathing treatments discharge plan, possible discharge home when continues to improve. Hemoglobin is stable. MMODL / IJN: [id number] /
[2023-09-13] MEDS: oxyCODONE-APAP 7.5-325MG 1 EACH TAB PO PRN (04:15)
[2023-09-13 07:51] VITALS: BP 118/63; PULSE 82; RESP 17; TEMP 98.4
[2023-09-13 08:15] LABS: Basophils % (A) 0 %; Eosinophils # (A) 0.1 k/uL (0-0.7); Eosinophils % (A) 1 %; HCT 32.6 % (34.0-46.0); HGB 11.2 gm/dL (11.4-16.0); Lymphocytes # (A) 1.1 k/uL (1.0-4.8); Lymphocytes % (A) 14 %; MCHC 34.5 g/dL (31.0-37.0); MCV 92.8 fL (80.0-100.0); Monocytes # (A) 0.7 k/uL (0-1.0); Monocytes % (A) 8 %; Neutrophils # (A) 5.9 k/uL (1.3-7.7); Neutrophils % (A) 74 %; Platelet Count 211 k/uL (150-450); RBC 3.51 m/uL (3.80-5.40); RDW 12.3 % (11.5-15.5)
[2023-09-13] MEDS: ABATACEPT 125 MG/ML SQ SCH (08:30)
--- NOTE | 2023-09-13 12:32 | P.PN ---
Subjective Progress Note Date: 09/13/23 Principal diagnosis: status post [id number] decompression and fusion, bilateral SI joint fusion patient was evaluated today at bedside, her significant other is present with her at bedside. Patient is doing a lot better with regards to pain control, she is trying her best to not utilize the IV pain medication. She is hoping to be discharged today with the Percocet 7.5 mg / 325 mg, tramadol and Flexeril. She still has the oral antibiotic and stool softeners from being discharged last week. The drainage has significantly decreased. Patient was able to shower yesterday, a new bandage was placed. Currently denies headaches, lightheadedness, chest pain or shortness of breath Objective - Vital Signs Vital signs: Vital Signs Temp 98.4 F 09/13/23 07:00 Pulse 82 09/13/23 08:00 Resp 17 09/13/23 08:00 BP 118/63 09/13/23 07:00 Pulse Ox 97 09/13/23 07:00 FiO2 Intake & Output 09/12/23 09/13/23 09/13/23 18:59 06:59 18:59 Intake Total 320 118 Balance 320 118 Intake: Oral 320 118 Other: Voiding Method Toilet Toilet Toilet # Voids 2 3 - Exam Gen: AOx3, NAD VSS stable at this time Integument: Postoperative dressing is in good position and condition, no active drainage Palpation: Patient demonstrates tenderness with palpation to the upper and lower lumbar paraspinal and midline region ROM: Full range of motion in all major muscle groups of the bilateral upper and lower extremities, no focal deficits Sensory Exam: Senory exam to light touch is intact C5-T1 Senosry exam to light touch is intact L2-S1 Motor: 4/5 strength appreciated in the bilateral lower extremities, this to include hip flexion, knee extension, knee flexion, plantarflexion, dorsiflexion, EHL, FHL Reflexes: 2/4 in all UE and LE Negative Sagar's bilaterally Negative clonus bilaterally Special Test: Logroll maneuver of the bilateral lower extremities reproduces no groin pain Negative straight leg raise bilaterally - Labs CBC & Chem 7: 09/13/23 05:53 Labs: Abnormal Lab Results - Last 24 Hours (Table) 09/13/23 Range/Units 05:53 RBC 3.51 L (3.80-5.40) m/uL Hgb 11.2 L (11.4-16.0) gm/dL Hct 32.6 L (34.0-46.0) % Assessment and Plan Assessment: Postoperative day #6 status post [id number] posterior lateral decompression and fusion, open bilateral SI joint fusion Postoperative pain, stable Other medical comorbidities Plan: Pain control, plan for discharge on Percocet 7.5 mg / 325 mg. Patient has Flexeril and tramadol at home. Activity level instructions were discussed, this to include avoiding bending, lifting and twisting. She will continue to weight-bear with a walker as tolerated Advised patient leave the dressing in place at this time, she can change as of 09/14/2023. We discussed showering instructions and multiple dressing changes and also to avoid soaking. Encourage incentive spirometer DVT prophylaxis, GONZALO hose and compression stockings recommended at this time Medical specialty recommendations appreciated Discharge planning: Stable for discharge home today Time with Patient: Less than 30
--- NOTE | 2023-09-13 12:37 | P.DS ---
Providers Date of admission: 09/10/23 23:42 Expected date of discharge: 09/13/23 Attending physician: Kwabena Hammond DO Primary care physician: [facility] Course: Date of admission: 09/10/2023 Date of discharge: 09/13/2023 Admission diagnosis: Postoperative pain, history of [id number] decompression and fusion along with bilateral SI joint fusion Discharge diagnosis: Same Attending physician: Dr. Hammond Surgical procedures: [id number] posterior lateral decompression and fusion, bilateral SI joint fusion (09/07/2023) Brief history: Patient is a 43-year-old female with a history of a recent I5smuciu posterior lateral decompression and fusion and bilateral SI joint fusion performed by Dr. Wells sent on 09/07/2023. Initially in the hospital patient did very well and was discharged postoperative day 3. The first 24 to 48 hours at home patient had significant drainage from the incision and significant increase in postoperative pain. She did report back to the hospital on 09/10/2023 for further evaluation, she was admitted to the hospital for pain control and further evaluation. There was no concern for infection, there was no trauma related. Hospital course: Patient was admitted to a medical/surgical floor, both internal medicine and our orthopedic group were following. Oral medications were adjusted to help with adequate pain control. Patient was evaluated daily, there was no concern for infection. Patient continued to progress well over the next 2 to 3 days. Patient was discharged to home on 09/13/2023. Discharge condition/disposition: Patient will be discharged [home] in stable condition. Discharge medications: Instructions are given on resumption of patient's normal daily medications per primary care recommendation, in addition patient will be prescribed Percocet 7.5 mg / 325 mg. Spine Discharge and Recovery Instructions Medications: See medication list All medication refills should be obtained through your primary care doctor or your clinic spine surgeon. Please discuss prescription refills at your follow up appointment. Do not call the hospital for medication refills. Dressing: Leave your dressing in place for a total of 5 days post operatively. Then you may remove your dressing and leave open to air. Keep the area clean and if not able to keep area clean, then cover with sterile gauze and tape. Showering: You may shower 3 days after your procedure allowing soap and water to run over incision. Do not scrub. Do not soak. Blot dry. Follow up: Please confirm a follow up appointment with your surgeon 3 weeks post operatively. Please make an appointment to follow up with your PCP in 1-2 weeks after surgery for evaluation `3 phase, 3-week plan POST OP WEEKS 1-3 1. Lifting/carrying/pushing/pulling limited to less than 5 pounds. 2. Do not sit for longer than 15 minutes at one time. Get up and walk around. Prolonged sitting is NOT advised. If you lay down, see if you can tolerate laying down on you front (belly side) 3. Walk for periods of 15 minutes = 1 mile but no longer; do it multiple times times each day. 4. Ice your low back after activity. POST OP WEEKS 3-6 1. Lifting limited to less than 20 pounds. 2. Do not sit for longer than 30 minutes at a time. Frequently change positions. Use a sit-to stand workstation or take frequent breaks from sitting if you have returned to work. 3. Walk for 30 minutes each day. If possible, do these three or more times a day POST OP WEEKS 6+ At your 6-week appointment we will give you a physical therapy referral to focus on a core stabilization and strengthening program. You should also work on leg & buttock strengthening, hamstring & quadriceps stretching, and continue a low impact aerobic activity program such as swimming, walking, or riding a stationary bicycle. During the initial 6 weeks after your surgery, you are at the highest risk of re-injuring your spine. You should generally avoid BLTs (bending, lifting and twisting combination motions) and follow the above guidelines to reduce the chance of reinjury. You can anticipate post op appointments in our office at approximately 3 weeks and 6 weeks after your surgery. INCISION CARE: If your incision is not draining you do NOT need to cover it with a dressing. Keep your incision clean, dry and intact. In most cases, we apply skin glue, bill or sutures to the incision at the time of surgery. This will be like a crust or have the appearance of a scab and will fall off in time on its own. The stitches or bill need to be removed at 3 weeks post op appointment. You may begin to shower 3 days after surgery (this allows the glue to vazquez well). However, please avoid scrubbing the incision site or peeling off any of the skin glue. This will ensure optimal healing of your incision. Also, during this time avoid soaking the incision area in water - this includes swimming pools, hot tubs or baths. No ointments, lotions or oils on the incision until your surgeon allows. Leave bill, sutures or glue in place. Neurological dysfunction that comes on suddenly can also be a sign of a stroke. Below some common symptoms of a stroke are listed: B - balance difficulty such as sudden onset walking or leaning to one side - NEW E - eye problem such as sudden double vision or trouble seeing on one side - NEW F - Facial weakness or numbness on one side - NEW A - Arm or leg weakness or numbness on one side - NEW S - Slurred speech or difficulty with word finding - NEW T - Time is BRAIN! Call 911 as soon as you recognize these symptoms Diet: Consume a regular diet rich in vegetables and lean protein such as chicken or fish. You should consume in a ratio of approximately 20% fats|40% carbohydrates|40%protein. Vegetables, sweet potatoes, brown rice or quinoa are examples of good carbohydrates. Chips, white bread, cookies and sweets/sugar are examples of bad carbohydrates. Limit your bad carbs, go wild with good carbs. "Life's Simple 7" Guidelines as per [place] [employer] These will help you reclaim your life after surgery and station mechanic helper in your recovery, keeping in mind your restrictions. (1) Get Active. Physical activity can help people lose weight, control high blood pressure and cholesterol, feel emotionally better, and sleep better. (2) Control Cholesterol. Avoid a diet high in saturated fat, trans fat, & cholesterol. Limit whole milk & cream, ice cream, butter, egg yolks, processed meats (like sausage and hot dogs), and fatty meats. Choose healthy foods that are low in saturated fat, trans fat and cholesterol which include: Fruits and vegetables, fiber rich grain products (like whole grain pasta and brown rice), lean meat such as chicken, fish, nuts, seeds, and legumes. (3) Eat Better. Eat small portions. Shop at the grocery with a list and do not stray from it. Tips for a healthy diet include: Limit sodium intake to less than 1500mg daily, avoid prepackaged, processed, and fast foods, choose a diet rich in fruits, vegetables, and whole grain, high fiber foods, and limit saturated & cholesterol in your diet. (4) Manage Blood Pressure. If you have high blood pressure, you should have a cuff at home so that you can check your blood pressure regularly. Be sure you have a good cuff. An arm one is generally better than a wrist one. Bring the cuff to a doctor's appointment to validate that the measurements that your cuff are taking are accurate. Take your blood pressure twice daily when you are sitting down and relaxing. Record the numbers in a log and bring this log with you to your doctors' appointments. (5) Lose Weight if your BMI is above 25. A healthy BMI is between 19-25. To calculate Your BMI, you may use a Standard BMI Calculator on the NIH BMI website: <www.nhlbi.nih.gov/guidelines/obesity/BMI/bmicalc.htm>. Weigh oneself daily. If you are overweight, set a goal to lose weight. A pound a week loss if needed is a good target. (6) Reduce Blood Sugar. Limit foods and liquids with "added sugars." (Added garcia gars include sucrose, fructose, glucose, maltose, dextrose, high fructose corn syrup, corn syrup, concentrated fruit juice and honey). (7) Stop Smoking. If you smoke, quitting smoking is one of the best things that you can do for your health. Smoking increases your risk of heart attack, stroke, and peripheral vascular disease, which is a build-up of plaque in your arteries. Please discard all the cigarettes and lighters in your house. Have a plan for what you will do when you have the urge to smoke. Direct and second- hand smoke shortens your life as well as the lives of your family, friends and others around you. For your health and the health of those around you, please consider quitting! Proper Bending Body Mechanics: Maintain a wide stance with one foot slightly in front of the other. Keep your back straight. Bend utilizing the strength in your hips and knees. Do not bend at the waist. Maintain the lifted object at your waist-level close to your body. Avoid lifting weight that causes immediately pain or pain anywhere in the body afterwards. Smoking/Nicotine If there was ever one thing that you could do to increase your overall health, decrease your risk of cardiovascular problems by about 39% the second you make the choice, it is to STOP SMOKING. Your body's most instant gratification is the second you stop smoking. We have all heard the studies, read the articles but it is true, smoking is extremely bad for your overall health, and moreover it is detrimental to your bone health. Nicotine, IN ANY FORM, kills bone cells, prevents your body from healing fractures, and significantly prolongs healing after surgery. In spine surgery specifically, it increases your risk of not healing your bones to create a fusion and increases your risk of having a revision surgery due to this up to 60%. I know it is hard. I know it feels impossible. But there are ways. Take control of your life. We are here to help you through it. And when you are ready, ask us and we can direct you to help if you desire. Use the START Plan to Quit Smoking (please visit the Helpguide.org website listed below for more information): S = Set a quit date. Choose a date within the next 2 weeks, so you have enough time to prepare without losing your motivation to quit. If you mainly smoke at work, quit on the weekend, so you have a few days to adjust to the change. T = Tell family, friends, and co-workers that you plan to quit. Let your friends and family in on your plan to quit smoking and tell them you need their support and encouragement to stop. Look for a quit donta who wants to stop smoking as well. You can help each other get through the rough times. A = Anticipate and plan for the challenges you'll face while quitting. Most people who begin smoking again do so within the first 3 months. You can help yourself make it through by preparing ahead for common challenges, such as nicotine withdrawal and cigarette cravings. R = Remove cigarettes and other tobacco products from your home, car, and work. Throw away all your cigarettes (no emergency pack!), lighters, ashtrays, and matches. Wash your clothes and freshen up anything that smells like smoke. Shampoo your car, clean your drapes and carpet, and steam your furniture. T = Talk to your doctor about getting help to quit. Your doctor can prescribe medication to help with withdrawal and suggest other alternatives. If you can't see a doctor, you can get many products over the counter at your local pharmacy or grocery store, including the nicotine patch, nicotine lozenges, and nicotine gum. Resources for Quitting Smoking: <https://www.[place].gov/documents/[facility]/Quit_Tobacco_ Resources_for_patients_313480_7.pdf> Supplementation: Take recommended dosages of Vitamin D and Calcium to help fortify your bones and help them to heal. See your health maintenance packet for dosages and recommended levels. DVT/VTE prophylaxis: You will be given compression stockings from the hospital. Wear these daily for the first two weeks after surgery. You may take them off at night. You may be prescribed a medication to help thin your blood. Take this as directed. If you are not prescribed this medication, early and frequent ambulation has been shown to be the best prophylaxis to deep vein thrombosis and sequelae related to this event. Procedures: None Patient Condition at Discharge: Good Plan - Discharge Summary New Discharge Prescriptions: New oxyCODONE HCL/ACETAMINOPHEN [Percocet 7.5-325 mg] 1 tab PO Q6HR PRN #28 tab PRN Reason: Pain Discontinued oxyCODONE HCL/ACETAMINOPHEN [Percocet 5-325 mg] 1 tab PO Q6HR PRN #28 tab PRN Reason: Pain No Action Pantoprazole [Protonix] 40 mg PO BID amantadine HCL [Amantadine] 200 mg PO DAILY Abatacept [Orencia] 125 mg SQ MO Montelukast [Singulair] 10 mg PO HS Levothyroxine Sodium [Synthroid] 125 mcg PO DAILY Lurasidone [Latuda] 20 mg PO HS Ramelteon 8 mg PO HS Cyclobenzaprine [Flexeril] 5 mg PO TID PRN #40 tablet PRN Reason: Muscle Spasm Gabapentin [Neurontin] 400 mg PO TID #90 cap Sennosides/Docusate Sodium [Senna Plus 8.6-50 mg Tablet] 1 tab PO DAILY PRN PRN Reason: Constipation Budesonide/Formoterol Fumarate [Symbicort 160-4.5 Mcg Inhaler] 2 puff INHALATION RT-BID lamoTRIgine [LaMICtal] 200 mg PO BID Cholecalciferol [Vitamin D3 (25 Mcg = 1000 Iu)] 50 mcg PO DAILY Vortioxetine Hydrobromide [Trintellix] 20 mg PO DAILY Acetylcysteine [Nac] 600 mg PO HS rOPINIRole HCL [Requip] 1 mg PO HS Biotin/Keratin 1,000 mg PO DAILY traMADol HCL 100 mg PO Q4-6H PRN #40 tab PRN Reason: Pain cefaDROXiL [Duricef] 500 mg PO Q12HR #10 cap Discharge Medication List Pantoprazole [Protonix] 40 mg PO BID 03/20/19 [History] Abatacept [Orencia] 125 mg SQ MO 09/19/20 [History] Montelukast [Singulair] 10 mg PO HS 09/19/20 [History] amantadine HCL [Amantadine] 200 mg PO DAILY 09/19/20 [History] Acetylcysteine [Nac] 600 mg PO HS 05/26/21 [History] Cholecalciferol [Vitamin D3 (25 Mcg = 1000 Iu)] 50 mcg PO DAILY 05/26/21 [History] Levothyroxine Sodium [Synthroid] 125 mcg PO DAILY 05/26/21 [History] Vortioxetine Hydrobromide [Trintellix] 20 mg PO DAILY 05/26/21 [History] lamoTRIgine [LaMICtal] 200 mg PO BID 05/26/21 [History] rOPINIRole HCL [Requip] 1 mg PO HS 07/24/22 [History] Lurasidone [Latuda] 20 mg PO HS 02/11/23 [History] Biotin/Keratin 1,000 mg PO DAILY 09/02/23 [History] Ramelteon 8 mg PO HS 09/02/23 [History] Cyclobenzaprine [Flexeril] 5 mg PO TID PRN #40 tablet 09/09/23 [Rx] Gabapentin [Neurontin] 400 mg PO TID #90 cap 09/09/23 [Rx] cefaDROXiL [Duricef] 500 mg PO Q12HR #10 cap 09/09/23 [Rx] traMADol HCL 100 mg PO Q4-6H PRN #40 tab 09/09/23 [Rx] Budesonide/Formoterol Fumarate [Symbicort 160-4.5 Mcg Inhaler] 2 puff INHALATION RT-BID 09/11/23 [History] Sennosides/Docusate Sodium [Senna Plus 8.6-50 mg Tablet] 1 tab PO DAILY PRN 09/11/23 [History] oxyCODONE HCL/ACETAMINOPHEN [Percocet 7.5-325 mg] 1 tab PO Q6HR PRN #28 tab 09/13/23 [Rx] Follow up Appointment(s)/Referral(s): Pankaj Her MD [Primary Care Provider] - 1-2 days Kwabena Hammond DO [Doctor of Osteopathic Medicine] - 1 Week Activity/Diet/Wound Care/Special Instructions: Spine Discharge and Recovery Instructions Medications: See medication list All medication refills should be obtained through your primary care doctor or your clinic spine surgeon. Please discuss prescription refills at your follow up appointment. Do not call the hospital for medication refills. Dressing: Leave your dressing in place for a total of 5 days post operatively. Then you may remove your dressing and leave open to air. Keep the area clean and if not able to keep area clean, then cover with sterile gauze and tape. Showering: You may shower 3 days after your procedure allowing soap and water to run over incision. Do not scrub. Do not soak. Blot dry. Follow up: Please confirm a follow up appointment with your surgeon 3 weeks post operatively. Please make an appointment to follow up with your PCP in 1-2 weeks after surgery for evaluation `3 phase, 3-week plan POST OP WEEKS 1-3 1. Lifting/carrying/pushing/pulling limited to less than 5 pounds. 2. Do not sit for longer than 15 minutes at one time. Get up and walk around. Prolonged sitting is NOT advised. If you lay down, see if you can tolerate laying down on you front (belly side) 3. Walk for periods of 15 minutes = 1 mile but no longer; do it multiple times times each day. 4. Ice your low back after activity. POST OP WEEKS 3-6 1. Lifting limited to less than 20 pounds. 2. Do not sit for longer than 30 minutes at a time. Frequently change positions. Use a sit-to stand workstation or take frequent breaks from sitting if you have returned to work. 3. Walk for 30 minutes each day. If possible, do these three or more times a day POST OP WEEKS 6+ At your 6-week appointment we will give you a physical therapy referral to focus on a core stabilization and strengthening program. You should also work on leg & buttock strengthening, hamstring & quadriceps stretching, and continue a low impact aerobic activity program such as swimming, walking, or riding a stationary bicycle. During the initial 6 weeks after your surgery, you are at the highest risk of re-injuring your spine. You should generally avoid BLTs (bending, lifting and twisting combination motions) and follow the above guidelines to reduce the chance of reinjury. You can anticipate post op appointments in our office at approximately 3 weeks and 6 weeks after your surgery. INCISION CARE: If your incision is not draining you do NOT need to cover it with a dressing. Keep your incision clean, dry and intact. In most cases, we apply skin glue, bill or sutures to the incision at the time of surgery. This will be like a crust or have the appearance of a scab and will fall off in time on its own. The stitches or bill need to be removed at 3 weeks post op appointment. You may begin to shower 3 days after surgery (this allows the glue to vazquez well). However, please avoid scrubbing the incision site or peeling off any of the skin glue. This will ensure optimal healing of your incision. Also, during this time avoid soaking the incision area in water - this includes swimming pools, hot tubs or baths. No ointments, lotions or oils on the incision until your surgeon allows. Leave bill, sutures or glue in place. Neurological dysfunction that comes on suddenly can also be a sign of a stroke. Below some common symptoms of a stroke are listed: B - balance difficulty such as sudden onset walking or leaning to one side - NEW E - eye problem such as sudden double vision or trouble seeing on one side - NEW F - Facial weakness or numbness on one side - NEW A - Arm or leg weakness or numbness on one side - NEW S - Slurred speech or difficulty with word finding - NEW T - Time is BRAIN! Call 911 as soon as you recognize these symptoms Diet: Consume a regular diet rich in vegetables and lean protein such as chicken or fish. You should consume in a ratio of approximately 20% fats|40% carbohydrates|40%protein. Vegetables, sweet potatoes, brown rice or quinoa are examples of good carbohydrates. Chips, white bread, cookies and sweets/sugar are examples of bad carbohydrates. Limit your bad carbs, go wild with good carbs. "Life's Simple 7" Guidelines as per [place] [employer] These will help you reclaim your life after surgery and station mechanic helper in your recovery, keeping in mind your restrictions. (1) Get Active. Physical activity can help people lose weight, control high blood pressure and cholesterol, feel emotionally better, and sleep better. (2) Control Cholesterol. Avoid a diet high in saturated fat, trans fat, & cholesterol. Limit whole milk & cream, ice cream, butter, egg yolks, processed meats (like sausage and hot dogs), and fatty meats. Choose healthy foods that are low in saturated fat, trans fat and cholesterol which include: Fruits and vegetables, fiber rich grain products (like whole grain pasta and brown rice), lean meat such as chicken, fish, nuts, seeds, and legumes. (3) Eat Better. Eat small portions. Shop at the grocery with a list and do not stray from it. Tips for a healthy diet include: Limit sodium intake to less than 1500mg daily, avoid prepackaged, processed, and fast foods, choose a diet rich in fruits, vegetables, and whole grain, high fiber foods, and limit saturated & cholesterol in your diet. (4) Manage Blood Pressure. If you have high blood pressure, you should have a cuff at home so that you can check your blood pressure regularly. Be sure you have a good cuff. An arm one is generally better than a wrist one. Bring the cuff to a doctor's appointment to validate that the measurements that your cuff are taking are accurate. Take your blood pressure twice daily when you are sitting down and relaxing. Record the numbers in a log and bring this log with you to your doctors' appointments. (5) Lose Weight if your BMI is above 25. A healthy BMI is between 19-25. To calculate Your BMI, you may use a Standard BMI Calculator on the NIH BMI website: <www.nhlbi.nih.gov/guidelines/obesity/BMI/bmicalc.htm>. Weigh oneself daily. If you are overweight, set a goal to lose weight. A pound a week loss if needed is a good target. (6) Reduce Blood Sugar. Limit foods and liquids with "added sugars." (Added sugars include sucrose, fructose, glucose, maltose, dextrose, high fructose corn syrup, corn syrup, concentrated fruit juice and honey). (7) Stop Smoking. If you smoke, quitting smoking is one of the best things that you can do for your health. Smoking increases your risk of heart attack, stroke, and peripheral vascular disease, which is a build-up of plaque in your arteries. Please discard all the cigarettes and lighters in your house. Have a plan for what you will do when you have the urge to smoke. Direct and second- hand smoke shortens your life as well as the lives of your family, friends and others around you. For your health and the health of those around you, please consider quitting! Proper Bending Body Mechanics: Maintain a wide stance with one foot slightly in front of the other. Keep your back straight. Bend utilizing the strength in your hips and knees. Do not bend at the waist. Maintain the lifted object at your waist-level close to your body. Avoid lifting weight that causes immediately pain or pain anywhere in the body afterwards. Smoking/Nicotine If there was ever one thing that you could do to increase your overall health, decrease your risk of cardiovascular problems by about 39% the second you make the choice, it is to STOP SMOKING. Your body's most instant gratification is the second you stop smoking. We have all heard the studies, read the articles but it is true, smoking is extremely bad for your overall health, and moreover it is detrimental to your bone health. Nicotine, IN ANY FORM, kills bone cells, prevents your body from healing fractures, and significantly prolongs healing after surgery. In spine surgery specifically, it increases your risk of not healing your bones to create a fusion and increases your risk of having a revision surgery due to this up to 60%. I know it is hard. I know it feels impossible. But there are ways. Take control of your life. We are here to help you through it. And when you are ready, ask us and we can direct you to help if you desire. Use the START Plan to Quit Smoking (please visit the Helpguide.org website listed below for more information): S = Set a quit date. Choose a date within the next 2 weeks, so you have enough time to prepare without losing your motivation to quit. If you mainly smoke at work, quit on the weekend, so you have a few days to adjust to the change. T = Tell family, friends, and co-workers that you plan to quit. Let your friends and family in on your plan to quit smoking and tell them you need their support and encouragement to stop. Look for a quit donta who wants to stop smoking as well. You can help each other get through the rough times. A = Anticipate and plan for the challenges you'll face while quitting. Most people who begin smoking again do so within the first 3 months. You can help yourself make it through by preparing ahead for common challenges, such as nicotine withdrawal and cigarette cravings. R = Remove cigarettes and other tobacco products from your home, car, and work. Throw away all your cigarettes (no emergency pack!), lighters, ashtrays, and matches. Wash your clothes and freshen up anything that smells like smoke. Shampoo your car, clean your drapes and carpet, and steam your furniture. T = Talk to your doctor about getting help to quit. Your doctor can prescribe medication to help with withdrawal and suggest other alternatives. If you can't see a doctor, you can get many products over the counter at your local pharmacy or grocery store, including the nicotine patch, nicotine lozenges, and nicotine gum. Resources for Quitting Smoking: <https://www.[place].gov/documents/[facility]/Quit_Tobacco_Resources_for_patients_313 480_7.pdf> Supplementation: Take recommended dosages of Vitamin D and Calcium to help fortify your bones and help them to heal. See your health maintenance packet for dosages and recommended levels. DVT/VTE prophylaxis: You will be given compression stockings from the hospital. Wear these daily for the first two weeks after surgery. You may take them off at night. You may be prescribed a medication to help thin your blood. Take this as directed. If you are not prescribed this medication, early and frequent ambulation has been shown to be the best prophylaxis to deep vein thrombosis and sequelae related to this event. Discharge Disposition: HOME WITH HOME HEALTH SERVICES
== END 2023-09-13 14:43 | disposition home health service (06) ==
LOC: EC 21:28 → 6NMEDSUR 23:42
PROVIDERS: ADMIT Orthopaedic Surgery; ATTEND Orthopaedic Surgery
DX: L76.22 Postprocedural hemorrhage of skin and subcutaneous tissue following other procedure (principal); Z98.1 Arthrodesis status; Z90.49 Acquired absence of other specified parts of digestive tract; F41.8 Other specified anxiety disorders; F31.9 Bipolar disorder, unspecified; Z87.891 Personal history of nicotine dependence; Z79.899 Other long term (current) drug therapy; E03.9 Hypothyroidism, unspecified; K21.9 Gastro-esophageal reflux disease without esophagitis; M06.9 Rheumatoid arthritis, unspecified
CPT/HCPCS: 96365; 96366 ×4; 96367; 99285; 94640 ×2; 85025; G0378 ×4; J1170 ×5; J1885 ×3

== ENCOUNTER 2023-10-02 17:08 | Emergency (ER) | payer OTHER ==
--- NOTE | 2023-10-02 17:29 | ED ---
Nausea/Vomiting/Diarrhea HPI - General Stated complaint: Vomiting Time Seen by Provider: 10/02/23 17:28 Source: RN notes reviewed - History of Present Illness Initial comments: 43-year-old female presenting with vomiting x 2 days with associated lower abdominal pain. Describes the pain as dull and intermittent. States pain is improved when she lays flat on her back. Patient states she has not been able to keep anything down in 2 days due to the nausea and vomiting. She admits subjective fever and chills. States she has had loose stool lately, last bowel movement was prior to arrival today. Denies urinary symptoms. She had a lower back surgery 3 weeks ago. She follows with Dr. Austin for chronic abdominal pain and has undergone several procedures but they told her everything came back normal. - Related Data Home Medications Medication Instructions Recorded Confirmed Pantoprazole [Protonix] 40 mg PO BID 03/20/19 09/11/23 Abatacept [Orencia] 125 mg SQ MO 09/19/20 09/11/23 Montelukast [Singulair] 10 mg PO HS 09/19/20 09/11/23 amantadine HCL [Amantadine] 200 mg PO DAILY 09/19/20 09/11/23 Acetylcysteine [Nac] 600 mg PO HS 05/26/21 09/11/23 Cholecalciferol [Vitamin D3 (25 50 mcg PO DAILY 05/26/21 09/11/23 Mcg = 1000 Iu)] Levothyroxine Sodium [Synthroid] 125 mcg PO DAILY 05/26/21 09/11/23 Vortioxetine Hydrobromide 20 mg PO DAILY 05/26/21 09/11/23 [Trintellix] lamoTRIgine [LaMICtal] 200 mg PO BID 05/26/21 09/11/23 rOPINIRole HCL [Requip] 1 mg PO HS 07/24/22 09/11/23 Lurasidone [Latuda] 20 mg PO HS 02/11/23 09/11/23 Biotin/Keratin 1,000 mg PO DAILY 09/02/23 09/11/23 Ramelteon 8 mg PO HS 09/02/23 09/11/23 Budesonide/Formoterol Fumarate 2 puff INHALATION RT-BID 09/11/23 09/11/23 [Symbicort 160-4.5 Mcg Inhaler] Sennosides/Docusate Sodium [Senna 1 tab PO DAILY PRN 09/11/23 09/11/23 Plus 8.6-50 mg Tablet] Previous Rx's Medication Instructions Recorded Cyclobenzaprine [Flexeril] 5 mg PO TID PRN #40 tablet 09/09/23 Gabapentin [Neurontin] 400 mg PO TID #90 cap 09/09/23 cefaDROXiL [Duricef] 500 mg PO Q12HR #10 cap 09/09/23 traMADol HCL 100 mg PO Q4-6H PRN #40 tab 09/09/23 oxyCODONE HCL/ACETAMINOPHEN 1 tab PO Q6HR PRN #28 tab 09/13/23 [Percocet 7.5-325 mg] Allergies Allergy/AdvReac Type Severity Reaction Status Date / Time fluticasone Allergy Severe THROAT AND Verified 10/02/23 18:11 [From Advair Diskus] TONGUE SWELLING salmeterol Allergy Severe THROAT AND Verified 10/02/23 18:11 [From Advair Diskus] TONGUE SWELLING hydrocodone [From [place]] AdvReac Nausea & Verified 10/02/23 18:11 Vomiting & Diarrhea Review of Systems ROS Statement: Those systems with pertinent positive or pertinent negative responses have been documented in the HPI. ROS Other: All systems not noted in ROS Statement are negative. Past Medical History Past Medical History: Asthma, Blood Disorder, GERD/Reflux, Liver Disease, Osteoarthritis (OA), Rheumatoid Arthritis (RA), Thyroid Disorder Additional Past Medical History / Comment(s): Had hole in heart at , resolved during infancy. HX CHILDHOOD ASTHMA. Medication Induced Leukocytopenia, medication induced Cirrohsis, hypothyroid. History of Any Multi-Drug Resistant Organisms: None Reported Past Surgical History: Back Surgery, Section, Cholecystectomy, Orthopedic Surgery, Tubal Ligation Additional Past Surgical History / Comment(s): Pain clinic procedure, X4, CYST REMOVED FROM LEFT HAND X2, right foot surgery X3,(with metal) left foot surgery (with metal), right shoulder spur surgery. Past Anesthesia/Blood Transfusion Reactions: No Reported Reaction Additional Past Anesthesia/Blood Transfusion Reaction / Comment(s): Difficult IV start. Past Psychological History: Anxiety, Bipolar, Depression Smoking Status: Former smoker Past Alcohol Use History: Occasional Past Drug Use History: Marijuana - Past Family History Mother Family Medical History: Cancer, Pulmonary Embolus Father Additional Family Medical History / Comment(s): Alcoholic. Sister(s) Family Medical History: Cancer Brother(s) Family Medical History: Cancer General Exam - General Exam Comments Initial Comments: Visual Physical Exam General: Well-appearing, nontoxic, no acute distress. Head: Normocephalic, atraumatic Eyes: PERRLA, EOMI ENT: Airway patent Chest: Nonlabored breathing Skin: No visual rash, normal skin tone Neuro: Alert and oriented 3 Musculoskeletal: No gross abnormalities General appearance: alert, in no apparent distress Head exam: Present: atraumatic, normocephalic, normal inspection Respiratory exam: Present: normal lung sounds bilaterally. Absent: respiratory distress, wheezes, rales, rhonchi, stridor Cardiovascular Exam: Present: regular rate, normal rhythm, normal heart sounds. Absent: systolic murmur, diastolic murmur, rubs, gallop, clicks GI/Abdominal exam: Present: soft, tenderness (Right and left lower quadrant tenderness), normal bowel sounds. Absent: distended, guarding, rebound, rigid Extremities exam: Present: normal inspection, full ROM, normal capillary refill. Absent: tenderness, pedal edema, joint swelling, calf tenderness Back exam: Present: normal inspection (Well-healing vertical scar present on lumbar spine). Absent: CVA tenderness (R), CVA tenderness (L) Neurological exam: Present: alert, oriented X3 Psychiatric exam: Present: normal affect, normal mood Skin exam: Present: warm, dry, intact, normal color. Absent: rash Course Vital Signs 10/02/23 18:07 Temperature 97.1 F L Pulse Rate 76 Respiratory 20 Rate Blood Pressure 131/78 O2 Sat by Pulse 100 Oximetry Medical Decision Making - Medical Decision Making I completed the quick note portion of this chart signed Yesy Porras PA-C Was pt. sent in by a medical professional or institution (LUDWIG Cueto, PUBLIC WELFARE DIRECTOR, urgent care, hospital, or residential...) When possible be specific @ -No Did you speak to anyone other than the patient for history (EMS, parent, family, police, friend...)? What history was obtained from this source @ -No Did you review nursing and triage notes (agree or disagree)? Why? @ -I reviewed and agree with nursing and triage notes Were old charts reviewed (outside hosp., previous admission, EMS record, old EKG, old radiological studies, urgent care reports/EKG's, residential records)? Report findings @ -No old charts were reviewed Differential Diagnosis (chest pain, altered mental status, abdominal pain women, abdominal pain men, vaginal bleeding, weakness, fever, dyspnea, syncope, headache, dizziness, GI bleed, back pain, seizure, CVA, palpatations, mental health, musculoskeletal)? @ -Differential Abdominal Pain Women: Appendicitis, Cholecystitis, diverticulosis, ischemic bowel, pancreatitis, hepatitis, UTI, gastroenteritis, AAA, incarcerated hernia, bowel obstruction, constipation, inflammatory bowel, hepatitis, peptic ulcer disease, splenic infarction, perforated viscus, vulvitis, ovarian torsion, PID, kidney stone, placenta abruption, this is not meant to be an all-inclusive list EKG interpreted by me (3pts min.). @ -None X-rays interpreted by me (1pt min.). @ -None done CT interpreted by me (1pt min.). @ -CT revealed no evidence for acute abdominal process, there is postsurgical changes with hardware intact, left ovarian cyst measuring 23 x 24 mm U/S interpreted by me (1pt. min.). @ -None done What testing was considered but not performed or refused? (CT, X-rays, U/S, labs)? Why? @ -None What meds were considered but not given or refused? Why? @ -None Did you discuss the management of the patient with other professionals (professionals i.e. , PA, PUBLIC WELFARE DIRECTOR, lab, RT, psych nurse, manager social responsibility, criminal defense lawyer, teacher, electoral officer, case loader operator)? Give summary @ -No Was smoking cessation discussed for >3mins.? @ -No Was critical care preformed (if so, how long)? @ -No Were there social determinants of health that impacted care today? How? (Homelessness, low income, unemployed, alcoholism, drug addiction, transportation, low edu. Level, literacy, decrease access to med. care, snf, rehab)? @ -No Was there de-escalation of care discussed even if they declined (Discuss DNR or withdrawal of care, Hospice)? DNR status @ -No What co-morbidities impacted this encounter? (DM, HTN, Smoking, COPD, CAD, Cancer, CVA, ARF, Chemo, Hep., AIDS, mental health diagnosis, sleep apnea, morbid obesity)? @ -None Was patient admitted / discharged? Hospital course, mention meds given and route, prescriptions, significant lab abnormalities, going to OR and other pert inent info. @ -Patient was discharged. Patient was seen and evaluated for vomiting x 2 days with lower abdominal pain. Vital signs are unremarkable. Physical examination is remarkable for mild tenderness in bilateral lower quadrants. Patient was given IV fluids, Toradol, and Zofran. Lab work remarkable for white blood cell count of 11.4 and CO2 of 17. Urine reveals 2+ ketones however negative for blood or bacteria. CT revealed no evidence for acute abdominal process, there are postsurgical changes with hardware intact, there is a left ovarian cyst measuring 23 x 24 mm. Upon reevaluation, patient reports symptoms have improved. Advise close follow-up with Dr. Austin. Return parameters discussed. Discharged home with Zofran starter pack. Case discussed with my attending Dr. Lake. Patient discharged in stable condition. Undiagnosed new problem with uncertain prognosis? @ -No Drug Therapy requiring intensive monitoring for toxicity (Heparin, Nitro, Insulin, Cardizem)? @ -No Were any procedures done? @ -No Diagnosis/symptom? @ -Gastroenteritis Acute, or Chronic, or Acute on Chronic? @ -Acute Uncomplicated (without systemic symptoms) or Complicated (systemic symptoms)? @ -Uncomplicated Side effects of treatment? @ -No Exacerbation, Progression, or Severe Exacerbation? @ -No Poses a threat to life or bodily function? How? (Chest pain, [place], GA, pneumonia, PE, COPD, DKA, ARF, appy, cholecystitis, CVA, Diverticulitis, Homicidal, Suicidal, threat to staff... and all critical care pts) @ -Unlikely - Lab Data Result diagrams: 10/02/23 18:23 10/02/23 18:23 Lab Results 10/02/23 10/02/23 10/02/23 Range/Units 18:23 18:23 18:23 WBC 11.4 H (3.8-10.6) k/uL RBC 4.08 (3.80-5.40) m/uL Hgb 12.2 (11.4-16.0) gm/dL Hct 36.9 (34.0-46.0) % MCV 90.4 (80.0-100.0) fL MCH 29.9 (25.0-35.0) pg MCHC 33.1 (31.0-37.0) g/dL RDW 13.2 (11.5-15.5) % Plt Count 256 (150-450) k/uL MPV 9.8 Neutrophils % 87 % Lymphocytes % 9 % Monocytes % 3 % Eosinophils % 1 % Basophils % 0 % Neutrophils # 9.8 H (1.3-7.7) k/uL Lymphocytes # 1.0 (1.0-4.8) k/uL Monocytes # 0.3 (0-1.0) k/uL Eosinophils # 0.1 (0-0.7) k/uL Basophils # 0.0 (0-0.2) k/uL Sodium 139 (137-145) mmol/L Potassium 4.7 (3.5-5.1) mmol/L Chloride 110 H (98-107) mmol/L Carbon Dioxide 17 L (22-30) mmol/L Anion Gap 12 mmol/L BUN 11 (7-17) mg/dL Creatinine 0.75 (0.52-1.04) mg/dL Est GFR (CKD-EPI)AfAm >90 (>60 ml/min/1.73 sqM) Est GFR (CKD-EPI)NonAf >90 (>60 ml/min/1.73 sqM) Glucose 125 H (74-99) mg/dL Plasma Lactic Acid José Miguel 1.0 (0.7-2.0) mmol/L Calcium 9.8 (8.4-10.2) mg/dL Total Bilirubin 1.0 (0.2-1.3) mg/dL AST 35 (14-36) U/L ALT 12 (4-34) U/L Alkaline Phosphatase 151 H (38-126) U/L Total Protein 7.3 (6.3-8.2) g/dL Albumin 4.6 (3.5-5.0) g/dL Lipase 111 (23-300) U/L Urine Color Urine Appearance (Clear) Urine pH (5.0-8.0) Ur Specific [place] (1.001-1.035) Urine Protein (Negative) Urine Glucose (UA) (Negative) Urine Ketones (Negative) Urine Blood (Negative) Urine Nitrite (Negative) Urine Bilirubin (Negative) Urine Urobilinogen (<2.0) mg/dL Ur Leukocyte Esterase (Negative) Urine HCG, Qual (Not Detectd) 10/02/23 10/02/23 Range/Units 19:29 19:29 WBC (3.8-10.6) k/uL RBC (3.80-5.40) m/uL Hgb (11.4-16.0) gm/dL Hct (34.0-46.0) % MCV (80.0-100.0) fL MCH (25.0-35.0) pg MCHC (31.0-37.0) g/dL RDW (11.5-15.5) % Plt Count (150-450) k/uL MPV Neutrophils % % Lymphocytes % % Monocytes % % Eosinophils % % Basophils % % Neutrophils # (1.3-7.7) k/uL Lymphocytes # (1.0-4.8) k/uL Monocytes # (0-1.0) k/uL Eosinophils # (0-0.7) k/uL Basophils # (0-0.2) k/uL Sodium (137-145) mmol/L Potassium (3.5-5.1) mmol/L Chloride (98-107) mmol/L Carbon Dioxide (22-30) mmol/L Anion Gap mmol/L BUN (7-17) mg/dL Creatinine (0.52-1.04) mg/dL Est GFR (CKD-EPI)AfAm (>60 ml/min/1.73 sqM) Est GFR (CKD-EPI)NonAf (>60 ml/min/1.73 sqM) Glucose (74-99) mg/dL Plasma Lactic Acid José Miguel (0.7-2.0) mmol/L Calcium (8.4-10.2) mg/dL Total Bilirubin (0.2-1.3) mg/dL AST (14-36) U/L ALT (4-34) U/L Alkaline Phosphatase (38-126) U/L Total Protein (6.3-8.2) g/dL Albumin (3.5-5.0) g/dL Lipase (23-300) U/L Urine Color Colorless Urine Appearance Clear (Clear) Urine pH 8.0 (5.0-8.0) Ur Specific [place] 1.012 (1.001-1.035) Urine Protein Negative (Negative) Urine Glucose (UA) Negative (Negative) Urine Ketones 2+ H (Negative) Urine Blood Negative (Negative) Urine Nitrite Negative (Negative) Urine Bilirubin Negative (Negative) Urine Urobilinogen <2.0 (<2.0) mg/dL Ur Leukocyte Esterase Negative (Negative) Urine HCG, Qual Not Detected (Not Detectd) Disposition Clinical Impression: Gastroenteritis Disposition: HOME SELF-CARE Condition: Stable Instructions (If sedation given, give patient instructions): Gastroenteritis (ED) Additional Instructions: Please follow-up with Dr. Austin. Take Zofran as needed for nausea. Hydrate aggressively. Please return to the Emergency Department if symptoms worsen or any other concerns. Is patient prescribed a controlled substance at d/c from ED?: No Referrals: Pankaj Her MD [Primary Care Provider] - 1-2 days Time of Disposition: 22:29
[2023-10-02 18:11] VITALS: RESP 20
[2023-10-02 18:30] LABS: Basophils % (A) 0 %; Eosinophils # (A) 0.1 k/uL (0-0.7); Eosinophils % (A) 1 %; HCT 36.9 % (34.0-46.0); HGB 12.2 gm/dL (11.4-16.0); Lymphocytes % (A) 9 %; MCH 29.9 pg (25.0-35.0); MCHC 33.1 g/dL (31.0-37.0); MCV 90.4 fL (80.0-100.0); Mean Platelet Volume 9.8; Monocytes # (A) 0.3 k/uL (0-1.0); Monocytes % (A) 3 %; Neutrophils # (A) 9.8 k/uL (1.3-7.7); Neutrophils % (A) 87 %; Platelet Count 256 k/uL (150-450); RBC 4.08 m/uL (3.80-5.40); RDW 13.2 % (11.5-15.5); WBC 11.4 k/uL (3.8-10.6)
[2023-10-02 18:48] LABS: ALT 12 U/L (4-34); African American GFR (CKD) >90 (>60 ml/min/1.73 sqM); Albumin 4.6 g/dL (3.5-5.0); Anion Gap 12 mmol/L; Blood Urea Nitrogen 11 mg/dL (7-17); Calcium 9.8 mg/dL (8.4-10.2); Carbon Dioxide 17 mmol/L (22-30); Chloride 110 mmol/L (98-107); Glucose 125 mg/dL (74-99); Lipase 111 U/L (23-300); Non-African American GFR(CKD) >90 (>60 ml/min/1.73 sqM); Sodium 139 mmol/L (137-145); Total Protein 7.3 g/dL (6.3-8.2)
[2023-10-02 18:59] LABS: AST 35 U/L (14-36); Alkaline Phosphatase 151 U/L (38-126); Potassium 4.7 mmol/L (3.5-5.1)
[2023-10-02 20:03] LABS: Appearance,Urine Clear (Clear); Bilirubin,Urine Negative (Negative); Blood,Urine Negative (Negative); Color,Urine Colorless; Glucose,Urine (UA) Negative (Negative); Ketones,Urine 2+ (Negative); Leukocyte Esterase,Urine Negative (Negative); Nitrite,Urine Negative (Negative); Protein,Urine Negative (Negative); Specific Gravity,Urine 1.012 (1.001-1.035); Urobilinogen,Urine <2.0 mg/dL (<2.0)
[2023-10-02] MEDS: KETOROLAC 15 MG/ML 1 ML VIAL IVP STA (21:50)
[2023-10-02] MEDS: ONDANSETRON 4 MG/2 ML VIAL IVP STA (21:50)
[2023-10-02] MEDS: SODIUM CHLORIDE 0.9% 1,000 ML BAG IV STA (21:53)
--- NOTE | 2023-10-02 21:55 | CT ---
EXAMINATION TYPE: CT abdomen pelvis w con CT DLP: 1005.7 mGycm, Automated exposure control for dose reduction was used. DATE OF EXAM: 10/02/2023 9:27 PM COMPARISON: CT abdomen pelvis most recent from 09/14/2017 CLINICAL INDICATION:Female, 43 years old with history of abdominal pain, acute, nonlocalized; Lower a bdominal pain, recent back surgery TECHNIQUE: Axial CT abdomen pelvis w con;Sagittal and coronal reformats were created on a separate w orkstation. Contrast used:100 ml mL of Isovue 300 with IV Contrast, (none if empty) Oral contrast used: without Oral Contrast (none if empty) FINDINGS: LOWER CHEST: Unremarkable ABDOMEN LIVER: Unremarkable GALLBLADDER AND BILE DUCTS: Gallbladder is surgically absent with mild intrahepatic and extra hepatic biliary dilatation likely physiologic and a postcholecystectomy change. No evidence of choledocholit hiasis. PANCREAS: Unremarkable. SPLEEN: Unremarkable. ADRENAL GLANDS: Unremarkable. KIDNEYS AND URETERS: No evidence of hydronephrosis or renal calculus. The ureters are unremarkable. B ilateral simple appearing renal cysts. PELVIS BLADDER: Unremarkable REPRODUCTIVE: Nabothian cysts seen near the inferior 23 x 24 mm. ABDOMEN & PELVIS STOMACH AND BOWEL: No evidence of bowel obstruction. PERITONEUM/RETROPERITONEUM: No evidence of pneumoperitoneum or free fluid. VASCULATURE: No evidence of aortic aneurysm. MUSCULOSKELETAL: No acute osseous abnormalities multilevel fixation hardware at L3, L4-L5 and S1. Amandeep ateral sacroiliac screws are present. Hardware appears intact. Multilevel degeneration changes of the spine. Discectomy now through L4 L4 L5 and L5-S1. LYMPH NODES: No gross evidence for lymphadenopathy. SOFT TISSUE/ABDOMINAL WALL: Unremarkable IMPRESSION: 1. No evidence for acute abdominal process. 2. Post surgical changes spine with hardware intact. 3. Left ovarian cyst measuring 23 x 24 mm.
[2023-10-02] MEDS: ONDANSETRON 4 MG ODT STARTER PACK 2 TAB BTL PO STA (23:22)
[2023-10-03 00:45] VITALS: BP 126/72; PULSE 71; TEMP 97.6
== END 2023-10-02 23:35 | disposition home or self-care (01) ==
LOC: EC 17:08
DX: K52.9 Noninfective gastroenteritis and colitis, unspecified (principal); N83.202 Unspecified ovarian cyst, left side; F12.90 Cannabis use, unspecified, uncomplicated; Z88.8 Allergy status to other drugs, medicaments and biological substances; Z87.891 Personal history of nicotine dependence; Z88.5 Allergy status to narcotic agent
CPT/HCPCS: 36415; 80053; 83605; 83690; 85025; 81003; 81025; 74177; 99284; 96374; 96375; 96361; J2405; J1885; S0119; Q9967

== ENCOUNTER 2023-11-03 18:15 | Emergency (ER) | payer OTHER ==
[2023-11-03] MEDS ORDERED: HYDROmorphone 1 MG/ML 1 ML SYRINGE ONE (19:32)
[2023-11-03] MEDS ORDERED: KETOROLAC 15 MG/ML 1 ML VIAL ONE (19:32)
[2023-11-03] MEDS ORDERED: ORPHENADRINE 30 MG/ML 2 ML VIAL ONE (21:21)
== END 2023-11-03 22:00 | disposition home or self-care (01) ==
LOC: EC 18:15
DX: M54.9 Dorsalgia, unspecified (principal); Z88.5 Allergy status to narcotic agent; Z88.6 Allergy status to analgesic agent; Z88.8 Allergy status to other drugs, medicaments and biological substances
CPT/HCPCS: 99282; J2360; J1170; J1885

== ENCOUNTER 2023-11-07 13:54 | Emergency (ER) | payer OTHER ==
[2023-11-07] MEDS ORDERED: HYDROmorphone 1 MG/ML 1 ML SYRINGE ONE ×2 (14:40→17:23)
[2023-11-07] MEDS ORDERED: SODIUM CHLORIDE 0.9% 1,000 ML BAG ONE (14:50)
[2023-11-07] MEDS ORDERED: cefTRIAXone IN SWFI 1,000 MG/10 ML SYRINGE IVP ONE (19:45)
== END 2023-11-07 19:45 | disposition home or self-care (01) ==
LOC: EC 13:54
DX: G89.18 Other acute postprocedural pain (principal)
CPT/HCPCS: 96374; 96375; 99283

== ENCOUNTER → 2024-01-06 | Outpatient (CLI) | payer OTHER ==
[2024-01-06 15:07] LABS: ALT 11 U/L (8-44); AST 24 U/L (13-35); Albumin 4.5 g/dL (3.8-4.9); Albumin/Globulin Ratio 1.67 Ratio (1.60-3.17); Alkaline Phosphatase 176 U/L (41-126); BUN/Creat Ratio 12.11 Ratio (12.00-20.00); Blood Urea Nitrogen 10.9 mg/dL (9.0-27.0); Calcium 9.7 mg/dL (8.7-10.3); Carbon Dioxide 22.6 mmol/L (21.6-31.8); Chloride 106 mmol/L (96-109); Globulin 2.7 g/dL (1.6-3.3); Glucose 98 mg/dL (70-110); Potassium 4.5 mmol/L (3.5-5.5); Sodium 142 mmol/L (135-145); Total Bilirubin 0.3 mg/dL (0.3-1.2); Total Protein 7.2 g/dL (6.2-8.2)
== END | disposition home or self-care (01) ==
LOC: LABWHC1 10:14
PROVIDERS: ATTEND Internal Medicine
CPT/HCPCS: 36415; 80053; 83036; 84439; 84443

== ENCOUNTER → 2024-01-14 | Outpatient (CLI) | payer OTHER ==
[2024-01-14 15:23] LABS: Basophils # (A) 0.05 X 10*3/uL (0.00-0.10); Basophils % (A) 0.6 %; Eosinophils # (A) 0.01 X 10*3/uL (0.04-0.35); Eosinophils % (A) 0.1 %; HCT 40.5 % (37.2-46.3); HGB 13.2 g/dL (12.0-15.0); Lymphocytes # (A) 1.36 X 10*3/uL (0.90-5.00); Lymphocytes % (A) 15.2 %; MCH 29.1 pg (27.0-32.0); MCHC 32.6 g/dL (32.0-37.0); MCV 89.2 FL (80.0-97.0); Monocytes # (A) 0.53 X 10*3/uL (0.20-1.00); Monocytes % (A) 5.9 %; NRBC Per 100 WBC 0 X 10*3/uL (0.00-0.01); Neutrophils # (A) 6.93 X 10*3/uL (1.80-7.70); Neutrophils % (A) 77.8 %; Platelet Count 185 X 10*3/uL (140-440); RBC 4.54 X 10*6/uL (4.10-5.20); WBC 8.92 X 10*3/uL (4.50-10.00)
[2024-01-14 15:50] LABS: ALT 12 U/L (8-44); AST 23 U/L (13-35); Albumin 4.6 g/dL (3.8-4.9); Albumin/Globulin Ratio 1.92 Ratio (1.60-3.17); Alkaline Phosphatase 144 U/L (41-126); Blood Urea Nitrogen 14.3 mg/dL (9.0-27.0); Calcium 9.7 mg/dL (8.7-10.3); Carbon Dioxide 24.8 mmol/L (21.6-31.8); Chloride 104 mmol/L (96-109); Globulin 2.4 g/dL (1.6-3.3); Glucose 98 mg/dL (70-110); Potassium 3.5 mmol/L (3.5-5.5); Sodium 141 mmol/L (135-145); Total Bilirubin 0.4 mg/dL (0.3-1.2)
== END | disposition home or self-care (01) ==
LOC: LABWHC1 09:36
PROVIDERS: ATTEND Nurse Practitioner Family
DX: K74.60 Unspecified cirrhosis of liver (principal)
CPT/HCPCS: 36415; 80053; 82105; 85025

== ENCOUNTER → 2024-03-02 | Outpatient (CLI) | payer OTHER ==
--- NOTE | 2024-03-02 09:13 | XR ---
EXAMINATION TYPE: XR chest 2V DATE OF EXAM: 03/02/2024 8:43 AM COMPARISON: Chest radiographs from 03/20/2019. CLINICAL INDICATION: Female, 43 years old with history of M06.9 RHEUMATOID ARTHRITIS, UNSPECIFIED; PH H TECHNIQUE: XR chest 2V Frontal and lateral views of the chest. FINDINGS: Lungs/Pleura: There is no evidence of pleural effusion, focal consolidation, or pneumothorax. Pulmonary vascularity: Unremarkable. Heart/mediastinum: Cardiomediastinal silhouette is unremarkable. Musculoskeletal: No acute osseous pathology. IMPRESSION: No acute cardiopulmonary disease/process. [facility], , 03/02/2024 9:11 AM
== END | disposition home or self-care (01) ==
LOC: RADXRMAIN 08:17
PROVIDERS: ATTEND Nurse Practitioner Primary Care
DX: M06.9 Rheumatoid arthritis, unspecified (principal); R06.2 Wheezing
CPT/HCPCS: 71046

== ENCOUNTER → 2024-03-02 | Outpatient (CLI) | payer OTHER ==
--- NOTE | 2024-03-02 12:37 | US ---
EXAMINATION TYPE: US liver DATE OF EXAM: 03/02/2024 COMPARISON: CT abdomen and pelvis 10/02/2023 CLINICAL INDICATION: Female, 43 years old with history of K74.60 UNSPECIFIED CIRRHOSIS OF LIVER; Lucrecia ent denies any signs, symptoms, or relevant history TECHNIQUE: Grayscale and color Doppler imaging of the right upper quadrant was performed. FINDINGS: EXAM MEASUREMENTS: Liver Length: 17.2 cm Gallbladder Wall: Surgically absent cm CBD: 1.2 cm Right Kidney: 12.1 x 3.6 x 5.2 cm MANAGER PAID NOTES: Pancreas: wnl Liver: wnl Gallbladder: Surgically absent CBD: Dilated - ? echogenic area seen within Right Kidney: wnl Unremarkable appearance of the pancreas. The liver demonstrates no focal lesion or overt cirrhotic mo rphology. Gallbladder surgically absent. The common bile duct is dilated measuring up to 1.2 cm with an echogenic focus identified. Right kidney demonstrates no hydronephrosis, nephrolithiasis, or solid mass. IMPRESSION: 1. Post cholecystectomy changes with dilated common bile duct which can be seen with prior cholecyst ectomy. There is a suggested echogenic focus within the common bile duct which could represent choled ocholithiasis. Correlation with biliary labs and consideration for ERCP/MRCP is recommended. 2. Noncirrhotic morphology of the liver without focal lesion. [facility], , 03/02/2024 12:35 PM
== END | disposition home or self-care (01) ==
LOC: RADUSWWP 08:13
PROVIDERS: ATTEND Internal Medicine Gastroenterology
DX: K74.60 Unspecified cirrhosis of liver (principal); K83.8 Other specified diseases of biliary tract; Z90.49 Acquired absence of other specified parts of digestive tract
CPT/HCPCS: 76705

== ENCOUNTER → 2024-03-31 | Outpatient (CLI) | payer OTHER ==
--- NOTE | 2024-03-31 10:11 | MR ---
MRCP. HISTORY: Abnormal abdominal ultrasound, possible choledocholithiasis. COMPARISON: None TECHNIQUE: MRCP was performed according to department protocol. Multiecho multiplanar images of the u pper abdomen and biliary tree were obtained with and without contrast. FINDINGS: There surgical absence of the gallbladder. Biliary tree is mildly prominent but there are no intraluminal abnormalities to suggest choledocholit hiasis. There are no focal masses or organomegaly involving liver, pancreas, spleen or adrenal glands. There is no solid renal masses are present. Visualized bowel loops are normal in caliber. There is no free intraperitoneal fluid. IMPRESSION: 1. No significant abnormality seen. 2. No evidence of choledocholithiasis. [facility], , 03/31/2024 10:08 AM
== END | disposition home or self-care (01) ==
LOC: RADMRIMAIN 06:06
PROVIDERS: ATTEND Internal Medicine Gastroenterology
DX: K83.8 Other specified diseases of biliary tract (principal); Z90.49 Acquired absence of other specified parts of digestive tract
CPT/HCPCS: 74181

== ENCOUNTER → 2024-07-04 | Outpatient (CLI) | payer OTHER ==
[2024-07-04 15:22] LABS: Basophils # (A) 0.07 X 10*3/uL (0.00-0.10); Eosinophils # (A) 0.16 X 10*3/uL (0.04-0.35); Eosinophils % (A) 2.4 %; HCT 41.6 % (37.2-46.3); HGB 14.1 g/dL (12.0-15.0); Lymphocytes # (A) 1.53 X 10*3/uL (0.90-5.00); Lymphocytes % (A) 22.9 %; MCH 31.2 pg (27.0-32.0); MCHC 33.9 g/dL (32.0-37.0); Mean Platelet Volume 12.9 FL (9.5-12.2); Monocytes # (A) 0.58 X 10*3/uL (0.20-1.00); Monocytes % (A) 8.7 %; NRBC Per 100 WBC 0 X 10*3/uL (0.00-0.01); Neutrophils # (A) 4.33 X 10*3/uL (1.80-7.70); Neutrophils % (A) 64.7 %; Platelet Count 186 X 10*3/uL (140-440); RBC 4.52 X 10*6/uL (4.10-5.20); RDW 13.7 % (11.5-14.5); WBC 6.69 X 10*3/uL (4.50-10.00)
[2024-07-04 15:45] LABS: Blood Urea Nitrogen 10.8 mg/dL (9.0-27.0); Carbon Dioxide 21.5 mmol/L (21.6-31.8); Chloride 104 mmol/L (96-109); Glucose 98 mg/dL (70-110); Potassium 4.1 mmol/L (3.5-5.5); Sodium 139 mmol/L (135-145)
[2024-07-04 15:46] LABS: ALT 21 U/L (8-44); AST 31 U/L (13-35); Albumin 4.4 g/dL (3.8-4.9); Albumin/Globulin Ratio 1.83 Ratio (1.60-3.17); Alkaline Phosphatase 152 U/L (41-126); Calcium 9.2 mg/dL (8.7-10.3); Globulin 2.4 g/dL (1.6-3.3); Total Bilirubin 0.4 mg/dL (0.3-1.2); Total Protein 6.8 g/dL (6.2-8.2)
== END | disposition home or self-care (01) ==
LOC: LABWHC1 08:25
PROVIDERS: ATTEND Nurse Practitioner Family
DX: K74.60 Unspecified cirrhosis of liver (principal)
CPT/HCPCS: 36415; 80053; 82105; 85025

== ENCOUNTER 2024-07-17 14:48 | Observation (INO) | payer OTHER ==
[2024-07-17 15:19] LABS: Basophils # (A) 0.03 10*3/uL (0.00-0.10); Basophils % (A) 0.5 %; Eosinophils % (A) 1.5 %; Lymphocytes # (A) 1.53 10*3/uL (0.90-5.00); Lymphocytes % (A) 23.2 %; MCHC 35.1 g/dL (32.0-37.0); MCV 88.1 fL (80.0-97.0); Mean Platelet Volume 11.9 fL (9.5-12.2); Monocytes # (A) 0.65 10*3/uL (0.20-1.00); Monocytes % (A) 9.8 %; Neutrophils # (A) 4.27 10*3/uL (1.80-7.70); Neutrophils % (A) 64.7 %; Platelet Count 185 10*3/uL (140-440)
[2024-07-17 15:38] LABS: ALT 17 U/L (4-34); AST 30 U/L (14-36); African American GFR (CKD) 89 (>60 ml/min/1.73 sqM); Albumin 4.3 g/dL (3.5-5.0); Alkaline Phosphatase 129 U/L (38-126); Anion Gap 9 mmol/L; Blood Urea Nitrogen 10 mg/dL (7-17); Calcium 9.3 mg/dL (8.4-10.2); Carbon Dioxide 26 mmol/L (22-30); Chloride 102 mmol/L (98-107); Glucose 90 mg/dL (74-99); Magnesium 1.5 mg/dL (1.6-2.3); Non-African American GFR(CKD) 77 (>60 ml/min/1.73 sqM); Potassium 3.4 mmol/L (3.5-5.1); Sodium 137 mmol/L (137-145); Total Bilirubin 0.4 mg/dL (0.2-1.3); Total Protein 6.9 g/dL (6.3-8.2)
[2024-07-17 15:47] LABS: NT-Pro-B-Type Natriuretic Pept 66 pg/mL
[2024-07-17 15:49] LABS: INR 0.9 (<1.2); Partial Thromboplastin Time 22.4 sec (22.0-30.0); Prothrombin Time 10.5 sec (10.0-12.5)
[2024-07-17] MEDS: ASPIRIN 81 MG PO STA (16:11)
[2024-07-17] MEDS: NITROGLYCERIN SL TABS 0.4 MG TAB SUBLINGUAL STA (16:12)
--- NOTE | 2024-07-17 16:19 | XR ---
EXAMINATION TYPE: XR chest 2V DATE OF EXAM: 07/17/2024 3:43 PM COMPARISON: Chest radiographs from 03/02/2024 CLINICAL INDICATION: Female, 44 years old with history of Chest Pain; [facility] TECHNIQUE: XR chest 2V Frontal and lateral views of the chest. FINDINGS: Lungs/Pleura: There is no evidence of pleural effusion, focal consolidation, or pneumothorax. Pulmonary vascularity: Unremarkable. Heart/mediastinum: Cardiomediastinal silhouette is unremarkable. Musculoskeletal: No acute osseous pathology. IMPRESSION: No acute cardiopulmonary disease/process. [facility], , 07/17/2024 4:17 PM
[2024-07-17] MEDS: POTASSIUM CHLORIDE ER 20 MEQ TAB.ER PO STA (16:24)
[2024-07-17] MEDS: MAGNESIUM SULFATE-D5W PMX 1 GM in DEXTROSE/WATER 1 100ML.BAG IVPB ONE (16:25)
[2024-07-17] MEDS ORDERED: ONDANSETRON 4 MG/2 ML VIAL IVP PRN (17:03)
[2024-07-17] MEDS ORDERED: NALOXONE 0.4 MG/ML 1 ML VIAL IV PRN (17:03)
--- NOTE | 2024-07-17 17:05 | ED ---
General Adult HPI - General Chief complaint: Chest Pain Stated complaint: Chest Pains Time Seen by Provider: 07/17/24 14:48 Source: patient, RN notes reviewed, old records reviewed Mode of arrival: ambulatory Limitations: no limitations - History of Present Illness Initial comments: Patient is a 44-year-old female presents emergency department complaining of leg swelling, as well as chest pain. Has been having worsening lower extremity symm etrical leg swelling for the last 3 weeks. Was started on Lasix 2 weeks ago. Was undergoing workup for possible congestive heart failure outpatient. This was through her PCP. She states that over the last 2 days she has been having intermittent chest pain. Has been more constant over the last day or so. Currently does have it. States it is substernal/left-sided with no significant radiation. It is sharp in nature. No shortness of breath. No nausea or vomiting. No diaphoresis. Significant family medical history of cardiac disease including her children. Has a history of asthma, GERD. Presents for further evaluation.No known palliative or provocative factors for the patient's chest pain. - Related Data Home Medications Medication Instructions Recorded Confirmed Pantoprazole [Protonix] 40 mg PO BID 03/20/19 07/17/24 Abatacept [Orencia] 125 mg SQ MO 09/19/20 07/17/24 Montelukast [Singulair] 10 mg PO HS 09/19/20 07/17/24 Acetylcysteine [Nac] 600 mg PO HS 05/26/21 07/17/24 lamoTRIgine [LaMICtal] 200 mg PO BID 05/26/21 07/17/24 rOPINIRole HCL [Requip] 1 mg PO HS 07/24/22 07/17/24 Albuterol Sulfate/Budesonide 1 puff INHALATION RT-QID PRN 07/17/24 07/17/24 [Airsupra 90-80 Mcg Inhaler] Cholecalciferol [Vitamin D3 (25 50 mcg PO BID 07/17/24 07/17/24 Mcg = 1000 Iu)] Cyclobenzaprine [Flexeril] 10 mg PO BID 07/17/24 07/17/24 Furosemide [Lasix] 20 mg PO DAILY 07/17/24 07/17/24 Levothyroxine Sodium [Synthroid] 100 mcg PO DAILY 07/17/24 07/17/24 Lurasidone [Latuda] 60 mg PO DAILY@1900 07/17/24 07/17/24 Viloxazine HCl [Qelbree] 200 mg PO DAILY 07/17/24 07/17/24 traZODone HCL 100 mg PO HS 07/17/24 07/17/24 Previous Rx's Medication Instructions Recorded Gabapentin [Neurontin] 400 mg PO TID #90 cap 09/09/23 Allergies Allergy/AdvReac Type Severity Reaction Status Date / Time fluticasone Allergy Severe THROAT AND Verified 07/17/24 17:09 [From Advair Diskus] TONGUE SWELLING salmeterol Allergy Severe THROAT AND Verified 07/17/24 17:09 [From Advair Diskus] TONGUE SWELLING clozapine [From Clozaril] AdvReac Depleted Verified 07/17/24 17:19 WBC hydrocodone [From [place]] AdvReac Nausea & Verified 07/17/24 17:09 Vomiting & Diarrhea Review of Systems ROS Statement: Those systems with pertinent positive or pertinent negative responses have been documented in the HPI. Review of Systems: CONST: Denies fever EYES: Denies blurry vision ENT: Denies nasal congestion C/V: Endorses chest pain RESP: Denies shortness of breath GI: Denies abdominal pain : Denies dysuria SKIN: Denies rash. MSK: Denies joint pain. NEURO: Denies headache ROS Other: All systems not noted in ROS Statement are negative. Past Medical History Past Medical History: Asthma, Blood Disorder, GERD/Reflux, Liver Disease, Osteoarthritis (OA), Rheumatoid Arthritis (RA), Thyroid Disorder Additional Past Medical History / Comment(s): Had hole in heart at , resolved during infancy. HX CHILDHOOD ASTHMA. Medication Induced Leukocytopenia, medication induced Cirrohsis, hypothyroid. History of Any Multi-Drug Resistant Organisms: None Reported Past Surgical History: Back Surgery, Section, Cholecystectomy, Orthopedic Surgery, Tubal Ligation Additional Past Surgical History / Comment(s): Pain clinic procedure, X4, CYST REMOVED FROM LEFT HAND X2, right foot surgery X3,(with metal) left foot surgery (with metal), right shoulder spur surgery. Past Anesthesia/Blood Transfusion Reactions: No Reported Reaction Additional Past Anesthesia/Blood Transfusion Reaction / Comment(s): Difficult IV start. Past Psychological History: Anxiety, Bipolar, Depression Smoking Status: Former smoker Past Alcohol Use History: Occasional Past Drug Use History: Marijuana - Past Family History Mother Family Medical History: Cancer, Pulmonary Embolus Father Additional Family Medical History / Comment(s): Alcoholic. Sister(s) Family Medical History: Cancer Brother(s) Family Medical History: Cancer General Exam - General Exam Comments Initial Comments: General: Appears in no acute distress. HEAD: Normal with no signs of head trauma. EYES: PERRLA, EOMI, conjunctiva normal, no discharge. ENT: Hearing grossly intact, normal oropharynx. RESPIRATORY: Clear breath sounds bilaterally. No wheezes, rales, or rhonchi. C/V: Regular rate and rhythm. S1 and S2 auscultated, mild symmetrical lower extremity pitting edema, peripheral pulses 2+ and intact throughout. Chest pain not reproducible on palpation. ABD: Abd is soft, nontender, nondistended EXT: No obvious deformity. SKIN: No rashes or lesions observed on exposed skin. NEURO: Alert and oriented x 4. Limitations: no limitations Course Vital Signs 07/17/24 07/17/24 07/17/24 14:50 15:32 16:34 Temperature 98.2 F Pulse Rate 105 H 100 65 Pulse Rate [ Cylindrical Mixer ] Respiratory 16 20 16 Rate Blood Pressure 134/64 152/72 130/64 O2 Sat by Pulse 96 100 98 Oximetry 07/17/24 07/17/24 17:39 18:36 Temperature Pulse Rate 85 Pulse Rate [ 75 Cylindrical Mixer ] Respiratory 16 Rate Blood Pressure 106/68 O2 Sat by Pulse 98 Oximetry Medical Decision Making - Medical Decision Making Was pt. sent in by a medical professional or institution (Dr. PA, [employer], urgent care, hospital, or snf...) When possible be specific @ -No Did you speak to anyone other than the patient for history (EMS, parent, family, police, friend...)? What history was obtained from this source @ -No Did you review nursing and triage notes (agree or disagree)? Why? @ -I reviewed and agree with nursing and triage notes Were old charts reviewed (outside hosp., previous admission, EMS record, old EKG, old radiological studies, urgent care reports/EKG's, snf records)? Report findings @ -No old charts were reviewed Differential Diagnosis (chest pain, altered mental status, abdominal pain women, abdominal pain men, vaginal bleeding, weakness, fever, dyspnea, syncope, headache, dizziness, GI bleed, back pain, seizure, CVA, palpatations, mental health, musculoskeletal)? @ -Differential Chest Pain: Stable Angina, Unstable Angina, STEMI, NSTEMI Aortic Dissection, Pneumothorax, Musculoskeletal, Esophageal Spasm GERD, Cholecystitis, Pancreatitis, Zoster, this is not meant to be an all-inclusive list. EKG interpreted by me (3pts min.). @ -As above X-rays interpreted by me (1pt min.). @ -Chest x-ray reveals no obvious acute cardiopulmonary process. CT interpreted by me (1pt min.). @ -None done U/S interpreted by me (1pt. min.). @ -None done What testing was considered but not performed or refused? (CT, X-rays, U/S, labs)? Why? @ -None What meds were considered but not given or refused? Why? @ -None Did you discuss the management of the patient with other professionals (professionals i.e. , PA, [employer], lab, RT, psych nurse, social service worker, commercial print salesman, teacher, bsa/aml compliance officer, supportive employment case manager)? Give summary @ -Discussed with Dr. Shah who accepted the admission. Was smoking cessation discussed for >3mins.? @ -No Was critical care preformed (if so, how long)? @ -No Were there social determinants of health that impacted care today? How? (Homelessness, low income, unemployed, alcoholism, drug addiction, lofton sportation, low edu. Level, literacy, decrease access to med. care, nursing home, rehab)? @ -No Was there de-escalation of care discussed even if they declined (Discuss DNR or withdrawal of care, Hospice)? DNR status @ -No What co-morbidities impacted this encounter? (DM, HTN, Smoking, COPD, CAD, Cancer, CVA, ARF, Chemo, Hep., AIDS, mental health diagnosis, sleep apnea, morbid obesity)? @ -None Was patient admitted / discharged? Hospital course, mention meds given and route, prescriptions, significant lab abnormalities, going to OR and other pertinent info. @ -Based on patient's presentation and physical exam, presents with chest pain. Does have significant family cardiac history. Chest pain has been present on and off for the last 3 days but is currently present. Patient will be given nitro, as well as 324 mg of aspirin. She was in agreement this plan. Vital signs are within acceptable limits. EKG shows no signs of acute ischemia. Laboratory studies remarkable for hypomagnesemia, hypokalemia, as well as an undetectable troponin. Chest x-ray showed no signs of acute cardiopulmonary process. Patient's chest pain completely resolved with 1 nitroglycerin tablet. Patient will be get placed on Nitropaste. Given IV magnesium and oral potassium supplementation. I discussed with the patient and due to her family history as well as resolution of her chest pain with nitro, patient will be admitted to the hospital for cardiac observation. She was in agreement this plan. BMP returned within acceptable limits for her age. Chest x-ray showed no evidence of pulmonary vascular congestion Cardiology consulted. Echo ordered. I spoke with the admitting provider, Dr. Shah who accepted the admission. Undiagnosed new problem with uncertain prognosis? @ -No Drug Therapy requiring intensive monitoring for toxicity (Heparin, Nitro, Insulin, Cardizem)? @ -No Were any procedures done? @ -No Diagnosis/symptom? @ -Chest pain, hypomagnesemia, hypokalemia Acute, or Chronic, or Acute on Chronic? @ -Acute Uncomplicated (without systemic symptoms) or Complicated (systemic symptoms)? @ -Complicated Side effects of treatment? @ -No Exacerbation, Progression, or Severe Exacerbation? @ -No Poses a threat to life or bodily function? How? (Chest pain, [place], PR, pneumonia, PE, COPD, DKA, ARF, appy, cholecystitis, CVA, Diverticulitis, Homicidal, Suicidal, threat to staff... and all critical care pts) @ -Potentially, yes - Lab Data Result diagrams: 07/17/24 15:15 07/17/24 15:15 Lab Results 07/17/24 07/17/24 07/17/24 Range/Units 15:15 15:15 15:15 WBC 6.60 (4.50-10.00) 10*3/uL RBC 4.20 (4.10-5.20) 10*6/uL Hgb 13.0 (12.0-15.0) g/dL Hct 37.0 L (37.2-46.3) % MCV 88.1 (80.0-97.0) fL MCH 31.0 (27.0-32.0) pg MCHC 35.1 (32.0-37.0) g/dL Plt Count 185 (140-440) 10*3/uL MPV 11.9 (9.5-12.2) fL Immature Gran % (Auto) 0.3 % Neutrophils % 64.7 % Lymphocytes % 23.2 % Monocytes % 9.8 % Eosinophils % 1.5 % Basophils % 0.5 % Immature Gran # 0.02 (0.00-0.04) 10*3/uL Neutrophils # 4.27 (1.80-7.70) 10*3/uL Lymphocytes # 1.53 (0.90-5.00) 10*3/uL Monocytes # 0.65 (0.20-1.00) 10*3/uL Eosinophils # 0.10 (0.04-0.35) 10*3/uL Basophils # 0.03 (0.00-0.10) 10*3/uL PT 10.5 (10.0-12.5) sec INR 0.9 (<1.2) APTT 22.4 (22.0-30.0) sec Sodium 137 (137-145) mmol/L Potassium 3.4 L (3.5-5.1) mmol/L Chloride 102 (98-107) mmol/L Carbon Dioxide 26 (22-30) mmol/L Anion Gap 9 mmol/L BUN 10 (7-17) mg/dL Creatinine 0.90 (0.52-1.04) mg/dL Est GFR (CKD-EPI)AfAm 89 (>60 ml/min/1.73 sqM) Est GFR (CKD-EPI)NonAf 77 (>60 ml/min/1.73 sqM) Glucose 90 (74-99) mg/dL Calcium 9.3 (8.4-10.2) mg/dL Magnesium 1.5 L (1.6-2.3) mg/dL Total Bilirubin 0.4 (0.2-1.3) mg/dL AST 30 (14-36) U/L ALT 17 (4-34) U/L Alkaline Phosphatase 129 H (38-126) U/L Troponin I (0.000-0.034) ng/mL NT-Pro-B Natriuret Pep 66 pg/mL Total Protein 6.9 (6.3-8.2) g/dL Albumin 4.3 (3.5-5.0) g/dL 07/17/24 Range/Units 15:15 WBC (4.50-10.00) 10*3/uL RBC (4.10-5.20) 10*6/uL Hgb (12.0-15.0) g/dL Hct (37.2-46.3) % MCV (80.0-97.0) fL MCH (27.0-32.0) pg MCHC (32.0-37.0) g/dL Plt Count (140-440) 10*3/uL MPV (9.5-12.2) fL Immature Gran % (Auto) % Neutrophils % % Lymphocytes % % Monocytes % % Eosinophils % % Basophils % % Immature Gran # (0.00-0.04) 10*3/uL Neutrophils # (1.80-7.70) 10*3/uL Lymphocytes # (0.90-5.00) 10*3/uL Monocytes # (0.20-1.00) 10*3/uL Eosinophils # (0.04-0.35) 10*3/uL Basophils # (0.00-0.10) 10*3/uL PT (10.0-12.5) sec INR (<1.2) APTT (22.0-30.0) sec Sodium (137-145) mmol/L Potassium (3.5-5.1) mmol/L Chloride (98-107) mmol/L Carbon Dioxide (22-30) mmol/L Anion Gap mmol/L BUN (7-17) mg/dL Creatinine (0.52-1.04) mg/dL Est GFR (CKD-EPI)AfAm (>60 ml/min/1.73 sqM) Est GFR (CKD-EPI)NonAf (>60 ml/min/1.73 sqM) Glucose (74-99) mg/dL Calcium (8.4-10.2) mg/dL Magnesium (1.6-2.3) mg/dL Total Bilirubin (0.2-1.3) mg/dL AST (14-36) U/L ALT (4-34) U/L Alkaline Phosphatase (38-126) U/L Troponin I <0.012 (0.000-0.034) ng/mL NT-Pro-B Natriuret Pep pg/mL Total Protein (6.3-8.2) g/dL Albumin (3.5-5.0) g/dL - EKG Data -: EKG Interpreted by Me EKG Comments: 12-lead Electrocardiogram Interpretation Note EKG was reviewed and interpreted by myself. 12-lead ECG performed at 1458 is interpreted by me as revealing normal sinus rhythm at a rate of 96 beats per minute. [place] is normal. AL interval is 157 ms, QRS durations 112 ms, QTc is 4 25 ms.. There were no ST or T wave abnormalities to suggest myocardial ischemia or injury. R wave progression across the precordium was satisfactory. By my interpretation this EKG is non-diagnostic for acute ischemia. Disposition Clinical Impression: Chest pain, Hypomagnesemia, Hypokalemia Disposition: ADMITTED IP TO THIS HOSP Condition: Stable Time of Disposition: 17:05
[2024-07-17] MEDS ORDERED: Magnesium Replacement Protocol 1 EACH MISC MISCELLANE PRN (17:11)
[2024-07-17] MEDS ORDERED: ALBUTEROL NEBULIZED 2.5 MG/3 ML INHALATION PRN (17:30)
[2024-07-17] MEDS: NITROGLYCERIN OINT 1 INCH/GM PACKET TOPICAL SCH (17:34)
[2024-07-17] MEDS: MAGNESIUM SULFATE-D5W PMX 1 GM in DEXTROSE/WATER 1 100ML.BAG IVPB SCH (17:35)
--- NOTE | 2024-07-17 17:38 | P.HPIM ---
History of Present Illness H&P Date: 07/17/24 Patient is a 44-year-old female with past medical history of rheumatoid arthritis, hypothyroidism, former smoker for [id number], GERD, lumbar spondylosis with stenosis and radiculopathy, L3 pelvis decompression and fusion along with bilateral SI joint fusion, who presented to the ER for evaluation of chest pain. Patient shares that she has been following up with her PCP for bilateral lower extremity edema over the past couple months and was started on Lasix with no improvement. 2 days ago she started having sharp left-sided nonradiating chest pain, pain is not associated with physical activity, usually starts at rest lasts couple minutes and then resolves on its own. She noted significant improvement of pain after nitroglycerin was provided in the ER. She denies any exertional chest pain. She does have past medical history of tobacco abuse [id number] smoking history, quit 3 years ago, she is a current marijuana user, smokes daily. Denies any alcohol or other drug use. She has positive family history for cardiac diseases, her mother had open heart surgery at the age of 7, patient lost 3 babies due to congenital heart abnormalities including left ventricular defect and tetralogy of Fallot. On arrival patient is afebrile, tachycardic in 100s, heart rate then improved to 60s, blood pressure 134/64, satting well on room air. Lab work significant for unremarkable CBC and coagulation panel, sodium normal, potassium mildly decreased at 3.4, normal bicarb, creatinine, AST and ALT, magnesium low 1.5, glucose 90, troponin negative, BNP negative. TSH a month ago was normal 2.3 Chest x-ray personally reviewed and showed no acute process. EKG showed sinus tachycardia with no acute ST changes. Pertinent positives and negatives as discussed in HPI, a complete review of systems was performed and all other systems are negative. Patient seen and examined at bedside. [] Vital signs reviewed General: nontoxic, no distress, appears at stated age, appears older than stated age Derm: warm, dry Head: atraumatic, normocephalic, symmetric Eyes: EOMI, no lid lag, anicteric sclera, pupils equal round reactive to light ENT: Nose and ears atraumatic, poor dentition Neck: No thyromegaly, supple Mouth: no lip lesion, mucus membranes moist Cardiovascular: S1S2 reg, no murmur, bilateral pitting lower extremity edema Lungs: clear to auscultation bilateral, no rhonchi, no rales, no wheeze, no accessory muscle use Abdominal: soft, nontender to palpation, no guarding, no appreciable organomegaly Ext: no gross muscle atrophy, muscle strength muscle strength 5 out of 5 in all 4 extremities, no contractures Neuro: CN II-XII grossly intact Psych: Alert, oriented, appropriate affect Assessment/Plan: Chest pain -Cardiology consulted, appreciate recommendations - TTE ordered, pending -Trend troponins - TSH was checked 1 month ago, no need to redraw - Lipid panel ordered and pending, A1c ordered and pending - Continue telemetry - Continue aspirin 81 mg daily -Continu nitroglycerin ointment every 8 hours Hypokalemia Hypomagnesemia -Provided with magnesium 1 g and potassium 40 mEq orally, recheck electrolytes in the morning [Chronic:] Bilateral lower extremity edema -Continue home Lasix 20 p.o. daily Marijuana use disorder -Counseled on importance of smoking cessation, demonstrated understanding hypothyroidism -Continue home levothyroxine 100 mcg daily GERD -Continue home pantoprazole 40 mg twice daily rheumatoid arthritis lumbar spondylosis with stenosis and radiculopathy, L3 pelvis decompression and fusion along with bilateral SI joint fusion -Continue gabapentin 400 mg 3 times daily, Flexeril 10 mg p.o. twice daily -On abatacept 125 mg subcu MO Restless leg syndrome: Continue lurasidone 60 mg p.o. daily Depression: Continue trazodone 100 mg nightly, duloxetine 200 mg p.o. daily, lamotrigine 200 mg p.o. twice daily The patient is admitted with an anticipated less than 2 midnight stay as observation status for evaluation of chest pain. CODE STATUS: Full code DVT prophylaxis: Lovenox Anticipated discharge date: TBD Anticipated discharge place: TBD A total of [] minutes was spent on the care of this complex patient more than 50% of the time was spent in counseling and care coordination. Past Medical History Past Medical History: Asthma, Blood Disorder, GERD/Reflux, Liver Disease, Osteoa rthritis (OA), Rheumatoid Arthritis (RA), Thyroid Disorder Additional Past Medical History / Comment(s): Had hole in heart at , resolved during infancy. HX CHILDHOOD ASTHMA. Medication Induced Leukocytopenia, medication induced Cirrohsis, hypothyroid. History of Any Multi-Drug Resistant Organisms: None Reported Past Surgical History: Back Surgery, Section, Cholecystectomy, Orthopedic Surgery, Tubal Ligation Additional Past Surgical History / Comment(s): Pain clinic procedure, X4, CYST REMOVED FROM LEFT HAND X2, right foot surgery X3,(with metal) left foot surgery (with metal), right shoulder spur surgery. Past Anesthesia/Blood Transfusion Reactions: No Reported Reaction Additional Past Anesthesia/Blood Transfusion Reaction / Comment(s): Difficult IV start. Past Psychological History: Anxiety, Bipolar, Depression Smoking Status: Former smoker Past Alcohol Use History: Occasional Past Drug Use History: Marijuana - Past Family History Mother Family Medical History: Cancer, Pulmonary Embolus Father Additional Family Medical History / Comment(s): Alcoholic. Sister(s) Family Medical History: Cancer Brother(s) Family Medical History: Cancer Medications and Allergies Home Medications Medication Instructions Recorded Confirmed Type Pantoprazole [Protonix] 40 mg PO BID 03/20/19 07/17/24 History Abatacept [Orencia] 125 mg SQ MO 09/19/20 07/17/24 History Montelukast [Singulair] 10 mg PO HS 09/19/20 07/17/24 History Acetylcysteine [Nac] 600 mg PO HS 05/26/21 07/17/24 History lamoTRIgine [LaMICtal] 200 mg PO BID 05/26/21 07/17/24 History rOPINIRole HCL [Requip] 1 mg PO HS 07/24/22 07/17/24 History Gabapentin [Neurontin] 400 mg PO TID #90 cap 09/09/23 07/17/24 Rx Albuterol Sulfate/Budesonide 1 puff INHALATION RT-QID PRN 07/17/24 07/17/24 History [Airsupra 90-80 Mcg Inhaler] Cholecalciferol [Vitamin D3 (25 50 mcg PO BID 07/17/24 07/17/24 History Mcg = 1000 Iu)] Cyclobenzaprine [Flexeril] 10 mg PO BID 07/17/24 07/17/24 History Furosemide [Lasix] 20 mg PO DAILY 07/17/24 07/17/24 History Levothyroxine Sodium [Synthroid] 100 mcg PO DAILY 07/17/24 07/17/24 History Lurasidone [Latuda] 60 mg PO DAILY@1900 07/17/24 07/17/24 History Viloxazine HCl [Qelbree] 200 mg PO DAILY 07/17/24 07/17/24 History traZODone HCL 100 mg PO HS 07/17/24 07/17/24 History Allergies Allergy/AdvReac Type Severity Reaction Status Date / Time fluticasone Allergy Severe THROAT AND Verified 07/17/24 17:09 [From Advair Diskus] TONGUE SWELLING salmeterol Allergy Severe THROAT AND Verified 07/17/24 17:09 [From Advair Diskus] TONGUE SWELLING clozapine [From Clozaril] AdvReac Depleted Verified 07/17/24 17:19 WBC hydrocodone [From [place]] AdvReac Nausea & Verified 07/17/24 17:09 Vomiting & Diarrhea Physical Exam Vitals: Vital Signs Temp Pulse Resp BP Pulse Ox 07/17/24 16:34 65 16 130/64 98 07/17/24 15:32 100 20 152/72 100 07/17/24 14:50 98.2 F 105 H 16 134/64 96 Intake and Output 07/17/24 07/17/24 07/17/24 06:59 14:59 22:59 Other: Weight 92.986 kg Results CBC & Chem 7: 07/17/24 15:15 07/17/24 15:15 Labs: Abnormal Lab Results - Last 24 Hours (Table) 07/17/24 07/17/24 Range/Units 15:15 15:15 Hct 37.0 L (37.2-46.3) % Potassium 3.4 L (3.5-5.1) mmol/L Magnesium 1.5 L (1.6-2.3) mg/dL Alkaline Phosphatase 129 H (38-126) U/L
[2024-07-17] MEDS: PANTOPRAZOLE 40 MG TABLET PO SCH (18:09)
[2024-07-17] MEDS: LURASIDONE 60 MG TAB PO SCH (18:26)
[2024-07-17] MEDS: GABAPENTIN 400 MG CAP PO SCH (21:40)
[2024-07-17] MEDS: MONTELUKAST 10 MG TAB PO SCH (21:40)
[2024-07-17] MEDS: CYCLOBENZAPRINE 10 MG TAB PO SCH (21:41)
[2024-07-17] MEDS: lamoTRIgine 100 MG TAB PO SCH (21:41)
[2024-07-17] MEDS: traZODone HCL 100 MG TAB PO SCH (21:41)
[2024-07-18 02:38] LABS: LDL Cholesterol,Calculated 69.7 mg/dL (0.0-131.0)
[2024-07-18] MEDS: LEVOTHYROXINE 100 MCG TAB PO SCH (05:48)
[2024-07-18] MEDS: ACETAMINOPHEN TAB 325 MG TAB PO PRN (05:48)
[2024-07-18 07:34] VITALS: BP 122/75; PULSE 88; RESP 18; TEMP 98.1
[2024-07-18 08:30] LABS: Anion Gap 13 mmol/L (4.00-12.00); BUN/Creat Ratio 10.44 Ratio (12.00-20.00)
[2024-07-18 09:33] LABS: Blood Urea Nitrogen 9.4 mg/dL (9.0-27.0); Calcium 8.9 mg/dL (8.7-10.3); Carbon Dioxide 22.4 mmol/L (21.6-31.8); Chloride 108 mmol/L (96-109); Glucose 109 mg/dL (70-110); Potassium 3.7 mmol/L (3.5-5.5); Sodium 143 mmol/L (135-145)
[2024-07-18] MEDS: FUROSEMIDE 20 MG TAB PO SCH (10:37)
[2024-07-18] MEDS: ASPIRIN 81 MG PO SCH (10:37)
[2024-07-18] MEDS: ENOXAPARIN 40 MG/0.4 ML SYRINGE SQ SCH (10:37)
[2024-07-18] MEDS: VILOXAZINE HCL 200 MG PO SCH (10:39)
--- NOTE | 2024-07-18 10:39 | P.CRDCN ---
History of Present Illness History of present illness: HISTORY OF PRESENT ILLNESS: This is a 44-year-old female with a past medical history significant for asthma, rheumatoid arthritis, GERD, and hypothyroidism. Patient follows in the office with Dr. Torres but has not been seen in the office since June 2022. We have been asked to see the patient in consultation for chest pain. Patient examined at the bedside. Patient states about a month ago she went to her primary care physician with complaints of lower extremity swelling. She states that an echocardiogram was ordered. The patient was also started on Lasix. She states that her echocardiogram is not scheduled until July. She reports that yesterday she began having chest pain. She states the pain was on the left side of her chest. The pain was not exertionally related. She denied having any shortness of breath. She states the pain would last for about 3 to 4 minutes and then go away. She denies any chest pain or pressure at the time of examination. She is a former cigarette smoker and quit smoking 3 years ago. She denies adding salt to her food but does report eating a lot of food that is already high in sodium. DIAGNOSTICS: - EKG reveals sinus mechanism with no signs of acute ischemia. - Chest xray negative for acute process. - Laboratory data: WBC 6.6. Hemoglobin 13.0. Platelet count 185. Sodium 143. Potassium 3.7. BUN 9.4. Creatinine 0.9. Troponin negative x 3. proBNP 66. - Current home cardiac medications include Lasix 20 mg daily. - Most recent echocardiogram obtained in June 2022 revealing ejection fraction 55 to 60%, mild MR, mild TR - Cardiac catheterization history: 07/28/[address] Torres revealing normal coronary arteries REVIEW OF SYSTEMS: At the time of my exam: CONSTITUTIONAL: Denies fever or chills. HEENT: Denies blurred vision, vision changes, or eye pain. Denies hemoptysis CARDIOVASCULAR: Denies chest pain. Denies orthopnea. Denies PND. Denies palpitations RESPIRATORY: Denies shortness of breath. GASTROINTESTINAL: Denies abdominal pain. Denies nausea or vomiting. HEMATOLOGIC: Denies bleeding disorders. GENITOURINARY: Denies any blood in urine. SKIN: Denies pruitis. Denies rash. PHYSICAL EXAM: VITAL SIGNS: Reviewed. GENERAL: Well-developed in no acute distress. HEENT: Head is normocephalic. Pupils are equal, round. Sclerae anicteric. Mucous membranes of the mouth are moist. Neck supple. No JVD or thyromegaly LUNGS: Respirations even and unlabored. Lungs essentially clear to auscultation bilaterally. HEART: Regular rate and rhythm. S1 and S2 heard. ABDOMEN: Soft. Nondistended. Nontender. EXTREMITIES: Normal range of motion. No clubbing or cyanosis. Peripheral pulses intact. Minimal lower extremity edema NEUROLOGIC: Awake and alert. Oriented x 3. ASSESSMENT: Chest pain, troponin negative x 3 Normal coronary arteries, per cath 07/2022 History of asthma History of rheumatoid arthritis History of GERD Hypothyroidism Obesity: BMI 33.1 PLAN: An acute coronary event has been ruled out Educated patient on low-sodium diet Obtain 2D echo to assess cardiac structure and function Patient to undergo stress echocardiogram today If negative, patient may be discharged home from a cardiac standpoint Nurse practitioner note has been reviewed by physician. Signing provider agrees with the documented findings, assessment, and plan of care documented by HUMAN FACTORS ERGONOMIST as a scribe. Past Medical History Past Medical History: Asthma, Blood Disorder, GERD/Reflux, Liver Disease, Osteoarthritis (OA), Rheumatoid Arthritis (RA), Thyroid Disorder Additional Past Medical History / Comment(s): Had hole in heart at , resolved during infancy. HX CHILDHOOD ASTHMA. Medication Induced Leukocytopenia, medication induced Cirrohsis, hypothyroid. History of Any Multi-Drug Resistant Organisms: None Reported Past Surgical History: Back Surgery, Section, Cholecystectomy, Orthopedic Surgery, Tubal Ligation Additional Past Surgical History / Comment(s): Pain clinic procedure, X4, CYST REMOVED FROM LEFT HAND X2, right foot surgery X3,(with metal) left foot surgery (with metal), right shoulder spur surgery. Past Anesthesia/Blood Transfusion Reactions: No Reported Reaction Additional Past Anesthesia/Blood Transfusion Reaction / Comment(s): Difficult IV start. Past Psychological History: Anxiety, Bipolar, Depression Additional Psychological History / Comment(s): BPD Smoking Status: Former smoker Past Alcohol Use History: Occasional Additional Past Alcohol Use History / Comment(s): Started smoking in 1990, 1ppd, quit 02/2021. Past Drug Use History: Marijuana Additional Drug Use History / Comment(s): Daily Marijuana use. INSTRUCTED TO REFRAIN FROM USE 24 HOURS PRIOR TO PROCEDURE. - Past Family History Mother Family Medical History: Cancer, Pulmonary Embolus Father Additional Family Medical History / Comment(s): Alcoholic. Sister(s) Family Medical History: Cancer Brother(s) Family Medical History: Cancer Medications and Allergies Home Medications Medication Instructions Recorded Confirmed Type Pantoprazole [Protonix] 40 mg PO BID 03/20/19 07/17/24 History Abatacept [Orencia] 125 mg SQ MO 09/19/20 07/17/24 History Montelukast [Singulair] 10 mg PO HS 09/19/20 07/17/24 History Acetylcysteine [Nac] 600 mg PO HS 05/26/21 07/17/24 History lamoTRIgine [LaMICtal] 200 mg PO BID 05/26/21 07/17/24 History rOPINIRole HCL [Requip] 1 mg PO HS 07/24/22 07/17/24 History Gabapentin [Neurontin] 400 mg PO TID #90 cap 09/09/23 07/17/24 Rx Albuterol Sulfate/Budesonide 1 puff INHALATION RT-QID PRN 07/17/24 07/17/24 Hi story [Airsupra 90-80 Mcg Inhaler] Cholecalciferol [Vitamin D3 (25 50 mcg PO BID 07/17/24 07/17/24 History Mcg = 1000 Iu)] Cyclobenzaprine [Flexeril] 10 mg PO BID 07/17/24 07/17/24 History Furosemide [Lasix] 20 mg PO DAILY 07/17/24 07/17/24 History Levothyroxine Sodium [Synthroid] 100 mcg PO DAILY 07/17/24 07/17/24 History Lurasidone [Latuda] 60 mg PO DAILY@1900 07/17/24 07/17/24 History Viloxazine HCl [Qelbree] 200 mg PO DAILY 07/17/24 07/17/24 History traZODone HCL 100 mg PO HS 07/17/24 07/17/24 History Allergies Allergy/AdvReac Type Severity Reaction Status Date / Time fluticasone Allergy Severe THROAT AND Verified 07/17/24 17:09 [From Advair Diskus] TONGUE SWELLING salmeterol Allergy Severe THROAT AND Verified 07/17/24 17:09 [From Advair Diskus] TONGUE SWELLING clozapine [From Clozaril] AdvReac Depleted Verified 07/17/24 17:19 WBC hydrocodone [From [place]] AdvReac Nausea & Verified 07/17/24 17:09 Vomiting & Diarrhea Physical Exam Vitals: Vital Signs Temp Pulse Pulse Pulse Resp BP BP 07/18/24 07:03 98.1 F 88 18 122/75 07/18/24 03:01 98.0 F 91 16 118/70 07/17/24 20:41 98.1 F 88 17 109/68 07/17/24 18:36 75 07/17/24 17:39 85 16 106/68 07/17/24 16:34 65 16 130/64 07/17/24 15:32 100 20 152/72 07/17/24 14:50 98.2 F 105 H 16 134/64 Pulse Ox 07/18/24 07:03 98 07/18/24 03:01 96 07/17/24 20:41 95 07/17/24 18:36 07/17/24 17:39 98 07/17/24 16:34 98 07/17/24 15:32 100 07/17/24 14:50 96 Intake and Output 07/17/24 07/18/24 07/18/24 22:59 06:59 14:59 Other: Voiding Method Toilet # Voids 1 2 Weight 92.986 kg Results 07/17/24 15:15 07/18/24 05:53 Cardiac Enzymes 07/17/24 07/17/24 07/17/24 Range/Units 15:15 15:15 18:34 AST 30 (14-36) U/L Troponin I <0.012 <0.012 (0.000-0.034) ng/mL 07/17/24 Range/Units 21:50 AST (14-36) U/L Troponin I <0.012 (0.000-0.034) ng/mL Coagulation 07/17/24 Range/Units 15:15 PT 10.5 (10.0-12.5) sec APTT 22.4 (22.0-30.0) sec Lipids 07/17/24 Range/Units 18:35 Triglycerides 107.00 (0.00-149.00) mg/dL Cholesterol 152.00 (0.00-200.00) mg/dL HDL Cholesterol 60.90 H (40.00-60.00) mg/dL Cholesterol/HDL Ratio 2.50 Ratio CBC 07/17/24 Range/Units 15:15 WBC 6.60 (4.50-10.00) 10*3/uL RBC 4.20 (4.10-5.20) 10*6/uL Hgb 13.0 (12.0-15.0) g/dL Hct 37.0 L (37.2-46.3) % Plt Count 185 (140-440) 10*3/uL Comprehensive Metabolic Panel 07/17/24 07/18/24 Range/Units 15:15 05:53 Sodium 137 143 (137-145) mmol/L Potassium 3.4 L 3.7 (3.5-5.1) mmol/L Chloride 102 108 (98-107) mmol/L Carbon Dioxide 26 22.4 (22-30) mmol/L BUN 10 9.4 (7-17) mg/dL Creatinine 0.90 0.9 (0.52-1.04) mg/dL Glucose 90 109 (74-99) mg/dL Calcium 9.3 8.9 (8.4-10.2) mg/dL AST 30 (14-36) U/L ALT 17 (4-34) U/L Alkaline Phosphatase 129 H (38-126) U/L Total Protein 6.9 (6.3-8.2) g/dL Albumin 4.3 (3.5-5.0) g/dL Current Medications Generic Name Dose Route Start Last Admin Trade Name Freq PRN Reason Stop Dose Admin Acetaminophen 650 mg 07/18/24 05:32 07/18/24 05:48 Acetaminophen Tab 325 Mg Tab PO 650 mg Q6HR PRN Administration Fever and/ or Pain Albuterol Sulfate 2.5 mg 07/17/24 17:30 Albuterol Nebulized 2.5 Mg/3 Ml INHALATION RT-QID PRN Shortness Of Breath Aspirin 81 mg 07/18/24 09:00 Aspirin 81 Mg PO DAILY [facility] Cyclobenzaprine HCl 10 mg 07/17/24 21:00 07/17/24 21:41 Cyclobenzaprine 10 Mg Tab PO 10 mg BID CARLEY Administration Enoxaparin Sodium 40 mg 07/18/24 09:00 Enoxaparin 40 Mg/0.4 Ml Syringe SQ DAILY [facility] Furosemide 20 mg 07/18/24 09:00 Furosemide 20 Mg Tab PO DAILY [facility] Gabapentin 400 mg 07/17/24 22:00 07/17/24 21:40 Gabapentin 400 Mg Cap PO 400 mg TID CARLEY Administration Lamotrigine 200 mg 07/17/24 21:00 07/17/24 21:41 Lamotrigine 100 Mg Tab PO 200 mg BID CARLEY Administration Levothyroxine Sodium 100 mcg 07/18/24 06:30 07/18/24 05:48 Levothyroxine 100 Mcg Tab PO 100 mcg DAILY@0630 CARLEY Administration Lurasidone HCl 60 mg 07/17/24 19:00 07/17/24 18:26 Lurasidone 60 Mg Tab PO 60 mg DAILY@1900 CARLEY Administration Miscellaneous Information 1 each 07/17/24 17:11 Magnesium Replacement Protocol 1 Each Misc MISCELLANE DAILY PRN Per Protocol Protocol Montelukast Sodium 10 mg 07/17/24 21:00 07/17/24 21:40 Montelukast 10 Mg Tab PO 10 mg HS CARLEY Administration Naloxone HCl 0.2 mg 07/17/24 17:03 Naloxone 0.4 Mg/Ml 1 Ml Vial IV Q2M PRN Opioid Reversal Nitroglycerin 0.5 inch 07/17/24 18:00 07/18/24 01:54 Nitroglycerin Oint 1 Inch/Gm Packet TOPICAL Not Given Q8H [facility] Viloxazine Hcl [ 1 each 07/18/24 09:00 Qelbree] 200 Mg Cap. PO Er.24h DAILY [facility] Ondansetron HCl 4 mg 07/17/24 17:03 Ondansetron 4 Mg/2 Ml Vial IVP Q8HR PRN Nausea And Vomiting Pantoprazole Sodium 40 mg 07/17/24 18:00 07/18/24 05:48 Pantoprazole 40 Mg Tablet PO 40 mg AC-BID CARLEY Administration Ropinirole HCl 1 mg 07/17/24 21:00 07/17/24 21:41 Ropinirole Hcl 1 Mg Tab PO 1 mg HS CARLEY Administration Trazodone HCl 100 mg 07/17/24 21:00 07/17/24 21:41 Trazodone Hcl 100 Mg Tab PO 100 mg HS CARLEY Administration Intake and Output 07/17/24 07/18/24 07/18/24 22:59 06:59 14:59 Other: Voiding Method Toilet # Voids 1 2 Weight 92.986 kg 07/17/24 15:15 07/18/24 05:53
--- NOTE | 2024-07-18 11:12 | CA ---
Transthoracic Echo Report Name: Scarlett Bailey Age: 44 Gender: F : 1980 Exam Date: 07/18/2024 07:50 Exam Location: [facility] Ht (in): 66 Wt (lb): 205 Ordering Physician: Jose Ospina MD Attending/Referring Phys: Biological Technical Officer Brianna Sanabria RDCS Procedure CPT: Indications: Chest Pain Cardiac Hx: Technical Quality: Fair Contrast 1: Total Dose (mL): Contrast 2: Total Dose (mL): MEASUREMENTS (Male / Female) Normal Values 2D ECHO LV Diastolic Diameter PLAX 4.2 cm 4.2 - 5.9 / 3.9 - 5.3 cm LV Systolic Diameter PLAX 3.0 cm IVS Diastolic Thickness 0.9 cm 0.6 - 1.0 / 0.6 - 0.9 cm LVPW Diastolic Thickness 0.9 cm 0.6 - 1.0 / 0.6 - 0.9 cm LV Relative Wall Thickness 0.4 LVOT Diameter 1.8 cm LA Systolic Diameter LX 3.7 cm 3.0 - 4.0 / 2.7 - 3.8 cm LV Diastolic Volume MOD BP 129.5 cm??? 67 - 155 / 56 - 104 cm??? LV Systolic Volume MOD BP 51.6 cm??? 22 - 58 / 19 - 49 cm??? LV Ejection Fraction MOD BP 60.2 % >= 55 % LV Cardiac Index MOD BP 3574.1 cm???/min???m??? LV Diastolic Volume MOD 4C 115.4 cm??? LV Systolic Volume MOD 4C 50.1 cm??? LV Ejection Fraction MOD 4C 56.6 % LV Cardiac Index MOD 4C 2996.3 cm???/min???m??? LV Diastolic Length 4C 8.2 cm LV Systolic Length 4C 6.5 cm LV Diastolic Volume MOD 2C 136.6 cm??? LV Systolic Volume MOD 2C 50.4 cm??? LV Ejection Fraction MOD 2C 63.1 % LV Cardiac Index MOD 2C 3950.3 cm???/min???m??? LV Diastolic Length 2C 8.8 cm LV Systolic Length 2C 6.9 cm LA Volume 62.3 cm??? 18 - 58 / 22 - 52 cm??? LA Volume Index 29.4 cm???/m??? 16 - 28 cm???/m??? DOPPLER MV Peak Velocity 170.5 cm/s MV Peak Gradient 11.6 mmHg MV Mean Velocity 122.0 cm/s MV Mean Gradient 6.2 mmHg MV Velocity Time Integral 28.8 cm MV Area PHT 3.7 cm??? Mitral E Point Velocity 101.4 cm/s Mitral A Point Velocity 140.1 cm/s Mitral E to A Ratio 0.7 MV Deceleration Time 175.8 ms TR Peak Velocity 233.8 cm/s TR Peak Gradient 21.9 mmHg FINDINGS Left Ventricle Left ventricular ejection fraction is estimated at 55-60 %. Normal left ventricular systolic function with no obvious regional wall motion abnormalities. Left ventricular cavity size normal. Right Ventricle Normal right ventricular size and function. Right ventricular systolic pressure within normal limits. Right Atrium Normal right atrial size. Hypermobile interatrial septum Left Atrium Mildly increased left atrial volume. Mitral Valve Mitral annular calcification. Mean gradient across the Mitral valve is 6 mmhg. Trace mitral regurgitation. Aortic Valve Aortic valve not well visualized. . No aortic stenosis. No aortic regurgitation. Tricuspid Valve Structurally normal tricuspid valve. No tricuspid stenosis. Trace tricuspid regurgitation. Pulmonic Valve Pulmonic valve not well visualized. No pulmonic stenosis. No pulmonic regurgitation. Pericardium No pericardial effusion. Aorta Normal size aortic root and proximal ascending aorta. CONCLUSIONS Normal left ventricular size and systolic function Limited Doppler study with trace mitral and tricuspid regurgitation Previewed by: Dr. Julia Reaves MD (Electronically Signed) Final Date: 18 July 2024 11:12
--- NOTE | 2024-07-18 11:22 | CA ---
Stress Echo Report Scarlett Bailey Age: 44 Gender: F : 1980 Exam Date: 07/18/2024 09:29 Exam Location: [facility] Ht (in): 66 Wt (lb): 205 Ordering Physician: Liberty Cardenas Referring Physician: [id number] Fowler Quartz Cutter: ASMITA Technologist Procedure CPT: Indication: CP ICD-9 Codes: Rhythm: Patient History: Cardiac Medications: see chart Medications in past 24 hours: Contrast: N/A Stress Results Protocol: Ben Total dose(mL): NA Exercise Duration (min:sec): 5:[address] Depression (mm): Angina Score: William Score: METS: 7.0 Resting HR: 90 Resting BP: 123 / 67 Peak HR: 168 Peak BP: 203 / 45 Max Predicted HR: 174 97 % Max Predicted HR Target HR: 148 Double Product: [id number] Stress Summary: The patient's target heart rate was achieved BP Response: Normal Reason for Termination: MAX EXERTION/TARGET HR Cardiac Symptoms: NO SYMPTOMS ECG Analysis Resting ECG: Normal sinus rhythm, Right bundle branch block Stress ECG: No abnormal ST/T wave changes with exercise Arrhythmia: Occasional PVCs Echo Analysis Resting Echo: Normal resting echocardiogram. Peak Echo Analysis: Normal wall thickening and motion MEASUREMENTS (Male/Female) Normal Values CONCLUSIONS 1. Decreased exercise tolerance with nondiagnostic electrocardiographic stress test secondary baseline EKG abnormality 2. Occasional PVCs 3. Normal stress echocardiogram with no evidence of stress- induced ischemia Dr. Julia Reaves MD (Electronically Signed) Final Date: 18 July 2024 11:22
--- NOTE | 2024-07-18 11:52 | P.DS ---
Providers Date of admission: 07/17/24 17:04 Attending physician: Pilar Shah MD Consults: 07/17/24 17:02 Consult Physician Routine Consulting Provider: [facility] Consult Reason/Comments: chest pain Do you want consulting provider notified?: Yes Primary care physician: Terrance Dan MD Hospital Course: Discharge Diagnosis: Chest pain, ACS ruled out Hypokalemia Hypomagnesemia Bilateral lower extremity edema Marijuana use disorder Hypothyroidism GERD History of RA, depression, restless leg syndrome Hospital Course: Patient is a 44-year-old female with past medical history of rheumatoid arthritis, hypothyroidism, former smoker for [id number], GERD, lumbar spondylosis with stenosis and radiculopathy, L3 pelvis decompression and fusion along with bilateral SI joint fusion, who presented to the ER for evaluation of chest pain. Patient shares that she has been following up with her PCP for bilateral lower extremity edema over the past couple months and was started on Lasix with no improvement. 2 days ago she started having sharp left-sided nonradiating chest pain, pain is not associated with physical activity, usually starts at rest lasts couple minutes and then resolves on its own. She noted significant improvement of pain after nitroglycerin was provided in the ER. She denies any exertional chest pain. She does have past medical history of tobacco abuse [id number] smoking history, quit 3 years ago, she is a current marijuana user, smokes daily. Denies any alcohol or other drug use. She has positive family history for cardiac diseases, her mother had open heart surgery at the age of 7, patient lost 3 babies due to congenital heart abnormalities including left ventricular defect and tetralogy of Fallot. On arrival patient is afebrile, tachycardic in 100s, heart rate then improved to 60s, blood pressure 134/64, satting well on room air. Lab work significant for unremarkable CBC and coagulation panel, sodium normal, potassium mildly decreased at 3.4, normal bicarb, creatinine, AST and ALT, magnesium low 1.5, glucose 90, troponin negative, BNP negative. TSH a month ago was normal 2.3. A1c 5.3, lipid panel unremarkable. Troponin negative x 3 Chest x-ray personally reviewed and showed no acute process. EKG showed sinus tachycardia with no acute ST changes. Admitted under observation for evaluation of chest pain, cardiology consulted, recommended stress echo that was done on 07/18 and came back negative. Patient cleared for discharge home, patient to follow-up with primary care physician, low-sodium diet recommendations provided in the AVS Patient seen and examined at bedside.[] Vital signs reviewed and stable. General: nontoxic, no distress, appears at stated age, appears older than stated age Derm: warm, dry Head: atraumatic, normocephalic, symmetric Eyes: EOMI, no lid lag, anicteric sclera, pupils equal round reactive to light ENT: Nose and ears atraumatic, poor dentition Neck: No thyromegaly, supple Mouth: no lip lesion, mucus membranes moist Cardiovascular: S1S2 reg, no murmur, bilateral pitting lower extremity edema Lungs: clear to auscultation bilateral, no rhonchi, no rales, no wheeze, no accessory muscle use Abdominal: soft, nontender to palpation, no guarding, no appreciable organomegaly Ext: no gross muscle atrophy, muscle strength muscle strength 5 out of 5 in all 4 extremities, no contractures Neuro: CN II-XII grossly intact Psych: Alert, oriented, appropriate affect A total of 38 minutes of time were spent preparing this complex discharge summary. Patient was discharged on 07/18/2024. Patient Condition at Discharge: Stable Plan - Discharge Summary New Discharge Prescriptions: New Nitroglycerin Sl Tabs [Nitrostat] 0.4 mg SUBLINGUAL Q5M PRN #25 tab PRN Reason: Chest Pain Continue Pantoprazole [Protonix] 40 mg PO BID Abatacept [Orencia] 125 mg SQ MO Montelukast [Singulair] 10 mg PO HS Gabapentin [Neurontin] 400 mg PO TID #90 cap Viloxazine HCl [Qelbree] 200 mg PO DAILY Levothyroxine Sodium [Synthroid] 100 mcg PO DAILY traZODone HCL 100 mg PO HS Cholecalciferol [Vitamin D3 (25 Mcg = 1000 Iu)] 50 mcg PO BID Albuterol Sulfate/Budesonide [Airsupra 90-80 Mcg Inhaler] 1 puff INHALATION RT-QID PRN PRN Reason: Shortness Of Breath lamoTRIgine [LaMICtal] 200 mg PO BID Acetylcysteine [Nac] 600 mg PO HS rOPINIRole HCL [Requip] 1 mg PO HS Lurasidone [Latuda] 60 mg PO DAILY@1900 Cyclobenzaprine [Flexeril] 10 mg PO BID Furosemide [Lasix] 20 mg PO DAILY Discharge Medication List Pantoprazole [Protonix] 40 mg PO BID 03/20/19 [History] Abatacept [Orencia] 125 mg SQ MO 09/19/20 [History] Montelukast [Singulair] 10 mg PO HS 09/19/20 [History] Acetylcysteine [Nac] 600 mg PO HS 05/26/21 [History] lamoTRIgine [LaMICtal] 200 mg PO BID 05/26/21 [History] rOPINIRole HCL [Requip] 1 mg PO HS 07/24/22 [History] Gabapentin [Neurontin] 400 mg PO TID #90 cap 09/09/23 [Rx] Albuterol Sulfate/Budesonide [Airsupra 90-80 Mcg Inhaler] 1 puff INHALATION RT- QID PRN 07/17/24 [History] Cholecalciferol [Vitamin D3 (25 Mcg = 1000 Iu)] 50 mcg PO BID 07/17/24 [History] Cyclobenzaprine [Flexeril] 10 mg PO BID 07/17/24 [History] Furosemide [Lasix] 20 mg PO DAILY 07/17/24 [History] Levothyroxine Sodium [Synthroid] 100 mcg PO DAILY 07/17/24 [History] Lurasidone [Latuda] 60 mg PO DAILY@1900 07/17/24 [History] Viloxazine HCl [Qelbree] 200 mg PO DAILY 07/17/24 [History] traZODone HCL 100 mg PO HS 07/17/24 [History] Nitroglycerin Sl Tabs [Nitrostat] 0.4 mg SUBLINGUAL Q5M PRN #25 tab 07/18/24 [Rx] Follow up Appointment(s)/Referral(s): Terrance Dan MD [Primary Care Provider] - 1-2 days Patient Instructions/Handouts: Chest Pain (DC), Low-Sodium Diet (DC) Activity/Diet/Wound Care/Special Instructions: Please, follow up with your PCP,, follow low sodium diet. As we discussed, strongly recommend marijuana cessation Discharge Disposition: HOME SELF-CARE
== END 2024-07-18 12:13 | disposition home or self-care (01) ==
LOC: EC 14:48 → 6NMEDSUR 17:04
PROVIDERS: ADMIT Student in an Organized Health Care Education/Training Program; ATTEND Student in an Organized Health Care Education/Training Program
DX: R07.9 Chest pain, unspecified (principal); E83.42 Hypomagnesemia; E87.6 Hypokalemia; R60.0 Localized edema; E03.9 Hypothyroidism, unspecified; E66.9 Obesity, unspecified; K21.9 Gastro-esophageal reflux disease without esophagitis; M06.9 Rheumatoid arthritis, unspecified; M48.061 Spinal stenosis, lumbar region without neurogenic claudication; M47.26 Other spondylosis with radiculopathy, lumbar region; F31.9 Bipolar disorder, unspecified; F41.9 Anxiety disorder, unspecified; G25.81 Restless legs syndrome; J45.909 Unspecified asthma, uncomplicated; Z88.5 Allergy status to narcotic agent; Z88.8 Allergy status to other drugs, medicaments and biological substances; Z79.890 Hormone replacement therapy; Z79.899 Other long term (current) drug therapy; Z98.1 Arthrodesis status; Z87.891 Personal history of nicotine dependence; Z68.33 Body mass index [BMI] 33.0-33.9, adult
CPT/HCPCS: 96372; 96365; 96366; 99285; 36415; 93005; 93306; 93351; 83880; 80061; 80053; 80048; 83735 ×2; 84484; 85025; 85610; 85730; 83036; 71046; G0378 ×2; J1650; J3475

== ENCOUNTER 2024-09-26 10:35 | Emergency (ER) | payer OTHER ==
[2024-09-26 10:39] VITALS: RESP 18
--- NOTE | 2024-09-26 11:12 | ED ---
Wound/Laceration HPI - General Chief Complaint: Wound/Laceration Stated Complaint: L leg lac Time Seen by Provider: 09/26/24 10:48 Source: patient, RN notes reviewed Mode of arrival: ambulatory Limitations: no limitations - History of Present Illness Initial Comments: 44-year-old female presenting to emergency department with complaints of a left anterior calix laceration. Patient states that she was pushing a shopping cart when the handle broke causing her to fall forward into the shopping cart. Patient denies hitting her head, loss of consciousness, or other injuries at the time of the fall. Patient has been able to ambulate since the accident. States that last tetanus vaccination was over 5 years ago. Denies blood thinner use. No other acute complaints at this time. - Related Data Home Medications Medication Instructions Recorded Confirmed Pantoprazole [Protonix] 40 mg PO BID 03/20/19 07/17/24 Abatacept [Orencia] 125 mg SQ MO 09/19/20 07/17/24 Montelukast [Singulair] 10 mg PO HS 09/19/20 07/17/24 Acetylcysteine [Nac] 600 mg PO HS 05/26/21 07/17/24 lamoTRIgine [LaMICtal] 200 mg PO BID 05/26/21 07/17/24 rOPINIRole HCL [Requip] 1 mg PO HS 07/24/22 07/17/24 Albuterol Sulfate/Budesonide 1 puff INHALATION RT-QID PRN 07/17/24 07/17/24 [Airsupra 90-80 Mcg Inhaler] Cholecalciferol [Vitamin D3 (25 50 mcg PO BID 07/17/24 07/17/24 Mcg = 1000 Iu)] Cyclobenzaprine [Flexeril] 10 mg PO BID 07/17/24 07/17/24 Furosemide [Lasix] 20 mg PO DAILY 07/17/24 07/17/24 Levothyroxine Sodium [Synthroid] 100 mcg PO DAILY 07/17/24 07/17/24 Lurasidone [Latuda] 60 mg PO DAILY@1900 07/17/24 07/17/24 Viloxazine HCl [Qelbree] 200 mg PO DAILY 07/17/24 07/17/24 traZODone HCL 100 mg PO HS 07/17/24 07/17/24 Previous Rx's Medication Instructions Recorded Gabapentin [Neurontin] 400 mg PO TID #90 cap 09/09/23 Nitroglycerin Sl Tabs [Nitrostat] 0.4 mg SUBLINGUAL Q5M PRN #25 tab 07/18/24 Allergies Allergy/AdvReac Type Severity Reaction Status Date / Time fluticasone Allergy Severe THROAT AND Verified 09/26/24 10:39 [From Advair Diskus] TONGUE SWELLING salmeterol Allergy Severe THROAT AND Verified 09/26/24 10:39 [From Advair Diskus] TONGUE SWELLING clozapine [From Clozaril] AdvReac Depleted Verified 09/26/24 10:39 WBC hydrocodone [From [place]] AdvReac Nausea & Verified 09/26/24 10:39 Vomiting & Diarrhea Review of Systems ROS Statement: Those systems with pertinent positive or pertinent negative responses have been documented in the HPI. ROS Other: All systems not noted in ROS Statement are negative. Past Medical History Past Medical History: Asthma, Blood Disorder, GERD/Reflux, Liver Disease, Osteoarthritis (OA), Rheumatoid Arthritis (RA), Thyroid Disorder Additional Past Medical History / Comment(s): Had hole in heart at , resolved during infancy. HX CHILDHOOD ASTHMA. Medication Induced Leukocytopenia, medication induced Cirrohsis, hypothyroid. History of Any Multi-Drug Resistant Organisms: None Reported Past Surgical History: Back Surgery, Section, Cholecystectomy, Orthopedic Surgery, Tubal Ligation Additional Past Surgical History / Comment(s): Pain clinic procedure, X4, CYST REMOVED FROM LEFT HAND X2, right foot surgery X3,(with metal) left foot surgery (with metal), right shoulder spur surgery. Past Anesthesia/Blood Transfusion Reactions: No Reported Reaction Additional Past Anesthesia/Blood Transfusion Reaction / Comment(s): Difficult IV start. Past Psychological History: Anxiety, Bipolar, Depression Smoking Status: Former smoker Past Alcohol Use History: Occasional Past Drug Use History: Marijuana - Past Family History Mother Family Medical History: Cancer, Pulmonary Embolus Father Additional Family Medical History / Comment(s): Alcoholic. Sister(s) Family Medical History: Cancer Brother(s) Family Medical History: Cancer General Exam Limitations: no limitations General appearance: alert, in no apparent distress Neck exam: Present: normal inspection. Absent: tenderness, meningismus, lymphadenopathy Respiratory exam: Present: normal lung sounds bilaterally. Absent: respiratory distress, wheezes, rales, rhonchi, stridor Cardiovascular Exam: Present: regular rate, normal rhythm, normal heart sounds. Absent: systolic murmur, diastolic murmur, rubs, gallop, clicks GI/Abdominal exam: Present: soft, normal bowel sounds. Absent: distended, tenderness, guarding, rebound, rigid Left Lower Leg exam: Present: tenderness, laceration (2 cm lac to middle anterior lower leg, bleeding controlled) Neurovascular tendon exam: Absent: pulse deficit, abnormal cap refill Gait: observed and normal Back exam: Present: normal inspection Course Vital Signs 09/26/24 09/26/24 10:37 11:20 Temperature 97.8 F 98 F Pulse Rate 78 77 Respiratory 18 18 Rate Blood Pressure 111/73 108/76 O2 Sat by Pulse 99 99 Oximetry Procedures - Laceration Laceration #1 Consent Obtained: verbal consent Indication: laceration Site: lower extremity Size (cm): 4 Description: flap Depth: simple, single layer Anesthesia Technique: local infiltration Amount (mls): 4 Pre-repair: wound explored, irrigated extensively Type of Sutures: nylon Size of Sutures: 4-0 Number of Sutures: 6 Technique: simple, interrupted Patient Tolerated Procedure: well, no complications Medical Decision Making - Medical Decision Making Was pt. sent in by a medical professional or institution ([facility], [facility], urgent care, hospital, or shelter...) When possible be specific @ -No Did you speak to anyone other than the patient for history (EMS, parent, family, police, friend...)? What history was obtained from this source @ -No Did you review nursing and triage notes (agree or disagree)? Why? @ -I reviewed and agree with nursing and triage notes Were old charts reviewed (outside hosp., previous admission, EMS record, old EKG, old radiological studies, urgent care reports/EKG's, shelter records)? Report findings @ -No old charts were reviewed Differential Diagnosis (chest pain, altered mental status, abdominal pain women, abdominal pain men, vaginal bleeding, weakness, fever, dyspnea, syncope, headache, dizziness, GI bleed, back pain, seizure, CVA, palpatations, mental health, musculoskeletal)? @ -Laceration, skin avulsion, contusion, this list is not all inclusive EKG interpreted by me (3pts min.). @ -None X-rays interpreted by me (1pt min.). @ -None done CT interpreted by me (1pt min.). @ -None done U/S interpreted by me (1pt. min.). @ -None done What testing was considered but not performed or refused? (CT, X-rays, U/S, labs)? Why? @ -None What meds were considered but not given or refused? Why? @ -None Did you discuss the management of the patient with other professionals (professionals i.e. DrSadaf, PA, [facility], lab, RT, psych nurse, social service worker, noodle catalyst maker, teacher, civil preparedness officer, egg caser)? Give summary @ -No Was smoking cessation discussed for >3mins.? @ -No Was critical care preformed (if so, how long)? @ -No Were there social determinants of health that impacted care today? How? (Homelessness, low income, unemployed, alcoholism, drug addiction, transportation, low edu. Level, literacy, decrease access to med. care, long-term, rehab)? @ -No Was there de-escalation of care discussed even if they declined (Discuss DNR or withdrawal of care, Hospice)? DNR status @ -No What co-morbidities impacted this encounter? (DM, HTN, Smoking, COPD, CAD, Cancer, CVA, ARF, Chemo, Hep., AIDS, mental health diagnosis, sleep apnea, morbid obesity)? @ -None Was patient admitted / discharged? Hospital course, mention meds given and route, prescriptions, significant lab abnormalities, going to OR and other pertinent info. @ -Discharge. 44-year-old senting with laceration to the left anterior calix. Laceration was cleansed with sterile water and Betadine solution. 6 simple interrupted sutures were placed with 4-0 nylon. Return to the ER or PCP in 7 to 10 days. Return parameters discussed. Case discussed with my attending Dr. Mulligan. she is updated on her tetatnus vaccine as well. Undiagnosed new problem with uncertain prognosis? @ -No Drug Therapy requiring intensive monitoring for toxicity (Heparin, Nitro, In sulin, Cardizem)? @ -No Were any procedures done? @ -Suture, see procedure note Diagnosis/symptom? @ -Laceration Acute, or Chronic, or Acute on Chronic? @ -Acute Uncomplicated (without systemic symptoms) or Complicated (systemic symptoms)? @ -Uncomplicated Side effects of treatment? @ -No Exacerbation, Progression, or Severe Exacerbation? @ -No Poses a threat to life or bodily function? How? (Chest pain, [place], [place], pneumonia, PE, COPD, DKA, ARF, appy, cholecystitis, CVA, Diverticulitis, Homicidal, Suicidal, threat to staff... and all critical care pts) @ -No Disposition Clinical Impression: Laceration Disposition: HOME SELF-CARE Condition: Good Instructions (If sedation given, give patient instructions): Care For Your Stitches (DC) Additional Instructions: Please return to the Emergency Department if symptoms worsen or any other concerns. Please return to the emergency department or to your primary care provider in 7 to 10 days for suture removal. Is patient prescribed a controlled substance at d/c from ED?: No Referrals: Terrance Dan MD [Primary Care Provider] - 1-2 days Time of Disposition: 11:44
[2024-09-26] MEDS: DIPH,PERTUS(ACELL)TETVAC-LF 0.5 ML VIAL IM ONE (11:17)
[2024-09-26] MEDS: LIDOCAINE 1% INJ 10MG/ML (20 ML MDV) SQ ONE (11:17)
[2024-09-26 11:21] VITALS: BP 108/76; PULSE 77; TEMP 98
== END 2024-09-26 12:02 | disposition home or self-care (01) ==
LOC: EC 10:35
DX: S81.812A Laceration without foreign body, left lower leg, initial encounter (principal); Z87.891 Personal history of nicotine dependence; Z88.5 Allergy status to narcotic agent; Z88.8 Allergy status to other drugs, medicaments and biological substances; Z23 Encounter for immunization; W17.82XA Fall from (out of) grocery cart, initial encounter
CPT/HCPCS: 90715; 99282; 90471; 12002; J2003